=== PATIENT | male | born 1940 | race African-American/Black ===

== ENCOUNTER 2020-02-27 00:16 | Inpatient (IN) | payer OTHER, MEDICAID ==
[~2020-02-27] VITALS: Ht 182.9 cm; Wt 117.0 kg
[~2020-02-27 00:16] MED LIST: ALBU2.5V5 NEB; AMLO10TA4 PO; ASPI-482 PO; ATOR10TA60 PO; AZIT250T6 PO; CALC-31 PO; CEFP100T PO; CLON1PAT11 TD; FURO40TA4 PO; GLIM2TAB7 PO; GLIP-26 PO; GUAI5SYR PO; LACT1CAP19 PO; LISI-334 PO; LISI10TA2 PO; METF-658 PO; METF10007 PO; POTA20TA12 PO; SAXA5TAB PO; cyanocobalamin PO
[2020-02-27 00:31] LABS: BASE EXCESS ABG 1 mmol/L (-3-3); CORRECTED PCO2 ABG 48 mmHg; CORRECTED PH ABG 7.35; CORRECTED PO2 ABG 107 mmHg; HCO3 ABG 26 mmol/L (21-28); PCO2 ABG 43 mmHg (35-46); PO2 ABG 90 mmHg (65-108); SAT O2 ABG 96 % (92-99)
[2020-02-27] MEDS ORDERED: ACETAMINOPHEN 650 MG SUPP.RECT. PR ONE (01:00)
[2020-02-27 01:13] LABS: BASO # 0.1 x10^3/uL (0.0-0.2); BASO % 1 % (0-3); EOS % 0 % (0-3); HEMATOCRIT 40.3 % (39.0-53.0); HEMOGLOBIN 13.3 g/dL (13.0-17.5); LYMPH # 1.8 x10^3/uL (1.0-4.8); LYMPH % 19 % (24-48); MEAN CORPUSCULAR HEMOGLOBIN 29 pg (25-35); MEAN CORPUSCULAR HGB CONC 33 g/dL (31-37); MEAN CORPUSCULAR VOLUME 88 fL (79-100); MONO # 0.4 x10^3/uL (0.0-1.1); MONO % 5 % (0-9); NEUT # 7.1 x10^3/uL (1.8-7.7); NEUT % 76 % (31-73); PLATELET COUNT 212 x10^3/uL (140-400); RED BLOOD COUNT 4.56 x10^6/uL (4.30-5.70); RED CELL DISTRIBUTION WIDTH 15.1 % (11.5-14.5); WHITE BLOOD COUNT 9.3 x10^3/uL (4.0-11.0)
--- NOTE | 2020-02-27 01:20 | PHYS DOC ---
Past Medical History Past Medical History: Anemia, Dementia, Diabetes-Type II, Diverticulosis, GERD, High Cholesterol, Hypertension, Other Additional Past Medical Histor: MUSCLE WEAKNESS, POLYNEUROPATHY Past Surgical History: Other Additional Past Surgical Histo: PT POOR HISTORIAN Smoking Status: Unknown if ever smoked Alcohol Use: None Drug Use: None General Adult EDM: Chief Complaint: ALTERED MENTAL STATUS HPI: HPI: Patient is a 79-year-old male with known coronavirus who presents to the emergency room with respiratory distress. Patient is unable to provide any history. Is unclear at this time how long he has been ill. Is unclear whether or not he is on oxygen at baseline. Upon arrival to the emergency room he is on a nonrebreather. He reportedly had a pulse ox of 79 upon EMS arrival. Review of Systems: Review of Systems: Unable to obtain Heart Score: Risk Factors: Risk Factors: DM, Current or recent (<one month) smoker, HTN, HLP, family history of CAD, obesity. Risk Scores: Score 0 - 3: 2.5% MACE over next 6 weeks - Discharge Home Score 4 - 6: 20.3% MACE over next 6 weeks - Admit for Clinical Observation Score 7 - 10: 72.7% MACE over next 6 weeks - Early Invasive Strategies Current Medications: Current Medications Medications (Trade) Dose Ordered Sig/Nick Start Time Stop Time Status Last Admin Dose Admin Acetaminophen (Tylenol Supp) 650 mg 1X ONCE 02/27/20 01:00 02/27/20 01:01 DC 02/27/20 01:06 650 MG Allergies: Allergies: Allergies Coded Allergies Type Severity Reaction Last Updated Verified No Known Drug Allergies 07/08/13 No Physical Exam: PE: General: Awake, mild distress. Well Nourished, well hydrated. Cooperative HEENT: Atraumatic, EOMI, PERRL, airway patent, moist oral mucosa Neck: Supple, trachea midline Pulm: decreased breath sounds, diffuse crackles, tachypnea, increase work of breathing CV: tachycardia, no murmur, cap refill <2 GI: Soft, nondistended, nontender, no masses MSK: No obvious deformities Skin: Warm, dry, intact Neuro: nonverbal, sensory and motor grossly intact, no focal deficits Psych: not suicidal or homicidal Current Patient Data: Labs: Laboratory Tests Test 02/27/20 00:29 O2 Saturation 96 % (92-99) Arterial Blood pH 7.40 (7.35-7.45) Arterial Blood pH (Temp corrected) 7.35 Arterial Blood pCO2 at Patient Temp 43 mmHg (35-46) Arterial Blood pCO2 (Temp correct) 48 mmHg Arterial Blood pO2 at Patient Temp 90 mmHg (65-108) Arterial Blood pO2 (Temp corrected) 107 mmHg Arterial Blood HCO3 26 mmol/L (21-28) Arterial Blood Base Excess 1 mmol/L (-3-3) Vital Signs: Vital Signs Date Time Temp Pulse Resp B/P (MAP) Pulse Ox O2 Delivery O2 Flow Rate FiO2 02/27/20 00:18 103.6 78 51 146/81 (102) 98 15.0 103.6 EKG: EKG: [] Radiology/Procedures: Radiology/Procedures: [] Course & Med Decision Making: Course & Med Decision Making Pertinent Labs and Imaging studies reviewed. (See chart for details) Patient is a 79-year-old male who presents to the emergency room with shortness of breath with respiratory distress. At this time there is concern for the novel coronavirus 19. Patient's risk factors include age. Risk stratifying work-up was ordered including chest x-ray, d-dimer, CPK, CRP, LDH, troponin, ferritin, CBC, CMP. At this time, patients labs, vitals, and exam are significant for hypoxia. Patient was able to be weaned down from a nonrebreather to 6 L nasal cannula. ABG was done and patient is compensating well at this time. Due to patient's risk and clinical picture, they will need to be admitted at this time. IVFs will be limited due to concern for fluid overload in COVID-19 patients. Patient will be given empiric antibiotics due to infiltrates and risk of co-bacterial infection. Further treatment will be dictated by the inpatient team. Dragon Disclaimer: Dragon Disclaimer: This electronic medical record was generated, in whole or in part, using a voice recognition dictation system. Departure Departure Impression: Primary Impression: Respiratory failure with hypoxia Additional Impression: 2019 novel coronavirus disease (COVID-19) Disposition: ADMITTED INPATIENT Condition: STABLE Referrals: UNKNOWN PCP NAME (PCP) Justicifation of Admission Dx: Justifications for Admission: Justification of Admission Dx: Yes Respiratory Failure: Severe Resp Distress Critical Care Time Critical Care: Authorized and Performed by: Niecy Escobar MD Total critical care time: approximately 35 minutes Due to a high probability of clinically significant, life threatening deterioration, the patient required my highest level of preparedness to intervene emergently and I personally spent this critical care time directly and personally managing the patient. This critical care time included obtaining a history; examining the patient; pulse oximetry; ventilator management if necessary; ordering and review of studies; arranging urgent treatment with development of a management plan; evaluation of patient's response to treatment; frequent reassessment; discussion with patient/family; and, discussions with other providers. This critical care time was performed to assess and manage the high probability of imminent, life-threatening deterioration that could result in multi-organ failure. It was exclusive of separately billable procedures and treating other patients and teaching time. Please see MDM section and the rest of the note for further information on patient assessment and treatment. COVID-19 Assessment: COVID-19 Patient Risks: Age 65 or older: Yes Sign of co-morbidity: Yes Exp to person + for COVID: Yes Lower respiratory symptoms: Yes Fever: Yes NIECY ESCOBAR MD Feb 27, 2020 01:20
[2020-02-27 01:33] LABS: CALCIUM 8.3 mg/dL (8.5-10.1); CREATININE 1.4 mg/dL (0.7-1.3); GFR 59.5; POTASSIUM 4.3 mmol/L (3.5-5.1)
[2020-02-27 01:46] LABS: ALBUMIN 2.7 g/dL (3.4-5.0); ALBUMIN/GLOBULIN RATIO 0.5 (1.0-1.7); C-REACTIVE PROTEIN 163.7 mg/L (0-3.3); TOTAL BILIRUBIN 0.3 mg/dL (0.2-1.0); TOTAL PROTEIN 7.7 g/dL (6.4-8.2)
--- NOTE | 2020-02-27 01:53 | RAD ---
INDICATION: Reason: cough, infectious symptoms COMPARISON: May 2018 FINDINGS: Single view of chest obtained. Cardiac silhouette is again enlarged. Patchy interstitial and alveolar opacities throughout the right greater than left lung IMPRESSION: * Patchy opacities in bilateral lungs which could be seen with multifocal infiltrate or edema Electronically signed by: Heber Evans MD (02/27/2020 1:50 AM) [id number]
[2020-02-27 04:00] VITALS: BP 96/52
[2020-02-27] MEDS ORDERED: GLIP-26 PO (05:30)
[2020-02-27] MEDS ORDERED: ACET500T33 PO (05:30)
[2020-02-27] MEDS ORDERED: FURO20TA3 PO (05:30)
[2020-02-27] MEDS ORDERED: SENN8.8S5 PO (05:30)
[2020-02-27 07:00] VITALS: BP 126/54
[2020-02-27] MEDS ORDERED: DEXTROSE 50% 25 GM / 50ML DISP.SYRIN. IV PRN (07:15)
[2020-02-27] MEDS ORDERED: ACETAMINOPHEN 650 MG SUPP.RECT. PR PRN (07:15)
[2020-02-27] MEDS ORDERED: MAG HYDROX/ALUMINUM HYD/SIMETH 30 ML ORAL.SUSP PO PRN (07:15)
[2020-02-27] MEDS ORDERED: ONDANSETRON PF 4 MG/2 ML VIAL. IV PRN (07:15)
[2020-02-27] MEDS ORDERED: ACETAMINOPHEN 325 MG TABLET. PO PRN (07:15)
[2020-02-27] MEDS ORDERED: guaiFENesin DM 200MG/20MG 10 ML SYRUP PO PRN (07:15)
--- NOTE | 2020-02-27 07:17 | PDOC1 ---
History and Physical Date of Admission Date of Admission DATE: 02/27/20 TIME: 07:04 Identification/Chief Complaint Chief Complaint Shortness of breath Source Source: Patient History of Present Illness History of Present Illness Mr Rivera is a 79-year-old male with PMHx Anemia, Dementia, Diabetes-Type II, Diverticulosis, GERD, High Cholesterol, Hypertension, POLYNEUROPATHY resident of [facility] in [place] comes to ED with known SARS-CoV-2 (COVID 19) who presents to the emergency room with respiratory distress. Patient is unable to provide any history. Is unclear at this time how long he has been ill. Is unclear whether or not he is on oxygen at baseline. Upon arrival to the emergency room he is on a nonrebreather. He reportedly had a pulse ox of 72 upon EMS arrival. Patient was able to be weaned down from a nonrebreather to 6 L nasal cannula. ABG was done 7.35/48/107 on 6 L nasal cannula. WBC 9.3, Hb 13.3, platelets 212, d-dimer 3.92, troponin 0 0.22, AST 57, CRP 163.7, CK 1865, albumin 2.7 EKG sinus rhythm, leftward axis QRS transition zone, nonspecific T abnormalities high lateral leads, new prolonged QT. CXR with bilateral patchy infiltrate consistent with COVID-19 pneumonia. Admitted for further care. Past Medical History Cardiovascular: HTN, Hyperlipidemia Endocrine: Diabetes Past Surgical History Past Surgical History: No pertinent history Family History Family History: No Significant Social History Smoke: No ALCOHOL: none Drugs: None Current Problem List Problem List Problems Medical Problems: (1) 2019 novel coronavirus disease (COVID-19) Status: Acute (2) Respiratory failure with hypoxia Status: Acute Current Medications Current Medications Current Medications Acetaminophen (Tylenol Supp) 650 mg 1X ONCE TX Last administered on 02/27/20at 01:06; Start 02/27/20 at 01:00; Stop 02/27/20 at 01:01; Status DC Active Scripts Active Culturelle (Lactobacillus Rhamnosus Gg) 1 Each Cap.sprink 1 Cap PO BID 30 Days Guaifenesin Dm Syrup (Guaifenesin/Dextromethorphan) 5 Ml Syrup 10 Ml PO PRN Q6HRS PRN 30 Days Albuterol Sulfate Neb Soln (Albuterol Sulfate) 2.5 Mg/3 Ml Vial.neb 2.5 Mg NEB PRN Q4HRS PRN 30 Days Azithromycin Tablet (Azithromycin) 250 Mg Tablet 250 Mg PO DAILY 5 Days Cefpodoxime Proxetil 100 Mg Tablet 200 Mg PO BID 5 Days Reported Senna (Sennosides) 8.8 Mg/5 Ml Syrup 8.8 Mg PO DAILY Tylenol Extra Strength (Acetaminophen) 500 Mg Tablet 1,000 Mg PO PRN PRN Furosemide 20 Mg Tablet 1 Tab PO DAILY Glipizide Xl (Glipizide) 10 Mg Tab.er.24 1 Tab PO DAILY 30 Days Metformin Hcl Er (Metformin Hcl) 500 Mg Tab.er.24h 1,000 Mg PO DAILYWBKFT Glipizide Xl (Glipizide) 10 Mg Tab.er.24 10 Mg PO DAILY Calcium 500 + D Tablet (Calcium Carbonate/Vitamin D3) 1 Each Tablet 1 Each PO DAILY Catapres-Tts 3 (Clonidine) 1 Each Patch.tdwk 1 Each TD WEEKLY Lisinopril 20 Mg Tablet 1 Tab PO DAILY [cyanocobalamin] 100 Mcg PO DAILY Aspir 81 (Aspirin) 81 Mg Tablet.dr 81 Mg PO DAILY Norvasc (Amlodipine Besylate) 10 Mg Tablet 10 Mg PO DAILY Atorvastatin Calcium 10 Mg Tablet 10 Mg PO HS Allergies Allergies: Coded Allergies: No Known Drug Allergies (Unverified , 07/08/13) ROS Review of System Unable to obtain as patient is minimally verbally interactive Physical Exam General: Alert, Cooperative, mild distress HEENT: Atraumatic, PERRLA, EOMI, Mucous membr. moist/pink Lungs: Other (Rhonchi bilaterally) Heart: S1S2, RRR, no thrills, no rubs, no gallops, no murmurs Abdomen: Normal bowel sounds, Soft, No tenderness, No hepatosplenomegaly, No masses Extremities: No clubbing, No cyanosis, No edema, Normal pulses, No tenderness/swelling Skin: No rashes, No breakdown, No significant lesion Neuro: Normal tone, Sensation intact, Cranial nerves 3-12 NL, Reflexes 2+ Psych/Mental Status: Other (Paucity of speech, confused) Vitals Vitals Vital Signs Date Time Temp Pulse Resp B/P (MAP) Pulse Ox O2 Delivery O2 Flow Rate FiO2 02/27/20 04:00 Nasal Cannula 6.0 02/27/20 04:00 100.7 89 22 96/52 (67) 96 100.7 Labs Labs Laboratory Tests Test 02/27/20 00:29 02/27/20 00:40 O2 Saturation 96 % (92-99) Arterial Blood pH 7.40 (7.35-7.45) Arterial Blood pH (Temp corrected) 7.35 Arterial Blood pCO2 at Patient Temp 43 mmHg (35-46) Arterial Blood pCO2 (Temp correct) 48 mmHg Arterial Blood pO2 at Patient Temp 90 mmHg (65-108) Arterial Blood pO2 (Temp corrected) 107 mmHg Arterial Blood HCO3 26 mmol/L (21-28) Arterial Blood Base Excess 1 mmol/L (-3-3) White Blood Count 9.3 x10^3/uL (4.0-11.0) Red Blood Count 4.56 x10^6/uL (4.30-5.70) Hemoglobin 13.3 g/dL (13.0-17.5) Hematocrit 40.3 % (39.0-53.0) Mean Corpuscular Volume 88 fL (79-100) Mean Corpuscular Hemoglobin 29 pg (25-35) Mean Corpuscular Hemoglobin Concent 33 g/dL (31-37) Red Cell Distribution Width 15.1 % (11.5-14.5) Platelet Count 212 x10^3/uL (140-400) Neutrophils (%) (Auto) 76 % (31-73) Lymphocytes (%) (Auto) 19 % (24-48) Monocytes (%) (Auto) 5 % (0-9) Eosinophils (%) (Auto) 0 % (0-3) Basophils (%) (Auto) 1 % (0-3) Neutrophils # (Auto) 7.1 x10^3/uL (1.8-7.7) Lymphocytes # (Auto) 1.8 x10^3/uL (1.0-4.8) Monocytes # (Auto) 0.4 x10^3/uL (0.0-1.1) Eosinophils # (Auto) 0.0 x10^3/uL (0.0-0.7) Basophils # (Auto) 0.1 x10^3/uL (0.0-0.2) D-Dimer (Viv) 3.92 ug/mlFEU (0.00-0.50) Sodium Level 143 mmol/L (136-145) Potassium Level 4.3 mmol/L (3.5-5.1) Chloride Level 106 mmol/L (98-107) Carbon Dioxide Level 28 mmol/L (21-32) Anion Gap 9 (6-14) Blood Urea Nitrogen 21 mg/dL (8-26) Creatinine 1.4 mg/dL (0.7-1.3) Estimated GFR (Cockcroft-Gault) 59.5 BUN/Creatinine Ratio 15 (6-20) Glucose Level 180 mg/dL (70-99) Calcium Level 8.3 mg/dL (8.5-10.1) Total Bilirubin 0.3 mg/dL (0.2-1.0) Aspartate Amino Transf (AST/SGOT) 57 U/L (15-37) Alanine Aminotransferase (ALT/SGPT) 24 U/L (16-63) Alkaline Phosphatase 62 U/L (46-116) Lactate Dehydrogenase 464 U/L (85-227) Creatine Kinase 1865 U/L (39-308) Troponin I Quantitative 0.022 ng/mL (0.000-0.055) C-Reactive Protein, Quantitative 163.7 mg/L (0-3.3) QZ-Gun-X-Type Natriuretic Peptide 290 pg/mL (0-449) Total Protein 7.7 g/dL (6.4-8.2) Albumin 2.7 g/dL (3.4-5.0) Albumin/Globulin Ratio 0.5 (1.0-1.7) Laboratory Tests Test 02/27/20 00:29 02/27/20 00:40 O2 Saturation 96 % (92-99) Arterial Blood pH 7.40 (7.35-7.45) Arterial Blood pH (Temp corrected) 7.35 Arterial Blood pCO2 at Patient Temp 43 mmHg (35-46) Arterial Blood pCO2 (Temp correct) 48 mmHg Arterial Blood pO2 at Patient Temp 90 mmHg (65-108) Arterial Blood pO2 (Temp corrected) 107 mmHg Arterial Blood HCO3 26 mmol/L (21-28) Arterial Blood Base Excess 1 mmol/L (-3-3) White Blood Count 9.3 x10^3/uL (4.0-11.0) Red Blood Count 4.56 x10^6/uL (4.30-5.70) Hemoglobin 13.3 g/dL (13.0-17.5) Hematocrit 40.3 % (39.0-53.0) Mean Corpuscular Volume 88 fL (79-100) Mean Corpuscular Hemoglobin 29 pg (25-35) Mean Corpuscular Hemoglobin Concent 33 g/dL (31-37) Red Cell Distribution Width 15.1 % (11.5-14.5) Platelet Count 212 x10^3/uL (140-400) Neutrophils (%) (Auto) 76 % (31-73) Lymphocytes (%) (Auto) 19 % (24-48) Monocytes (%) (Auto) 5 % (0-9) Eosinophils (%) (Auto) 0 % (0-3) Basophils (%) (Auto) 1 % (0-3) Neutrophils # (Auto) 7.1 x10^3/uL (1.8-7.7) Lymphocytes # (Auto) 1.8 x10^3/uL (1.0-4.8) Monocytes # (Auto) 0.4 x10^3/uL (0.0-1.1) Eosinophils # (Auto) 0.0 x10^3/uL (0.0-0.7) Basophils # (Auto) 0.1 x10^3/uL (0.0-0.2) D-Dimer (Viv) 3.92 ug/mlFEU (0.00-0.50) Sodium Level 143 mmol/L (136-145) Potassium Level 4.3 mmol/L (3.5-5.1) Chloride Level 106 mmol/L (98-107) Carbon Dioxide Level 28 mmol/L (21-32) Anion Gap 9 (6-14) Blood Urea Nitrogen 21 mg/dL (8-26) Creatinine 1.4 mg/dL (0.7-1.3) Estimated GFR (Cockcroft-Gault) 59.5 BUN/Creatinine Ratio 15 (6-20) Glucose Level 180 mg/dL (70-99) Calcium Level 8.3 mg/dL (8.5-10.1) Total Bilirubin 0.3 mg/dL (0.2-1.0) Aspartate Amino Transf (AST/SGOT) 57 U/L (15-37) Alanine Aminotransferase (ALT/SGPT) 24 U/L (16-63) Alkaline Phosphatase 62 U/L (46-116) Lactate Dehydrogenase 464 U/L (85-227) Creatine Kinase 1865 U/L (39-308) Troponin I Quantitative 0.022 ng/mL (0.000-0.055) C-Reactive Protein, Quantitative 163.7 mg/L (0-3.3) IC-Fyb-L-Type Natriuretic Peptide 290 pg/mL (0-449) Total Protein 7.7 g/dL (6.4-8.2) Albumin 2.7 g/dL (3.4-5.0) Albumin/Globulin Ratio 0.5 (1.0-1.7) Images Images CXR: Single view of chest obtained. Cardiac silhouette is again enlarged. Patchy interstitial and alveolar opacities throughout the right greater than left lung IMPRESSION: * Patchy opacities in bilateral lungs which could be seen with multifocal infiltrate or edema VTE Prophylaxis Ordered VTE Prophylaxis Devices: No VTE Pharmacological Prophylaxi: Yes Assessment/Plan Assessment/Plan A/P Respiratory failure with hypoxia - likely 2/2 COVID 19. Steroids, Lovenox twice daily, consult pulmonology. Maintain O2 saturations 92% or greater. SARS-CoV-2 (COVID-19) - As above Anemia - likely of chronic disease Dementia - uncertain etiology, was in adult daycare until this past year, now in SNF [employer] Diabetes-Type II - sliding scale insulin, will hold oral hypoglycemics for now GERD - cont antacids High Cholesterol - cont statin Hypertension - cont meds, hold clonidine patch given his BP is on the low side POLYNEUROPATHY - CK elevated, will monitor FEN - Pureed nectar thick diet PPX - lovenox FULL CODE Dispo - inpatient, will need close O2 monitoring Justicifation of Admission Dx: Justifications for Admission: Justification of Admission Dx: Yes Respiratory Failure: Severe Resp Distress LATISHA ROTHMAN MD Feb 27, 2020 07:17
[2020-02-27] MEDS: INSULIN LISPRO 300 UNITS/3 ML VIAL. SQ SCH ×4 (07:30→21:00)
[2020-02-27] MEDS ORDERED: cloNIDine TTS-3 1 PATCH PATCH.TDWK TD SCH (09:00)
[2020-02-27] MEDS: LACTOBACILLUS RHAMNOSUS GG 1 CAPSULE. PO SCH ×2 (09:00→21:00)
[2020-02-27] MEDS ORDERED: ENOXAPARIN 30 MG/0.3 ML SYRINGE. SQ SCH (09:00)
[2020-02-27] MEDS: ASPIRIN ENTERIC COATED 81 MG TABLET.DR. PO SCH (09:00)
[2020-02-27] MEDS: amLODIPine BESYLATE 10 MG TABLET PO SCH (09:00)
--- NOTE | 2020-02-27 09:43 | EKG ---
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
[2020-02-27 11:00] VITALS: BP 109/54
[2020-02-27] MEDS: methylPREDNISolone SOD SUCC PF 40 MG/ML VIAL. IV SCH ×3 (11:35→21:50)
[2020-02-27 11:57] LABS: BASE EXCESS ABG -1 mmol/L (-3-3); CORRECTED PCO2 ABG 47 mmHg; CORRECTED PH ABG 7.35; CORRECTED PO2 ABG 68 mmHg; HCO3 ABG 25 mmol/L (21-28); PCO2 ABG 44 mmHg (35-46); PO2 ABG 60 mmHg (65-108); SAT O2 ABG 91 % (92-99)
[2020-02-27 12:00] LABS: FIO2 ABG 44/6L NC
[2020-02-27 14:33] VITALS: BP 103/51
[2020-02-27] MEDS: ZINC SULFATE 220 MG CAPSULE. PO SCH (16:00)
--- NOTE | 2020-02-27 17:30 | NUR ---
SW following. Reviewed chart and discussed with RN. Pt on . Pt COVID positive. Pulmonary consulted. SW following.
[2020-02-27 19:00] VITALS: BP 149/64
[2020-02-27] MEDS ORDERED: ENOXAPARIN 40 MG/0.4 ML SYRINGE. SQ SCH (21:00)
[2020-02-27] MEDS: ATORVASTATIN CALCIUM 10 MG TABLET. PO SCH (21:00)
[2020-02-27 23:00] VITALS: BP 133/60
[2020-02-28 03:00] VITALS: BP 117/56
[2020-02-28 03:55] LABS: BASO % 0 % (0-3); EOS % 0 % (0-3); HEMATOCRIT 37.6 % (39.0-53.0); HEMOGLOBIN 12.4 g/dL (13.0-17.5); LYMPH # 0.5 x10^3/uL (1.0-4.8); LYMPH % 7 % (24-48); MEAN CORPUSCULAR HEMOGLOBIN 29 pg (25-35); MEAN CORPUSCULAR HGB CONC 33 g/dL (31-37); MEAN CORPUSCULAR VOLUME 89 fL (79-100); MONO # 0.2 x10^3/uL (0.0-1.1); MONO % 3 % (0-9); NEUT # 6.7 x10^3/uL (1.8-7.7); NEUT % 90 % (31-73); PLATELET COUNT 175 x10^3/uL (140-400); RED BLOOD COUNT 4.22 x10^6/uL (4.30-5.70); RED CELL DISTRIBUTION WIDTH 15.1 % (11.5-14.5); WHITE BLOOD COUNT 7.5 x10^3/uL (4.0-11.0)
[2020-02-28 04:27] LABS: ALBUMIN 2.5 g/dL (3.4-5.0); ALBUMIN/GLOBULIN RATIO 0.5 (1.0-1.7); CALCIUM 7.6 mg/dL (8.5-10.1); CREATININE 2.4 mg/dL (0.7-1.3); GFR 31.9; POTASSIUM 4.5 mmol/L (3.5-5.1); TOTAL BILIRUBIN 0.4 mg/dL (0.2-1.0); TOTAL PROTEIN 7.3 g/dL (6.4-8.2)
[2020-02-28 05:29] LABS: % BANDS 5 % (0-9); % LYMPHS 13 % (24-48); % MONOS 2 % (0-10); % SEGS 80 % (35-66); PLT ESTIMATE ADEQUATE (ADEQUATE)
[2020-02-28] MEDS: methylPREDNISolone SOD SUCC PF 40 MG/ML VIAL. IV SCH ×3 (06:28→21:46)
[2020-02-28 07:29] VITALS: BP 113/53
[2020-02-28] MEDS: ZINC SULFATE 220 MG CAPSULE. PO SCH ×2 (08:29→09:00)
[2020-02-28] MEDS: ASPIRIN ENTERIC COATED 81 MG TABLET.DR. PO SCH ×2 (08:29→09:00)
[2020-02-28] MEDS: LACTOBACILLUS RHAMNOSUS GG 1 CAPSULE. PO SCH ×3 (08:29→20:04)
[2020-02-28] MEDS: amLODIPine BESYLATE 10 MG TABLET PO SCH ×2 (08:29→09:00)
[2020-02-28] MEDS: INSULIN LISPRO 300 UNITS/3 ML VIAL. SQ SCH ×4 (10:02→21:47)
--- NOTE | 2020-02-28 10:30 | PDOC ---
PULMONARY PROGRESS NOTES DATE: 02/28/20 TIME: 10:22 Subjective pt. remains lethargic, unknown alertness baseline with underlying dementia remains on N/C oxygen fever overnight Vitals Vital Signs Date Time Temp Pulse Resp B/P (MAP) Pulse Ox O2 Delivery O2 Flow Rate FiO2 02/28/20 09:00 68 113/53 02/28/20 07:29 99.4 18 93 Nasal Cannula 6.0 99.4 Comments PT. seen during ID- pandemic visual exam preformed RRR N/C no distress no rash No edeam Lungs: Wheezing, Crackles Cardiovascular: S1 Labs Laboratory Tests Test 02/27/20 00:29 02/27/20 00:40 02/27/20 08:04 02/27/20 11:07 O2 Saturation 96 % (92-99) Arterial Blood pH 7.40 (7.35-7.45) Arterial Blood pH (Temp corrected) 7.35 Arterial Blood pCO2 at Patient Temp 43 mmHg (35-46) Arterial Blood pCO2 (Temp correct) 48 mmHg Arterial Blood pO2 at Patient Temp 90 mmHg (65-108) Arterial Blood pO2 (Temp corrected) 107 mmHg Arterial Blood HCO3 26 mmol/L (21-28) Arterial Blood Base Excess 1 mmol/L (-3-3) White Blood Count 9.3 x10^3/uL (4.0-11.0) Red Blood Count 4.56 x10^6/uL (4.30-5.70) Hemoglobin 13.3 g/dL (13.0-17.5) Hematocrit 40.3 % (39.0-53.0) Mean Corpuscular Volume 88 fL (79-100) Mean Corpuscular Hemoglobin 29 pg (25-35) Mean Corpuscular Hemoglobin Concent 33 g/dL (31-37) Red Cell Distribution Width 15.1 % (11.5-14.5) Platelet Count 212 x10^3/uL (140-400) Neutrophils (%) (Auto) 76 % (31-73) Lymphocytes (%) (Auto) 19 % (24-48) Monocytes (%) (Auto) 5 % (0-9) Eosinophils (%) (Auto) 0 % (0-3) Basophils (%) (Auto) 1 % (0-3) Neutrophils # (Auto) 7.1 x10^3/uL (1.8-7.7) Lymphocytes # (Auto) 1.8 x10^3/uL (1.0-4.8) Monocytes # (Auto) 0.4 x10^3/uL (0.0-1.1) Eosinophils # (Auto) 0.0 x10^3/uL (0.0-0.7) Basophils # (Auto) 0.1 x10^3/uL (0.0-0.2) D-Dimer (Viv) 3.92 ug/mlFEU (0.00-0.50) Sodium Level 143 mmol/L (136-145) Potassium Level 4.3 mmol/L (3.5-5.1) Chloride Level 106 mmol/L (98-107) Carbon Dioxide Level 28 mmol/L (21-32) Anion Gap 9 (6-14) Blood Urea Nitrogen 21 mg/dL (8-26) Creatinine 1.4 mg/dL (0.7-1.3) Estimated GFR (Cockcroft-Gault) 59.5 BUN/Creatinine Ratio 15 (6-20) Glucose Level 180 mg/dL (70-99) Calcium Level 8.3 mg/dL (8.5-10.1) Total Bilirubin 0.3 mg/dL (0.2-1.0) Aspartate Amino Transf (AST/SGOT) 57 U/L (15-37) Alanine Aminotransferase (ALT/SGPT) 24 U/L (16-63) Alkaline Phosphatase 62 U/L (46-116) Lactate Dehydrogenase 464 U/L (85-227) Creatine Kinase 1865 U/L (39-308) Troponin I Quantitative 0.022 ng/mL (0.000-0.055) C-Reactive Protein, Quantitative 163.7 mg/L (0-3.3) HK-Alv-B-Type Natriuretic Peptide 290 pg/mL (0-449) Total Protein 7.7 g/dL (6.4-8.2) Albumin 2.7 g/dL (3.4-5.0) Albumin/Globulin Ratio 0.5 (1.0-1.7) Glucose (Fingerstick) 137 mg/dL (70-99) 151 mg/dL (70-99) Test 02/27/20 11:22 02/27/20 15:51 02/27/20 21:05 8/22/20 03:40 O2 Saturation 91 % (92-99) Arterial Blood pH 7.37 (7.35-7.45) Arterial Blood pH (Temp corrected) 7.35 Arterial Blood pCO2 at Patient Temp 44 mmHg (35-46) Arterial Blood pCO2 (Temp correct) 47 mmHg Arterial Blood pO2 at Patient Temp 60 mmHg (65-108) Arterial Blood pO2 (Temp corrected) 68 mmHg Arterial Blood HCO3 25 mmol/L (21-28) Arterial Blood Base Excess -1 mmol/L (-3-3) FiO2 44/6l nc Glucose (Fingerstick) 143 mg/dL (70-99) 221 mg/dL (70-99) White Blood Count 7.5 x10^3/uL (4.0-11.0) Red Blood Count 4.22 x10^6/uL (4.30-5.70) Hemoglobin 12.4 g/dL (13.0-17.5) Hematocrit 37.6 % (39.0-53.0) Mean Corpuscular Volume 89 fL (79-100) Mean Corpuscular Hemoglobin 29 pg (25-35) Mean Corpuscular Hemoglobin Concent 33 g/dL (31-37) Red Cell Distribution Width 15.1 % (11.5-14.5) Platelet Count 175 x10^3/uL (140-400) Neutrophils (%) (Auto) 90 % (31-73) Lymphocytes (%) (Auto) 7 % (24-48) Monocytes (%) (Auto) 3 % (0-9) Eosinophils (%) (Auto) 0 % (0-3) Basophils (%) (Auto) 0 % (0-3) Neutrophils # (Auto) 6.7 x10^3/uL (1.8-7.7) Lymphocytes # (Auto) 0.5 x10^3/uL (1.0-4.8) Monocytes # (Auto) 0.2 x10^3/uL (0.0-1.1) Eosinophils # (Auto) 0.0 x10^3/uL (0.0-0.7) Basophils # (Auto) 0.0 x10^3/uL (0.0-0.2) Segmented Neutrophils % 80 % (35-66) Band Neutrophils % 5 % (0-9) Lymphocytes % 13 % (24-48) Monocytes % 2 % (0-10) Platelet Estimate Adequate (ADEQUATE) Sodium Level 145 mmol/L (136-145) Potassium Level 4.5 mmol/L (3.5-5.1) Chloride Level 108 mmol/L (98-107) Carbon Dioxide Level 26 mmol/L (21-32) Anion Gap 11 (6-14) Blood Urea Nitrogen 43 mg/dL (8-26) Creatinine 2.4 mg/dL (0.7-1.3) Estimated GFR (Cockcroft-Gault) 31.9 BUN/Creatinine Ratio 18 (6-20) Glucose Level 252 mg/dL (70-99) Calcium Level 7.6 mg/dL (8.5-10.1) Total Bilirubin 0.4 mg/dL (0.2-1.0) Aspartate Amino Transf (AST/SGOT) 73 U/L (15-37) Alanine Aminotransferase (ALT/SGPT) 31 U/L (16-63) Alkaline Phosphatase 53 U/L (46-116) Total Protein 7.3 g/dL (6.4-8.2) Albumin 2.5 g/dL (3.4-5.0) Albumin/Globulin Ratio 0.5 (1.0-1.7) Test 02/28/20 07:10 02/28/20 10:12 Glucose (Fingerstick) 229 mg/dL (70-99) 263 mg/dL (70-99) Laboratory Tests Test 02/27/20 11:07 02/27/20 11:22 02/27/20 15:51 02/27/20 21:05 Glucose (Fingerstick) 151 mg/dL (70-99) 143 mg/dL (70-99) 221 mg/dL (70-99) O2 Saturation 91 % (92-99) Arterial Blood pH 7.37 (7.35-7.45) Arterial Blood pH (Temp corrected) 7.35 Arterial Blood pCO2 at Patient Temp 44 mmHg (35-46) Arterial Blood pCO2 (Temp correct) 47 mmHg Arterial Blood pO2 at Patient Temp 60 mmHg (65-108) Arterial Blood pO2 (Temp corrected) 68 mmHg Arterial Blood HCO3 25 mmol/L (21-28) Arterial Blood Base Excess -1 mmol/L (-3-3) FiO2 44/6l nc Test 02/28/20 03:40 02/28/20 07:10 02/28/20 10:12 White Blood Count 7.5 x10^3/uL (4.0-11.0) Red Blood Count 4.22 x10^6/uL (4.30-5.70) Hemoglobin 12.4 g/dL (13.0-17.5) Hematocrit 37.6 % (39.0-53.0) Mean Corpuscular Volume 89 fL (79-100) Mean Corpuscular Hemoglobin 29 pg (25-35) Mean Corpuscular Hemoglobin Concent 33 g/dL (31-37) Red Cell Distribution Width 15.1 % (11.5-14.5) Platelet Count 175 x10^3/uL (140-400) Neutrophils (%) (Auto) 90 % (31-73) Lymphocytes (%) (Auto) 7 % (24-48) Monocytes (%) (Auto) 3 % (0-9) Eosinophils (%) (Auto) 0 % (0-3) Basophils (%) (Auto) 0 % (0-3) Neutrophils # (Auto) 6.7 x10^3/uL (1.8-7.7) Lymphocytes # (Auto) 0.5 x10^3/uL (1.0-4.8) Monocytes # (Auto) 0.2 x10^3/uL (0.0-1.1) Eosinophils # (Auto) 0.0 x10^3/uL (0.0-0.7) Basophils # (Auto) 0.0 x10^3/uL (0.0-0.2) Segmented Neutrophils % 80 % (35-66) Band Neutrophils % 5 % (0-9) Lymphocytes % 13 % (24-48) Monocytes % 2 % (0-10) Platelet Estimate Adequate (ADEQUATE) Sodium Level 145 mmol/L (136-145) Potassium Level 4.5 mmol/L (3.5-5.1) Chloride Level 108 mmol/L (98-107) Carbon Dioxide Level 26 mmol/L (21-32) Anion Gap 11 (6-14) Blood Urea Nitrogen 43 mg/dL (8-26) Creatinine 2.4 mg/dL (0.7-1.3) Estimated GFR (Cockcroft-Gault) 31.9 BUN/Creatinine Ratio 18 (6-20) Glucose Level 252 mg/dL (70-99) Calcium Level 7.6 mg/dL (8.5-10.1) Total Bilirubin 0.4 mg/dL (0.2-1.0) Aspartate Amino Transf (AST/SGOT) 73 U/L (15-37) Alanine Aminotransferase (ALT/SGPT) 31 U/L (16-63) Alkaline Phosphatase 53 U/L (46-116) Total Protein 7.3 g/dL (6.4-8.2) Albumin 2.5 g/dL (3.4-5.0) Albumin/Globulin Ratio 0.5 (1.0-1.7) Glucose (Fingerstick) 229 mg/dL (70-99) 263 mg/dL (70-99) Medications Active Scripts Medications Dose Route/Sig Max Daily Dose Days Date Category Senna (Sennosides) 8.8 Mg/5 Ml Syrup 8.8 Mg PO DAILY 02/27/20 Reported Tylenol Extra Strength (Acetaminophen) 500 Mg Tablet 1,000 Mg PO PRN PRN 02/27/20 Reported Furosemide 20 Mg Tablet 1 Tab PO DAILY 02/27/20 Reported Glipizide Xl (Glipizide) 10 Mg Tab.er.24 1 Tab PO DAILY 30 02/27/20 Reported Culturelle (Lactobacillus Rhamnosus Gg) 1 Each Cap.sprink 1 Cap PO BID 30 05/23/18 Rx Guaifenesin Dm Syrup (Guaifenesin/Dextromethorphan) 5 Ml Syrup 10 Ml PO PRN Q6HRS PRN 30 05/23/18 Rx Albuterol Sulfate Neb Soln (Albuterol Sulfate) 2.5 Mg/3 Ml Vial.neb 2.5 Mg NEB PRN Q4HRS PRN 30 05/23/18 Rx Azithromycin Tablet (Azithromycin) 250 Mg Tablet 250 Mg PO DAILY 05/23/18 Rx Cefpodoxime Proxetil 100 Mg Tablet 200 Mg PO BID 05/23/18 Rx Metformin Hcl Er (Metformin Hcl) 500 Mg Tab.er.24h 1,000 Mg PO DAILYWBKFT 05/21/18 Reported Glipizide Xl (Glipizide) 10 Mg Tab.er.24 10 Mg PO DAILY 11/12/18 Reported Calcium 500 + D Tablet (Calcium Carbonate/Vitamin D3) 1 Each Tablet 1 Each PO DAILY 05/20/18 Reported Catapres-Tts 3 (Clonidine) 1 Each Patch.tdwk 1 Each TD WEEKLY 05/20/18 Reported Lisinopril 20 Mg Tablet 1 Tab PO DAILY 05/20/18 Reported [cyanocobalamin] 100 Mcg PO DAILY 05/20/18 Reported Aspir 81 (Aspirin) 81 Mg Tablet.dr 81 Mg PO DAILY 07/08/13 Reported Norvasc (Amlodipine Besylate) 10 Mg Tablet 10 Mg PO DAILY 07/08/13 Reported Atorvastatin Calcium 10 Mg Tablet 10 Mg PO HS 07/08/13 Reported Comments CXR- 02/27/2020 IMPRESSION: * Patchy opacities in bilateral lungs which could be seen with multifocal infiltrate or edema Impression . Acute hypoxic respiratory Failure COVID-19 known positive COVID -19 pneumonia, cannot exclude bacterial pneumonia elevated ddimer 2/2 inflamatory stage of covid19 Fevers Anemia of chronic disease Dementia Plan . supplemental oxygen to keep oxygen sats above 92% ABG and CXR reviewed Tylenol for fevers start iv zosyn for ABX coverage Cont. steroids ST eval before po intake will follow inflammatory markers DVT/GI PPX -- high dose lovenox D/W JOSY GARCIA MD Feb 28, 2020 10:30
--- NOTE | 2020-02-28 11:00 | CONS ---
DATE OF CONSULTATION: PULMONARY CONSULTATION ATTENDING PHYSICIAN: Bhavesh Patiño MD REASON FOR CONSULTATION: Encephalopathy, COVID pneumonia. HISTORY OF PRESENT ILLNESS: The patient is a 79-year-old male who was seen by me yesterday, I cannot find my initial consult, I am re-dictating this one. He lives at [facility] and was diagnosed with COVID-19. He was brought into the hospital with increasing dyspnea and hypoxia and also altered mental status, although it is not clear what his baseline mental status is. He has been having fever of 101. He is on 6 liters nasal cannula and saturation of 93%. I am unable to obtain much history from the patient due to his encephalopathy. I have reviewed labs and chest x-rays. His chest x-ray done on 02/27/2020 showed no definite consolidation. PAST MEDICAL HISTORY: Significant for history of hypertension, hyperlipidemia, diabetes, history of polyneuropathy, dementia. PAST SURGICAL HISTORY: None recently. ALLERGIES: None. MEDICATIONS: Reviewed as listed in the MRAD including IV steroids and Lovenox for DVT prophylaxis. REVIEW OF SYSTEMS: Unable to obtain from the patient. SOCIAL HISTORY: Lives at [facility]. PHYSICAL EXAMINATION: VITAL SIGNS: T-max of 101. Pulse ox 93% on 6 liters. GENERAL: Visual exam done. He does not respond to much stimuli. LUNGS: He does not have any paradoxical breathing. EXTREMITIES: With no pitting edema. LABORATORY DATA: Reviewed. White cell count 7.5, hemoglobin 12.4, platelets are 175. ABGs with a pH of 7.37, pCO2 of 44 and a pO2 of 60 on 44% FiO2. IMPRESSION: 1. Acute hypoxic respiratory failure secondary to COVID-19 infection. 2. No definite consolidation seen on the chest x-ray, although he may have faint ground glass infiltrates, which could be well visualized if a CT chest is done. He has faint interstitial infiltrates on chest x-ray. 3. Encephalopathy could be baseline dementia. We will call the [facility] care facility in [place] to know what his baseline level is. 4. Acute kidney injury. Could be acute on chronic. RECOMMENDATIONS: 1. Continue present oxygen via nasal cannula, keep sats 92 and above. 2. Continue IV steroids. 3. Add empiric antibiotics. 4. Consult ID. 5. We may consider plasma, if does not clinically get better. 6. Discussed with RN and we will follow along with you. 7. Continue with DVT prophylaxis. JOSY CASTILLO MD DR: TAYO/deysi JOB#: [id number] / [id number] JACKY
[2020-02-28 11:35] VITALS: BP 116/56
[2020-02-28] MEDS: IV NORMAL SALINE 1000ML BAG 1,000 ML IV SCH ×2 (12:13→20:14)
[2020-02-28] MEDS: ENOXAPARIN 40 MG/0.4 ML SYRINGE. SQ SCH ×2 (12:15→20:14)
[2020-02-28] MEDS: PIPERACILLIN/TAZOBACTAM 3.375 GM in IV NORMAL SALINE 50ML 50 ML IV SCH ×3 (12:15→23:45)
--- NOTE | 2020-02-28 12:54 | PDOC ---
[employer] PROGRESS NOTE Date of Service DOS: DATE: 02/28/20 TIME: 12:51 Chief Complaint Chief Complaint A/P Respiratory failure with hypoxia - likely 2/2 COVID 19. Steroids, Lovenox twice daily, consult pulmonology. Maintain O2 saturations 92% or greater. SARS-CoV-2 (COVID-19) - As above KENNY - likely vasomotor nephropathy from COVID 19 infection, will monitor renal fx and hydrate Anemia - likely of chronic disease Dementia - uncertain etiology, was in adult daycare until this past year, now in SNF longterm Diabetes-Type II - sliding scale insulin, will hold oral hypoglycemics for now GERD - cont antacids High Cholesterol - cont statin Hypertension - cont meds, hold clonidine patch given his BP is on the low side POLYNEUROPATHY - CK elevated, will monitor FEN - Pureed nectar thick diet PPX - lovenox FULL CODE Dispo - inpatient, will need close O2 monitoring History of Present Illness History of Present Illness Mr Rivera is a 79-year-old male with PMHx Anemia, Dementia, Diabetes-Type II, Diverticulosis, GERD, High Cholesterol, Hypertension, POLYNEUROPATHY resident of [facility] in [place] comes to ED with known SARS-CoV-2 (COVID 19) who presents to the emergency room with respiratory distress. Patient is unable to provide any history. Is unclear at this time how long he has been ill. Is unclear whether or not he is on oxygen at baseline. Upon arrival to the emergency room he is on a nonrebreather. He reportedly had a pulse ox of 72 upon EMS arrival. Patient was able to be weaned down from a nonrebreather to 6 L nasal cannula. ABG was done 7.35/48/107 on 6 L nasal cannula. WBC 9.3, Hb 13.3, platelets 212, d-dimer 3.92, troponin 0 0.22, AST 57, CRP 163.7, CK 1865, albumin 2.7 EKG sinus rhythm, leftward axis QRS transition zone, nonspecific T abnormalities high lateral leads, new prolonged QT. CXR with bilateral patchy infiltrate consistent with COVID-19 pneumonia. Admitted for further care. Cr up to 2.4 today. Febrile to 100.7 F overnight. Slight cough. On 6 L nasal cannula oxygen. Vitals/I&O Vitals/I&O: Vital Signs Date Time Temp Pulse Resp B/P (MAP) Pulse Ox O2 Delivery O2 Flow Rate FiO2 02/28/20 11:35 99.1 90 20 116/56 (76) 92 Nasal Cannula 6.0 99.1 I & O 02/27/20 02/27/20 02/28/20 15:00 23:00 07:00 Intake Total 0 ml 0 ml Output Total 0 ml Balance 0 ml 0 ml Physical Exam General: Alert, Cooperative, mild distress Lungs: Wheezing, Crackles Abdomen: Normal bowel sounds, Soft, No tenderness, No hepatosplenomegaly, No masses Extremities: No clubbing, No cyanosis, No edema, Normal pulses, No tenderness/swelling Skin: No rashes, No breakdown, No significant lesion Labs Labs: Laboratory Tests Test 02/27/20 15:51 02/27/20 21:05 02/28/20 03:40 02/28/20 07:10 Glucose (Fingerstick) 143 mg/dL (70-99) 221 mg/dL (70-99) 229 mg/dL (70-99) White Blood Count 7.5 x10^3/uL (4.0-11.0) Red Blood Count 4.22 x10^6/uL (4.30-5.70) Hemoglobin 12.4 g/dL (13.0-17.5) Hematocrit 37.6 % (39.0-53.0) Mean Corpuscular Volume 89 fL (79-100) Mean Corpuscular Hemoglobin 29 pg (25-35) Mean Corpuscular Hemoglobin Concent 33 g/dL (31-37) Red Cell Distribution Width 15.1 % (11.5-14.5) Platelet Count 175 x10^3/uL (140-400) Neutrophils (%) (Auto) 90 % (31-73) Lymphocytes (%) (Auto) 7 % (24-48) Monocytes (%) (Auto) 3 % (0-9) Eosinophils (%) (Auto) 0 % (0-3) Basophils (%) (Auto) 0 % (0-3) Neutrophils # (Auto) 6.7 x10^3/uL (1.8-7.7) Lymphocytes # (Auto) 0.5 x10^3/uL (1.0-4.8) Monocytes # (Auto) 0.2 x10^3/uL (0.0-1.1) Eosinophils # (Auto) 0.0 x10^3/uL (0.0-0.7) Basophils # (Auto) 0.0 x10^3/uL (0.0-0.2) Segmented Neutrophils % 80 % (35-66) Band Neutrophils % 5 % (0-9) Lymphocytes % 13 % (24-48) Monocytes % 2 % (0-10) Platelet Estimate Adequate (ADEQUATE) Sodium Level 145 mmol/L (136-145) Potassium Level 4.5 mmol/L (3.5-5.1) Chloride Level 108 mmol/L (98-107) Carbon Dioxide Level 26 mmol/L (21-32) Anion Gap 11 (6-14) Blood Urea Nitrogen 43 mg/dL (8-26) Creatinine 2.4 mg/dL (0.7-1.3) Estimated GFR (Cockcroft-Gault) 31.9 BUN/Creatinine Ratio 18 (6-20) Glucose Level 252 mg/dL (70-99) Calcium Level 7.6 mg/dL (8.5-10.1) Total Bilirubin 0.4 mg/dL (0.2-1.0) Aspartate Amino Transf (AST/SGOT) 73 U/L (15-37) Alanine Aminotransferase (ALT/SGPT) 31 U/L (16-63) Alkaline Phosphatase 53 U/L (46-116) Total Protein 7.3 g/dL (6.4-8.2) Albumin 2.5 g/dL (3.4-5.0) Albumin/Globulin Ratio 0.5 (1.0-1.7) Test 02/28/20 10:12 Glucose (Fingerstick) 263 mg/dL (70-99) Assessment and Plan Assessmemt and Plan Problems Medical Problems: (1) 2019 novel coronavirus disease (COVID-19) Status: Acute (2) Respiratory failure with hypoxia Status: Acute Comment Review of Relevant I have reviewed the following items latonia (where applicable) has been applied. Medications: Current Medications Medications (Trade) Dose Ordered Sig/Nick Route PRN Reason Start Time Stop Time Status Last Admin Dose Admin Enoxaparin Sodium (Lovenox 40mg Syringe) 40 mg Q24H SQ 02/27/20 21:00 02/28/20 10:36 DC 02/27/20 21:50 Piperacillin Sod/ Tazobactam Sod 3.375 gm/Sodium Chloride 50 ml @ 100 mls/hr Q6HRS IV 02/28/20 11:00 02/28/20 12:15 Enoxaparin Sodium (Lovenox 40mg Syringe) 40 mg Q12HR SQ 02/28/20 11:00 02/28/20 12:15 Sodium Chloride 1,000 ml @ 100 mls/hr Q10H IV 02/28/20 11:00 02/28/20 12:13 Justicifation of Admission Dx: Justifications for Admission: Justification of Admission Dx: Yes Respiratory Failure: Severe Resp Distress LATISHA ROTHMAN MD Feb 28, 2020 12:54
--- NOTE | 2020-02-28 13:18 | NUR ---
This RN spoke with SLAVA Murcia at [facility] and was told the patient was tested for Covid-19 on 02/23/2020 and positive results came back on 02/25/2020.
[2020-02-28 15:29] VITALS: BP 118/54
[2020-02-28 19:55] VITALS: BP 136/61
[2020-02-28] MEDS: ATORVASTATIN CALCIUM 10 MG TABLET. PO SCH (20:05)
[2020-02-28 23:50] VITALS: BP 107/43
[2020-02-29 03:57] LABS: BASO % 0 % (0-3); EOS % 0 % (0-3); HEMOGLOBIN 12.8 g/dL (13.0-17.5); LYMPH # 0.4 x10^3/uL (1.0-4.8); LYMPH % 4 % (24-48); MEAN CORPUSCULAR HEMOGLOBIN 29 pg (25-35); MEAN CORPUSCULAR HGB CONC 33 g/dL (31-37); MEAN CORPUSCULAR VOLUME 89 fL (79-100); MONO # 0.4 x10^3/uL (0.0-1.1); MONO % 3 % (0-9); NEUT # 10.6 x10^3/uL (1.8-7.7); NEUT % 93 % (31-73); PLATELET COUNT 193 x10^3/uL (140-400); RED BLOOD COUNT 4.39 x10^6/uL (4.30-5.70); RED CELL DISTRIBUTION WIDTH 15.2 % (11.5-14.5); WHITE BLOOD COUNT 11.4 x10^3/uL (4.0-11.0)
[2020-02-29 04:19] LABS: ALBUMIN 2.5 g/dL (3.4-5.0); ALBUMIN/GLOBULIN RATIO 0.5 (1.0-1.7); CALCIUM 8.1 mg/dL (8.5-10.1); CREATININE 2.4 mg/dL (0.7-1.3); GFR 31.9; POTASSIUM 4.6 mmol/L (3.5-5.1); TOTAL BILIRUBIN 0.3 mg/dL (0.2-1.0); TOTAL PROTEIN 7.4 g/dL (6.4-8.2)
[2020-02-29 04:30] VITALS: BP 136/67
[2020-02-29] MEDS: PIPERACILLIN/TAZOBACTAM 3.375 GM in IV NORMAL SALINE 50ML 50 ML IV SCH ×3 (04:58→17:55)
[2020-02-29] MEDS: methylPREDNISolone SOD SUCC PF 40 MG/ML VIAL. IV SCH ×3 (04:58→20:42)
--- NOTE | 2020-02-29 07:38 | PDOC ---
Infectious Disease Note Vital Sign Vital Signs Vital Signs Date Time Temp Pulse Resp B/P (MAP) Pulse Ox O2 Delivery O2 Flow Rate FiO2 02/29/20 04:30 98.2 59 21 136/67 (90) 94 Venturi Mask 98.2 02/28/20 23:50 6.0 Labs Lab Laboratory Tests Test 02/28/20 10:12 02/28/20 16:15 02/28/20 20:48 02/29/20 03:50 Glucose (Fingerstick) 263 mg/dL (70-99) 274 mg/dL (70-99) 293 mg/dL (70-99) White Blood Count 11.4 x10^3/uL (4.0-11.0) Red Blood Count 4.39 x10^6/uL (4.30-5.70) Hemoglobin 12.8 g/dL (13.0-17.5) Hematocrit 39.0 % (39.0-53.0) Mean Corpuscular Volume 89 fL (79-100) Mean Corpuscular Hemoglobin 29 pg (25-35) Mean Corpuscular Hemoglobin Concent 33 g/dL (31-37) Red Cell Distribution Width 15.2 % (11.5-14.5) Platelet Count 193 x10^3/uL (140-400) Neutrophils (%) (Auto) 93 % (31-73) Lymphocytes (%) (Auto) 4 % (24-48) Monocytes (%) (Auto) 3 % (0-9) Eosinophils (%) (Auto) 0 % (0-3) Basophils (%) (Auto) 0 % (0-3) Neutrophils # (Auto) 10.6 x10^3/uL (1.8-7.7) Lymphocytes # (Auto) 0.4 x10^3/uL (1.0-4.8) Monocytes # (Auto) 0.4 x10^3/uL (0.0-1.1) Eosinophils # (Auto) 0.0 x10^3/uL (0.0-0.7) Basophils # (Auto) 0.0 x10^3/uL (0.0-0.2) Sodium Level 149 mmol/L (136-145) Potassium Level 4.6 mmol/L (3.5-5.1) Chloride Level 111 mmol/L (98-107) Carbon Dioxide Level 27 mmol/L (21-32) Anion Gap 11 (6-14) Blood Urea Nitrogen 49 mg/dL (8-26) Creatinine 2.4 mg/dL (0.7-1.3) Estimated GFR (Cockcroft-Gault) 31.9 BUN/Creatinine Ratio 20 (6-20) Glucose Level 302 mg/dL (70-99) Calcium Level 8.1 mg/dL (8.5-10.1) Total Bilirubin 0.3 mg/dL (0.2-1.0) Aspartate Amino Transf (AST/SGOT) 66 U/L (15-37) Alanine Aminotransferase (ALT/SGPT) 35 U/L (16-63) Alkaline Phosphatase 53 U/L (46-116) Creatine Kinase 2061 U/L (39-308) Total Protein 7.4 g/dL (6.4-8.2) Albumin 2.5 g/dL (3.4-5.0) Albumin/Globulin Ratio 0.5 (1.0-1.7) Test 02/29/20 07:15 Glucose (Fingerstick) 261 mg/dL (70-99) Objective Assessment Fever Acute Hypoxic resp failure COVID + KENNY Leukocytosis Rhabdo - h/o as well Plan Plan of Care Type and screen Would dose Plasma Cont Steroids Cont abx but add Zyvox given NH resident/lung coverage/avoid Vanc with KENNY F/u labs and cults nursing # [id number] HARPAL POE MD Feb 29, 2020 07:38
[2020-02-29 07:45] VITALS: BP 95/74
--- NOTE | 2020-02-29 07:46 | PDOC ---
[employer] PROGRESS NOTE Date of Service DOS: DATE: 02/29/20 TIME: 07:46 Chief Complaint Chief Complaint A/P: Respiratory failure with hypoxia - likely 2/2 COVID 19. Steroids, Lovenox twice daily, consult pulmonology. Maintain O2 saturations 92% or greater. SARS-CoV-2 (COVID-19) - As above. ID consulted, agree to consent for convalescent [facility] if this is line with family goals of care. KENNY - likely vasomotor nephropathy from COVID 19 infection, will monitor renal fx and hydrate. 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 Diabetes-Type II - sliding scale insulin, will hold oral hypoglycemics for now GERD - cont antacids High Cholesterol - cont statin Hypertension - cont meds, hold clonidine patch given his BP is on the low side POLYNEUROPATHY - CK elevated, will monitor FEN - Pureed nectar thick diet PPX - lovenox FULL CODE Dispo - inpatient, will need close O2 monitoring History of Present Illness History of Present Illness Mr Rivera is a 79-year-old male with PMHx Anemia, Dementia, Diabetes-Type II, Diverticulosis, GERD, High Cholesterol, Hypertension, POLYNEUROPATHY resident of [facility] in [place] comes to ED with known SARS-CoV-2 (COVID 19) who presents to the emergency room with respiratory distress. Patient is unable to provide any history. Is unclear at this time how long he has been ill. Is unclear whether or not he is on oxygen at baseline. Upon arrival to the emergency room he is on a nonrebreather. He reportedly had a pulse ox of 72 upon EMS arrival. Patient was able to be weaned down from a nonrebreather to 6 L nasal cannula. ABG was done 7.35/48/107 on 6 L nasal cannula. WBC 9.3, Hb 13.3, platelets 212, d-dimer 3.92, troponin 0 0.22, AST 57, CRP 163.7, CK 1865, albumin 2.7 EKG sinus rhythm, leftward axis QRS transition zone, nonspecific T abnormalities high lateral leads, new prolonged QT. CXR with bilateral patchy infiltrate consistent with COVID-19 pneumonia. Admitted for further care. 02/27: Cr up to 2.4 today. Febrile to 100.7 F overnight. Slight cough. On 6 L nasal cannula oxygen. Afebrile past 24 hours, now on 10 L facemask O2, WBC 11.4, hemoglobin 12.8, CR stable at 2.4 albumin 2.5 CK 2060, glucose 302. He has been incontinent of urine over the past 24 hours and has some redness on the scrotum and buttocks, I advised him Smith catheter may be indicated he does not seem to be understanding much of what is going on. I have discussed with ID that type and screen and co nvalescent plasma may be indicated, will try to get a hold of family to discuss goals of care. Nephrology consulted, will check UA and renal US. Vitals/I&O Vitals/I&O: Vital Signs Date Time Temp Pulse Resp B/P (MAP) Pulse Ox O2 Delivery O2 Flow Rate FiO2 02/29/20 04:30 98.2 59 21 136/67 (90) 94 Venturi Mask 98.2 02/28/20 23:50 6.0 I & O 02/28/20 02/28/20 02/29/20 15:00 23:00 07:00 Intake Total 0 ml 50 ml Balance 0 ml 50 ml Physical Exam General: Alert, Cooperative, mild distress Lungs: Wheezing, Crackles Abdomen: Normal bowel sounds, Soft, No tenderness, No hepatosplenomegaly, No masses Extremities: No clubbing, No cyanosis, No edema, Normal pulses, No tenderness/swelling Skin: No rashes, No breakdown, No significant lesion Labs Labs: Laboratory Tests Test 02/28/20 10:12 02/28/20 16:15 02/28/20 20:48 02/29/20 03:50 Glucose (Fingerstick) 263 mg/dL (70-99) 274 mg/dL (70-99) 293 mg/dL (70-99) White Blood Count 11.4 x10^3/uL (4.0-11.0) Red Blood Count 4.39 x10^6/uL (4.30-5.70) Hemoglobin 12.8 g/dL (13.0-17.5) Hematocrit 39.0 % (39.0-53.0) Mean Corpuscular Volume 89 fL (79-100) Mean Corpuscular Hemoglobin 29 pg (25-35) Mean Corpuscular Hemoglobin Concent 33 g/dL (31-37) Red Cell Distribution Width 15.2 % (11.5-14.5) Platelet Count 193 x10^3/uL (140-400) Neutrophils (%) (Auto) 93 % (31-73) Lymphocytes (%) (Auto) 4 % (24-48) Monocytes (%) (Auto) 3 % (0-9) Eosinophils (%) (Auto) 0 % (0-3) Basophils (%) (Auto) 0 % (0-3) Neutrophils # (Auto) 10.6 x10^3/uL (1.8-7.7) Lymphocytes # (Auto) 0.4 x10^3/uL (1.0-4.8) Monocytes # (Auto) 0.4 x10^3/uL (0.0-1.1) Eosinophils # (Auto) 0.0 x10^3/uL (0.0-0.7) Basophils # (Auto) 0.0 x10^3/uL (0.0-0.2) Sodium Level 149 mmol/L (136-145) Potassium Level 4.6 mmol/L (3.5-5.1) Chloride Level 111 mmol/L (98-107) Carbon Dioxide Level 27 mmol/L (21-32) Anion Gap 11 (6-14) Blood Urea Nitrogen 49 mg/dL (8-26) Creatinine 2.4 mg/dL (0.7-1.3) Estimated GFR (Cockcroft-Gault) 31.9 BUN/Creatinine Ratio 20 (6-20) Glucose Level 302 mg/dL (70-99) Calcium Level 8.1 mg/dL (8.5-10.1) Total Bilirubin 0.3 mg/dL (0.2-1.0) Aspartate Amino Transf (AST/SGOT) 66 U/L (15-37) Alanine Aminotransferase (ALT/SGPT) 35 U/L (16-63) Alkaline Phosphatase 53 U/L (46-116) Creatine Kinase 2061 U/L (39-308) Total Protein 7.4 g/dL (6.4-8.2) Albumin 2.5 g/dL (3.4-5.0) Albumin/Globulin Ratio 0.5 (1.0-1.7) Test 02/29/20 07:15 Glucose (Fingerstick) 261 mg/dL (70-99) Assessment and Plan Assessmemt and Plan Problems Medical Problems: (1) 2019 novel coronavirus disease (COVID-19) Status: Acute (2) Respiratory failure with hypoxia Status: Acute Comment Review of Relevant I have reviewed the following items latonia (where applicable) has been applied. Medications: Current Medications Medications (Trade) Dose Ordered Sig/Nick Route PRN Reason Start Time Stop Time Status Last Admin Dose Admin Piperacillin Sod/ Tazobactam Sod 3.375 gm/Sodium Chloride 50 ml @ 100 mls/hr Q6HRS IV 02/28/20 11:00 02/29/20 04:58 Enoxaparin Sodium (Lovenox 40mg Syringe) 40 mg Q12HR SQ 02/28/20 11:00 02/28/20 20:14 Sodium Chloride 1,000 ml @ 100 mls/hr Q10H IV 02/28/20 11:00 02/28/20 20:14 Justicifation of Admission Dx: Justifications for Admission: Justification of Admission Dx: Yes Respiratory Failure: Severe Resp Distress LATISHA ROTHMAN MD Feb 29, 2020 07:46
[2020-02-29] MEDS: INSULIN LISPRO 300 UNITS/3 ML VIAL. SQ SCH ×4 (08:27→21:28)
[2020-02-29] MEDS: IV NORMAL SALINE 1000ML BAG 1,000 ML IV SCH ×2 (08:30→17:00)
[2020-02-29] MEDS: amLODIPine BESYLATE 10 MG TABLET PO SCH (08:37)
[2020-02-29] MEDS: ASPIRIN ENTERIC COATED 81 MG TABLET.DR. PO SCH (08:37)
[2020-02-29] MEDS: ZINC SULFATE 220 MG CAPSULE. PO SCH (08:37)
[2020-02-29] MEDS: LACTOBACILLUS RHAMNOSUS GG 1 CAPSULE. PO SCH ×2 (08:37→20:40)
--- NOTE | 2020-02-29 08:52 | PDOC ---
PULMONARY PROGRESS NOTES DATE: 02/29/20 TIME: 08:47 Subjective pt. remains lethargic, unknown alertness baseline with underlying dementia appears in distress today, labored breathing, now on venti-mask Vitals Vital Signs Date Time Temp Pulse Resp B/P (MAP) Pulse Ox O2 Delivery O2 Flow Rate FiO2 02/29/20 04:30 98.2 59 21 136/67 (90) 94 Venturi Mask 98.2 02/28/20 23:50 6.0 Comments PT. seen during COVID-19 pandemic visual exam preformed RRR N/C no distress no rash No edeam Labs Laboratory Tests Test 02/27/20 11:07 02/27/20 11:22 02/27/20 15:51 02/27/20 21:05 Glucose (Fingerstick) 151 mg/dL (70-99) 143 mg/dL (70-99) 221 mg/dL (70-99) O2 Saturation 91 % (92-99) Arterial Blood pH 7.37 (7.35-7.45) Arterial Blood pH (Temp corrected) 7.35 Arterial Blood pCO2 at Patient Temp 44 mmHg (35-46) Arterial Blood pCO2 (Temp correct) 47 mmHg Arterial Blood pO2 at Patient Temp 60 mmHg (65-108) Arterial Blood pO2 (Temp corrected) 68 mmHg Arterial Blood HCO3 25 mmol/L (21-28) Arterial Blood Base Excess -1 mmol/L (-3-3) FiO2 44/6l nc Test 02/28/20 03:40 02/28/20 07:10 02/28/20 10:12 02/28/20 16:15 White Blood Count 7.5 x10^3/uL (4.0-11.0) Red Blood Count 4.22 x10^6/uL (4.30-5.70) Hemoglobin 12.4 g/dL (13.0-17.5) Hematocrit 37.6 % (39.0-53.0) Mean Corpuscular Volume 89 fL (79-100) Mean Corpuscular Hemoglobin 29 pg (25-35) Mean Corpuscular Hemoglobin Concent 33 g/dL (31-37) Red Cell Distribution Width 15.1 % (11.5-14.5) Platelet Count 175 x10^3/uL (140-400) Neutrophils (%) (Auto) 90 % (31-73) Lymphocytes (%) (Auto) 7 % (24-48) Monocytes (%) (Auto) 3 % (0-9) Eosinophils (%) (Auto) 0 % (0-3) Basophils (%) (Auto) 0 % (0-3) Neutrophils # (Auto) 6.7 x10^3/uL (1.8-7.7) Lymphocytes # (Auto) 0.5 x10^3/uL (1.0-4.8) Monocytes # (Auto) 0.2 x10^3/uL (0.0-1.1) Eosinophils # (Auto) 0.0 x10^3/uL (0.0-0.7) Basophils # (Auto) 0.0 x10^3/uL (0.0-0.2) Segmented Neutrophils % 80 % (35-66) Band Neutrophils % 5 % (0-9) Lymphocytes % 13 % (24-48) Monocytes % 2 % (0-10) Platelet Estimate Adequate (ADEQUATE) Sodium Level 145 mmol/L (136-145) Potassium Level 4.5 mmol/L (3.5-5.1) Chloride Level 108 mmol/L (98-107) Carbon Dioxide Level 26 mmol/L (21-32) Anion Gap 11 (6-14) Blood Urea Nitrogen 43 mg/dL (8-26) Creatinine 2.4 mg/dL (0.7-1.3) Estimated GFR (Cockcroft-Gault) 31.9 BUN/Creatinine Ratio 18 (6-20) Glucose Level 252 mg/dL (70-99) Calcium Level 7.6 mg/dL (8.5-10.1) Total Bilirubin 0.4 mg/dL (0.2-1.0) Aspartate Amino Transf (AST/SGOT) 73 U/L (15-37) Alanine Aminotransferase (ALT/SGPT) 31 U/L (16-63) Alkaline Phosphatase 53 U/L (46-116) Total Protein 7.3 g/dL (6.4-8.2) Albumin 2.5 g/dL (3.4-5.0) Albumin/Globulin Ratio 0.5 (1.0-1.7) Glucose (Fingerstick) 229 mg/dL (70-99) 263 mg/dL (70-99) 274 mg/dL (70-99) Test 8/22/20 20:48 02/29/20 03:50 02/29/20 07:15 Glucose (Fingerstick) 293 mg/dL (70-99) 261 mg/dL (70-99) White Blood Count 11.4 x10^3/uL (4.0-11.0) Red Blood Count 4.39 x10^6/uL (4.30-5.70) Hemoglobin 12.8 g/dL (13.0-17.5) Hematocrit 39.0 % (39.0-53.0) Mean Corpuscular Volume 89 fL (79-100) Mean Corpuscular Hemoglobin 29 pg (25-35) Mean Corpuscular Hemoglobin Concent 33 g/dL (31-37) Red Cell Distribution Width 15.2 % (11.5-14.5) Platelet Count 193 x10^3/uL (140-400) Neutrophils (%) (Auto) 93 % (31-73) Lymphocytes (%) (Auto) 4 % (24-48) Monocytes (%) (Auto) 3 % (0-9) Eosinophils (%) (Auto) 0 % (0-3) Basophils (%) (Auto) 0 % (0-3) Neutrophils # (Auto) 10.6 x10^3/uL (1.8-7.7) Lymphocytes # (Auto) 0.4 x10^3/uL (1.0-4.8) Monocytes # (Auto) 0.4 x10^3/uL (0.0-1.1) Eosinophils # (Auto) 0.0 x10^3/uL (0.0-0.7) Basophils # (Auto) 0.0 x10^3/uL (0.0-0.2) Sodium Level 149 mmol/L (136-145) Potassium Level 4.6 mmol/L (3.5-5.1) Chloride Level 111 mmol/L (98-107) Carbon Dioxide Level 27 mmol/L (21-32) Anion Gap 11 (6-14) Blood Urea Nitrogen 49 mg/dL (8-26) Creatinine 2.4 mg/dL (0.7-1.3) Estimated GFR (Cockcroft-Gault) 31.9 BUN/Creatinine Ratio 20 (6-20) Glucose Level 302 mg/dL (70-99) Calcium Level 8.1 mg/dL (8.5-10.1) Total Bilirubin 0.3 mg/dL (0.2-1.0) Aspartate Amino Transf (AST/SGOT) 66 U/L (15-37) Alanine Aminotransferase (ALT/SGPT) 35 U/L (16-63) Alkaline Phosphatase 53 U/L (46-116) Creatine Kinase 2061 U/L (39-308) Total Protein 7.4 g/dL (6.4-8.2) Albumin 2.5 g/dL (3.4-5.0) Albumin/Globulin Ratio 0.5 (1.0-1.7) Laboratory Tests Test 02/28/20 10:12 02/28/20 16:15 02/28/20 20:48 02/29/20 03:50 Glucose (Fingerstick) 263 mg/dL (70-99) 274 mg/dL (70-99) 293 mg/dL (70-99) White Blood Count 11.4 x10^3/uL (4.0-11.0) Red Blood Count 4.39 x10^6/uL (4.30-5.70) Hemoglobin 12.8 g/dL (13.0-17.5) Hematocrit 39.0 % (39.0-53.0) Mean Corpuscular Volume 89 fL (79-100) Mean Corpuscular Hemoglobin 29 pg (25-35) Mean Corpuscular Hemoglobin Concent 33 g/dL (31-37) Red Cell Distribution Width 15.2 % (11.5-14.5) Platelet Count 193 x10^3/uL (140-400) Neutrophils (%) (Auto) 93 % (31-73) Lymphocytes (%) (Auto) 4 % (24-48) Monocytes (%) (Auto) 3 % (0-9) Eosinophils (%) (Auto) 0 % (0-3) Basophils (%) (Auto) 0 % (0-3) Neutrophils # (Auto) 10.6 x10^3/uL (1.8-7.7) Lymphocytes # (Auto) 0.4 x10^3/uL (1.0-4.8) Monocytes # (Auto) 0.4 x10^3/uL (0.0-1.1) Eosinophils # (Auto) 0.0 x10^3/uL (0.0-0.7) Basophils # (Auto) 0.0 x10^3/uL (0.0-0.2) Sodium Level 149 mmol/L (136-145) Potassium Level 4.6 mmol/L (3.5-5.1) Chloride Level 111 mmol/L (98-107) Carbon Dioxide Level 27 mmol/L (21-32) Anion Gap 11 (6-14) Blood Urea Nitrogen 49 mg/dL (8-26) Creatinine 2.4 mg/dL (0.7-1.3) Estimated GFR (Cockcroft-Gault) 31.9 BUN/Creatinine Ratio 20 (6-20) Glucose Level 302 mg/dL (70-99) Calcium Level 8.1 mg/dL (8.5-10.1) Total Bilirubin 0.3 mg/dL (0.2-1.0) Aspartate Amino Transf (AST/SGOT) 66 U/L (15-37) Alanine Aminotransferase (ALT/SGPT) 35 U/L (16-63) Alkaline Phosphatase 53 U/L (46-116) Creatine Kinase 2061 U/L (39-308) Total Protein 7.4 g/dL (6.4-8.2) Albumin 2.5 g/dL (3.4-5.0) Albumin/Globulin Ratio 0.5 (1.0-1.7) Test 02/29/20 07:15 Glucose (Fingerstick) 261 mg/dL (70-99) Medications Active Scripts Medications Dose Route/Sig Max Daily Dose Days Date Category Senna (Sennosides) 8.8 Mg/5 Ml Syrup 8.8 Mg PO DAILY 02/27/20 Reported Tylenol Extra Strength (Acetaminophen) 500 Mg Tablet 1,000 Mg PO PRN PRN 02/27/20 Reported Furosemide 20 Mg Tablet 1 Tab PO DAILY 02/27/20 Reported Glipizide Xl (Glipizide) 10 Mg Tab.er.24 1 Tab PO DAILY 30 02/27/20 Reported Culturelle (Lactobacillus Rhamnosus Gg) 1 Each Cap.sprink 1 Cap PO BID 30 05/23/18 Rx Guaifenesin Dm Syrup (Guaifenesin/Dextromethorphan) 5 Ml Syrup 10 Ml PO PRN Q6HRS PRN 30 05/23/18 Rx Albuterol Sulfate Neb Soln (Albuterol Sulfate) 2.5 Mg/3 Ml Vial.neb 2.5 Mg NEB PRN Q4HRS PRN 30 05/23/18 Rx Azithromycin Tablet (Azithromycin) 250 Mg Tablet 250 Mg PO DAILY 5 05/23/18 Rx Cefpodoxime Proxetil 100 Mg Tablet 200 Mg PO BID 5 05/23/18 Rx Metformin Hcl Er (Metformin Hcl) 500 Mg Tab.er.24h 1,000 Mg PO DAILYWBKFT 05/21/18 Reported Glipizide Xl (Glipizide) 10 Mg Tab.er.24 10 Mg PO DAILY 05/20/18 Reported Calcium 500 + D Tablet (Calcium Carbonate/Vitamin D3) 1 Each Tablet 1 Each PO DAILY 05/20/18 Reported Catapres-Tts 3 (Clonidine) 1 Each Patch.tdwk 1 Each TD WEEKLY 05/20/18 Reported Lisinopril 20 Mg Tablet 1 Tab PO DAILY 05/20/18 Reported [cyanocobalamin] 100 Mcg PO DAILY 05/20/18 Reported Aspir 81 (Aspirin) 81 Mg Tablet.dr 81 Mg PO DAILY 07/08/13 Reported Norvasc (Amlodipine Besylate) 10 Mg Tablet 10 Mg PO DAILY 07/08/13 Reported Atorvastatin Calcium 10 Mg Tablet 10 Mg PO HS 07/08/13 Reported Comments CXR- 02/27/2020 IMPRESSION: * Patchy opacities in bilateral lungs which could be seen with multifocal infiltrate or edema Impression . Acute hypoxic respiratory Failure-- worsening now on venti-mask COVID-19 known positive COVID -19 pneumonia, cannot exclude bacterial pneumonia elevated ddimer 2/2 inflamatory stage of covid19 Fevers Anemia of chronic disease Dementia KENNY vs. CKD Plan . supplemental oxygen to keep oxygen sats above 92%, now on venti-mask Tylenol for fevers Cont. zosyn for ABX coverage Cont. steroids Follow nephrology recs ST eval before po intake will follow inflammatory markers DVT/GI PPX -- high dose lovenox D/W RN, also D/W Dr. Patterson who will address goal of care with Family today JOSY CASTILLO MD Feb 29, 2020 08:52
[2020-02-29] MEDS: ENOXAPARIN 40 MG/0.4 ML SYRINGE. SQ SCH ×2 (10:48→20:41)
[2020-02-29 11:32] VITALS: BP 132/62
--- NOTE | 2020-02-29 12:13 | PDOC2 ---
CONSULT Date of Consult Date of Consult DATE: 02/29/20 TIME: 12:13 History of Present Illness Reason for Visit: Mr Rivera is a 79-year-old male with PMHx Anemia, Dementia, Diabetes-Type II, Diverticulosis, GERD, High Cholesterol, Hypertension, POLYNEUROPATHY resident of [facility] in [place] comes to ED with known SARS-CoV-2 (COVID 19) who presents to the emergency room with respiratory distress. Patient is unable to provide any history. Is unclear at this time how long he has been ill. Is unclear whether or not he is on oxygen at baseline. Upon arrival to the emergency room he is on a nonrebreather. He reportedly had a pulse ox of 72 upon EMS arrival. Patient was able to be weaned down from a nonrebreather to 6 L nasal cannula. ABG was done 7.35/48/107 on 6 L nasal cannula. WBC 9.3, Hb 13.3, platelets 212, d-dimer 3.92, troponin 0 0.22, AST 57, CRP 163.7, CK 1865, albumin 2.7 EKG sinus rhythm, leftward axis QRS transition zone, nonspecific T abnormalities high lateral leads, new prolonged QT. CXR with bilateral patchy infiltrate consistent with COVID-19 pneumonia. Admitted for further care. Past Medical History Cardiovascular: HTN, Hyperlipidemia Endocrine: Diabetes Past Surgical History Past Surgical History: No pertinent history Family History Family History: No Significant Social History No ALCOHOL: none Drugs: None Current Problem List Problem List Problems Medical Problems: (1) 2019 novel coronavirus disease (COVID-19) Status: Acute (2) Respiratory failure with hypoxia Status: Acute Current Medications Current Medications Current Medications Acetaminophen (Tylenol Supp) 650 mg 1X ONCE HI Last administered on 02/27/20at 01:06; Start 02/27/20 at 01:00; Stop 02/27/20 at 01:01; Status DC Ondansetron HCl (Zofran) 4 mg PRN Q4HRS PRN IV NAUSEA/VOMITING; Start 02/27/20 at 07:15 Acetaminophen (Tylenol) 650 mg PRN Q4HRS PRN PO TEMP OVER 100.4F OR MILD PAIN; Start 02/27/20 at 07:15 Acetaminophen (Tylenol Supp) 650 mg PRN Q4HRS PRN HI TEMP OVER 100.4F OR MILD PAIN Last administered on 02/27/20at 21:50; Start 02/27/20 at 07:15 Al Hydroxide/Mg Hydroxide (Mylanta Plus Xs) 30 ml PRN DAILY PRN PO HEARTBURN / GAS; Start 02/27/20 at 07:15 Docusate Sodium (Colace) 100 mg PRN BID PRN PO HARD STOOLS; Start 02/27/20 at 07:15 Enoxaparin Sodium (Lovenox 30mg Syringe) 30 mg Q12H SQ Last administered on 02/27/20at 11:45; Start 02/27/20 at 09:00; Stop 02/27/20 at 14:35; Status DC Methylprednisolone Sodium Succinate (SOLU-Medrol 40MG VIAL) 40 mg Q8HRS IV Last administered on 02/29/20at 04:58; Start 02/27/20 at 08:00 Insulin Human Lispro (HumaLOG) 0-7 UNITS TIDACHC SQ Last administered on 02/29/20at 08:27; Start 02/27/20 at 07:30 Dextrose (Dextrose 50%-Water Syringe) 12.5 gm PRN Q15MIN PRN IV SEE COMMENTS; Start 02/27/20 at 07:15 Amlodipine Besylate (Norvasc) 10 mg DAILY PO ; Start 02/27/20 at 09:00 Aspirin (Ecotrin) 81 mg DAILY PO ; Start 02/27/20 at 09:00 Atorvastatin Calcium (Lipitor) 10 mg HS PO ; Start 02/27/20 at 21:00 Clonidine HCl (Catapres Tts-3) 1 patch WEEKLY TD ; Start 02/27/20 at 09:00; Stop 02/27/20 at 16:00; Status DC Guaifenesin (Robitussin Dm) 10 ml PRN Q6HRS PRN PO COUGH; Start 02/27/20 at 07:15 Lactobacillus Rhamnosus (Culturelle) 1 cap BID PO ; Start 02/27/20 at 09:00 Enoxaparin Sodium (Lovenox 40mg Syringe) 40 mg Q24H SQ Last administered on 02/27/20at 21:50; Start 02/27/20 at 21:00; Stop 02/28/20 at 10:36; Status DC Zinc Sulfate (Orazinc) 220 mg DAILY PO ; Start 02/27/20 at 16:00 Piperacillin Sod/ Tazobactam Sod 3.375 gm/Sodium Chloride 50 ml @ 100 mls/hr Q6HRS IV Last administered on 02/29/20at 04:58; Start 02/28/20 at 11:00 Enoxaparin Sodium (Lovenox 40mg Syringe) 40 mg Q12HR SQ Last administered on 02/29/20at 10:48; Start 02/28/20 at 11:00 Sodium Chloride 1,000 ml @ 100 mls/hr Q10H IV Last administered on 02/29/20at 08:30; Start 02/28/20 at 11:00 Linezolid/Dextrose 300 ml @ 300 mls/hr Q12HR IV Last administered on 02/29/20at 10:48; Start 02/29/20 at 09:00 Active Scripts Active Culturelle (Lactobacillus Rhamnosus Gg) 1 Each Cap.sprink 1 Cap PO BID 30 Days Guaifenesin Dm Syrup (Guaifenesin/Dextromethorphan) 5 Ml Syrup 10 Ml PO PRN Q6HRS PRN 30 Days Albuterol Sulfate Neb Soln (Albuterol Sulfate) 2.5 Mg/3 Ml Vial.neb 2.5 Mg NEB PRN Q4HRS PRN 30 Days Azithromycin Tablet (Azithromycin) 250 Mg Tablet 250 Mg PO DAILY 5 Days Cefpodoxime Proxetil 100 Mg Tablet 200 Mg PO BID 5 Days Reported Senna (Sennosides) 8.8 Mg/5 Ml Syrup 8.8 Mg PO DAILY Tylenol Extra Strength (Acetaminophen) 500 Mg Tablet 1,000 Mg PO PRN PRN Furosemide 20 Mg Tablet 1 Tab PO DAILY Glipizide Xl (Glipizide) 10 Mg Tab.er.24 1 Tab PO DAILY 30 Days Metformin Hcl Er (Metformin Hcl) 500 Mg Tab.er.24h 1,000 Mg PO DAILYWBKFT Glipizide Xl (Glipizide) 10 Mg Tab.er.24 10 Mg PO DAILY Calcium 500 + D Tablet (Calcium Carbonate/Vitamin D3) 1 Each Tablet 1 Each PO DAILY Catapres-Tts 3 (Clonidine) 1 Each Patch.tdwk 1 Each TD WEEKLY Lisinopril 20 Mg Tablet 1 Tab PO DAILY [cyanocobalamin] 100 Mcg PO DAILY Aspir 81 (Aspirin) 81 Mg Tablet.dr 81 Mg PO DAILY Norvasc (Amlodipine Besylate) 10 Mg Tablet 10 Mg PO DAILY Atorvastatin Calcium 10 Mg Tablet 10 Mg PO HS Allergies Allergies: Coded Allergies: No Known Drug Allergies (Unverified , 07/08/13) ROS Review of System GEN: [ ] Fevers [ ] Chills EYES: [ ] Visual Complaints ENT: [ ] EN Drainage [ ] Hearing deficiets CVS: [ ] Orthopnea [ ] CP RESP: [ ] SOB [ ] GOETZ GI: [ ] Nausea [ ] Vomiting : [ ] Dysuria [ ] Urgency HEME: [ ] easy bruising [ ] Palp Ly Nodes NEURO [ ] Focal Weakness [ ] Sz PSYCH: [ ] Suicidal Ideation [ ] Depression SKIN: [ ] Rashes ENDO: [ ] Polyuria or Polydipsia [ ] Hot/Cold Intolerance MU SK: [ ] Arthraigia [ ] Myalgia Physical Exam Physical Exam GEN: Awake, Oriented x [], In [] distress EYES: Vision Unchanged, Conjunctiva Normal EN: No EN Drainage, Mucous Membranes [] NECK: [] JVD, [] JVP, Supple, [] Thyromegaly CVS: S1S2, [] Murmur, No Gallop, No Rub,[] Edema RESP: [] Rales, [] Rhonchi,[] Acc. Muscle Use GI: BS + ve, NO Bruit, Non Tender, Non Distended : [] CVA tenderness, [] Suprapubic Tenderness Vital Signs Vital Signs Date Time Temp Pulse Resp B/P (MAP) Pulse Ox O2 Delivery O2 Flow Rate FiO2 02/29/20 11:32 98.4 80 20 132/62 (85) 93 Venturi Mask 98.4 02/29/20 08:00 15.0 Assessment & Plan ESRD.ARF: Current FLuid and E-lyte status does not necessitate emergent need for Dialysis. Will re-evaluate for Dialysis in am and continue on [ ] schedule. Anemia: [ ] Epogen [ ] Transfuse [ ] with next HD as needed. HTN: Current BP meds reviewed. See orders for changes. Bone & Mineral: [ ] Discussed Plan of Care and prognosis etc. at length with family. Labs Labs Laboratory Tests Test 02/27/20 15:51 02/27/20 21:05 02/28/20 03:40 02/28/20 07:10 Glucose (Fingerstick) 143 mg/dL (70-99) 221 mg/dL (70-99) 229 mg/dL (70-99) White Blood Count 7.5 x10^3/uL (4.0-11.0) Red Blood Count 4.22 x10^6/uL (4.30-5.70) Hemoglobin 12.4 g/dL (13.0-17.5) Hematocrit 37.6 % (39.0-53.0) Mean Corpuscular Volume 89 fL (79-100) Mean Corpuscular Hemoglobin 29 pg (25-35) Mean Corpuscular Hemoglobin Concent 33 g/dL (31-37) Red Cell Distribution Width 15.1 % (11.5-14.5) Platelet Count 175 x10^3/uL (140-400) Neutrophils (%) (Auto) 90 % (31-73) Lymphocytes (%) (Auto) 7 % (24-48) Monocytes (%) (Auto) 3 % (0-9) Eosinophils (%) (Auto) 0 % (0-3) Basophils (%) (Auto) 0 % (0-3) Neutrophils # (Auto) 6.7 x10^3/uL (1.8-7.7) Lymphocytes # (Auto) 0.5 x10^3/uL (1.0-4.8) Monocytes # (Auto) 0.2 x10^3/uL (0.0-1.1) Eosinophils # (Auto) 0.0 x10^3/uL (0.0-0.7) Basophils # (Auto) 0.0 x10^3/uL (0.0-0.2) Segmented Neutrophils % 80 % (35-66) Band Neutrophils % 5 % (0-9) Lymphocytes % 13 % (24-48) Monocytes % 2 % (0-10) Platelet Estimate Adequate (ADEQUATE) Sodium Level 145 mmol/L (136-145) Potassium Level 4.5 mmol/L (3.5-5.1) Chloride Level 108 mmol/L (98-107) Carbon Dioxide Level 26 mmol/L (21-32) Anion Gap 11 (6-14) Blood Urea Nitrogen 43 mg/dL (8-26) Creatinine 2.4 mg/dL (0.7-1.3) Estimated GFR (Cockcroft-Gault) 31.9 BUN/Creatinine Ratio 18 (6-20) Glucose Level 252 mg/dL (70-99) Calcium Level 7.6 mg/dL (8.5-10.1) Total Bilirubin 0.4 mg/dL (0.2-1.0) Aspartate Amino Transf (AST/SGOT) 73 U/L (15-37) Alanine Aminotransferase (ALT/SGPT) 31 U/L (16-63) Alkaline Phosphatase 53 U/L (46-116) Total Protein 7.3 g/dL (6.4-8.2) Albumin 2.5 g/dL (3.4-5.0) Albumin/Globulin Ratio 0.5 (1.0-1.7) Test 02/28/20 10:12 02/28/20 16:15 02/28/20 20:48 02/29/20 03:50 Glucose (Fingerstick) 263 mg/dL (70-99) 274 mg/dL (70-99) 293 mg/dL (70-99) White Blood Count 11.4 x10^3/uL (4.0-11.0) Red Blood Count 4.39 x10^6/uL (4.30-5.70) Hemoglobin 12.8 g/dL (13.0-17.5) Hematocrit 39.0 % (39.0-53.0) Mean Corpuscular Volume 89 fL (79-100) Mean Corpuscular Hemoglobin 29 pg (25-35) Mean Corpuscular Hemoglobin Concent 33 g/dL (31-37) Red Cell Distribution Width 15.2 % (11.5-14.5) Platelet Count 193 x10^3/uL (140-400) Neutrophils (%) (Auto) 93 % (31-73) Lymphocytes (%) (Auto) 4 % (24-48) Monocytes (%) (Auto) 3 % (0-9) Eosinophils (%) (Auto) 0 % (0-3) Basophils (%) (Auto) 0 % (0-3) Neutrophils # (Auto) 10.6 x10^3/uL (1.8-7.7) Lymphocytes # (Auto) 0.4 x10^3/uL (1.0-4.8) Monocytes # (Auto) 0.4 x10^3/uL (0.0-1.1) Eosinophils # (Auto) 0.0 x10^3/uL (0.0-0.7) Basophils # (Auto) 0.0 x10^3/uL (0.0-0.2) Sodium Level 149 mmol/L (136-145) Potassium Level 4.6 mmol/L (3.5-5.1) Chloride Level 111 mmol/L (98-107) Carbon Dioxide Level 27 mmol/L (21-32) Anion Gap 11 (6-14) Blood Urea Nitrogen 49 mg/dL (8-26) Creatinine 2.4 mg/dL (0.7-1.3) Estimated GFR (Cockcroft-Gault) 31.9 BUN/Creatinine Ratio 20 (6-20) Glucose Level 302 mg/dL (70-99) Calcium Level 8.1 mg/dL (8.5-10.1) Total Bilirubin 0.3 mg/dL (0.2-1.0) Aspartate Amino Transf (AST/SGOT) 66 U/L (15-37) Alanine Aminotransferase (ALT/SGPT) 35 U/L (16-63) Alkaline Phosphatase 53 U/L (46-116) Creatine Kinase 2061 U/L (39-308) Total Protein 7.4 g/dL (6.4-8.2) Albumin 2.5 g/dL (3.4-5.0) Albumin/Globulin Ratio 0.5 (1.0-1.7) Test 02/29/20 07:15 02/29/20 11:03 Glucose (Fingerstick) 261 mg/dL (70-99) 251 mg/dL (70-99) Laboratory Tests Test 02/28/20 16:15 02/28/20 20:48 02/29/20 03:50 02/29/20 07:15 Glucose (Fingerstick) 274 mg/dL (70-99) 293 mg/dL (70-99) 261 mg/dL (70-99) White Blood Count 11.4 x10^3/uL (4.0-11.0) Red Blood Count 4.39 x10^6/uL (4.30-5.70) Hemoglobin 12.8 g/dL (13.0-17.5) Hematocrit 39.0 % (39.0-53.0) Mean Corpuscular Volume 89 fL (79-100) Mean Corpuscular Hemoglobin 29 pg (25-35) Mean Corpuscular Hemoglobin Concent 33 g/dL (31-37) Red Cell Distribution Width 15.2 % (11.5-14.5) Platelet Count 193 x10^3/uL (140-400) Neutrophils (%) (Auto) 93 % (31-73) Lymphocytes (%) (Auto) 4 % (24-48) Monocytes (%) (Auto) 3 % (0-9) Eosinophils (%) (Auto) 0 % (0-3) Basophils (%) (Auto) 0 % (0-3) Neutrophils # (Auto) 10.6 x10^3/uL (1.8-7.7) Lymphocytes # (Auto) 0.4 x10^3/uL (1.0-4.8) Monocytes # (Auto) 0.4 x10^3/uL (0.0-1.1) Eosinophils # (Auto) 0.0 x10^3/uL (0.0-0.7) Basophils # (Auto) 0.0 x10^3/uL (0.0-0.2) Sodium Level 149 mmol/L (136-145) Potassium Level 4.6 mmol/L (3.5-5.1) Chloride Level 111 mmol/L (98-107) Carbon Dioxide Level 27 mmol/L (21-32) Anion Gap 11 (6-14) Blood Urea Nitrogen 49 mg/dL (8-26) Creatinine 2.4 mg/dL (0.7-1.3) Estimated GFR (Cockcroft-Gault) 31.9 BUN/Creatinine Ratio 20 (6-20) Glucose Level 302 mg/dL (70-99) Calcium Level 8.1 mg/dL (8.5-10.1) Total Bilirubin 0.3 mg/dL (0.2-1.0) Aspartate Amino Transf (AST/SGOT) 66 U/L (15-37) Alanine Aminotransferase (ALT/SGPT) 35 U/L (16-63) Alkaline Phosphatase 53 U/L (46-116) Creatine Kinase 2061 U/L (39-308) Total Protein 7.4 g/dL (6.4-8.2) Albumin 2.5 g/dL (3.4-5.0) Albumin/Globulin Ratio 0.5 (1.0-1.7) Test 8/23/20 11:03 Glucose (Fingerstick) 251 mg/dL (70-99) Review All relevant outside records, renal labs, imaging studies, telemetry/EKG's were reviewed. MISAEL MOLINA MD Feb 29, 2020 12:13
--- NOTE | 2020-02-29 12:15 | PDOC2 ---
CONSULT Date of Consult Date of Consult DATE: 02/29/20 TIME: 12:15 Reason for Consult Reason for Consult: KENNY Source Source: Chart review History of Present Illness Reason for Visit: Pt is a 79-year-old male with PMHx Anemia, Dementia, Diabetes-Type II, Diverticulosis, GERD, Hypertension, resident of [facility] in [place] comes to ED with known SARS-CoV-2 (COVID 19) who presents to the emergency room with respiratory distress. Had fevers up to 101. Patient is unable to provide any history. Is unclear at this time how long he has been ill. Is unclear whether or not he is on oxygen at baseline. Upon arrival to the emergency room he is on a nonrebreather. He reportedly had a pulse ox of 72 upon EMS arrival. Patient was able to be weaned down from a nonrebreather to 6 L nasal cannula, currently On Venti mask hx per nursing - No report of N/V/D . No Abdominal pain. Incontinent Currently, he is lying in bed. He is responsive, but gives minimal answers. CXR with bilateral patchy infiltrate consistent with COVID-19 pneumonia. Admitted for further care. Past Medical History Past Medical History Positive for hypertension, hyperlipidemia, diabetes,polyneuropathy, dementia, history of rhabdomyolysis in the past. Cardiovascular: HTN, Hyperlipidemia Endocrine: Diabetes Past Surgical History Past Surgical History: No pertinent history Family History Family History Unknown Family History: No Significant Social History Social History He is a detention resident. No alcohol, uncertain of smoking history. No ALCOHOL: none Drugs: None Current Problem List Problem List Problems Medical Problems: (1) 2019 novel coronavirus disease (COVID-19) Status: Acute (2) Respiratory failure with hypoxia Status: Acute Current Medications Current Medications Current Medications Acetaminophen (Tylenol Supp) 650 mg 1X ONCE NC Last administered on 02/27/20at 01:06; Start 02/27/20 at 01:00; Stop 02/27/20 at 01:01; Status DC Ondansetron HCl (Zofran) 4 mg PRN Q4HRS PRN IV NAUSEA/VOMITING; Start 02/27/20 at 07:15 Acetaminophen (Tylenol) 650 mg PRN Q4HRS PRN PO TEMP OVER 100.4F OR MILD PAIN; Start 02/27/20 at 07:15 Acetaminophen (Tylenol Supp) 650 mg PRN Q4HRS PRN NC TEMP OVER 100.4F OR MILD PAIN Last administered on 02/27/20at 21:50; Start 02/27/20 at 07:15 Al Hydroxide/Mg Hydroxide (Mylanta Plus Xs) 30 ml PRN DAILY PRN PO HEARTBURN / GAS; Start 02/27/20 at 07:15 Docusate Sodium (Colace) 100 mg PRN BID PRN PO HARD STOOLS; Start 02/27/20 at 07:15 Enoxaparin Sodium (Lovenox 30mg Syringe) 30 mg Q12H SQ Last administered on 02/27/20at 11:45; Start 02/27/20 at 09:00; Stop 02/27/20 at 14:35; Status DC Methylprednisolone Sodium Succinate (SOLU-Medrol 40MG VIAL) 40 mg Q8HRS IV Last administered on 02/29/20at 04:58; Start 02/27/20 at 08:00 Insulin Human Lispro (HumaLOG) 0-7 UNITS TIDACHC SQ Last administered on 02/29/20at 08:27; Start 02/27/20 at 07:30 Dextrose (Dextrose 50%-Water Syringe) 12.5 gm PRN Q15MIN PRN IV SEE COMMENTS; Start 02/27/20 at 07:15 Amlodipine Besylate (Norvasc) 10 mg DAILY PO ; Start 02/27/20 at 09:00 Aspirin (Ecotrin) 81 mg DAILY PO ; Start 02/27/20 at 09:00 Atorvastatin Calcium (Lipitor) 10 mg HS PO ; Start 02/27/20 at 21:00 Clonidine HCl (Catapres Tts-3) 1 patch WEEKLY TD ; Start 02/27/20 at 09:00; Stop 02/27/20 at 16:00; Status DC Guaifenesin (Robitussin Dm) 10 ml PRN Q6HRS PRN PO COUGH; Start 02/27/20 at 07:15 Lactobacillus Rhamnosus (Culturelle) 1 cap BID PO ; Start 02/27/20 at 09:00 Enoxaparin Sodium (Lovenox 40mg Syringe) 40 mg Q24H SQ Last administered on 02/27/20at 21:50; Start 02/27/20 at 21:00; Stop 02/28/20 at 10:36; Status DC Zinc Sulfate (Orazinc) 220 mg DAILY PO ; Start 02/27/20 at 16:00 Piperacillin Sod/ Tazobactam Sod 3.375 gm/Sodium Chloride 50 ml @ 100 mls/hr Q6HRS IV Last administered on 02/29/20at 04:58; Start 02/28/20 at 11:00 Enoxaparin Sodium (Lovenox 40mg Syringe) 40 mg Q12HR SQ Last administered on 02/29/20at 10:48; Start 02/28/20 at 11:00 Sodium Chloride 1,000 ml @ 100 mls/hr Q10H IV Last administered on 02/29/20at 08:30; Start 02/28/20 at 11:00 Linezolid/Dextrose 300 ml @ 300 mls/hr Q12HR IV Last administered on 02/29/20at 10:48; Start 02/29/20 at 09:00 Active Scripts Active Culturelle (Lactobacillus Rhamnosus Gg) 1 Each Cap.sprink 1 Cap PO BID 30 Days Guaifenesin Dm Syrup (Guaifenesin/Dextromethorphan) 5 Ml Syrup 10 Ml PO PRN Q6HRS PRN 30 Days Albuterol Sulfate Neb Soln (Albuterol Sulfate) 2.5 Mg/3 Ml Vial.neb 2.5 Mg NEB PRN Q4HRS PRN 30 Days Azithromycin Tablet (Azithromycin) 250 Mg Tablet 250 Mg PO DAILY 5 Days Cefpodoxime Proxetil 100 Mg Tablet 200 Mg PO BID 5 Days Reported Senna (Sennosides) 8.8 Mg/5 Ml Syrup 8.8 Mg PO DAILY Tylenol Extra Strength (Acetaminophen) 500 Mg Tablet 1,000 Mg PO PRN PRN Furosemide 20 Mg Tablet 1 Tab PO DAILY Glipizide Xl (Glipizide) 10 Mg Tab.er.24 1 Tab PO DAILY 30 Days Metformin Hcl Er (Metformin Hcl) 500 Mg Tab.er.24h 1,000 Mg PO DAILYWBKFT Glipizide Xl (Glipizide) 10 Mg Tab.er.24 10 Mg PO DAILY Calcium 500 + D Tablet (Calcium Carbonate/Vitamin D3) 1 Each Tablet 1 Each PO DAILY Catapres-Tts 3 (Clonidine) 1 Each Patch.tdwk 1 Each TD WEEKLY Lisinopril 20 Mg Tablet 1 Tab PO DAILY [cyanocobalamin] 100 Mcg PO DAILY Aspir 81 (Aspirin) 81 Mg Tablet.dr 81 Mg PO DAILY Norvasc (Amlodipine Besylate) 10 Mg Tablet 10 Mg PO DAILY Atorvastatin Calcium 10 Mg Tablet 10 Mg PO HS Allergies Allergies: Coded Allergies: No Known Drug Allergies (Unverified , 07/08/13) ROS Review of System Unable to Obtain, Non verbal Physical Exam Physical Exam GEN On Venti mask HEENT: Oral cavity very dry. NECK: Supple, LUNGS: Had some mild crackles. HEART: S1, S2. ABDOMEN: Soft, nontender, no guarding, no rebound. EXTREMITIES: Without clubbing, cyanosis. No gross edema. SKIN: Warm to touch without signs of rash. NEUROLOGIC: follow simple commands, Non verbal PSYCHIATRIC: Affect is flat No thomas Vital Signs Vital Signs Date Time Temp Pulse Resp B/P (MAP) Pulse Ox O2 Delivery O2 Flow Rate FiO2 02/29/20 11:32 98.4 80 20 132/62 (85) 93 Venturi Mask 98.4 02/29/20 08:00 15.0 Assessment & Plan KENNY - ATN 2/2 CoVid/Hypotensive / ?Poor PO intake / Mild Rhabdo Baseline Cr Normal in 2018 , no interval labs available Stable renal function this am , E-Lytes stable , Check UA, Renal US (elective) Supportive care, Strict I/O, bladder scan prn , r/o retention , avoid nephrotoxins Hypernatremia - Monitor, Encourage PO fluid intake if able to Rhabdomyolysis- CK elevated , Past hx of rhabdomyolysis as well Trend CK , IVF , Strict I/O Acute hypoxic respiratory Failure-- worsening now on venti-mask -COVID -19 pneumonia, cannot exclude bacterial pneumonia COVID-19 known positive , elevated D Dimer Fever/ Leukocytosis. Anemia of chronic disease Dementia D/W RN and Dr. Patterson Labs Labs Laboratory Tests Test 02/27/20 15:51 02/27/20 21:05 02/28/20 03:40 02/28/20 07:10 Glucose (Fingerstick) 143 mg/dL (70-99) 221 mg/dL (70-99) 229 mg/dL (70-99) White Blood Count 7.5 x10^3/uL (4.0-11.0) Red Blood Count 4.22 x10^6/uL (4.30-5.70) Hemoglobin 12.4 g/dL (13.0-17.5) Hematocrit 37.6 % (39.0-53.0) Mean Corpuscular Volume 89 fL (79-100) Mean Corpuscular Hemoglobin 29 pg (25-35) Mean Corpuscular Hemoglobin Concent 33 g/dL (31-37) Red Cell Distribution Width 15.1 % (11.5-14.5) Platelet Count 175 x10^3/uL (140-400) Neutrophils (%) (Auto) 90 % (31-73) Lymphocytes (%) (Auto) 7 % (24-48) Monocytes (%) (Auto) 3 % (0-9) Eosinophils (%) (Auto) 0 % (0-3) Basophils (%) (Auto) 0 % (0-3) Neutrophils # (Auto) 6.7 x10^3/uL (1.8-7.7) Lymphocytes # (Auto) 0.5 x10^3/uL (1.0-4.8) Monocytes # (Auto) 0.2 x10^3/uL (0.0-1.1) Eosinophils # (Auto) 0.0 x10^3/uL (0.0-0.7) Basophils # (Auto) 0.0 x10^3/uL (0.0-0.2) Segmented Neutrophils % 80 % (35-66) Band Neutrophils % 5 % (0-9) Lymphocytes % 13 % (24-48) Monocytes % 2 % (0-10) Platelet Estimate Adequate (ADEQUATE) Sodium Level 145 mmol/L (136-145) Potassium Level 4.5 mmol/L (3.5-5.1) Chloride Level 108 mmol/L (98-107) Carbon Dioxide Level 26 mmol/L (21-32) Anion Gap 11 (6-14) Blood Urea Nitrogen 43 mg/dL (8-26) Creatinine 2.4 mg/dL (0.7-1.3) Estimated GFR (Cockcroft-Gault) 31.9 BUN/Creatinine Ratio 18 (6-20) Glucose Level 252 mg/dL (70-99) Calcium Level 7.6 mg/dL (8.5-10.1) Total Bilirubin 0.4 mg/dL (0.2-1.0) Aspartate Amino Transf (AST/SGOT) 73 U/L (15-37) Alanine Aminotransferase (ALT/SGPT) 31 U/L (16-63) Alkaline Phosphatase 53 U/L (46-116) Total Protein 7.3 g/dL (6.4-8.2) Albumin 2.5 g/dL (3.4-5.0) Albumin/Globulin Ratio 0.5 (1.0-1.7) Test 02/28/20 10:12 02/28/20 16:15 02/28/20 20:48 02/29/20 03:50 Glucose (Fingerstick) 263 mg/dL (70-99) 274 mg/dL (70-99) 293 mg/dL (70-99) White Blood Count 11.4 x10^3/uL (4.0-11.0) Red Blood Count 4.39 x10^6/uL (4.30-5.70) Hemoglobin 12.8 g/dL (13.0-17.5) Hematocrit 39.0 % (39.0-53.0) Mean Corpuscular Volume 89 fL (79-100) Mean Corpuscular Hemoglobin 29 pg (25-35) Mean Corpuscular Hemoglobin Concent 33 g/dL (31-37) Red Cell Distribution Width 15.2 % (11.5-14.5) Platelet Count 193 x10^3/uL (140-400) Neutrophils (%) (Auto) 93 % (31-73) Lymphocytes (%) (Auto) 4 % (24-48) Monocytes (%) (Auto) 3 % (0-9) Eosinophils (%) (Auto) 0 % (0-3) Basophils (%) (Auto) 0 % (0-3) Neutrophils # (Auto) 10.6 x10^3/uL (1.8-7.7) Lymphocytes # (Auto) 0.4 x10^3/uL (1.0-4.8) Monocytes # (Auto) 0.4 x10^3/uL (0.0-1.1) Eosinophils # (Auto) 0.0 x10^3/uL (0.0-0.7) Basophils # (Auto) 0.0 x10^3/uL (0.0-0.2) Sodium Level 149 mmol/L (136-145) Potassium Level 4.6 mmol/L (3.5-5.1) Chloride Level 111 mmol/L (98-107) Carbon Dioxide Level 27 mmol/L (21-32) Anion Gap 11 (6-14) Blood Urea Nitrogen 49 mg/dL (8-26) Creatinine 2.4 mg/dL (0.7-1.3) Estimated GFR (Cockcroft-Gault) 31.9 BUN/Creatinine Ratio 20 (6-20) Glucose Level 302 mg/dL (70-99) Calcium Level 8.1 mg/dL (8.5-10.1) Total Bilirubin 0.3 mg/dL (0.2-1.0) Aspartate Amino Transf (AST/SGOT) 66 U/L (15-37) Alanine Aminotransferase (ALT/SGPT) 35 U/L (16-63) Alkaline Phosphatase 53 U/L (46-116) Creatine Kinase 2061 U/L (39-308) Total Protein 7.4 g/dL (6.4-8.2) Albumin 2.5 g/dL (3.4-5.0) Albumin/Globulin Ratio 0.5 (1.0-1.7) Test 02/29/20 07:15 02/29/20 11:03 Glucose (Fingerstick) 261 mg/dL (70-99) 251 mg/dL (70-99) Laboratory Tests Test 02/28/20 16:15 02/28/20 20:48 02/29/20 03:50 02/29/20 07:15 Glucose (Fingerstick) 274 mg/dL (70-99) 293 mg/dL (70-99) 261 mg/dL (70-99) White Blood Count 11.4 x10^3/uL (4.0-11.0) Red Blood Count 4.39 x10^6/uL (4.30-5.70) Hemoglobin 12.8 g/dL (13.0-17.5) Hematocrit 39.0 % (39.0-53.0) Mean Corpuscular Volume 89 fL (79-100) Mean Corpuscular Hemoglobin 29 pg (25-35) Mean Corpuscular Hemoglobin Concent 33 g/dL (31-37) Red Cell Distribution Width 15.2 % (11.5-14.5) Platelet Count 193 x10^3/uL (140-400) Neutrophils (%) (Auto) 93 % (31-73) Lymphocytes (%) (Auto) 4 % (24-48) Monocytes (%) (Auto) 3 % (0-9) Eosinophils (%) (Auto) 0 % (0-3) Basophils (%) (Auto) 0 % (0-3) Neutrophils # (Auto) 10.6 x10^3/uL (1.8-7.7) Lymphocytes # (Auto) 0.4 x10^3/uL (1.0-4.8) Monocytes # (Auto) 0.4 x10^3/uL (0.0-1.1) Eosinophils # (Auto) 0.0 x10^3/uL (0.0-0.7) Basophils # (Auto) 0.0 x10^3/uL (0.0-0.2) Sodium Level 149 mmol/L (136-145) Potassium Level 4.6 mmol/L (3.5-5.1) Chloride Level 111 mmol/L (98-107) Carbon Dioxide Level 27 mmol/L (21-32) Anion Gap 11 (6-14) Blood Urea Nitrogen 49 mg/dL (8-26) Creatinine 2.4 mg/dL (0.7-1.3) Estimated GFR (Cockcroft-Gault) 31.9 BUN/Creatinine Ratio 20 (6-20) Glucose Level 302 mg/dL (70-99) Calcium Level 8.1 mg/dL (8.5-10.1) Total Bilirubin 0.3 mg/dL (0.2-1.0) Aspartate Amino Transf (AST/SGOT) 66 U/L (15-37) Alanine Aminotransferase (ALT/SGPT) 35 U/L (16-63) Alkaline Phosphatase 53 U/L (46-116) Creatine Kinase 2061 U/L (39-308) Total Protein 7.4 g/dL (6.4-8.2) Albumin 2.5 g/dL (3.4-5.0) Albumin/Globulin Ratio 0.5 (1.0-1.7) Test 02/29/20 11:03 Glucose (Fingerstick) 251 mg/dL (70-99) Review All relevant outside records, renal labs, imaging studies, telemetry/EKG's were reviewed. Images Images * Patchy opacities in bilateral lungs which could be seen with multifocal infiltrate or edema MISAEL MOLINA MD Feb 29, 2020 12:15
--- NOTE | 2020-02-29 13:24 | CONS ---
DATE OF CONSULTATION: 02/29/2020 INFECTIOUS DISEASE CONSULTATION LOCATION: The patient's room is 673. REQUESTING PHYSICIAN: Bhavesh Patiño MD REASON FOR CONSULTATION: COVID. HISTORY OF PRESENT ILLNESS: The patient is a 79-year-old gentleman with history of dementia, fpc resident, who lives at [facility], was diagnosed with COVID-19, brought to the hospital with increased dyspnea and hypoxia and altered mental status, had fevers up to 101. He is on 6 liters of oxygen. A chest x-ray showed some bilateral infiltrates. His white count was 7.5, but he had 5% bands. Additionally, he was in renal failure with a creatinine of 1.4, but worsened to 2.4. His creatinine kinase was 1865. Admitted to the hospital, placed on steroids as well as Zosyn. Currently, he is lying in bed. He is responsive, but gives minimal answers. PAST MEDICAL HISTORY: Positive for hypertension, hyperlipidemia, diabetes, polyneuropathy, dementia, history of rhabdomyolysis in the past. REVIEW OF SYSTEMS: Unreliable. ALLERGIES: None. SOCIAL HISTORY: He is a fpc resident. No alcohol, uncertain of smoking history. FAMILY HISTORY: Unknown. CURRENT MEDICATIONS: Include Zosyn, Tylenol, Norvasc, Ecotrin, Lipitor, Colace, Lovenox, guaifenesin, insulin, lactobacillus, Solu-Medrol, and Zofran. PHYSICAL EXAMINATION: VITAL SIGNS: T-max has been 101, currently ____, pulse 59, respirations 21, blood pressure 136/67, satting 94% on Ventimask. CONSTITUTIONAL: He is alert. He looks weak and tired. He is in no acute distress. HEENT: Pupils have some cataracts in place. Oral cavity, pharynx is very dry. NECK: Supple, no JVD. LUNGS: Had some mild crackles. HEART: S1, S2. ABDOMEN: Soft, nontender, no guarding, no rebound. EXTREMITIES: Without clubbing, cyanosis. No gross edema. SKIN: Warm to touch without signs of rash. NEUROLOGIC: He did follow simple commands. PSYCHIATRIC: Affect is flat. LABORATORY DATA: White count 11.4, hemoglobin 12.8, platelets of 193, neutrophils of 93. Creatinine of 2.4, glucose of 302. AST 66, ALT 35, creatinine kinase 2061. Troponin I was 0.022. Chest x-ray on again patchy opacities. IMPRESSION: 1. Fever. 2. Acute hypoxic respiratory failure. 3. COVID positive. 4. Acute kidney injury. 5. Leukocytosis. 6. Rhabdomyolysis with history as well, previous rhabdomyolysis. RECOMMENDATIONS: Type and screen, will dose plasma. Continue steroids, continue antibiotics and Zyvox. Given his fpc status resident, he does have a good lung coverage and avoid vancomycin with acute kidney injury. Follow up labs and cultures. Thank you for allowing me to participate in the patient's care. If you have any questions, please do not hesitate to contact me. HARPAL POE MD DR: ТАТЬЯНА/deysi JOB#: [id number] / [id number] JACKY
[2020-02-29 15:58] VITALS: BP 133/61
[2020-02-29 17:20] LABS: BILIRUBIN,URINE NEGATIVE (NEG); CLARITY,URINE CLEAR; COLOR,URINE YELLOW; NITRITE,URINE NEGATIVE (NEG); PH,URINE 5.5 (<5.0-8.0); PROTEIN,URINE 30 mg/dL (NEG-TRACE)
[2020-02-29 17:25] LABS: BACTERIA,URINE FEW /HPF (0-FEW); RBC,URINE TNTC /HPF (0-2); SQUAMOUS EPITHELIAL CELL,UR OCC /LPF
[2020-02-29 19:40] VITALS: BP 172/83
[2020-02-29] MEDS: ATORVASTATIN CALCIUM 10 MG TABLET. PO SCH (20:41)
[2020-02-29 23:42] VITALS: BP 132/62
[2020-03-01] VITALS (19 sets, daily range): BP systolic 141–170; BP diastolic 70–93
[2020-03-01] MEDS: PIPERACILLIN/TAZOBACTAM 3.375 GM in IV NORMAL SALINE 50ML 50 ML IV SCH ×4 (00:38→17:23)
[2020-03-01] MEDS: IV NORMAL SALINE 1000ML BAG 1,000 ML IV SCH ×2 (03:00→12:21)
[2020-03-01] MEDS: methylPREDNISolone SOD SUCC PF 40 MG/ML VIAL. IV SCH ×3 (05:12→22:18)
[2020-03-01 08:45] LABS: BASO % 0 % (0-3); EOS % 0 % (0-3); HEMATOCRIT 36.5 % (39.0-53.0); LYMPH # 0.3 x10^3/uL (1.0-4.8); LYMPH % 3 % (24-48); MEAN CORPUSCULAR HEMOGLOBIN 29 pg (25-35); MEAN CORPUSCULAR HGB CONC 33 g/dL (31-37); MEAN CORPUSCULAR VOLUME 88 fL (79-100); MONO # 0.3 x10^3/uL (0.0-1.1); MONO % 3 % (0-9); NEUT # 10.6 x10^3/uL (1.8-7.7); NEUT % 94 % (31-73); PLATELET COUNT 208 x10^3/uL (140-400); RED BLOOD COUNT 4.14 x10^6/uL (4.30-5.70); RED CELL DISTRIBUTION WIDTH 15.6 % (11.5-14.5); WHITE BLOOD COUNT 11.3 x10^3/uL (4.0-11.0)
[2020-03-01] MEDS: ASPIRIN ENTERIC COATED 81 MG TABLET.DR. PO SCH (08:52)
[2020-03-01] MEDS: LACTOBACILLUS RHAMNOSUS GG 1 CAPSULE. PO SCH ×2 (08:52→21:11)
[2020-03-01] MEDS: ZINC SULFATE 220 MG CAPSULE. PO SCH (08:53)
[2020-03-01] MEDS: amLODIPine BESYLATE 10 MG TABLET PO SCH (08:53)
[2020-03-01] MEDS: ENOXAPARIN 40 MG/0.4 ML SYRINGE. SQ SCH ×2 (08:54→21:11)
[2020-03-01] MEDS: INSULIN LISPRO 300 UNITS/3 ML VIAL. SQ SCH ×4 (08:55→21:24)
[2020-03-01 09:10] LABS: ALBUMIN 2.1 g/dL (3.4-5.0); ALBUMIN/GLOBULIN RATIO 0.4 (1.0-1.7); CALCIUM 7.8 mg/dL (8.5-10.1); GFR 39.4; POTASSIUM 4.2 mmol/L (3.5-5.1); TOTAL BILIRUBIN 0.4 mg/dL (0.2-1.0); TOTAL PROTEIN 6.8 g/dL (6.4-8.2)
--- NOTE | 2020-03-01 10:45 | NUR ---
Patient alert, awake, oriented x1, on 15 liters oxygen nonrebreather mask. Tolerated crushed pills in puree. Patient follows commands and responsive to this nurse. We'll continue to monitor.
--- NOTE | 2020-03-01 10:53 | PDOC ---
Infectious Disease Note Subjective Subjective pt lethargic, nodes ROS ROS no n/v/d/ Vital Sign Vital Signs Vital Signs Date Time Temp Pulse Resp B/P (MAP) Pulse Ox O2 Delivery O2 Flow Rate FiO2 03/01/20 08:53 57 166/70 03/01/20 08:00 Non-Rebreather 15.0 03/01/20 07:00 98.6 18 97 98.6 Physical Exam PHYSICAL EXAM CONSTITUTIONAL: He is alert. He looks weak and tired. on VM HEENT: Pupils have some cataracts in place. Oral cavity, pharynx is very dry. NECK: Supple, no JVD. LUNGS: Had some mild crackles. HEART: S1, S2. ABDOMEN: Soft, nontender, no guarding, no rebound. EXTREMITIES: Without clubbing, cyanosis. No gross edema. SKIN: Warm to touch without signs of rash. NEUROLOGIC: He did follow simple commands. PSYCHIATRIC: Affect is flat. Labs Lab Laboratory Tests Test 02/29/20 11:03 02/29/20 16:05 02/29/20 16:17 02/29/20 20:53 Glucose (Fingerstick) 251 mg/dL (70-99) 288 mg/dL (70-99) 297 mg/dL (70-99) Urine Collection Type Unknown Urine Color Yellow Urine Clarity Clear Urine pH 5.5 (<5.0-8.0) Urine Specific [place] 1.025 (1.000-1.030) Urine Protein 30 mg/dL (NEG-TRACE) Urine Glucose (UA) 500 mg/dL (NEG) Urine Ketones (Stick) Negative mg/dL (NEG) Urine Blood Large (NEG) Urine Nitrite Negative (NEG) Urine Bilirubin Negative (NEG) Urine Urobilinogen Dipstick 1.0 mg/dL (0.2 mg/dL) Urine Leukocyte Esterase Moderate (NEG) Urine RBC Tntc /HPF (0-2) Urine WBC 11-20 /HPF (0-4) Urine Squamous Epithelial Cells Occ /LPF Urine Bacteria Few /HPF (0-FEW) Test 03/01/20 08:00 03/01/20 08:10 Glucose (Fingerstick) 306 mg/dL (70-99) White Blood Count 11.3 x10^3/uL (4.0-11.0) Red Blood Count 4.14 x10^6/uL (4.30-5.70) Hemoglobin 12.0 g/dL (13.0-17.5) Hematocrit 36.5 % (39.0-53.0) Mean Corpuscular Volume 88 fL (79-100) Mean Corpuscular Hemoglobin 29 pg (25-35) Mean Corpuscular Hemoglobin Concent 33 g/dL (31-37) Red Cell Distribution Width 15.6 % (11.5-14.5) Platelet Count 208 x10^3/uL (140-400) Neutrophils (%) (Auto) 94 % (31-73) Lymphocytes (%) (Auto) 3 % (24-48) Monocytes (%) (Auto) 3 % (0-9) Eosinophils (%) (Auto) 0 % (0-3) Basophils (%) (Auto) 0 % (0-3) Neutrophils # (Auto) 10.6 x10^3/uL (1.8-7.7) Lymphocytes # (Auto) 0.3 x10^3/uL (1.0-4.8) Monocytes # (Auto) 0.3 x10^3/uL (0.0-1.1) Eosinophils # (Auto) 0.0 x10^3/uL (0.0-0.7) Basophils # (Auto) 0.0 x10^3/uL (0.0-0.2) Sodium Level 151 mmol/L (136-145) Potassium Level 4.2 mmol/L (3.5-5.1) Chloride Level 115 mmol/L (98-107) Carbon Dioxide Level 27 mmol/L (21-32) Anion Gap 9 (6-14) Blood Urea Nitrogen 38 mg/dL (8-26) Creatinine 2.0 mg/dL (0.7-1.3) Estimated GFR (Cockcroft-Gault) 39.4 BUN/Creatinine Ratio 19 (6-20) Glucose Level 323 mg/dL (70-99) Calcium Level 7.8 mg/dL (8.5-10.1) Total Bilirubin 0.4 mg/dL (0.2-1.0) Aspartate Amino Transf (AST/SGOT) 41 U/L (15-37) Alanine Aminotransferase (ALT/SGPT) 25 U/L (16-63) Alkaline Phosphatase 50 U/L (46-116) Creatine Kinase 829 U/L (39-308) Total Protein 6.8 g/dL (6.4-8.2) Albumin 2.1 g/dL (3.4-5.0) Albumin/Globulin Ratio 0.4 (1.0-1.7) Objective Assessment 1. Fever. 2. Acute hypoxic respiratory failure. 3. COVID positive. 4. Acute kidney injury. 5. Leukocytosis. 6. Rhabdomyolysis with history as well, previous rhabdomyolysis. Plan Plan of Care Type and screen Would dose Plasma Cont Steroids Cont abx but add Zyvox given NH resident/lung coverage/avoid Vanc with KENNY F/u labs and cults Dw nursing start also Remdesivir CONCEPCION SMITH MD Mar 01, 2020 10:53
[2020-03-01] MEDS ORDERED: STERILE WATER for RESP 1,000 ML BAG. INH PRN (11:00)
--- NOTE | 2020-03-01 11:14 | PDOC ---
PULMONARY PROGRESS NOTES DATE: 03/01/20 TIME: 11:11 Subjective pt. remains lethargic, OXYGEN REQUIREMENT HAS INCREASED, ON NRB MASK Vitals Vital Signs Date Time Temp Pulse Resp B/P (MAP) Pulse Ox O2 Delivery O2 Flow Rate FiO2 03/01/20 08:53 57 166/70 03/01/20 08:00 Non-Rebreather 15.0 03/01/20 07:00 98.6 18 97 98.6 Comments PT. seen during COVID-19 pandemic visual exam preformed RRR N/C no distress no rash No edeam Labs Laboratory Tests Test 02/28/20 16:15 02/28/20 20:48 02/29/20 03:50 02/29/20 07:15 Glucose (Fingerstick) 274 mg/dL (70-99) 293 mg/dL (70-99) 261 mg/dL (70-99) White Blood Count 11.4 x10^3/uL (4.0-11.0) Red Blood Count 4.39 x10^6/uL (4.30-5.70) Hemoglobin 12.8 g/dL (13.0-17.5) Hematocrit 39.0 % (39.0-53.0) Mean Corpuscular Volume 89 fL (79-100) Mean Corpuscular Hemoglobin 29 pg (25-35) Mean Corpuscular Hemoglobin Concent 33 g/dL (31-37) Red Cell Distribution Width 15.2 % (11.5-14.5) Platelet Count 193 x10^3/uL (140-400) Neutrophils (%) (Auto) 93 % (31-73) Lymphocytes (%) (Auto) 4 % (24-48) Monocytes (%) (Auto) 3 % (0-9) Eosinophils (%) (Auto) 0 % (0-3) Basophils (%) (Auto) 0 % (0-3) Neutrophils # (Auto) 10.6 x10^3/uL (1.8-7.7) Lymphocytes # (Auto) 0.4 x10^3/uL (1.0-4.8) Monocytes # (Auto) 0.4 x10^3/uL (0.0-1.1) Eosinophils # (Auto) 0.0 x10^3/uL (0.0-0.7) Basophils # (Auto) 0.0 x10^3/uL (0.0-0.2) Sodium Level 149 mmol/L (136-145) Potassium Level 4.6 mmol/L (3.5-5.1) Chloride Level 111 mmol/L (98-107) Carbon Dioxide Level 27 mmol/L (21-32) Anion Gap 11 (6-14) Blood Urea Nitrogen 49 mg/dL (8-26) Creatinine 2.4 mg/dL (0.7-1.3) Estimated GFR (Cockcroft-Gault) 31.9 BUN/Creatinine Ratio 20 (6-20) Glucose Level 302 mg/dL (70-99) Calcium Level 8.1 mg/dL (8.5-10.1) Total Bilirubin 0.3 mg/dL (0.2-1.0) Aspartate Amino Transf (AST/SGOT) 66 U/L (15-37) Alanine Aminotransferase (ALT/SGPT) 35 U/L (16-63) Alkaline Phosphatase 53 U/L (46-116) Creatine Kinase 2061 U/L (39-308) Total Protein 7.4 g/dL (6.4-8.2) Albumin 2.5 g/dL (3.4-5.0) Albumin/Globulin Ratio 0.5 (1.0-1.7) Test 02/29/20 11:03 02/29/20 16:05 02/29/20 16:17 02/29/20 20:53 Glucose (Fingerstick) 251 mg/dL (70-99) 288 mg/dL (70-99) 297 mg/dL (70-99) Urine Collection Type Unknown Urine Color Yellow Urine Clarity Clear Urine pH 5.5 (<5.0-8.0) Urine Specific [place] 1.025 (1.000-1.030) Urine Protein 30 mg/dL (NEG-TRACE) Urine Glucose (UA) 500 mg/dL (NEG) Urine Ketones (Stick) Negative mg/dL (NEG) Urine Blood Large (NEG) Urine Nitrite Negative (NEG) Urine Bilirubin Negative (NEG) Urine Urobilinogen Dipstick 1.0 mg/dL (0.2 mg/dL) Urine Leukocyte Esterase Moderate (NEG) Urine RBC Tntc /HPF (0-2) Urine WBC 11-20 /HPF (0-4) Urine Squamous Epithelial Cells Occ /LPF Urine Bacteria Few /HPF (0-FEW) Test 03/01/20 08:00 03/01/20 08:10 Glucose (Fingerstick) 306 mg/dL (70-99) White Blood Count 11.3 x10^3/uL (4.0-11.0) Red Blood Count 4.14 x10^6/uL (4.30-5.70) Hemoglobin 12.0 g/dL (13.0-17.5) Hematocrit 36.5 % (39.0-53.0) Mean Corpuscular Volume 88 fL (79-100) Mean Corpuscular Hemoglobin 29 pg (25-35) Mean Corpuscular Hemoglobin Concent 33 g/dL (31-37) Red Cell Distribution Width 15.6 % (11.5-14.5) Platelet Count 208 x10^3/uL (140-400) Neutrophils (%) (Auto) 94 % (31-73) Lymphocytes (%) (Auto) 3 % (24-48) Monocytes (%) (Auto) 3 % (0-9) Eosinophils (%) (Auto) 0 % (0-3) Basophils (%) (Auto) 0 % (0-3) Neutrophils # (Auto) 10.6 x10^3/uL (1.8-7.7) Lymphocytes # (Auto) 0.3 x10^3/uL (1.0-4.8) Monocytes # (Auto) 0.3 x10^3/uL (0.0-1.1) Eosinophils # (Auto) 0.0 x10^3/uL (0.0-0.7) Basophils # (Auto) 0.0 x10^3/uL (0.0-0.2) Sodium Level 151 mmol/L (136-145) Potassium Level 4.2 mmol/L (3.5-5.1) Chloride Level 115 mmol/L (98-107) Carbon Dioxide Level 27 mmol/L (21-32) Anion Gap 9 (6-14) Blood Urea Nitrogen 38 mg/dL (8-26) Creatinine 2.0 mg/dL (0.7-1.3) Estimated GFR (Cockcroft-Gault) 39.4 BUN/Creatinine Ratio 19 (6-20) Glucose Level 323 mg/dL (70-99) Calcium Level 7.8 mg/dL (8.5-10.1) Total Bilirubin 0.4 mg/dL (0.2-1.0) Aspartate Amino Transf (AST/SGOT) 41 U/L (15-37) Alanine Aminotransferase (ALT/SGPT) 25 U/L (16-63) Alkaline Phosphatase 50 U/L (46-116) Creatine Kinase 829 U/L (39-308) Total Protein 6.8 g/dL (6.4-8.2) Albumin 2.1 g/dL (3.4-5.0) Albumin/Globulin Ratio 0.4 (1.0-1.7) Laboratory Tests Test 02/29/20 16:05 02/29/20 16:17 02/29/20 20:53 03/01/20 08:00 Urine Collection Type Unknown Urine Color Yellow Urine Clarity Clear Urine pH 5.5 (<5.0-8.0) Urine Specific [place] 1.025 (1.000-1.030) Urine Protein 30 mg/dL (NEG-TRACE) Urine Glucose (UA) 500 mg/dL (NEG) Urine Ketones (Stick) Negative mg/dL (NEG) Urine Blood Large (NEG) Urine Nitrite Negative (NEG) Urine Bilirubin Negative (NEG) Urine Urobilinogen Dipstick 1.0 mg/dL (0.2 mg/dL) Urine Leukocyte Esterase Moderate (NEG) Urine RBC Tntc /HPF (0-2) Urine WBC 11-20 /HPF (0-4) Urine Squamous Epithelial Cells Occ /LPF Urine Bacteria Few /HPF (0-FEW) Glucose (Fingerstick) 288 mg/dL (70-99) 297 mg/dL (70-99) 306 mg/dL (70-99) Test 03/01/20 08:10 White Blood Count 11.3 x10^3/uL (4.0-11.0) Red Blood Count 4.14 x10^6/uL (4.30-5.70) Hemoglobin 12.0 g/dL (13.0-17.5) Hematocrit 36.5 % (39.0-53.0) Mean Corpuscular Volume 88 fL (79-100) Mean Corpuscular Hemoglobin 29 pg (25-35) Mean Corpuscular Hemoglobin Concent 33 g/dL (31-37) Red Cell Distribution Width 15.6 % (11.5-14.5) Platelet Count 208 x10^3/uL (140-400) Neutrophils (%) (Auto) 94 % (31-73) Lymphocytes (%) (Auto) 3 % (24-48) Monocytes (%) (Auto) 3 % (0-9) Eosinophils (%) (Auto) 0 % (0-3) Basophils (%) (Auto) 0 % (0-3) Neutrophils # (Auto) 10.6 x10^3/uL (1.8-7.7) Lymphocytes # (Auto) 0.3 x10^3/uL (1.0-4.8) Monocytes # (Auto) 0.3 x10^3/uL (0.0-1.1) Eosinophils # (Auto) 0.0 x10^3/uL (0.0-0.7) Basophils # (Auto) 0.0 x10^3/uL (0.0-0.2) Sodium Level 151 mmol/L (136-145) Potassium Level 4.2 mmol/L (3.5-5.1) Chloride Level 115 mmol/L (98-107) Carbon Dioxide Level 27 mmol/L (21-32) Anion Gap 9 (6-14) Blood Urea Nitrogen 38 mg/dL (8-26) Creatinine 2.0 mg/dL (0.7-1.3) Estimated GFR (Cockcroft-Gault) 39.4 BUN/Creatinine Ratio 19 (6-20) Glucose Level 323 mg/dL (70-99) Calcium Level 7.8 mg/dL (8.5-10.1) Total Bilirubin 0.4 mg/dL (0.2-1.0) Aspartate Amino Transf (AST/SGOT) 41 U/L (15-37) Alanine Aminotransferase (ALT/SGPT) 25 U/L (16-63) Alkaline Phosphatase 50 U/L (46-116) Creatine Kinase 829 U/L (39-308) Total Protein 6.8 g/dL (6.4-8.2) Albumin 2.1 g/dL (3.4-5.0) Albumin/Globulin Ratio 0.4 (1.0-1.7) Medications Active Scripts Medications Dose Route/Sig Max Daily Dose Days Date Category Senna (Sennosides) 8.8 Mg/5 Ml Syrup 8.8 Mg PO DAILY 02/27/20 Reported Tylenol Extra Strength (Acetaminophen) 500 Mg Tablet 1,000 Mg PO PRN PRN 02/27/20 Reported Furosemide 20 Mg Tablet 1 Tab PO DAILY 02/27/20 Reported Glipizide Xl (Glipizide) 10 Mg Tab.er.24 1 Tab PO DAILY 30 02/27/20 Reported Culturelle (Lactobacillus Rhamnosus Gg) 1 Each Cap.sprink 1 Cap PO BID 30 05/23/18 Rx Guaifenesin Dm Syrup (Guaifenesin/Dextromethorphan) 5 Ml Syrup 10 Ml PO PRN Q6HRS PRN 30 05/23/18 Rx Albuterol Sulfate Neb Soln (Albuterol Sulfate) 2.5 Mg/3 Ml Vial.neb 2.5 Mg NEB PRN Q4HRS PRN 30 05/23/18 Rx Azithromycin Tablet (Azithromycin) 250 Mg Tablet 250 Mg PO DAILY 5 05/23/18 Rx Cefpodoxime Proxetil 100 Mg Tablet 200 Mg PO BID 05/23/18 Rx Metformin Hcl Er (Metformin Hcl) 500 Mg Tab.er.24h 1,000 Mg PO DAILYWBKFT 05/21/18 Reported Glipizide Xl (Glipizide) 10 Mg Tab.er.24 10 Mg PO DAILY 05/20/18 Reported Calcium 500 + D Tablet (Calcium Carbonate/Vitamin D3) 1 Each Tablet 1 Each PO DAILY 05/20/18 Reported Catapres-Tts 3 (Clonidine) 1 Each Patch.tdwk 1 Each TD WEEKLY 05/20/18 Reported Lisinopril 20 Mg Tablet 1 Tab PO DAILY 05/20/18 Reported [cyanocobalamin] 100 Mcg PO DAILY 05/20/18 Reported Aspir 81 (Aspirin) 81 Mg Tablet.dr 81 Mg PO DAILY 07/08/13 Reported Norvasc (Amlodipine Besylate) 10 Mg Tablet 10 Mg PO DAILY 07/08/13 Reported Atorvastatin Calcium 10 Mg Tablet 10 Mg PO HS 07/08/13 Reported Comments CXR- 02/27/2020 IMPRESSION: * Patchy opacities in bilateral lungs which could be seen with multifocal infiltrate or edema Impression . Acute hypoxic respiratory Failure-- worsening now on 100%fio2 COVID-19 known positive COVID -19 pneumonia, cannot exclude bacterial pneumonia elevated ddimer 2/2 inflamatory stage of covid19 Fevers Anemia of chronic disease Dementia KENNY vs. CKD Plan . Patient has increasing FIO2 requirement d/w sister. She wants short term intubation if needed. full code for now will transfer to ICU. Start Vapotherm will give Plasma Tylenol for fevers Cont. zosyn for ABX coverage Cont. steroids Follow nephrology recs will follow inflammatory markers DVT/GI PPX -- high dose lovenox D/W RN, d/w sister cct 30 min JOSY CASTILLO MD Mar 01, 2020 11:14
--- NOTE | 2020-03-01 13:57 | NUR ---
Prelunch blood glucose is 388mg/dl, notified Dr. Gupta, 7 units given per order.
--- NOTE | 2020-03-01 13:59 | PDOC ---
Renal-Progress Notes Subjective Notes Notes SOB WORSE History of Present Illness Hx of present illness WORSENING SOB Vitals Vitals Vital Signs Date Time Temp Pulse Resp B/P (MAP) Pulse Ox O2 Delivery O2 Flow Rate FiO2 03/01/20 12:09 94 NonRebreather Mask 03/01/20 11:00 97.6 66 20 154/72 (99) 97.6 03/01/20 08:00 15.0 Weight Weight [ ] I.O. Intake and Output Intake and Output 03/01/20 07:00 Intake Total 1340 ml Output Total 500 ml Balance 840 ml Intake Oral 140 ml Other 1200 ml Output Urine Total 500 ml # Voids 3 Labs Labs Laboratory Tests Test 02/29/20 16:05 02/29/20 16:17 02/29/20 20:53 03/01/20 08:00 Urine Collection Type Unknown Urine Color Yellow Urine Clarity Clear Urine pH 5.5 (<5.0-8.0) Urine Specific [place] 1.025 (1.000-1.030) Urine Protein 30 mg/dL (NEG-TRACE) Urine Glucose (UA) 500 mg/dL (NEG) Urine Ketones (Stick) Negative mg/dL (NEG) Urine Blood Large (NEG) Urine Nitrite Negative (NEG) Urine Bilirubin Negative (NEG) Urine Urobilinogen Dipstick 1.0 mg/dL (0.2 mg/dL) Urine Leukocyte Esterase Moderate (NEG) Urine RBC Tntc /HPF (0-2) Urine WBC 11-20 /HPF (0-4) Urine Squamous Epithelial Cells Occ /LPF Urine Bacteria Few /HPF (0-FEW) Glucose (Fingerstick) 288 mg/dL (70-99) 297 mg/dL (70-99) 306 mg/dL (70-99) Test 03/01/20 08:10 03/01/20 11:21 White Blood Count 11.3 x10^3/uL (4.0-11.0) Red Blood Count 4.14 x10^6/uL (4.30-5.70) Hemoglobin 12.0 g/dL (13.0-17.5) Hematocrit 36.5 % (39.0-53.0) Mean Corpuscular Volume 88 fL (79-100) Mean Corpuscular Hemoglobin 29 pg (25-35) Mean Corpuscular Hemoglobin Concent 33 g/dL (31-37) Red Cell Distribution Width 15.6 % (11.5-14.5) Platelet Count 208 x10^3/uL (140-400) Neutrophils (%) (Auto) 94 % (31-73) Lymphocytes (%) (Auto) 3 % (24-48) Monocytes (%) (Auto) 3 % (0-9) Eosinophils (%) (Auto) 0 % (0-3) Basophils (%) (Auto) 0 % (0-3) Neutrophils # (Auto) 10.6 x10^3/uL (1.8-7.7) Lymphocytes # (Auto) 0.3 x10^3/uL (1.0-4.8) Monocytes # (Auto) 0.3 x10^3/uL (0.0-1.1) Eosinophils # (Auto) 0.0 x10^3/uL (0.0-0.7) Basophils # (Auto) 0.0 x10^3/uL (0.0-0.2) Sodium Level 151 mmol/L (136-145) Potassium Level 4.2 mmol/L (3.5-5.1) Chloride Level 115 mmol/L (98-107) Carbon Dioxide Level 27 mmol/L (21-32) Anion Gap 9 (6-14) Blood Urea Nitrogen 38 mg/dL (8-26) Creatinine 2.0 mg/dL (0.7-1.3) Estimated GFR (Cockcroft-Gault) 39.4 BUN/Creatinine Ratio 19 (6-20) Glucose Level 323 mg/dL (70-99) Calcium Level 7.8 mg/dL (8.5-10.1) Total Bilirubin 0.4 mg/dL (0.2-1.0) Aspartate Amino Transf (AST/SGOT) 41 U/L (15-37) Alanine Aminotransferase (ALT/SGPT) 25 U/L (16-63) Alkaline Phosphatase 50 U/L (46-116) Creatine Kinase 829 U/L (39-308) Total Protein 6.8 g/dL (6.4-8.2) Albumin 2.1 g/dL (3.4-5.0) Albumin/Globulin Ratio 0.4 (1.0-1.7) Glucose (Fingerstick) 388 mg/dL (70-99) Review of Systems Constitutional: yes: other (SOB, UNABLE TO OBTAIN) Physical Exam General Appearance: moderate distress Skin: warm Respiratory: decreased breath sounds Heart: S1S2 Abdomen: soft, bowel sounds present Extremities: pulses present Neurology: confused Assessment Assessment IMP COVID 19 PNEUMONIA ACUTE RESP FAILURE-WORSE ANEMIA KENNY WITH CR OF 2.4 HEMATURIA-LIKELY COVID RELATED ? CKD - UNKNOWN HYPERNATREMIA PLAN PT TRANSFERRED TO ICU SUPPORTIVE CARE CONVALESCENT PLASMA EMPIRIC ANTIBIOTICS ON SALINE WILL FOLLOW MIRI CADENA MD Mar 01, 2020 13:59
--- NOTE | 2020-03-01 15:21 | NUR ---
1330 patient transfer from [address] [place] [address]. Arrived on 15L NRB mask, O2 sats were 85%. Patient placed on Vapotherm 30L/100% O2. Sats increased to 94% Patient RR in the 30's. Will monitor.
--- NOTE | 2020-03-01 15:55 | PDOC ---
[employer] PROGRESS NOTE Date of Service DOS: DATE: 03/01/20 TIME: 15:53 Chief Complaint Chief Complaint A/P: Respiratory failure with hypoxia - likely 2/2 COVID 19. WORSENING. Steroids, Lovenox twice daily, consult pulmonology. Maintain O2 saturations 92% or greater. SARS-CoV-2 (COVID-19) - As above. ID consulted, agree to consent for convalescent FFP if this is line with family goals of care. KENNY - likely vasomotor nephropathy from COVID 19 infection, will monitor renal fx and hydrate. 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 year, now in SNF ferry [place] agent Diabetes-Type II - sliding scale insulin, will hold oral hypoglycemics for now GERD - cont antacids High Cholesterol - cont statin Hypertension - cont meds, hold clonidine patch given his BP is on the low side POLYNEUROPATHY - CK elevated, will monitor FEN - Pureed nectar thick diet PPX - lovenox FULL CODE Dispo - inpatient, transferred to ICU for increase O2 requirements History of Present Illness History of Present Illness Mr Rivera is a 79-year-old male with PMHx Anemia, Dementia, Diabetes-Type II, Diverticulosis, GERD, High Cholesterol, Hypertension, POLYNEUROPATHY resident of [facility] in [place] comes to ED with known SARS-CoV-2 (COVID 19) who presents to the emergency room with respiratory distress. Patient is unable to provide any history. Is unclear at this time how long he has been ill. Is unclear whether or not he is on oxygen at baseline. Upon arrival to the emerg ency room he is on a nonrebreather. He reportedly had a pulse ox of 72 upon EMS arrival. Patient was able to be weaned down from a nonrebreather to 6 L nasal cannula. ABG was done 7.35/48/107 on 6 L nasal cannula. WBC 9.3, Hb 13.3, platelets 212, d-dimer 3.92, troponin 0 0.22, AST 57, CRP 163.7, CK 1865, albumin 2.7 EKG sinus rhythm, leftward axis QRS transition zone, nonspecific T abnormalities high lateral leads, new prolonged QT. CXR with bilateral patchy infiltrate consistent with COVID-19 pneumonia. Admitted for further care. 02/27: Cr up to 2.4 today. Febrile to 100.7 F overnight. Slight cough. On 6 L nasal cannula oxygen. Afebrile past 24 hours, now on 10 L facemask O2, WBC 11.4, hemoglobin 12.8, CR stable at 2.4 albumin 2.5 CK 2060, glucose 302. He has been incontinent of urine over the past 24 hours and has some redness on the scrotum and buttocks, I advised him Smith catheter may be indicated he does not seem to be understanding much of what is going on. I have discussed with ID that type and screen and convalescent plasma may be indicated, will try to get a hold of family to discuss goals of care. Nephrology consulted, will check UA and renal US. 03/01/2020 No acute events overnight. Patient this morning required increased oxygen requirements needing an nonrebreather mask. Patient was obtunded at this time and not following commands. Patient's chart, labs, images were reviewed and discussed with RN Vitals/I&O Vitals/I&O: Vital Signs Date Time Temp Pulse Resp B/P (MAP) Pulse Ox O2 Delivery O2 Flow Rate FiO2 03/01/20 15:00 70 32 147/78 (101) 87 vapotherm 30.0 03/01/20 13:30 98.0 98.0 I & O 02/29/20 02/29/20 03/01/20 15:00 23:00 07:00 Intake Total 50 ml 60 ml 1230 ml Output Total 500 ml Balance 50 ml 60 ml 730 ml Physical Exam Physical Exam: CONSTITUTIONAL: He is alert. He looks weak and tired. on VM HEENT: Pupils have some cataracts in place. Oral cavity, pharynx is very dry. NECK: Supple, no JVD. LUNGS: Had some mild crackles. HEART: S1, S2. ABDOMEN: Soft, nontender, no guarding, no rebound. EXTREMITIES: Without clubbing, cyanosis. No gross edema. SKIN: Warm to touch without signs of rash. NEUROLOGIC: He did follow simple commands. PSYCHIATRIC: Affect is flat. General: Alert, Cooperative, mild distress Abdomen: Normal bowel sounds, Soft, No tenderness, No hepatosplenomegaly, No masses Extremities: No clubbing, No cyanosis, No edema, Normal pulses, No tenderness/swelling Skin: No rashes, No breakdown, No significant lesion Labs Labs: Laboratory Tests Test 02/29/20 16:05 02/29/20 16:17 02/29/20 20:53 03/01/20 08:00 Urine Collection Type Unknown Urine Color Yellow Urine Clarity Clear Urine pH 5.5 (<5.0-8.0) Urine Specific Eldred 1.025 (1.000-1.030) Urine Protein 30 mg/dL (NEG-TRACE) Urine Glucose (UA) 500 mg/dL (NEG) Urine Ketones (Stick) Negative mg/dL (NEG) Urine Blood Large (NEG) Urine Nitrite Negative (NEG) Urine Bilirubin Negative (NEG) Urine Urobilinogen Dipstick 1.0 mg/dL (0.2 mg/dL) Urine Leukocyte Esterase Moderate (NEG) Urine RBC Tntc /HPF (0-2) Urine WBC 11-20 /HPF (0-4) Urine Squamous Epithelial Cells Occ /LPF Urine Bacteria Few /HPF (0-FEW) Glucose (Fingerstick) 288 mg/dL (70-99) 297 mg/dL (70-99) 306 mg/dL (70-99) Test 03/01/20 08:10 03/01/20 11:21 White Blood Count 11.3 x10^3/uL (4.0-11.0) Red Blood Count 4.14 x10^6/uL (4.30-5.70) Hemoglobin 12.0 g/dL (13.0-17.5) Hematocrit 36.5 % (39.0-53.0) Mean Corpuscular Volume 88 fL (79-100) Mean Corpuscular Hemoglobin 29 pg (25-35) Mean Corpuscular Hemoglobin Concent 33 g/dL (31-37) Red Cell Distribution Width 15.6 % (11.5-14.5) Platelet Count 208 x10^3/uL (140-400) Neutrophils (%) (Auto) 94 % (31-73) Lymphocytes (%) (Auto) 3 % (24-48) Monocytes (%) (Auto) 3 % (0-9) Eosinophils (%) (Auto) 0 % (0-3) Basophils (%) (Auto) 0 % (0-3) Neutrophils # (Auto) 10.6 x10^3/uL (1.8-7.7) Lymphocytes # (Auto) 0.3 x10^3/uL (1.0-4.8) Monocytes # (Auto) 0.3 x10^3/uL (0.0-1.1) Eosinophils # (Auto) 0.0 x10^3/uL (0.0-0.7) Basophils # (Auto) 0.0 x10^3/uL (0.0-0.2) Sodium Level 151 mmol/L (136-145) Potassium Level 4.2 mmol/L (3.5-5.1) Chloride Level 115 mmol/L (98-107) Carbon Dioxide Level 27 mmol/L (21-32) Anion Gap 9 (6-14) Blood Urea Nitrogen 38 mg/dL (8-26) Creatinine 2.0 mg/dL (0.7-1.3) Estimated GFR (Cockcroft-Gault) 39.4 BUN/Creatinine Ratio 19 (6-20) Glucose Level 323 mg/dL (70-99) Calcium Level 7.8 mg/dL (8.5-10.1) Total Bilirubin 0.4 mg/dL (0.2-1.0) Aspartate Amino Transf (AST/SGOT) 41 U/L (15-37) Alanine Aminotransferase (ALT/SGPT) 25 U/L (16-63) Alkaline Phosphatase 50 U/L (46-116) Creatine Kinase 829 U/L (39-308) Total Protein 6.8 g/dL (6.4-8.2) Albumin 2.1 g/dL (3.4-5.0) Albumin/Globulin Ratio 0.4 (1.0-1.7) Glucose (Fingerstick) 388 mg/dL (70-99) Assessment and Plan Assessmemt and Plan Problems Medical Problems: (1) 2019 novel coronavirus disease (COVID-19) Status: Acute (2) Respiratory failure with hypoxia Status: Acute Comment Review of Relevant I have reviewed the following items latonia (where applicable) has been applied. REGAN WOOD MD Mar 01, 2020 15:55
--- NOTE | 2020-03-01 18:10 | NUR ---
SW following. Spoke with RN and reviewed ji. Pt on 15 liters oxygen nonrebreather mask. Pt to transfer to ICU. Pt consulted by ID, pulmonary, and nephrology.
[2020-03-01] MEDS: ATORVASTATIN CALCIUM 10 MG TABLET. PO SCH (21:11)
[2020-03-01] MEDS: hydrALAZINE 20 MG/ML VIAL. IVP PRN (22:15)
--- NOTE | 2020-03-01 23:45 | NUR ---
Worsening respiratory status, RR >/+40 and O2 saturation 70-83%. ABGs drawn stat and resulted pH 7.44, pCO2 32, pO2 29, HCO3 21, BE -2, saturation 60%--Dr Frannie guthrie. Dr Kathleen returned paged, notified of above--orders received for D[employer] AND GRINDER TENDER to intubate patient, Vent Protocol with Versed and Fentanyl gtts for sedation, OG to LIS, ABG in am. See orders.
[2020-03-02] VITALS (22 sets, daily range): BP systolic 90–165; BP diastolic 53–96
[2020-03-02] MEDS ORDERED: ETOMIDATE 20 MG/10 ML VIAL. IV ONE
[2020-03-02] MEDS ORDERED: VECURONIUM BOLUS 10 MG VIAL. IV PRN
[2020-03-02] MEDS ORDERED: SUCCINYLCHOLINE 200 MG/10 ML VIAL. IV ONE
[2020-03-02 00:38] LABS: BASE EXCESS ABG -2 mmol/L (-3-3); HCO3 ABG 21 mmol/L (21-28); PCO2 ABG 32 mmHg (35-46); PO2 ABG 29 mmHg (65-108)
--- NOTE | 2020-03-02 00:38 | PDOC ---
Date and Time Called to intubate pt secondary to resp distress. Initial sats 85%. Etomidate 12mg and succinylcholine 120mg given. 7.5 Ettube placed using size 4 glidescope. Grade 1 view. Placement confirmed by + color change on ETC02 and bilat breath sounds. Lungs with I:E wheezes after intubation. Sao2 89%. VS remain stable after intubation. Current Medications Current Medications Acetaminophen (Tylenol Supp) 650 mg 1X ONCE WI Last administered on 02/27/20at 01:06; Start 02/27/20 at 01:00; Stop 02/27/20 at 01:01; Status DC Ondansetron HCl (Zofran) 4 mg PRN Q4HRS PRN IV NAUSEA/VOMITING; Start 02/27/20 at 07:15 Acetaminophen (Tylenol) 650 mg PRN Q4HRS PRN PO TEMP OVER 100.4F OR MILD PAIN; Start 02/27/20 at 07:15 Acetaminophen (Tylenol Supp) 650 mg PRN Q4HRS PRN WI TEMP OVER 100.4F OR MILD PAIN Last administered on 02/27/20at 21:50; Start 02/27/20 at 07:15 Al Hydroxide/Mg Hydroxide (Mylanta Plus Xs) 30 ml PRN DAILY PRN PO HEARTBURN / GAS; Start 02/27/20 at 07:15 Docusate Sodium (Colace) 100 mg PRN BID PRN PO HARD STOOLS; Start 02/27/20 at 07:15 Enoxaparin Sodium (Lovenox 30mg Syringe) 30 mg Q12H SQ Last administered on 02/27/20at 11:45; Start 02/27/20 at 09:00; Stop 02/27/20 at 14:35; Status DC Methylprednisolone Sodium Succinate (SOLU-Medrol 40MG VIAL) 40 mg Q8HRS IV Last administered on 03/01/20at 22:18; Start 02/27/20 at 08:00 Insulin Human Lispro (HumaLOG) 0-7 UNITS TIDACHC SQ Last administered on 03/01/20at 21:24; Start 02/27/20 at 07:30 Dextrose (Dextrose 50%-Water Syringe) 12.5 gm PRN Q15MIN PRN IV SEE COMMENTS; Start 02/27/20 at 07:15 Amlodipine Besylate (Norvasc) 10 mg DAILY PO Last administered on 03/01/20 08:53; Start 02/27/20 at 09:00 Aspirin (Ecotrin) 81 mg DAILY PO Last administered on 03/01/20 08:52; Start 02/27/20 at 09:00 Atorvastatin Calcium (Lipitor) 10 mg HS PO Last administered on 03/01/20 21:11; Start 02/27/20 at 21:00 Clonidine HCl (Catapres Tts-3) 1 patch WEEKLY TD ; Start 02/27/20 at 09:00; Stop 02/27/20 at 16:00; Status DC Guaifenesin (Robitussin Dm) 10 ml PRN Q6HRS PRN PO COUGH; Start 02/27/20 at 07:15 Lactobacillus Rhamnosus (Culturelle) 1 cap BID PO Last administered on 03/01/20 21:11; Start 02/27/20 at 09:00 Enoxaparin Sodium (Lovenox 40mg Syringe) 40 mg Q24H SQ Last administered on 02/27/20at 21:50; Start 02/27/20 at 21:00; Stop 02/28/20 at 10:36; Status DC Zinc Sulfate (Orazinc) 220 mg DAILY PO Last administered on 03/01/20 08:53; Start 02/27/20 at 16:00 Piperacillin Sod/ Tazobactam Sod 3.375 gm/Sodium Chloride 50 ml @ 100 mls/hr Q6HRS IV Last administered on 03/01/20 17:23; Start 02/28/20 at 11:00 Enoxaparin Sodium (Lovenox 40mg Syringe) 40 mg Q12HR SQ Last administered on 03/01/20 21:11; Start 02/28/20 at 11:00 Sodium Chloride 1,000 ml @ 100 mls/hr Q10H IV Last administered on 03/01/20 12:21; Start 02/28/20 at 11:00 Linezolid/Dextrose 300 ml @ 300 mls/hr Q12HR IV Last administered on 03/01/20 21:11; Start 02/29/20 at 09:00 Sterile Water (WATER for RESP) 1,000 ml CONT PRN INH VIA VAPOTHERM DEVICE Last administered on 03/01/20 19:29; Start 03/01/20 at 11:00 Hydralazine HCl (Apresoline Inj) 10 mg PRN Q4HRS PRN IVP ELEVATED BP, SEE COMMENTS Last administered on 03/01/20at 22:15; Start 03/01/20 at 18:15 Fentanyl Citrate 30 ml @ 0 mls/hr CONT PRN IV SEE PROTOCOL; Start 03/02/20 at 00:00 Midazolam HCl 100 ml @ 0 mls/hr CONT PRN IV SEE PROTOCOL; Start 03/02/20 at 00:00 Vecuronium [place] (Norcuron Bolus) 6 mg PRN Q4HRS PRN IV Sedation; Start 03/02/20 at 00:00 Etomidate (Amidate) 20 mg 1X ONCE IV ; Start 03/02/20 at 00:00; Stop 03/02/20 at 00:08; Status DC Succinylcholine Chloride (Anectine) 200 mg 1X ONCE IV ; Start 03/02/20 at 00:00; Stop 03/02/20 at 00:08; Status DC Active Scripts Active Culturelle (Lactobacillus Rhamnosus Gg) 1 Each Cap.sprink 1 Cap PO BID 30 Days Guaifenesin Dm Syrup (Guaifenesin/Dextromethorphan) 5 Ml Syrup 10 Ml PO PRN Q6HRS PRN 30 Days Albuterol Sulfate Neb Soln (Albuterol Sulfate) 2.5 Mg/3 Ml Vial.neb 2.5 Mg NEB PRN Q4HRS PRN 30 Days Azithromycin Tablet (Azithromycin) 250 Mg Tablet 250 Mg PO DAILY 5 Days Cefpodoxime Proxetil 100 Mg Tablet 200 Mg PO BID 5 Days Reported Senna (Sennosides) 8.8 Mg/5 Ml Syrup 8.8 Mg PO DAILY Tylenol Extra Strength (Acetaminophen) 500 Mg Tablet 1,000 Mg PO PRN PRN Furosemide 20 Mg Tablet 1 Tab PO DAILY Glipizide Xl (Glipizide) 10 Mg Tab.er.24 1 Tab PO DAILY 30 Days Metformin Hcl Er (Metformin Hcl) 500 Mg Tab.er.24h 1,000 Mg PO DAILYWBKFT Glipizide Xl (Glipizide) 10 Mg Tab.er.24 10 Mg PO DAILY Calcium 500 + D Tablet (Calcium Carbonate/Vitamin D3) 1 Each Tablet 1 Each PO DAILY Catapres-Tts 3 (Clonidine) 1 Each Patch.tdwk 1 Each TD WEEKLY Lisinopril 20 Mg Tablet 1 Tab PO DAILY [cyanocobalamin] 100 Mcg PO DAILY Aspir 81 (Aspirin) 81 Mg Tablet.dr 81 Mg PO DAILY Norvasc (Amlodipine Besylate) 10 Mg Tablet 10 Mg PO DAILY Atorvastatin Calcium 10 Mg Tablet 10 Mg PO HS Pertinent Labs/Test Laboratory Tests Test 02/29/20 03:50 02/29/20 07:15 02/29/20 11:03 02/29/20 16:05 White Blood Count 11.4 x10^3/uL (4.0-11.0) Red Blood Count 4.39 x10^6/uL (4.30-5.70) Hemoglobin 12.8 g/dL (13.0-17.5) Hematocrit 39.0 % (39.0-53.0) Mean Corpuscular Volume 89 fL (79-100) Mean Corpuscular Hemoglobin 29 pg (25-35) Mean Corpuscular Hemoglobin Concent 33 g/dL (31-37) Red Cell Distribution Width 15.2 % (11.5-14.5) Platelet Count 193 x10^3/uL (140-400) Neutrophils (%) (Auto) 93 % (31-73) Lymphocytes (%) (Auto) 4 % (24-48) Monocytes (%) (Auto) 3 % (0-9) Eosinophils (%) (Auto) 0 % (0-3) Basophils (%) (Auto) 0 % (0-3) Neutrophils # (Auto) 10.6 x10^3/uL (1.8-7.7) Lymphocytes # (Auto) 0.4 x10^3/uL (1.0-4.8) Monocytes # (Auto) 0.4 x10^3/uL (0.0-1.1) Eosinophils # (Auto) 0.0 x10^3/uL (0.0-0.7) Basophils # (Auto) 0.0 x10^3/uL (0.0-0.2) Sodium Level 149 mmol/L (136-145) Potassium Level 4.6 mmol/L (3.5-5.1) Chloride Level 111 mmol/L (98-107) Carbon Dioxide Level 27 mmol/L (21-32) Anion Gap 11 (6-14) Blood Urea Nitrogen 49 mg/dL (8-26) Creatinine 2.4 mg/dL (0.7-1.3) Estimated GFR (Cockcroft-Gault) 31.9 BUN/Creatinine Ratio 20 (6-20) Glucose Level 302 mg/dL (70-99) Calcium Level 8.1 mg/dL (8.5-10.1) Total Bilirubin 0.3 mg/dL (0.2-1.0) Aspartate Amino Transf (AST/SGOT) 66 U/L (15-37) Alanine Aminotransferase (ALT/SGPT) 35 U/L (16-63) Alkaline Phosphatase 53 U/L (46-116) Creatine Kinase 2061 U/L (39-308) Total Protein 7.4 g/dL (6.4-8.2) Albumin 2.5 g/dL (3.4-5.0) Albumin/Globulin Ratio 0.5 (1.0-1.7) Glucose (Fingerstick) 261 mg/dL (70-99) 251 mg/dL (70-99) Urine Collection Type Unknown Urine Color Yellow Urine Clarity Clear Urine pH 5.5 (<5.0-8.0) Urine Specific Mcneil 1.025 (1.000-1.030) Urine Protein 30 mg/dL (NEG-TRACE) Urine Glucose (UA) 500 mg/dL (NEG) Urine Ketones (Stick) Negative mg/dL (NEG) Urine Blood Large (NEG) Urine Nitrite Negative (NEG) Urine Bilirubin Negative (NEG) Urine Urobilinogen Dipstick 1.0 mg/dL (0.2 mg/dL) Urine Leukocyte Esterase Moderate (NEG) Urine RBC Tntc /HPF (0-2) Urine WBC 11-20 /HPF (0-4) Urine Squamous Epithelial Cells Occ /LPF Urine Bacteria Few /HPF (0-FEW) Test 02/29/20 16:17 02/29/20 20:53 03/01/20 08:00 03/01/20 08:10 Glucose (Fingerstick) 288 mg/dL (70-99) 297 mg/dL (70-99) 306 mg/dL (70-99) White Blood Count 11.3 x10^3/uL (4.0-11.0) Red Blood Count 4.14 x10^6/uL (4.30-5.70) Hemoglobin 12.0 g/dL (13.0-17.5) Hematocrit 36.5 % (39.0-53.0) Mean Corpuscular Volume 88 fL (79-100) Mean Corpuscular Hemoglobin 29 pg (25-35) Mean Corpuscular Hemoglobin Concent 33 g/dL (31-37) Red Cell Distribution Width 15.6 % (11.5-14.5) Platelet Count 208 x10^3/uL (140-400) Neutrophils (%) (Auto) 94 % (31-73) Lymphocytes (%) (Auto) 3 % (24-48) Monocytes (%) (Auto) 3 % (0-9) Eosinophils (%) (Auto) 0 % (0-3) Basophils (%) (Auto) 0 % (0-3) Neutrophils # (Auto) 10.6 x10^3/uL (1.8-7.7) Lymphocytes # (Auto) 0.3 x10^3/uL (1.0-4.8) Monocytes # (Auto) 0.3 x10^3/uL (0.0-1.1) Eosinophils # (Auto) 0.0 x10^3/uL (0.0-0.7) Basophils # (Auto) 0.0 x10^3/uL (0.0-0.2) Sodium Level 151 mmol/L (136-145) Potassium Level 4.2 mmol/L (3.5-5.1) Chloride Level 115 mmol/L (98-107) Carbon Dioxide Level 27 mmol/L (21-32) Anion Gap 9 (6-14) Blood Urea Nitrogen 38 mg/dL (8-26) Creatinine 2.0 mg/dL (0.7-1.3) Estimated GFR (Cockcroft-Gault) 39.4 BUN/Creatinine Ratio 19 (6-20) Glucose Level 323 mg/dL (70-99) Calcium Level 7.8 mg/dL (8.5-10.1) Total Bilirubin 0.4 mg/dL (0.2-1.0) Aspartate Amino Transf (AST/SGOT) 41 U/L (15-37) Alanine Aminotransferase (ALT/SGPT) 25 U/L (16-63) Alkaline Phosphatase 50 U/L (46-116) Creatine Kinase 829 U/L (39-308) Total Protein 6.8 g/dL (6.4-8.2) Albumin 2.1 g/dL (3.4-5.0) Albumin/Globulin Ratio 0.4 (1.0-1.7) Test 03/01/20 11:21 03/01/20 16:35 03/01/20 21:23 Glucose (Fingerstick) 388 mg/dL (70-99) 329 mg/dL (70-99) 331 mg/dL (70-99) Laboratory Tests Test 03/01/20 08:00 03/01/20 08:10 03/01/20 11:21 03/01/20 16:35 Glucose (Fingerstick) 306 mg/dL (70-99) 388 mg/dL (70-99) 329 mg/dL (70-99) White Blood Count 11.3 x10^3/uL (4.0-11.0) Red Blood Count 4.14 x10^6/uL (4.30-5.70) Hemoglobin 12.0 g/dL (13.0-17.5) Hematocrit 36.5 % (39.0-53.0) Mean Corpuscular Volume 88 fL (79-100) Mean Corpuscular Hemoglobin 29 pg (25-35) Mean Corpuscular Hemoglobin Concent 33 g/dL (31-37) Red Cell Distribution Width 15.6 % (11.5-14.5) Platelet Count 208 x10^3/uL (140-400) Neutrophils (%) (Auto) 94 % (31-73) Lymphocytes (%) (Auto) 3 % (24-48) Monocytes (%) (Auto) 3 % (0-9) Eosinophils (%) (Auto) 0 % (0-3) Basophils (%) (Auto) 0 % (0-3) Neutrophils # (Auto) 10.6 x10^3/uL (1.8-7.7) Lymphocytes # (Auto) 0.3 x10^3/uL (1.0-4.8) Monocytes # (Auto) 0.3 x10^3/uL (0.0-1.1) Eosinophils # (Auto) 0.0 x10^3/uL (0.0-0.7) Basophils # (Auto) 0.0 x10^3/uL (0.0-0.2) Sodium Level 151 mmol/L (136-145) Potassium Level 4.2 mmol/L (3.5-5.1) Chloride Level 115 mmol/L (98-107) Carbon Dioxide Level 27 mmol/L (21-32) Anion Gap 9 (6-14) Blood Urea Nitrogen 38 mg/dL (8-26) Creatinine 2.0 mg/dL (0.7-1.3) Estimated GFR (Cockcroft-Gault) 39.4 BUN/Creatinine Ratio 19 (6-20) Glucose Level 323 mg/dL (70-99) Calcium Level 7.8 mg/dL (8.5-10.1) Total Bilirubin 0.4 mg/dL (0.2-1.0) Aspartate Amino Transf (AST/SGOT) 41 U/L (15-37) Alanine Aminotransferase (ALT/SGPT) 25 U/L (16-63) Alkaline Phosphatase 50 U/L (46-116) Creatine Kinase 829 U/L (39-308) Total Protein 6.8 g/dL (6.4-8.2) Albumin 2.1 g/dL (3.4-5.0) Albumin/Globulin Ratio 0.4 (1.0-1.7) Test 03/01/20 21:23 Glucose (Fingerstick) 331 mg/dL (70-99) LAST VITALS Vital Signs Date Time Temp Pulse Resp B/P (MAP) Pulse Ox O2 Delivery O2 Flow Rate FiO2 03/01/20 23:00 79 40 145/77 (99) 90 Vapotherm 40.0 03/01/20 20:00 99.4 99.4 FAM AHMADI CRNA Mar 02, 2020 00:38
[2020-03-02 00:39] LABS: FIO2 ABG 100; SAT O2 ABG 60 % (92-99)
[2020-03-02] MEDS: MIDAZOLAM 100mg/100ml NS BAG 100 ML IV PRN ×2 (00:40→19:50)
[2020-03-02] MEDS: PIPERACILLIN/TAZOBACTAM 3.375 GM in IV NORMAL SALINE 50ML 50 ML IV SCH ×4 (00:49→18:41)
--- NOTE | 2020-03-02 01:00 | NUR ---
Patient educated on need for intubation to improve oxygenation and allow him to rest--patient unable to verbalize understanding. After administration of Anectine 120MG IVP and Etomidate 10MG IVP at 0005 for sedation, patient intubated by [employer] CONSULTANT with 7.5 ETT, taped 22 center gums at 0010; immediate color change with ETCO2 detector and equal bilat breath sounds heard. While patient still sedated, #[id number] OG inserted without difficulty, placement verified with air instillation over gastric area. Portable chest xray ordered/completed which resulted adequate placement of both ETT and OG tube; OG hooked up to LIS.
--- NOTE | 2020-03-02 01:01 | RAD ---
Study: CR PORTABLE CHEST 1V Indication: Intubation. Orogastric tube placement. Comparison: 02/27/2020 Findings: Endotracheal tube tip terminating approximately 2.6 cm from the jaida. Enteric tube tip and sidehole are within the stomach. Worsened consolidative opacities since the most recent comparison and involving the right lung more so than the left. No pneumothorax or appreciable effusion. Unchanged configuration of the cardia mediastinal silhouette which is enlarged. Impression: 1. Endotracheal and orogastric tube positioning as above. 2. Worsened appearance of the chest from 02/27/2020 with progressive airspace opacities involving the right lung more so than left. Given provided history, worsening pneumonia or development of ARDS are considerations. Electronically signed by: TANNER PARIKH MD (03/02/2020 12:58 AM) [id number]
[2020-03-02] MEDS: IV NORMAL SALINE 1000ML BAG 1,000 ML IV SCH (02:53)
[2020-03-02 05:46] LABS: HEMATOCRIT 36.2 % (39.0-53.0); HEMOGLOBIN 11.7 g/dL (13.0-17.5); RED BLOOD COUNT 4.05 x10^6/uL (4.30-5.70); RED CELL DISTRIBUTION WIDTH 15.7 % (11.5-14.5)
[2020-03-02 05:51] LABS: CREATININE 1.9 mg/dL (0.7-1.3); GFR 41.8; MAGNESIUM 2.5 mg/dL (1.8-2.4); POTASSIUM 4.2 mmol/L (3.5-5.1)
[2020-03-02] MEDS: methylPREDNISolone SOD SUCC PF 40 MG/ML VIAL. IV SCH ×3 (05:56→21:29)
--- NOTE | 2020-03-02 07:53 | PDOC ---
Infectious Disease Note Subjective Subjective pt is intubated, on vent ROS ROS no n/v/d/fever Vital Sign Vital Signs Vital Signs Date Time Temp Pulse Resp B/P (MAP) Pulse Ox O2 Delivery O2 Flow Rate FiO2 03/02/20 07:00 52 18 93/56 (68) 100 Ventilator 03/02/20 04:00 98.8 98.8 03/01/20 23:59 40.0 Physical Exam PHYSICAL EXAM CONSTITUTIONAL: sedated on vent HEENT: Pupils have some cataracts in place. Oral cavity, pharynx is very dry. NECK: Supple, no JVD. LUNGS: Had some mild crackles. HEART: S1, S2. ABDOMEN: Soft, nontender, no guarding, no rebound. EXTREMITIES: Without clubbing, cyanosis. No gross edema. SKIN: Warm to touch without signs of rash. NEUROLOGIC: sedated on vent Labs Lab Laboratory Tests Test 03/01/20 08:00 03/01/20 08:10 03/01/20 11:21 03/01/20 16:35 Glucose (Fingerstick) 306 mg/dL (70-99) 388 mg/dL (70-99) 329 mg/dL (70-99) White Blood Count 11.3 x10^3/uL (4.0-11.0) Red Blood Count 4.14 x10^6/uL (4.30-5.70) Hemoglobin 12.0 g/dL (13.0-17.5) Hematocrit 36.5 % (39.0-53.0) Mean Corpuscular Volume 88 fL (79-100) Mean Corpuscular Hemoglobin 29 pg (25-35) Mean Corpuscular Hemoglobin Concent 33 g/dL (31-37) Red Cell Distribution Width 15.6 % (11.5-14.5) Platelet Count 208 x10^3/uL (140-400) Neutrophils (%) (Auto) 94 % (31-73) Lymphocytes (%) (Auto) 3 % (24-48) Monocytes (%) (Auto) 3 % (0-9) Eosinophils (%) (Auto) 0 % (0-3) Basophils (%) (Auto) 0 % (0-3) Neutrophils # (Auto) 10.6 x10^3/uL (1.8-7.7) Lymphocytes # (Auto) 0.3 x10^3/uL (1.0-4.8) Monocytes # (Auto) 0.3 x10^3/uL (0.0-1.1) Eosinophils # (Auto) 0.0 x10^3/uL (0.0-0.7) Basophils # (Auto) 0.0 x10^3/uL (0.0-0.2) Sodium Level 151 mmol/L (136-145) Potassium Level 4.2 mmol/L (3.5-5.1) Chloride Level 115 mmol/L (98-107) Carbon Dioxide Level 27 mmol/L (21-32) Anion Gap 9 (6-14) Blood Urea Nitrogen 38 mg/dL (8-26) Creatinine 2.0 mg/dL (0.7-1.3) Estimated GFR (Cockcroft-Gault) 39.4 BUN/Creatinine Ratio 19 (6-20) Glucose Level 323 mg/dL (70-99) Calcium Level 7.8 mg/dL (8.5-10.1) Total Bilirubin 0.4 mg/dL (0.2-1.0) Aspartate Amino Transf (AST/SGOT) 41 U/L (15-37) Alanine Aminotransferase (ALT/SGPT) 25 U/L (16-63) Alkaline Phosphatase 50 U/L (46-116) Creatine Kinase 829 U/L (39-308) Total Protein 6.8 g/dL (6.4-8.2) Albumin 2.1 g/dL (3.4-5.0) Albumin/Globulin Ratio 0.4 (1.0-1.7) Test 03/01/20 21:23 03/01/20 23:34 03/02/20 05:20 Glucose (Fingerstick) 331 mg/dL (70-99) O2 Saturation 60 % (92-99) Arterial Blood pH 7.44 (7.35-7.45) Arterial Blood pCO2 at Patient Temp 32 mmHg (35-46) Arterial Blood pO2 at Patient Temp 29 mmHg (65-108) Arterial Blood HCO3 21 mmol/L (21-28) Arterial Blood Base Excess -2 mmol/L (-3-3) FiO2 100 White Blood Count 10.0 x10^3/uL (4.0-11.0) Red Blood Count 4.05 x10^6/uL (4.30-5.70) Hemoglobin 11.7 g/dL (13.0-17.5) Hematocrit 36.2 % (39.0-53.0) Mean Corpuscular Volume 90 fL (79-100) Mean Corpuscular Hemoglobin 29 pg (25-35) Mean Corpuscular Hemoglobin Concent 32 g/dL (31-37) Red Cell Distribution Width 15.7 % (11.5-14.5) Platelet Count 214 x10^3/uL (140-400) Sodium Level 153 mmol/L (136-145) Potassium Level 4.2 mmol/L (3.5-5.1) Chloride Level 117 mmol/L (98-107) Carbon Dioxide Level 27 mmol/L (21-32) Anion Gap 9 (6-14) Blood Urea Nitrogen 36 mg/dL (8-26) Creatinine 1.9 mg/dL (0.7-1.3) Estimated GFR (Cockcroft-Gault) 41.8 Glucose Level 371 mg/dL (70-99) Calcium Level 8.0 mg/dL (8.5-10.1) Magnesium Level 2.5 mg/dL (1.8-2.4) Objective Assessment 1. Fever. 2. Acute hypoxic respiratory failure. 3. COVID positive. 4. Acute kidney injury. 5. Leukocytosis. 6. Rhabdomyolysis with history as well, previous rhabdomyolysis. Plan Plan of Care Plasma given Cont Steroids Cont abx but add Zyvox given [facility] resident/ F/u labs and cults Dw nursing CONCEPCION SMITH MD Mar 02, 2020 07:53
[2020-03-02] MEDS: DOCUSATE SODIUM 100 MG CAPSULE. PO PRN (08:11)
[2020-03-02] MEDS: ASPIRIN ENTERIC COATED 81 MG TABLET.DR. PO SCH (08:11)
[2020-03-02] MEDS: amLODIPine BESYLATE 10 MG TABLET PO SCH (08:11)
[2020-03-02] MEDS: ZINC SULFATE 220 MG CAPSULE. PO SCH (08:11)
[2020-03-02 08:19] LABS: BASE EXCESS ABG -4 mmol/L (-3-3); HCO3 ABG 23 mmol/L (21-28); PCO2 ABG 45 mmHg (35-46); PO2 ABG 80 mmHg (65-108); SAT O2 ABG 95 % (92-99)
[2020-03-02] MEDS: INSULIN LISPRO 300 UNITS/3 ML VIAL. SQ SCH ×3 (08:39→18:33)
[2020-03-02 08:59] LABS: FIO2 ABG 80% VENT
[2020-03-02] MEDS: ENOXAPARIN 40 MG/0.4 ML SYRINGE. SQ SCH ×2 (09:00→21:29)
[2020-03-02] MEDS ORDERED: SODIUM BICARB ADULT 8.4% 50 MEQ/50 ML DISP.SYRIN. ONE (09:43)
[2020-03-02] MEDS: LACTOBACILLUS RHAMNOSUS GG 1 CAPSULE. PO SCH ×2 (09:50→21:29)
--- NOTE | 2020-03-02 10:11 | PDOC ---
PULMONARY PROGRESS NOTES DATE: 03/02/20 TIME: 10:08 Subjective intubated night of 03/01 due to worsening hypoxia AC mode 70%FIO2, 8 PEEP Vitals Vital Signs Date Time Temp Pulse Resp B/P (MAP) Pulse Ox O2 Delivery O2 Flow Rate FiO2 03/02/20 09:50 96 40.0 03/02/20 08:11 49 103/57 03/02/20 08:00 Mechanical Ventilator 03/02/20 07:00 18 03/02/20 04:00 98.8 98.8 Comments PT. seen during COVID-19 pandemic visual exam preformed RRR N/C no distress no rash No edeam Labs Laboratory Tests Test 02/29/20 11:03 02/29/20 16:05 02/29/20 16:17 02/29/20 20:53 Glucose (Fingerstick) 251 mg/dL (70-99) 288 mg/dL (70-99) 297 mg/dL (70-99) Urine Collection Type Unknown Urine Color Yellow Urine Clarity Clear Urine pH 5.5 (<5.0-8.0) Urine Specific [place] 1.025 (1.000-1.030) Urine Protein 30 mg/dL (NEG-TRACE) Urine Glucose (UA) 500 mg/dL (NEG) Urine Ketones (Stick) Negative mg/dL (NEG) Urine Blood Large (NEG) Urine Nitrite Negative (NEG) Urine Bilirubin Negative (NEG) Urine Urobilinogen Dipstick 1.0 mg/dL (0.2 mg/dL) Urine Leukocyte Esterase Moderate (NEG) Urine RBC Tntc /HPF (0-2) Urine WBC 11-20 /HPF (0-4) Urine Squamous Epithelial Cells Occ /LPF Urine Bacteria Few /HPF (0-FEW) Test 03/01/20 08:00 03/01/20 08:10 03/01/20 11:21 03/01/20 16:35 Glucose (Fingerstick) 306 mg/dL (70-99) 388 mg/dL (70-99) 329 mg/dL (70-99) White Blood Count 11.3 x10^3/uL (4.0-11.0) Red Blood Count 4.14 x10^6/uL (4.30-5.70) Hemoglobin 12.0 g/dL (13.0-17.5) Hematocrit 36.5 % (39.0-53.0) Mean Corpuscular Volume 88 fL (79-100) Mean Corpuscular Hemoglobin 29 pg (25-35) Mean Corpuscular Hemoglobin Concent 33 g/dL (31-37) Red Cell Distribution Width 15.6 % (11.5-14.5) Platelet Count 208 x10^3/uL (140-400) Neutrophils (%) (Auto) 94 % (31-73) Lymphocytes (%) (Auto) 3 % (24-48) Monocytes (%) (Auto) 3 % (0-9) Eosinophils (%) (Auto) 0 % (0-3) Basophils (%) (Auto) 0 % (0-3) Neutrophils # (Auto) 10.6 x10^3/uL (1.8-7.7) Lymphocytes # (Auto) 0.3 x10^3/uL (1.0-4.8) Monocytes # (Auto) 0.3 x10^3/uL (0.0-1.1) Eosinophils # (Auto) 0.0 x10^3/uL (0.0-0.7) Basophils # (Auto) 0.0 x10^3/uL (0.0-0.2) Sodium Level 151 mmol/L (136-145) Potassium Level 4.2 mmol/L (3.5-5.1) Chloride Level 115 mmol/L (98-107) Carbon Dioxide Level 27 mmol/L (21-32) Anion Gap 9 (6-14) Blood Urea Nitrogen 38 mg/dL (8-26) Creatinine 2.0 mg/dL (0.7-1.3) Estimated GFR (Cockcroft-Gault) 39.4 BUN/Creatinine Ratio 19 (6-20) Glucose Level 323 mg/dL (70-99) Calcium Level 7.8 mg/dL (8.5-10.1) Total Bilirubin 0.4 mg/dL (0.2-1.0) Aspartate Amino Transf (AST/SGOT) 41 U/L (15-37) Alanine Aminotransferase (ALT/SGPT) 25 U/L (16-63) Alkaline Phosphatase 50 U/L (46-116) Creatine Kinase 829 U/L (39-308) Total Protein 6.8 g/dL (6.4-8.2) Albumin 2.1 g/dL (3.4-5.0) Albumin/Globulin Ratio 0.4 (1.0-1.7) Test 03/01/20 21:23 03/01/20 23:34 03/02/20 05:20 03/02/20 08:00 Glucose (Fingerstick) 331 mg/dL (70-99) O2 Saturation 60 % (92-99) 95 % (92-99) Arterial Blood pH 7.44 (7.35-7.45) 7.32 (7.35-7.45) Arterial Blood pCO2 at Patient Temp 32 mmHg (35-46) 45 mmHg (35-46) Arterial Blood pO2 at Patient Temp 29 mmHg (65-108) 80 mmHg (65-108) Arterial Blood HCO3 21 mmol/L (21-28) 23 mmol/L (21-28) Arterial Blood Base Excess -2 mmol/L (-3-3) -4 mmol/L (-3-3) FiO2 100 80% vent White Blood Count 10.0 x10^3/uL (4.0-11.0) Red Blood Count 4.05 x10^6/uL (4.30-5.70) Hemoglobin 11.7 g/dL (13.0-17.5) Hematocrit 36.2 % (39.0-53.0) Mean Corpuscular Volume 90 fL (79-100) Mean Corpuscular Hemoglobin 29 pg (25-35) Mean Corpuscular Hemoglobin Concent 32 g/dL (31-37) Red Cell Distribution Width 15.7 % (11.5-14.5) Platelet Count 214 x10^3/uL (140-400) Sodium Level 153 mmol/L (136-145) Potassium Level 4.2 mmol/L (3.5-5.1) Chloride Level 117 mmol/L (98-107) Carbon Dioxide Level 27 mmol/L (21-32) Anion Gap 9 (6-14) Blood Urea Nitrogen 36 mg/dL (8-26) Creatinine 1.9 mg/dL (0.7-1.3) Estimated GFR (Cockcroft-Gault) 41.8 Glucose Level 371 mg/dL (70-99) Calcium Level 8.0 mg/dL (8.5-10.1) Magnesium Level 2.5 mg/dL (1.8-2.4) Test 03/02/20 08:29 Glucose (Fingerstick) 386 mg/dL (70-99) Laboratory Tests Test 03/01/20 11:21 03/01/20 16:35 03/01/20 21:23 03/01/20 23:34 Glucose (Fingerstick) 388 mg/dL (70-99) 329 mg/dL (70-99) 331 mg/dL (70-99) O2 Saturation 60 % (92-99) Arterial Blood pH 7.44 (7.35-7.45) Arterial Blood pCO2 at Patient Temp 32 mmHg (35-46) Arterial Blood pO2 at Patient Temp 29 mmHg (65-108) Arterial Blood HCO3 21 mmol/L (21-28) Arterial Blood Base Excess -2 mmol/L (-3-3) FiO2 100 Test 03/02/20 05:20 03/02/20 08:00 03/02/20 08:29 White Blood Count 10.0 x10^3/uL (4.0-11.0) Red Blood Count 4.05 x10^6/uL (4.30-5.70) Hemoglobin 11.7 g/dL (13.0-17.5) Hematocrit 36.2 % (39.0-53.0) Mean Corpuscular Volume 90 fL (79-100) Mean Corpuscular Hemoglobin 29 pg (25-35) Mean Corpuscular Hemoglobin Concent 32 g/dL (31-37) Red Cell Distribution Width 15.7 % (11.5-14.5) Platelet Count 214 x10^3/uL (140-400) Sodium Level 153 mmol/L (136-145) Potassium Level 4.2 mmol/L (3.5-5.1) Chloride Level 117 mmol/L (98-107) Carbon Dioxide Level 27 mmol/L (21-32) Anion Gap 9 (6-14) Blood Urea Nitrogen 36 mg/dL (8-26) Creatinine 1.9 mg/dL (0.7-1.3) Estimated GFR (Cockcroft-Gault) 41.8 Glucose Level 371 mg/dL (70-99) Calcium Level 8.0 mg/dL (8.5-10.1) Magnesium Level 2.5 mg/dL (1.8-2.4) O2 Saturation 95 % (92-99) Arterial Blood pH 7.32 (7.35-7.45) Arterial Blood pCO2 at Patient Temp 45 mmHg (35-46) Arterial Blood pO2 at Patient Temp 80 mmHg (65-108) Arterial Blood HCO3 23 mmol/L (21-28) Arterial Blood Base Excess -4 mmol/L (-3-3) FiO2 80% vent Glucose (Fingerstick) 386 mg/dL (70-99) Medications Active Scripts Medications Dose Route/Sig Max Daily Dose Days Date Category Senna (Sennosides) 8.8 Mg/5 Ml Syrup 8.8 Mg PO DAILY 02/27/20 Reported Tylenol Extra Strength (Acetaminophen) 500 Mg Tablet 1,000 Mg PO PRN PRN 02/27/20 Reported Furosemide 20 Mg Tablet 1 Tab PO DAILY 02/27/20 Reported Glipizide Xl (Glipizide) 10 Mg Tab.er.24 1 Tab PO DAILY 30 02/27/20 Reported Culturelle (Lactobacillus Rhamnosus Gg) 1 Each Cap.sprink 1 Cap PO BID 30 05/23/18 Rx Guaifenesin Dm Syrup (Guaifenesin/Dextromethorphan) 5 Ml Syrup 10 Ml PO PRN Q6HRS PRN 30 05/23/18 Rx Albuterol Sulfate Neb Soln (Albuterol Sulfate) 2.5 Mg/3 Ml Vial.neb 2.5 Mg NEB PRN Q4HRS PRN 30 05/23/18 Rx Azithromycin Tablet (Azithromycin) 250 Mg Tablet 250 Mg PO DAILY 5 05/23/18 Rx Cefpodoxime Proxetil 100 Mg Tablet 200 Mg PO BID 05/23/18 Rx Metformin Hcl Er (Metformin Hcl) 500 Mg Tab.er.24h 1,000 Mg PO DAILYWBKFT 05/21/18 Reported Glipizide Xl (Glipizide) 10 Mg Tab.er.24 10 Mg PO DAILY 05/20/18 Reported Calcium 500 + D Tablet (Calcium Carbonate/Vitamin D3) 1 Each Tablet 1 Each PO DAILY 05/20/18 Reported Catapres-Tts 3 (Clonidine) 1 Each Patch.tdwk 1 Each TD WEEKLY 05/20/18 Reported Lisinopril 20 Mg Tablet 1 Tab PO DAILY 05/20/18 Reported [cyanocobalamin] 100 Mcg PO DAILY 05/20/18 Reported Aspir 81 (Aspirin) 81 Mg Tablet. 81 Mg PO DAILY 07/08/13 Reported Norvasc (Amlodipine Besylate) 10 Mg Tablet 10 Mg PO DAILY 07/08/13 Reported Atorvastatin Calcium 10 Mg Tablet 10 Mg PO HS 07/08/13 Reported Comments CXR- 02/27/2020 IMPRESSION: * Patchy opacities in bilateral lungs which could be seen with multifocal infiltrate or edema 03/01 WORSENING INFILTRATES Impression . Acute hypoxic respiratory Failure--intubated night of 03/01 due to worsening h ypoxia AC mode 70%FIO2, 8 PEEP COVID-19 known positive COVID -19 pneumonia, cannot exclude bacterial pneumonia elevated ddimer 2/2 inflamatory stage of covid19 Fevers Anemia of chronic disease Dementia KENNY vs. CKD Plan . AC mode. Wean FIO2/PEEP based on ABG d/w sister.03/01 full code for now Failed Vapotherm s/p Plasma Tylenol for fevers Cont. zosyn for ABX coverage / ID rec Cont. steroids Follow nephrology recs will follow inflammatory markers high dose lovenox f/u d-dimer DVT/GI PPX -- high dose lovenox D/W RN, d/w sister cct 30 min JOSY ACSTILLO MD Mar 02, 2020 10:11
[2020-03-02] MEDS ORDERED: SODIUM BICARB ADULT 8.4% 50 MEQ/50 ML DISP.SYRIN. IV ONE (10:15)
--- NOTE | 2020-03-02 13:10 | PDOC ---
Renal-Progress Notes Subjective Notes Notes INTUBATED History of Present Illness Hx of present illness PROGRESSIVE RESP FAILURE Vitals Vitals Vital Signs Date Time Temp Pulse Resp B/P (MAP) Pulse Ox O2 Delivery O2 Flow Rate FiO2 03/02/20 13:03 47 18 101/62 (75) 100 Ventilator 03/02/20 12:00 97.7 97.7 03/02/20 12:00 40.0 Weight Weight [ ] I.O. Intake and Output Intake and Output 03/02/20 07:00 Intake Total 2553 ml Output Total 1200 ml Balance 1353 ml Intake Oral 200 ml IV Total 2153 ml Blood Product IV Normal Saline Flush 200 ml Output Urine Total 1200 ml # Bowel Movements 2 Labs Labs Laboratory Tests Test 03/01/20 16:35 03/01/20 21:23 03/01/20 23:34 03/02/20 05:20 Glucose (Fingerstick) 329 mg/dL (70-99) 331 mg/dL (70-99) O2 Saturation 60 % (92-99) Arterial Blood pH 7.44 (7.35-7.45) Arterial Blood pCO2 at Patient Temp 32 mmHg (35-46) Arterial Blood pO2 at Patient Temp 29 mmHg (65-108) Arterial Blood HCO3 21 mmol/L (21-28) Arterial Blood Base Excess -2 mmol/L (-3-3) FiO2 100 White Blood Count 10.0 x10^3/uL (4.0-11.0) Red Blood Count 4.05 x10^6/uL (4.30-5.70) Hemoglobin 11.7 g/dL (13.0-17.5) Hematocrit 36.2 % (39.0-53.0) Mean Corpuscular Volume 90 fL (79-100) Mean Corpuscular Hemoglobin 29 pg (25-35) Mean Corpuscular Hemoglobin Concent 32 g/dL (31-37) Red Cell Distribution Width 15.7 % (11.5-14.5) Platelet Count 214 x10^3/uL (140-400) Sodium Level 153 mmol/L (136-145) Potassium Level 4.2 mmol/L (3.5-5.1) Chloride Level 117 mmol/L (98-107) Carbon Dioxide Level 27 mmol/L (21-32) Anion Gap 9 (6-14) Blood Urea Nitrogen 36 mg/dL (8-26) Creatinine 1.9 mg/dL (0.7-1.3) Estimated GFR (Cockcroft-Gault) 41.8 Glucose Level 371 mg/dL (70-99) Calcium Level 8.0 mg/dL (8.5-10.1) Magnesium Level 2.5 mg/dL (1.8-2.4) Test 03/02/20 08:00 03/02/20 08:29 03/02/20 11:59 O2 Saturation 95 % (92-99) Arterial Blood pH 7.32 (7.35-7.45) Arterial Blood pCO2 at Patient Temp 45 mmHg (35-46) Arterial Blood pO2 at Patient Temp 80 mmHg (65-108) Arterial Blood HCO3 23 mmol/L (21-28) Arterial Blood Base Excess -4 mmol/L (-3-3) FiO2 80% vent Glucose (Fingerstick) 386 mg/dL (70-99) 343 mg/dL (70-99) Review of Systems Constitutional: yes: other (SOB, UNABLE TO OBTAIN) Physical Exam General Appearance: no apparent distress Skin: warm Respiratory: decreased breath sounds Heart: S1S2 Abdomen: soft, bowel sounds present Extremities: pulses present Neurology: other (SEDATED) Assessment Assessment IMP COVID 19 PNEUMONIA ACUTE RESP [id number] INTUBATION UNCOMPENSATED ACUTE RESP ACIDOSIS ANEMIA KENNY WITH CR IMPROVED TO 1.9 HYPERNATREMIA HEMATURIA-LIKELY COVID RELATED ? CKD - UNKNOWN PLAN PT TRANSFERRED TO ICU AND INTUBATED SUPPORTIVE CARE S/PCONVALESCENT PLASMA EMPIRIC ANTIBIOTICS CHANGE SALINE TO HYPOTONIC SALINE CONT SUPPORTIVE CARE WILL FOLLOW MIRI CADENA MD Mar 02, 2020 13:10
[2020-03-02] MEDS: IV 1/2 NORMAL SALINE 1,000 ML IV SCH (14:14)
--- NOTE | 2020-03-02 14:44 | NUR ---
Asymptomatic bradycardia. VSS/map > 66, isolated vent escape beat,+ palpable pulses,no overt resp distress observed. Dr Trimble in ,no new orders.
--- NOTE | 2020-03-02 16:02 | NUR ---
SS following for discharge planning. SS reviewed pt chart and discussed with pt RN. Pt is LTC resident from [facility], ; fax [phone]. Pt currently on the vent. COVID19 positive. Pt on IV Zosyn and IV Zyvox. SS will continue to follow for discharge planning.
[2020-03-02] MEDS: ATORVASTATIN CALCIUM 10 MG TABLET. PO SCH (21:28)
[2020-03-03] VITALS (23 sets, daily range): BP systolic 104–176; BP diastolic 64–85
[2020-03-03] MEDS: IV 1/2 NORMAL SALINE 1,000 ML IV SCH ×3 (01:22→18:17)
[2020-03-03] MEDS: PIPERACILLIN/TAZOBACTAM 3.375 GM in IV NORMAL SALINE 50ML 50 ML IV SCH ×4 (01:23→18:09)
[2020-03-03 06:21] LABS: CALCIUM 8.9 mg/dL (8.5-10.1); CREATININE 1.7 mg/dL (0.7-1.3); GFR 47.5
[2020-03-03] MEDS: methylPREDNISolone SOD SUCC PF 40 MG/ML VIAL. IV SCH ×3 (06:36→21:57)
--- NOTE | 2020-03-03 07:53 | PDOC ---
Infectious Disease Note Subjective Subjective pt is intubated, on vent ROS ROS no n/v/d/ Vital Sign Vital Signs Vital Signs Date Time Temp Pulse Resp B/P (MAP) Pulse Ox O2 Delivery O2 Flow Rate FiO2 03/03/20 06:00 52 18 145/81 (102) 100 Ventilator 03/03/20 04:00 96.4 96.4 03/02/20 16:00 40.0 Physical Exam PHYSICAL EXAM CONSTITUTIONAL: sedated on vent HEENT: Pupils have some cataracts in place. Oral cavity, pharynx is very dry. NECK: Supple, no JVD. LUNGS: Had some mild crackles. HEART: S1, S2. ABDOMEN: Soft, nontender, no guarding, no rebound. EXTREMITIES: Without clubbing, cyanosis. No gross edema. SKIN: Warm to touch without signs of rash. NEUROLOGIC: sedated on vent Labs Lab Laboratory Tests Test 03/02/20 08:00 03/02/20 08:29 03/02/20 11:59 03/02/20 18:25 O2 Saturation 95 % (92-99) Arterial Blood pH 7.32 (7.35-7.45) Arterial Blood pCO2 at Patient Temp 45 mmHg (35-46) Arterial Blood pO2 at Patient Temp 80 mmHg (65-108) Arterial Blood HCO3 23 mmol/L (21-28) Arterial Blood Base Excess -4 mmol/L (-3-3) FiO2 80% vent Glucose (Fingerstick) 386 mg/dL (70-99) 343 mg/dL (70-99) 190 mg/dL (70-99) Test 03/03/20 05:30 Sodium Level 154 mmol/L (136-145) Potassium Level 4.0 mmol/L (3.5-5.1) Chloride Level 115 mmol/L (98-107) Carbon Dioxide Level 29 mmol/L (21-32) Anion Gap 10 (6-14) Blood Urea Nitrogen 32 mg/dL (8-26) Creatinine 1.7 mg/dL (0.7-1.3) Estimated GFR (Cockcroft-Gault) 47.5 Glucose Level 351 mg/dL (70-99) Calcium Level 8.9 mg/dL (8.5-10.1) Objective Assessment 1. Fever. 2. Acute hypoxic respiratory failure. 3. COVID positive. 4. Acute kidney injury. 5. Leukocytosis. 6. Rhabdomyolysis with history as well, previous rhabdomyolysis. Plan Plan of Care Plasma given Cont Steroids Cont abx Zyvox given NH resident/ F/u labs and cults Dw nursing CONCEPCION SMITH MD Mar 03, 2020 07:53
[2020-03-03 08:19] LABS: BASE EXCESS ABG 0 mmol/L (-3-3); HCO3 ABG 25 mmol/L (21-28); PCO2 ABG 42 mmHg (35-46); PO2 ABG 74 mmHg (65-108); SAT O2 ABG 94 % (92-99)
[2020-03-03 08:20] LABS: FIO2 ABG 60
[2020-03-03] MEDS: ENOXAPARIN 40 MG/0.4 ML SYRINGE. SQ SCH ×2 (08:41→20:39)
[2020-03-03] MEDS: amLODIPine BESYLATE 10 MG TABLET PO SCH (08:42)
[2020-03-03] MEDS: ASPIRIN ENTERIC COATED 81 MG TABLET.DR. PO SCH (08:43)
[2020-03-03] MEDS: DOCUSATE SODIUM 100 MG CAPSULE. PO PRN (08:43)
[2020-03-03] MEDS: ZINC SULFATE 220 MG CAPSULE. PO SCH (08:44)
[2020-03-03] MEDS: LACTOBACILLUS RHAMNOSUS GG 1 CAPSULE. PO SCH ×2 (09:00→20:38)
--- NOTE | 2020-03-03 09:00 | RAD ---
INDICATION: Reason: Covid +, increasing SOA / Spl. Instructions: / History: COMPARISON: March 02, 2020 FINDINGS: Frontal views of chest obtained Endotracheal tube midthoracic trachea. Enteric tube is seen coursing below the diaphragm. Cardiac silhouette is again enlarged. Repeat demonstration of multifocal interstitial and alveolar opacities throughout the bilateral lungs. Slightly decreased from prior at the right upper lung. IMPRESSION: * Repeat demonstration of multifocal opacities throughout the bilateral lungs with slight decrease in the right upper lung compared to prior and similar to prior within other portions of the bilateral lungs. * Lines and tubes as above. * Enlarged cardiomediastinal silhouette. Electronically signed by: Heber Evans MD (03/03/2020 8:57 AM) [id number]
[2020-03-03] MEDS: INSULIN LISPRO 300 UNITS/3 ML VIAL. SQ SCH ×3 (09:36→18:16)
--- NOTE | 2020-03-03 10:22 | PDOC ---
PROGRESS NOTES Date of Service: DATE: 03/03/20 TIME: 10:18 Chief Complaint Chief Complaint A/P: Respiratory failure with hypoxia - likely 2/2 COVID 19. WORSENING. Steroids, Lovenox twice daily, consult pulmonology. Maintain O2 saturations 92% or greater. SARS-CoV-2 (COVID-19) - As above. ID consulted, agree to consent for convalescent FFP if this is line with family goals of care. KENNY - likely vasomotor nephropathy from COVID 19 infection, will monitor renal fx and hydrate. 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 year, now in SNF [facility] [facility] Diabetes-Type II - sliding scale insulin, will hold oral hypoglycemics for now GERD - cont antacids High Cholesterol - cont statin Hypertension - cont meds, hold clonidine patch given his BP is on the low side POLYNEUROPATHY - CK elevated, will monitor FEN - Pureed nectar thick diet PPX - lovenox FULL CODE Dispo - inpatient, transferred to ICU for increase O2 requirements History of Present Illness History of Present Illness Mr Rivera is a 79-year-old male with PMHx Anemia, Dementia, Diabetes-Type II, Diverticulosis, GERD, High Cholesterol, Hypertension, POLYNEUROPATHY resident of [facility] in [place] comes to ED with known SARS-CoV-2 (COVID 19) who presents to the emergency room with respiratory distress. Patient is unable to provide any history. Is unclear at this time how long he has been ill. Is unclear whether or not he is on oxygen at baseline. Upon arrival to the emergency room he is on a nonrebreather. He reportedly had a pulse ox of 72 upon EMS arrival. Patient was able to be weaned down from a nonrebreather to 6 L nasal cannula. ABG was done 7.35/48/107 on 6 L nasal cannula. WBC 9.3, Hb 13.3, platelets 212, d-dimer 3.92, troponin 0 0.22, AST 57, CRP 163.7, CK 1865, albumin 2.7 EKG sinus rhythm, leftward axis QRS transition zone, nonspecific T abnormalities high lateral leads, new prolonged QT. CXR with bilateral patchy infiltrate consistent with COVID-19 pneumonia. Admitted for further care. 02/27: Cr up to 2.4 today. Febrile to 100.7 F overnight. Slight cough. On 6 L nasal cannula oxygen. Afebrile past 24 hours, now on 10 L facemask O2, WBC 11.4, hemoglobin 12.8, CR stable at 2.4 albumin 2.5 CK 2060, glucose 302. He has been incontinent of urine over the past 24 hours and has some redness on the scrotum and buttocks, I advised him Smith catheter may be indicated he does not seem to be understanding much of what is going on. I have discussed with ID that type and screen and convalescent plasma may be indicated, will try to get a hold of family to discuss goals of care. Nephrology consulted, will check UA and renal US. 03/01/2020 No acute events overnight. Patient this morning required increased oxygen requirements needing an nonrebreather mask. Patient was obtunded at this time and not following commands. Patient's chart, labs, images were reviewed and discussed with RN. 03/03/20 No acute events overnight. O2 requirement decreasing. Patient's chart and labs reviewed. Discussed with RN. Vitals Vitals Vital Signs Date Time Temp Pulse Resp B/P (MAP) Pulse Ox O2 Delivery O2 Flow Rate FiO2 03/03/20 09:32 99 40.0 03/03/20 08:42 50 155/88 03/03/20 08:08 Ventilator 03/03/20 06:00 18 03/03/20 04:00 96.4 96.4 Physical Exam Physical Exam CONSTITUTIONAL: sedated on vent HEENT: Pupils have some cataracts in place. Oral cavity, pharynx is very dry. NECK: Supple, no JVD. LUNGS: Had some mild crackles. HEART: S1, S2. ABDOMEN: Soft, nontender, no guarding, no rebound. EXTREMITIES: Without clubbing, cyanosis. No gross edema. SKIN: Warm to touch without signs of rash. NEUROLOGIC: sedated on vent General: Alert, Cooperative, mild distress Heart: Regular rate Lungs: Other (Intubated) Abdomen: No masses, Other (Nondistended) Extremities: No clubbing, No cyanosis, No edema Skin: No rashes, No breakdown, No significant lesion Labs LABS Laboratory Tests Test 03/02/20 11:59 03/02/20 18:25 03/03/20 05:30 03/03/20 08:10 Glucose (Fingerstick) 343 mg/dL (70-99) 190 mg/dL (70-99) Sodium Level 154 mmol/L (136-145) Potassium Level 4.0 mmol/L (3.5-5.1) Chloride Level 115 mmol/L (98-107) Carbon Dioxide Level 29 mmol/L (21-32) Anion Gap 10 (6-14) Blood Urea Nitrogen 32 mg/dL (8-26) Creatinine 1.7 mg/dL (0.7-1.3) Estimated GFR (Cockcroft-Gault) 47.5 Glucose Level 351 mg/dL (70-99) Calcium Level 8.9 mg/dL (8.5-10.1) O2 Saturation 94 % (92-99) Arterial Blood pH 7.39 (7.35-7.45) Arterial Blood pCO2 at Patient Temp 42 mmHg (35-46) Arterial Blood pO2 at Patient Temp 74 mmHg (65-108) Arterial Blood HCO3 25 mmol/L (21-28) Arterial Blood Base Excess 0 mmol/L (-3-3) FiO2 60 Test 03/03/20 09:13 Glucose (Fingerstick) 306 mg/dL (70-99) Review of Systems Review of Systems Unable to obtain due to clinical condition Assessment and Plan Assessmemt and Plan Problems Medical Problems: (1) 2019 novel coronavirus disease (COVID-19) Status: Acute (2) Respiratory failure with hypoxia Status: Acute Comment Review of Relevant I have reviewed the following items latonia (where applicable) has been applied. Labs Laboratory Tests Test 03/01/20 11:21 03/01/20 16:35 03/01/20 21:23 03/01/20 23:34 Glucose (Fingerstick) 388 mg/dL (70-99) 329 mg/dL (70-99) 331 mg/dL (70-99) O2 Saturation 60 % (92-99) Arterial Blood pH 7.44 (7.35-7.45) Arterial Blood pCO2 at Patient Temp 32 mmHg (35-46) Arterial Blood pO2 at Patient Temp 29 mmHg (65-108) Arterial Blood HCO3 21 mmol/L (21-28) Arterial Blood Base Excess -2 mmol/L (-3-3) FiO2 100 Test 03/02/20 05:20 03/02/20 08:00 03/02/20 08:29 03/02/20 11:59 White Blood Count 10.0 x10^3/uL (4.0-11.0) Red Blood Count 4.05 x10^6/uL (4.30-5.70) Hemoglobin 11.7 g/dL (13.0-17.5) Hematocrit 36.2 % (39.0-53.0) Mean Corpuscular Volume 90 fL (79-100) Mean Corpuscular Hemoglobin 29 pg (25-35) Mean Corpuscular Hemoglobin Concent 32 g/dL (31-37) Red Cell Distribution Width 15.7 % (11.5-14.5) Platelet Count 214 x10^3/uL (140-400) Sodium Level 153 mmol/L (136-145) Potassium Level 4.2 mmol/L (3.5-5.1) Chloride Level 117 mmol/L (98-107) Carbon Dioxide Level 27 mmol/L (21-32) Anion Gap 9 (6-14) Blood Urea Nitrogen 36 mg/dL (8-26) Creatinine 1.9 mg/dL (0.7-1.3) Estimated GFR (Cockcroft-Gault) 41.8 Glucose Level 371 mg/dL (70-99) Calcium Level 8.0 mg/dL (8.5-10.1) Magnesium Level 2.5 mg/dL (1.8-2.4) O2 Saturation 95 % (92-99) Arterial Blood pH 7.32 (7.35-7.45) Arterial Blood pCO2 at Patient Temp 45 mmHg (35-46) Arterial Blood pO2 at Patient Temp 80 mmHg (65-108) Arterial Blood HCO3 23 mmol/L (21-28) Arterial Blood Base Excess -4 mmol/L (-3-3) FiO2 80% vent Glucose (Fingerstick) 386 mg/dL (70-99) 343 mg/dL (70-99) Test 03/02/20 18:25 03/03/20 05:30 03/03/20 08:10 03/03/20 09:13 Glucose (Fingerstick) 190 mg/dL (70-99) 306 mg/dL (70-99) Sodium Level 154 mmol/L (136-145) Potassium Level 4.0 mmol/L (3.5-5.1) Chloride Level 115 mmol/L (98-107) Carbon Dioxide Level 29 mmol/L (21-32) Anion Gap 10 (6-14) Blood Urea Nitrogen 32 mg/dL (8-26) Creatinine 1.7 mg/dL (0.7-1.3) Estimated GFR (Cockcroft-Gault) 47.5 Glucose Level 351 mg/dL (70-99) Calcium Level 8.9 mg/dL (8.5-10.1) O2 Saturation 94 % (92-99) Arterial Blood pH 7.39 (7.35-7.45) Arterial Blood pCO2 at Patient Temp 42 mmHg (35-46) Arterial Blood pO2 at Patient Temp 74 mmHg (65-108) Arterial Blood HCO3 25 mmol/L (21-28) Arterial Blood Base Excess 0 mmol/L (-3-3) FiO2 60 Laboratory Tests Test 03/02/20 11:59 03/02/20 18:25 03/03/20 05:30 03/03/20 08:10 Glucose (Fingerstick) 343 mg/dL (70-99) 190 mg/dL (70-99) Sodium Level 154 mmol/L (136-145) Potassium Level 4.0 mmol/L (3.5-5.1) Chloride Level 115 mmol/L (98-107) Carbon Dioxide Level 29 mmol/L (21-32) Anion Gap 10 (6-14) Blood Urea Nitrogen 32 mg/dL (8-26) Creatinine 1.7 mg/dL (0.7-1.3) Estimated GFR (Cockcroft-Gault) 47.5 Glucose Level 351 mg/dL (70-99) Calcium Level 8.9 mg/dL (8.5-10.1) O2 Saturation 94 % (92-99) Arterial Blood pH 7.39 (7.35-7.45) Arterial Blood pCO2 at Patient Temp 42 mmHg (35-46) Arterial Blood pO2 at Patient Temp 74 mmHg (65-108) Arterial Blood HCO3 25 mmol/L (21-28) Arterial Blood Base Excess 0 mmol/L (-3-3) FiO2 60 Test 03/03/20 09:13 Glucose (Fingerstick) 306 mg/dL (70-99) Medications Current Medications Acetaminophen (Tylenol Supp) 650 mg 1X ONCE KS Last administered on 02/27/20at 01:06; Start 02/27/20 at 01:00; Stop 02/27/20 at 01:01; Status DC Ondansetron HCl (Zofran) 4 mg PRN Q4HRS PRN IV NAUSEA/VOMITING; Start 02/27/20 at 07:15 Acetaminophen (Tylenol) 650 mg PRN Q4HRS PRN PO TEMP OVER 100.4F OR MILD PAIN; Start 02/27/20 at 07:15 Acetaminophen (Tylenol Supp) 650 mg PRN Q4HRS PRN KS TEMP OVER 100.4F OR MILD PAIN Last administered on 02/27/20at 21:50; Start 02/27/20 at 07:15 Al Hydroxide/Mg Hydroxide (Mylanta Plus Xs) 30 ml PRN DAILY PRN PO HEARTBURN / GAS; Start 02/27/20 at 07:15 Docusate Sodium (Colace) 100 mg PRN BID PRN PO HARD STOOLS Last administered on 03/03/20at 08:43; Start 02/27/20 at 07:15 Enoxaparin Sodium (Lovenox 30mg Syringe) 30 mg Q12H SQ Last administered on 02/27/20at 11:45; Start 02/27/20 at 09:00; Stop 02/27/20 at 14:35; Status DC Methylprednisolone Sodium Succinate (SOLU-Medrol 40MG VIAL) 40 mg Q8HRS IV Last administered on 03/03/20at 06:36; Start 02/27/20 at 08:00 Insulin Human Lispro (HumaLOG) 0-7 UNITS TIDACHC SQ Last administered on 03/02/20at 12:03; Start 02/27/20 at 07:30; Stop 03/02/20 at 15:08; Status DC Dextrose (Dextrose 50%-Water Syringe) 12.5 gm PRN Q15MIN PRN IV SEE COMMENTS; Start 02/27/20 at 07:15 Amlodipine Besylate (Norvasc) 10 mg DAILY PO Last administered on 03/03/20at 08:42; Start 02/27/20 at 09:00 Aspirin (Ecotrin) 81 mg DAILY PO Last administered on 03/03/20at 08:43; Start 02/27/20 at 09:00 Atorvastatin Calcium (Lipitor) 10 mg HS PO Last administered on 03/02/20at 21:28; Start 02/27/20 at 21:00 Clonidine HCl (Catapres Tts-3) 1 patch WEEKLY TD ; Start 02/27/20 at 09:00; Stop 02/27/20 at 16:00; Status DC Guaifenesin (Robitussin Dm) 10 ml PRN Q6HRS PRN PO COUGH; Start 02/27/20 at 07:15 Lactobacillus Rhamnosus (Culturelle) 1 cap BID PO Last administered on 03/02at 21:29; Start 02/27/20 at 09:00 Enoxaparin Sodium (Lovenox 40mg Syringe) 40 mg Q24H SQ Last administered on 02/27/20at 21:50; Start 02/27/20 at 21:00; Stop 02/28/20 at 10:36; Status DC Zinc Sulfate (Orazinc) 220 mg DAILY PO Last administered on 03/03/20at 08:44; Start 02/27/20 at 16:00 Piperacillin Sod/ Tazobactam Sod 3.375 gm/Sodium Chloride 50 ml @ 100 mls/hr Q6HRS IV Last administered on 03/03/20at 06:36; Start 02/28/20 at 11:00 Enoxaparin Sodium (Lovenox 40mg Syringe) 40 mg Q12HR SQ Last administered on 03/03/20at 08:41; Start 02/28/20 at 11:00 Sodium Chloride 1,000 ml @ 100 mls/hr Q10H IV Last administered on 03/02/20at 02:53; Start 02/28/20 at 11:00; Stop 03/02/20 at 12:34; Status DC Linezolid/Dextrose 300 ml @ 300 mls/hr Q12HR IV Last administered on 03/03/20at 08:39; Start 02/29/20 at 09:00 Sterile Water (WATER for RESP) 1,000 ml CONT PRN INH VIA VAPOTHERM DEVICE Last administered on 03/01/20at 19:29; Start 03/01/20 at 11:00 Hydralazine HCl (Apresoline Inj) 10 mg PRN Q4HRS PRN IVP ELEVATED BP, SEE COMMENTS Last administered on 03/01/20at 22:15; Start 03/01/20 at 18:15 Fentanyl Citrate 30 ml @ 0 mls/hr CONT PRN IV SEE PROTOCOL Last administered on 03/03/20at 09:32; Start 03/02/20 at 00:00 Midazolam HCl 100 ml @ 0 mls/hr CONT PRN IV SEE PROTOCOL Last administered on 03/02/20at 19:50; Start 03/02/20 at 00:00 Vecuronium [place] (Norcuron Bolus) 6 mg PRN Q4HRS PRN IV Sedation; Start 03/02/20 at 00:00 Etomidate (Amidate) 20 mg 1X ONCE IV Last administered on 03/02/20at 00:05; Start 03/02/20 at 00:00; Stop 03/02/20 at 00:08; Status DC Succinylcholine Chloride (Anectine) 200 mg 1X ONCE IV Last administered on 03/02/20at 00:05; Start 03/02/20 at 00:00; Stop 03/02/20 at 00:08; Status DC Sodium Bicarbonate (Sodium Bicarb Adult 8.4% Syr) 50 meq STK-MED ONCE .ROUTE ; Start 03/02/20 at 09:43; Stop 03/02/20 at 09:44; Status DC Sodium Bicarbonate (Sodium Bicarb Adult 8.4% Syr) 50 meq 1X ONCE IV Last administered on 03/02/20at 10:15; Start 03/02/20 at 10:15; Stop 03/02/20 at 10:16; Status DC Sodium Chloride 1,000 ml @ 100 mls/hr Q10H IV Last administered on 03/03/20at 01:22; Start 03/02/20 at 12:30 Insulin Human Lispro (HumaLOG) 0-9 UNITS TIDWMEALS SQ Last administered on 03/03/20at 09:36; Start 03/02/20 at 17:00 Active Scripts Active Culturelle (Lactobacillus Rhamnosus Gg) 1 Each Cap.sprink 1 Cap PO BID 30 Days Guaifenesin Dm Syrup (Guaifenesin/Dextromethorphan) 5 Ml Syrup 10 Ml PO PRN Q6HRS PRN 30 Days Albuterol Sulfate Neb Soln (Albuterol Sulfate) 2.5 Mg/3 Ml Vial.neb 2.5 Mg NEB PRN Q4HRS PRN 30 Days Azithromycin Tablet (Azithromycin) 250 Mg Tablet 250 Mg PO DAILY 5 Days Cefpodoxime Proxetil 100 Mg Tablet 200 Mg PO BID 5 Days Reported Senna (Sennosides) 8.8 Mg/5 Ml Syrup 8.8 Mg PO DAILY Tylenol Extra Strength (Acetaminophen) 500 Mg Tablet 1,000 Mg PO PRN PRN Furosemide 20 Mg Tablet 1 Tab PO DAILY Glipizide Xl (Glipizide) 10 Mg Tab.er.24 1 Tab PO DAILY 30 Days Metformin Hcl Er (Metformin Hcl) 500 Mg Tab.er.24h 1,000 Mg PO DAILYWBKFT Glipizide Xl (Glipizide) 10 Mg Tab.er.24 10 Mg PO DAILY Calcium 500 + D Tablet (Calcium Carbonate/Vitamin D3) 1 Each Tablet 1 Each PO DAILY Catapres-Tts 3 (Clonidine) 1 Each Patch.tdwk 1 Each TD WEEKLY Lisinopril 20 Mg Tablet 1 Tab PO DAILY [cyanocobalamin] 100 Mcg PO DAILY Aspir 81 (Aspirin) 81 Mg Tablet.dr 81 Mg PO DAILY Norvasc (Amlodipine Besylate) 10 Mg Tablet 10 Mg PO DAILY Atorvastatin Calcium 10 Mg Tablet 10 Mg PO HS Vitals/I & O Vital Sign - Last 24 Hours 03/02/20 03/02/20 03/02/20 03/02/20 10:20 11:00 11:49 12:00 Pulse 46 B/P (MAP) 107/64 (78) Pulse Ox 100 100 100 O2 Delivery Ventilator Ventilator O2 Flow Rate 40.0 40.0 03/02/20 03/02/20 03/02/20 03/02/20 12:00 13:03 14:00 15:00 Temp 97.7 97.7 Pulse 46 47 47 48 Resp 18 18 B/P (MAP) 109/62 (78) 101/62 (75) 113/96 (102) 120/69 (86) Pulse Ox 100 100 100 100 O2 Delivery Ventilator Ventilator Ventilator Ventilator 03/02/20 03/02/20 03/02/20 03/02/20 15:30 16:00 16:00 17:00 Temp 97.0 97.0 Pulse 48 48 Resp 18 18 B/P (MAP) 132/71 (91) 142/74 (96) Pulse Ox 100 100 100 O2 Delivery Ventilator Ventilator Ventilator O2 Flow Rate 40.0 03/02/20 03/02/20 03/02/20 03/02/20 18:00 19:50 20:00 20:00 Temp 96.7 96.7 Pulse 46 48 Resp 18 18 B/P (MAP) 154/78 (103) 153/75 (101) Pulse Ox 100 99 100 O2 Delivery Ventilator Ventilator Mechanical Ventilator Ventilator 03/02/20 03/02/20 03/02/20 03/02/20 21:00 22:00 23:00 23:25 Pulse 48 46 48 Resp 18 18 18 B/P (MAP) 152/77 (102) 164/77 (106) 165/77 (106) Pulse Ox 100 100 99 98 O2 Delivery Ventilator Ventilator Ventilator Ventilator 03/02/20 03/03/20 03/03/20 03/03/20 23:38 00:00 00:00 00:14 Temp 96.9 96.9 Pulse 46 Resp 22 18 22 B/P (MAP) 171/78 (109) Pulse Ox 95 99 100 O2 Delivery Ventilator Ventilator Mechanical Ventilator 03/03/20 03/03/20 03/03/20 03/03/20 01:00 02:00 03:00 03:25 Pulse 46 46 48 Resp 18 18 18 B/P (MAP) 176/82 (113) 149/76 (100) 172/74 (106) Pulse Ox 99 99 99 99 O2 Delivery Ventilator Ventilator Ventilator Ventilator 03/03/20 03/03/20 03/03/20 03/03/20 04:00 04:00 05:00 06:00 Temp 96.4 96.4 Pulse 50 48 52 Resp 18 18 18 B/P (MAP) 155/84 (107) 166/85 (112) 145/81 (102) Pulse Ox 100 98 100 O2 Delivery Ventilator Mechanical Ventilator Ventilator Ventilator 03/03/20 03/03/20 03/03/20 08:08 08:42 09:32 Pulse 50 B/P (MAP) 155/88 Pulse Ox 99 99 O2 Delivery Ventilator O2 Flow Rate 40.0 Intake and Output 03/02/20 03/02/20 03/03/20 15:00 23:00 07:00 Intake Total 460 ml 783 ml 1906 ml Output Total 195 ml 215 ml 220 ml Balance 265 ml 568 ml 1686 ml Justicifation of Admission Dx: Justifications for Admission: Justification of Admission Dx: Yes Respiratory Failure: Severe Resp Distress ARLETTE ESCALONA MD Mar 03, 2020 10:22
--- NOTE | 2020-03-03 11:09 | PDOC ---
PULMONARY PROGRESS NOTES DATE: 03/03/20 TIME: 11:04 Subjective intubated night of 03/01 due to worsening hypoxia AC mode 60%FIO2, 8 PEEP No overnight concerns from nursing Vitals Vital Signs Date Time Temp Pulse Resp B/P (MAP) Pulse Ox O2 Delivery O2 Flow Rate FiO2 03/03/20 09:32 99 40.0 03/03/20 08:42 50 155/88 03/03/20 08:08 Ventilator 03/03/20 06:00 18 03/03/20 04:00 96.4 96.4 Comments PT. seen during COVID- pandemic visual exam preformed RRR VENT 60% no distress no rash No edema Lungs: Other (Intubated) Labs Laboratory Tests Test 03/01/20 11:21 03/01/20 16:35 03/01/20 21:23 03/01/20 23:34 Glucose (Fingerstick) 388 mg/dL (70-99) 329 mg/dL (70-99) 331 mg/dL (70-99) O2 Saturation 60 % (92-99) Arterial Blood pH 7.44 (7.35-7.45) Arterial Blood pCO2 at Patient Temp 32 mmHg (35-46) Arterial Blood pO2 at Patient Temp 29 mmHg (65-108) Arterial Blood HCO3 21 mmol/L (21-28) Arterial Blood Base Excess -2 mmol/L (-3-3) FiO2 100 Test 03/02/20 05:20 03/02/20 08:00 03/02/20 08:29 03/02/20 11:59 White Blood Count 10.0 x10^3/uL (4.0-11.0) Red Blood Count 4.05 x10^6/uL (4.30-5.70) Hemoglobin 11.7 g/dL (13.0-17.5) Hematocrit 36.2 % (39.0-53.0) Mean Corpuscular Volume 90 fL (79-100) Mean Corpuscular Hemoglobin 29 pg (25-35) Mean Corpuscular Hemoglobin Concent 32 g/dL (31-37) Red Cell Distribution Width 15.7 % (11.5-14.5) Platelet Count 214 x10^3/uL (140-400) Sodium Level 153 mmol/L (136-145) Potassium Level 4.2 mmol/L (3.5-5.1) Chloride Level 117 mmol/L (98-107) Carbon Dioxide Level 27 mmol/L (21-32) Anion Gap 9 (6-14) Blood Urea Nitrogen 36 mg/dL (8-26) Creatinine 1.9 mg/dL (0.7-1.3) Estimated GFR (Cockcroft-Gault) 41.8 Glucose Level 371 mg/dL (70-99) Calcium Level 8.0 mg/dL (8.5-10.1) Magnesium Level 2.5 mg/dL (1.8-2.4) O2 Saturation 95 % (92-99) Arterial Blood pH 7.32 (7.35-7.45) Arterial Blood pCO2 at Patient Temp 45 mmHg (35-46) Arterial Blood pO2 at Patient Temp 80 mmHg (65-108) Arterial Blood HCO3 23 mmol/L (21-28) Arterial Blood Base Excess -4 mmol/L (-3-3) FiO2 80% vent Glucose (Fingerstick) 386 mg/dL (70-99) 343 mg/dL (70-99) Test 03/02/20 18:25 03/03/20 05:30 03/03/20 08:10 03/03/20 09:13 Glucose (Fingerstick) 190 mg/dL (70-99) 306 mg/dL (70-99) Sodium Level 154 mmol/L (136-145) Potassium Level 4.0 mmol/L (3.5-5.1) Chloride Level 115 mmol/L (98-107) Carbon Dioxide Level 29 mmol/L (21-32) Anion Gap 10 (6-14) Blood Urea Nitrogen 32 mg/dL (8-26) Creatinine 1.7 mg/dL (0.7-1.3) Estimated GFR (Cockcroft-Gault) 47.5 Glucose Level 351 mg/dL (70-99) Calcium Level 8.9 mg/dL (8.5-10.1) O2 Saturation 94 % (92-99) Arterial Blood pH 7.39 (7.35-7.45) Arterial Blood pCO2 at Patient Temp 42 mmHg (35-46) Arterial Blood pO2 at Patient Temp 74 mmHg (65-108) Arterial Blood HCO3 25 mmol/L (21-28) Arterial Blood Base Excess 0 mmol/L (-3-3) FiO2 60 Laboratory Tests Test 03/02/20 11:59 03/02/20 18:25 03/03/20 05:30 03/03/20 08:10 Glucose (Fingerstick) 343 mg/dL (70-99) 190 mg/dL (70-99) Sodium Level 154 mmol/L (136-145) Potassium Level 4.0 mmol/L (3.5-5.1) Chloride Level 115 mmol/L (98-107) Carbon Dioxide Level 29 mmol/L (21-32) Anion Gap 10 (6-14) Blood Urea Nitrogen 32 mg/dL (8-26) Creatinine 1.7 mg/dL (0.7-1.3) Estimated GFR (Cockcroft-Gault) 47.5 Glucose Level 351 mg/dL (70-99) Calcium Level 8.9 mg/dL (8.5-10.1) O2 Saturation 94 % (92-99) Arterial Blood pH 7.39 (7.35-7.45) Arterial Blood pCO2 at Patient Temp 42 mmHg (35-46) Arterial Blood pO2 at Patient Temp 74 mmHg (65-108) Arterial Blood HCO3 25 mmol/L (21-28) Arterial Blood Base Excess 0 mmol/L (-3-3) FiO2 60 Test 03/03/20 09:13 Glucose (Fingerstick) 306 mg/dL (70-99) Medications Active Scripts Medications Dose Route/Sig Max Daily Dose Days Date Category Senna (Sennosides) 8.8 Mg/5 Ml Syrup 8.8 Mg PO DAILY 02/27/20 Reported Tylenol Extra Strength (Acetaminophen) 500 Mg Tablet 1,000 Mg PO PRN PRN 02/27/20 Reported Furosemide 20 Mg Tablet 1 Tab PO DAILY 02/27/20 Reported Glipizide Xl (Glipizide) 10 Mg Tab.er.24 1 Tab PO DAILY 30 02/27/20 Reported Culturelle (Lactobacillus Rhamnosus Gg) 1 Each Cap.sprink 1 Cap PO BID 30 05/23/18 Rx Guaifenesin Dm Syrup (Guaifenesin/Dextromethorphan) 5 Ml Syrup 10 Ml PO PRN Q6HRS PRN 30 05/23/18 Rx Albuterol Sulfate Neb Soln (Albuterol Sulfate) 2.5 Mg/3 Ml Vial.neb 2.5 Mg NEB PRN Q4HRS PRN 30 05/23/18 Rx Azithromycin Tablet (Azithromycin) 250 Mg Tablet 250 Mg PO DAILY 5 05/23/18 Rx Cefpodoxime Proxetil 100 Mg Tablet 200 Mg PO BID 5 05/23/18 Rx Metformin Hcl Er (Metformin Hcl) 500 Mg Tab.er.24h 1,000 Mg PO DAILYWBKFT 05/21/18 Reported Glipizide Xl (Glipizide) 10 Mg Tab.er.24 10 Mg PO DAILY 05/20/18 Reported Calcium 500 + D Tablet (Calcium Carbonate/Vitamin D3) 1 Each Tablet 1 Each PO DAILY 05/20/18 Reported Catapres-Tts 3 (Clonidine) 1 Each Patch.tdwk 1 Each TD WEEKLY 05/20/18 Reported Lisinopril 20 Mg Tablet 1 Tab PO DAILY 05/20/18 Reported [cyanocobalamin] 100 Mcg PO DAILY 05/20/18 Reported Aspir 81 (Aspirin) 81 Mg Tablet.dr 81 Mg PO DAILY 07/08/13 Reported Norvasc (Amlodipine Besylate) 10 Mg Tablet 10 Mg PO DAILY 07/08/13 Reported Atorvastatin Calcium 10 Mg Tablet 10 Mg PO HS 07/08/13 Reported Comments CXR- 02/27/2020 IMPRESSION: * Patchy opacities in bilateral lungs which could be seen with multifocal infiltrate or edema 03/01 WORSENING INFILTRATES 03/03- IMPRESSION: * Repeat demonstration of multifocal opacities throughout the bilateral lungs with slight decrease in the right upper lung compared to prior and similar to prior within other portions of the bilateral lungs. * Lines and tubes as above. * Enlarged cardiomediastinal silhouette. Impression . Acute hypoxic respiratory Failure--intubated night of 03/01 due to worsening hypoxia, AC mode 60%FIO2, 8 PEEP COVID-19 known positive COVID -19 pneumonia, cannot exclude bacterial pneumonia elevated ddimer 2/2 inflammatory stage of covid19 Fevers--resolved Anemia of chronic disease Dementia KENNY vs. CKD -- improving Plan . AC mode. FI02 60% and PEEP 8, ABG reviewed rate increased to 24 and Fi02 to 5% and PEEP of 7 s/p Plasma ABX per ID Cont. steroids Follow nephrology recs will follow inflammatory markers including ddimer Continue TF for nutritional support DVT/GI PPX -- high dose lovenox D/W RN, and RT cct 30 min JOSY CASTILLO MD Mar 03, 2020 11:09
--- NOTE | 2020-03-03 14:18 | PDOC ---
Renal-Progress Notes Subjective Notes Notes NONE History of Present Illness Hx of present illness INTUBATED Vitals Vitals Vital Signs Date Time Temp Pulse Resp B/P (MAP) Pulse Ox O2 Delivery O2 Flow Rate FiO2 03/03/20 12:00 Mechanical Ventilator 03/03/20 11:19 99 03/03/20 11:00 18 03/03/20 10:02 40.0 03/03/20 08:42 50 03/03/20 04:00 96.4 96.4 Weight Weight [ ] I.O. Intake and Output Intake and Output 03/03/20 07:00 Intake Total 3149 ml Output Total 630 ml Balance 2519 ml IV Total 2789 ml Tube Feeding 300 ml Other 60 ml Output Urine Total 630 ml Labs Labs Laboratory Tests Test 03/02/20 18:25 03/03/20 05:30 03/03/20 08:10 03/03/20 09:13 Glucose (Fingerstick) 190 mg/dL (70-99) 306 mg/dL (70-99) Sodium Level 154 mmol/L (136-145) Potassium Level 4.0 mmol/L (3.5-5.1) Chloride Level 115 mmol/L (98-107) Carbon Dioxide Level 29 mmol/L (21-32) Anion Gap 10 (6-14) Blood Urea Nitrogen 32 mg/dL (8-26) Creatinine 1.7 mg/dL (0.7-1.3) Estimated GFR (Cockcroft-Gault) 47.5 Glucose Level 351 mg/dL (70-99) Calcium Level 8.9 mg/dL (8.5-10.1) O2 Saturation 94 % (92-99) Arterial Blood pH 7.39 (7.35-7.45) Arterial Blood pCO2 at Patient Temp 42 mmHg (35-46) Arterial Blood pO2 at Patient Temp 74 mmHg (65-108) Arterial Blood HCO3 25 mmol/L (21-28) Arterial Blood Base Excess 0 mmol/L (-3-3) FiO2 60 Review of Systems Constitutional: yes: other (SOB, UNABLE TO OBTAIN) Physical Exam General Appearance: no apparent distress Skin: warm Respiratory: decreased breath sounds Heart: S1S2 Abdomen: soft, bowel sounds present Extremities: pulses present Neurology: other (SEDATED) Assessment Assessment IMP COVID 19 PNEUMONIA ACUTE RESP [id number] INTUBATION UNCOMPENSATED ACUTE RESP ACIDOSIS ANEMIA KENNY WITH CR IMPROVED TO 1.7 HYPERNATREMIA HEMATURIA-LIKELY COVID RELATED ? CKD - UNKNOWN PLAN VENT SUPPORT SUPPORTIVE CARE S/PCONVALESCENT PLASMA EMPIRIC ANTIBIOTICS CHANGED SALINE TO HYPOTONIC SALINE CONT SUPPORTIVE CARE WILL FOLLOW MIRI CADENA MD Mar 03, 2020 14:18
--- NOTE | 2020-03-03 15:06 | NUR ---
SS following up with discharge planning. SS reviewed pt chart and discussed with pt RN. Pt is LTC resident from [facility]. COVID19 positive. Pt remains on the vent at this time. Pt on IV Zyvox and IV Zosyn. SS will continue to follow for discharge planning.
[2020-03-03] MEDS: PANTOPRAZOLE IV PUSH 40 MG VIAL. IVP SCH (15:25)
--- NOTE | 2020-03-03 16:42 | RAD ---
PORTABLE CHEST 1V History: Reason: central line placement / Spl. Instructions: / History: Comparison: March 03, 2020 Findings: Interval placement right IJ central line with tip projecting over the lower SVC. Diffuse initial and alveolar opacities, unchanged. Unchanged heart size. Stable endotracheal tube and enteric tube. Small bilateral pleural effusions, unchanged. Impression: 1. Interval placement right IJ central line. No pneumothorax. Electronically signed by: Delon Luther DO (03/03/2020 4:39 PM) [facility]
--- NOTE | 2020-03-03 17:18 | PDOC ---
Provider Note Provider Note Called to place CVL. Patient is COVID + and on ventilator. Receiving IV sedation. Permit signed. Patient positioned and prepped in standard fashion. US guidance for right sided IJ cannulation first try with #18 gauge Cook needle with dark red non pulsitile RBCs returned. Standard Seldinger technique used for placement of 3 lumen CVL. Lines aspirated and flushed. Sewn in place at 18 cm at skin. Sterile dressing applied. CXR pending. No complications. MD NAOMI Davis,MCKAYLA Moe MD Mar 03, 2020 17:18
[2020-03-03] MEDS: ATORVASTATIN CALCIUM 10 MG TABLET. PO SCH (20:38)
[2020-03-03] MEDS ORDERED: INSULIN GLARGINE SYRINGE. SQ SCH (21:00)
[2020-03-04] VITALS (25 sets, daily range): BP systolic 95–179; BP diastolic 58–99
[2020-03-04] MEDS: MIDAZOLAM 100mg/100ml NS BAG 100 ML IV PRN ×2 (00:37→21:43)
[2020-03-04] MEDS: PIPERACILLIN/TAZOBACTAM 3.375 GM in IV NORMAL SALINE 50ML 50 ML IV SCH ×5 (00:41→23:54)
[2020-03-04] MEDS: IV 1/2 NORMAL SALINE 1,000 ML IV SCH ×3 (03:12→23:52)
[2020-03-04] MEDS: hydrALAZINE 20 MG/ML VIAL. IVP PRN ×2 (03:20→14:08)
[2020-03-04 05:18] LABS: BASO % 0 % (0-3); EOS % 0 % (0-3); HEMOGLOBIN 11.6 g/dL (13.0-17.5); LYMPH # 0.3 x10^3/uL (1.0-4.8); LYMPH % 5 % (24-48); MEAN CORPUSCULAR HEMOGLOBIN 29 pg (25-35); MEAN CORPUSCULAR HGB CONC 33 g/dL (31-37); MEAN CORPUSCULAR VOLUME 88 fL (79-100); MONO # 0.4 x10^3/uL (0.0-1.1); MONO % 6 % (0-9); NEUT # 6.5 x10^3/uL (1.8-7.7); NEUT % 89 % (31-73); PLATELET COUNT 216 x10^3/uL (140-400); RED BLOOD COUNT 3.99 x10^6/uL (4.30-5.70); RED CELL DISTRIBUTION WIDTH 15.5 % (11.5-14.5); WHITE BLOOD COUNT 7.2 x10^3/uL (4.0-11.0)
[2020-03-04] MEDS: methylPREDNISolone SOD SUCC PF 40 MG/ML VIAL. IV SCH ×3 (05:51→21:42)
[2020-03-04 06:22] LABS: CALCIUM 7.8 mg/dL (8.5-10.1); CREATININE 1.5 mg/dL (0.7-1.3); GFR 54.9
[2020-03-04] MEDS ORDERED: INSULIN LISPRO 300 UNITS/3 ML VIAL. SQ ONE (07:15)
[2020-03-04] MEDS: amLODIPine BESYLATE 10 MG TABLET PO SCH (07:16)
[2020-03-04] MEDS: ZINC SULFATE 220 MG CAPSULE. PO SCH (07:16)
[2020-03-04] MEDS: LACTOBACILLUS RHAMNOSUS GG 1 CAPSULE. PO SCH ×2 (07:16→21:00)
[2020-03-04] MEDS: PANTOPRAZOLE IV PUSH 40 MG VIAL. IVP SCH (07:16)
[2020-03-04] MEDS: ENOXAPARIN 40 MG/0.4 ML SYRINGE. SQ SCH ×2 (07:17→21:42)
[2020-03-04] MEDS: ASPIRIN CHEWABLE 81 MG TABLET. PO SCH (07:23)
--- NOTE | 2020-03-04 07:44 | PDOC ---
Infectious Disease Note Subjective Subjective pt is intubated, on vent ROS ROS no n/v/d/ Vital Sign Vital Signs Vital Signs Date Time Temp Pulse Resp B/P (MAP) Pulse Ox O2 Delivery O2 Flow Rate FiO2 03/04/20 07:16 61 161/93 03/04/20 07:00 24 100 Ventilator 03/04/20 04:00 96.4 96.4 03/03/20 10:02 40.0 Physical Exam PHYSICAL EXAM CONSTITUTIONAL: sedated on vent HEENT: Pupils have some cataracts in place. Oral cavity, pharynx is very dry. NECK: Supple, no JVD. LUNGS: Had some mild crackles. HEART: S1, S2. ABDOMEN: Soft, nontender, no guarding, no rebound. EXTREMITIES: Without clubbing, cyanosis. No gross edema. SKIN: Warm to touch without signs of rash. NEUROLOGIC: sedated on vent Labs Lab Laboratory Tests Test 03/03/20 08:10 03/03/20 09:13 03/03/20 18:13 03/04/20 04:50 O2 Saturation 94 % (92-99) Arterial Blood pH 7.39 (7.35-7.45) Arterial Blood pCO2 at Patient Temp 42 mmHg (35-46) Arterial Blood pO2 at Patient Temp 74 mmHg (65-108) Arterial Blood HCO3 25 mmol/L (21-28) Arterial Blood Base Excess 0 mmol/L (-3-3) FiO2 60 Glucose (Fingerstick) 306 mg/dL (70-99) 374 mg/dL (70-99) White Blood Count 7.2 x10^3/uL (4.0-11.0) Red Blood Count 3.99 x10^6/uL (4.30-5.70) Hemoglobin 11.6 g/dL (13.0-17.5) Hematocrit 35.0 % (39.0-53.0) Mean Corpuscular Volume 88 fL (79-100) Mean Corpuscular Hemoglobin 29 pg (25-35) Mean Corpuscular Hemoglobin Concent 33 g/dL (31-37) Red Cell Distribution Width 15.5 % (11.5-14.5) Platelet Count 216 x10^3/uL (140-400) Neutrophils (%) (Auto) 89 % (31-73) Lymphocytes (%) (Auto) 5 % (24-48) Monocytes (%) (Auto) 6 % (0-9) Eosinophils (%) (Auto) 0 % (0-3) Basophils (%) (Auto) 0 % (0-3) Neutrophils # (Auto) 6.5 x10^3/uL (1.8-7.7) Lymphocytes # (Auto) 0.3 x10^3/uL (1.0-4.8) Monocytes # (Auto) 0.4 x10^3/uL (0.0-1.1) Eosinophils # (Auto) 0.0 x10^3/uL (0.0-0.7) Basophils # (Auto) 0.0 x10^3/uL (0.0-0.2) D-Dimer (Viv) 1.55 ug/mlFEU (0.00-0.50) Sodium Level 150 mmol/L (136-145) Potassium Level 4.0 mmol/L (3.5-5.1) Chloride Level 113 mmol/L (98-107) Carbon Dioxide Level 28 mmol/L (21-32) Anion Gap 9 (6-14) Blood Urea Nitrogen 35 mg/dL (8-26) Creatinine 1.5 mg/dL (0.7-1.3) Estimated GFR (Cockcroft-Gault) 54.9 Glucose Level 402 mg/dL (70-99) Calcium Level 7.8 mg/dL (8.5-10.1) Ferritin 1540 ng/mL (26-388) C-Reactive Protein, Quantitative 44.0 mg/L (0-3.3) Procalcitonin < 0.10 ng/mL (0.00-0.10) Objective Assessment 1. Fever. 2. Acute hypoxic respiratory failure. 3. COVID positive. 4. Acute kidney injury. 5. Leukocytosis. 6. Rhabdomyolysis with history as well, previous rhabdomyolysis. Plan Plan of Care Plasma given Cont Steroids cont zosyn, d/c zyvox F/u labs and cults Dw nursing CONCEPCION SMITH MD Mar 04, 2020 07:44
[2020-03-04 08:21] LABS: BASE EXCESS ABG -1 mmol/L (-3-3); HCO3 ABG 24 mmol/L (21-28); PCO2 ABG 41 mmHg (35-46); PO2 ABG 67 mmHg (65-108); SAT O2 ABG 92 % (92-99)
--- NOTE | 2020-03-04 10:28 | PDOC ---
PROGRESS NOTES Date of Service: DATE: 03/04/20 TIME: 10:26 Chief Complaint Chief Complaint A/P: Respiratory failure with hypoxia - likely 2/2 COVID 19. WORSENING. Steroids, Lovenox twice daily, consult pulmonology. Maintain O2 saturations 92% or greater. SARS-CoV-2 (COVID-19) - As above. ID consulted, agree to consent for convalescent FFP if this is line with family goals of care. KENNY - likely vasomotor nephropathy from COVID 19 infection, will monitor renal fx and hydrate. 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 Diabetes-Type II - sliding scale insulin, will hold oral hypoglycemics for now GERD - cont antacids High Cholesterol - cont statin Hypertension - cont meds, hold clonidine patch given his BP is on the low side POLYNEUROPATHY - CK elevated, will monitor FEN - Pureed nectar thick diet PPX - lovenox FULL CODE Dispo - inpatient, transferred to ICU for increase O2 requirements History of Present Illness History of Present Illness Mr Rivera is a 79-year-old male with PMHx Anemia, Dementia, Diabetes-Type II, Diverticulosis, GERD, High Cholesterol, Hypertension, POLYNEUROPATHY resident of [facility] in [place] comes to ED with known SARS-CoV-2 (COVID 19) who presents to the emergency room with respiratory distress. Patient is unable to provide any history. Is unclear at this time how long he has been ill. Is unclear whether or not he is on oxygen at baseline. Upon arrival to the emergency room he is on a nonrebreather. He reportedly had a pulse ox of 72 upon EMS arrival. Patient was able to be weaned down from a nonrebreather to 6 L nasal cannula. ABG was done 7.35/48/107 on 6 L nasal cannula. WBC 9.3, Hb 13.3, platelets 212, d-dimer 3.92, troponin 0 0.22, AST 57, CRP 163.7, CK 1865, albumin 2.7 EKG sinus rhythm, leftward axis QRS transition zone, nonspecific T abnormalities high lateral leads, new prolonged QT. CXR with bilateral patchy infiltrate consistent with COVID-19 pneumonia. Admitted for further care. 02/27: Cr up to 2.4 today. Febrile to 100.7 F overnight. Slight cough. On 6 L nasal cannula oxygen. Afebrile past 24 hours, now on 10 L facemask O2, WBC 11.4, hemoglobin 12.8, CR stable at 2.4 albumin 2.5 CK 2060, glucose 302. He has been incontinent of urine over the past 24 hours and has some redness on the scrotum and buttocks, I advised him Smiht catheter may be indicated he does not seem to be understanding much of what is going on. I have discussed with ID that type and screen and convalescent plasma may be indicated, will try to get a hold of family to discuss goals of care. Nephrology consulted, will check UA and renal US. 03/01/2020 No acute events overnight. Patient this morning required increased oxygen requirements needing an nonrebreather mask. Patient was obtunded at this time and not following commands. Patient's chart, labs, images were reviewed and discussed with RN. 03/03/20 No acute events overnight. O2 requirement decreasing. Patient's chart and labs reviewed. Discussed with RN. 03/04/20 Patient remains intubated and sedated. Hyperglycemia still an issue. Discussed increasing insulin with RN. Vitals Vitals Vital Signs Date Time Temp Pulse Resp B/P (MAP) Pulse Ox O2 Delivery O2 Flow Rate FiO2 03/04/20 10:00 58 24 95/60 (72) 100 Ventilator 03/04/20 08:00 97.5 97.5 03/03/20 10:02 40.0 Physical Exam Physical Exam CONSTITUTIONAL: sedated on vent HEENT: Pupils have some cataracts in place. Oral cavity, pharynx is very dry. NECK: Supple, no JVD. LUNGS: Had some mild crackles. HEART: S1, S2. ABDOMEN: Soft, nontender, no guarding, no rebound. EXTREMITIES: Without clubbing, cyanosis. No gross edema. SKIN: Warm to touch without signs of rash. NEUROLOGIC: sedated on vent General: Alert, Cooperative, mild distress Heart: Regular rate Lungs: Other (Intubated) Abdomen: No masses, Other (Nondistended) Extremities: No clubbing, No cyanosis, No edema Skin: No rashes, No breakdown, No significant lesion Labs LABS Laboratory Tests Test 03/03/20 18:13 03/04/20 04:50 03/04/20 08:10 Glucose (Fingerstick) 374 mg/dL (70-99) White Blood Count 7.2 x10^3/uL (4.0-11.0) Red Blood Count 3.99 x10^6/uL (4.30-5.70) Hemoglobin 11.6 g/dL (13.0-17.5) Hematocrit 35.0 % (39.0-53.0) Mean Corpuscular Volume 88 fL (79-100) Mean Corpuscular Hemoglobin 29 pg (25-35) Mean Corpuscular Hemoglobin Concent 33 g/dL (31-37) Red Cell Distribution Width 15.5 % (11.5-14.5) Platelet Count 216 x10^3/uL (140-400) Neutrophils (%) (Auto) 89 % (31-73) Lymphocytes (%) (Auto) 5 % (24-48) Monocytes (%) (Auto) 6 % (0-9) Eosinophils (%) (Auto) 0 % (0-3) Basophils (%) (Auto) 0 % (0-3) Neutrophils # (Auto) 6.5 x10^3/uL (1.8-7.7) Lymphocytes # (Auto) 0.3 x10^3/uL (1.0-4.8) Monocytes # (Auto) 0.4 x10^3/uL (0.0-1.1) Eosinophils # (Auto) 0.0 x10^3/uL (0.0-0.7) Basophils # (Auto) 0.0 x10^3/uL (0.0-0.2) D-Dimer (Viv) 1.55 ug/mlFEU (0.00-0.50) Sodium Level 150 mmol/L (136-145) Potassium Level 4.0 mmol/L (3.5-5.1) Chloride Level 113 mmol/L (98-107) Carbon Dioxide Level 28 mmol/L (21-32) Anion Gap 9 (6-14) Blood Urea Nitrogen 35 mg/dL (8-26) Creatinine 1.5 mg/dL (0.7-1.3) Estimated GFR (Cockcroft-Gault) 54.9 Glucose Level 402 mg/dL (70-99) Calcium Level 7.8 mg/dL (8.5-10.1) Magnesium Level 2.3 mg/dL (1.8-2.4) Ferritin 1540 ng/mL (26-388) C-Reactive Protein, Quantitative 44.0 mg/L (0-3.3) Procalcitonin < 0.10 ng/mL (0.00-0.10) O2 Saturation 92 % (92-99) Arterial Blood pH 7.39 (7.35-7.45) Arterial Blood pCO2 at Patient Temp 41 mmHg (35-46) Arterial Blood pO2 at Patient Temp 67 mmHg (65-108) Arterial Blood HCO3 24 mmol/L (21-28) Arterial Blood Base Excess -1 mmol/L (-3-3) FiO2 55% Review of Systems Review of Systems Unable to obtain due to clinical condition Assessment and Plan Assessmemt and Plan Problems Medical Problems: (1) 2019 novel coronavirus disease (COVID-19) Status: Acute (2) Respiratory failure with hypoxia Status: Acute Comment Review of Relevant I have reviewed the following items latonia (where applicable) has been applied. Labs Laboratory Tests Test 03/02/20 11:59 03/02/20 18:25 03/03/20 05:30 03/03/20 08:10 Glucose (Fingerstick) 343 mg/dL (70-99) 190 mg/dL (70-99) Sodium Level 154 mmol/L (136-145) Potassium Level 4.0 mmol/L (3.5-5.1) Chloride Level 115 mmol/L (98-107) Carbon Dioxide Level 29 mmol/L (21-32) Anion Gap 10 (6-14) Blood Urea Nitrogen 32 mg/dL (8-26) Creatinine 1.7 mg/dL (0.7-1.3) Estimated GFR (Cockcroft-Gault) 47.5 Glucose Level 351 mg/dL (70-99) Calcium Level 8.9 mg/dL (8.5-10.1) O2 Saturation 94 % (92-99) Arterial Blood pH 7.39 (7.35-7.45) Arterial Blood pCO2 at Patient Temp 42 mmHg (35-46) Arterial Blood pO2 at Patient Temp 74 mmHg (65-108) Arterial Blood HCO3 25 mmol/L (21-28) Arterial Blood Base Excess 0 mmol/L (-3-3) FiO2 60 Test 03/03/20 09:13 03/03/20 18:13 03/04/20 04:50 03/04/20 08:10 Glucose (Fingerstick) 306 mg/dL (70-99) 374 mg/dL (70-99) White Blood Count 7.2 x10^3/uL (4.0-11.0) Red Blood Count 3.99 x10^6/uL (4.30-5.70) Hemoglobin 11.6 g/dL (13.0-17.5) Hematocrit 35.0 % (39.0-53.0) Mean Corpuscular Volume 88 fL (79-100) Mean Corpuscular Hemoglobin 29 pg (25-35) Mean Corpuscular Hemoglobin Concent 33 g/dL (31-37) Red Cell Distribution Width 15.5 % (11.5-14.5) Platelet Count 216 x10^3/uL (140-400) Neutrophils (%) (Auto) 89 % (31-73) Lymphocytes (%) (Auto) 5 % (24-48) Monocytes (%) (Auto) 6 % (0-9) Eosinophils (%) (Auto) 0 % (0-3) Basophils (%) (Auto) 0 % (0-3) Neutrophils # (Auto) 6.5 x10^3/uL (1.8-7.7) Lymphocytes # (Auto) 0.3 x10^3/uL (1.0-4.8) Monocytes # (Auto) 0.4 x10^3/uL (0.0-1.1) Eosinophils # (Auto) 0.0 x10^3/uL (0.0-0.7) Basophils # (Auto) 0.0 x10^3/uL (0.0-0.2) D-Dimer (Viv) 1.55 ug/mlFEU (0.00-0.50) Sodium Level 150 mmol/L (136-145) Potassium Level 4.0 mmol/L (3.5-5.1) Chloride Level 113 mmol/L (98-107) Carbon Dioxide Level 28 mmol/L (21-32) Anion Gap 9 (6-14) Blood Urea Nitrogen 35 mg/dL (8-26) Creatinine 1.5 mg/dL (0.7-1.3) Estimated GFR (Cockcroft-Gault) 54.9 Glucose Level 402 mg/dL (70-99) Calcium Level 7.8 mg/dL (8.5-10.1) Magnesium Level 2.3 mg/dL (1.8-2.4) Ferritin 1540 ng/mL (26-388) C-Reactive Protein, Quantitative 44.0 mg/L (0-3.3) Procalcitonin < 0.10 ng/mL (0.00-0.10) O2 Saturation 92 % (92-99) Arterial Blood pH 7.39 (7.35-7.45) Arterial Blood pCO2 at Patient Temp 41 mmHg (35-46) Arterial Blood pO2 at Patient Temp 67 mmHg (65-108) Arterial Blood HCO3 24 mmol/L (21-28) Arterial Blood Base Excess -1 mmol/L (-3-3) FiO2 55% Laboratory Tests Test 03/03/20 18:13 03/04/20 04:50 03/04/20 08:10 Glucose (Fingerstick) 374 mg/dL (70-99) White Blood Count 7.2 x10^3/uL (4.0-11.0) Red Blood Count 3.99 x10^6/uL (4.30-5.70) Hemoglobin 11.6 g/dL (13.0-17.5) Hematocrit 35.0 % (39.0-53.0) Mean Corpuscular Volume 88 fL (79-100) Mean Corpuscular Hemoglobin 29 pg (25-35) Mean Corpuscular Hemoglobin Concent 33 g/dL (31-37) Red Cell Distribution Width 15.5 % (11.5-14.5) Platelet Count 216 x10^3/uL (140-400) Neutrophils (%) (Auto) 89 % (31-73) Lymphocytes (%) (Auto) 5 % (24-48) Monocytes (%) (Auto) 6 % (0-9) Eosinophils (%) (Auto) 0 % (0-3) Basophils (%) (Auto) 0 % (0-3) Neutrophils # (Auto) 6.5 x10^3/uL (1.8-7.7) Lymphocytes # (Auto) 0.3 x10^3/uL (1.0-4.8) Monocytes # (Auto) 0.4 x10^3/uL (0.0-1.1) Eosinophils # (Auto) 0.0 x10^3/uL (0.0-0.7) Basophils # (Auto) 0.0 x10^3/uL (0.0-0.2) D-Dimer (Viv) 1.55 ug/mlFEU (0.00-0.50) Sodium Level 150 mmol/L (136-145) Potassium Level 4.0 mmol/L (3.5-5.1) Chloride Level 113 mmol/L (98-107) Carbon Dioxide Level 28 mmol/L (21-32) Anion Gap 9 (6-14) Blood Urea Nitrogen 35 mg/dL (8-26) Creatinine 1.5 mg/dL (0.7-1.3) Estimated GFR (Cockcroft-Gault) 54.9 Glucose Level 402 mg/dL (70-99) Calcium Level 7.8 mg/dL (8.5-10.1) Magnesium Level 2.3 mg/dL (1.8-2.4) Ferritin 1540 ng/mL (26-388) C-Reactive Protein, Quantitative 44.0 mg/L (0-3.3) Procalcitonin < 0.10 ng/mL (0.00-0.10) O2 Saturation 92 % (92-99) Arterial Blood pH 7.39 (7.35-7.45) Arterial Blood pCO2 at Patient Temp 41 mmHg (35-46) Arterial Blood pO2 at Patient Temp 67 mmHg (65-108) Arterial Blood HCO3 24 mmol/L (21-28) Arterial Blood Base Excess -1 mmol/L (-3-3) FiO2 55% Medications Current Medications Acetaminophen (Tylenol Supp) 650 mg 1X ONCE TN Last administered on 02/27/20at 01:06; Start 02/27/20 at 01:00; Stop 02/27/20 at 01:01; Status DC Ondansetron HCl (Zofran) 4 mg PRN Q4HRS PRN IV NAUSEA/VOMITING; Start 02/27/20 at 07:15 Acetaminophen (Tylenol) 650 mg PRN Q4HRS PRN PO TEMP OVER 100.4F OR MILD PAIN; Start 02/27/20 at 07:15 Acetaminophen (Tylenol Supp) 650 mg PRN Q4HRS PRN TN TEMP OVER 100.4F OR MILD PAIN Last administered on 02/27/20at 21:50; Start 02/27/20 at 07:15 Al Hydroxide/Mg Hydroxide (Mylanta Plus Xs) 30 ml PRN DAILY PRN PO HEARTBURN / GAS; Start 02/27/20 at 07:15 Docusate Sodium (Colace) 100 mg PRN BID PRN PO HARD STOOLS Last administered on 03/03/20at 08:43; Start 02/27/20 at 07:15 Enoxaparin Sodium (Lovenox 30mg Syringe) 30 mg Q12H SQ Last administered on 02/27/20at 11:45; Start 02/27/20 at 09:00; Stop 02/27/20 at 14:35; Status DC Methylprednisolone Sodium Succinate (SOLU-Medrol 40MG VIAL) 40 mg Q8HRS IV Last administered on 03/04/20at 05:51; Start 02/27/20 at 08:00 Insulin Human Lispro (HumaLOG) 0-7 UNITS TIDACHC SQ Last administered on 03/02/20at 12:03; Start 02/27/20 at 07:30; Stop 03/02/20 at 15:08; Status DC Dextrose (Dextrose 50%-Water Syringe) 12.5 gm PRN Q15MIN PRN IV SEE COMMENTS; Start 02/27/20 at 07:15 Amlodipine Besylate (Norvasc) 10 mg DAILY PO Last administered on 03/04/20at 07:16; Start 02/27/20 at 09:00 Aspirin (Ecotrin) 81 mg DAILY PO Last administered on 03/03/20at 08:43; Start 02/27/20 at 09:00; Stop 03/04/20 at 07:05; Status DC Atorvastatin Calcium (Lipitor) 10 mg HS PO Last administered on 03/03/20at 20:38; Start 02/27/20 at 21:00 Clonidine HCl (Catapres Tts-3) 1 patch WEEKLY TD ; Start 02/27/20 at 09:00; Stop 02/27/20 at 16:00; Status DC Guaifenesin (Robitussin Dm) 10 ml PRN Q6HRS PRN PO COUGH; Start 02/27/20 at 07:15 Lactobacillus Rhamnosus (Culturelle) 1 cap BID PO Last administered on 03/04/20at 07:16; Start 02/27/20 at 09:00 Enoxaparin Sodium (Lovenox 40mg Syringe) 40 mg Q24H SQ Last administered on 02/27/20at 21:50; Start 02/27/20 at 21:00; Stop 02/28/20 at 10:36; Status DC Zinc Sulfate (Orazinc) 220 mg DAILY PO Last administered on 03/04/20at 07:16; Start 02/27/20 at 16:00 Piperacillin Sod/ Tazobactam Sod 3.375 gm/Sodium Chloride 50 ml @ 100 mls/hr Q6HRS IV Last administered on 03/04/20at 05:52; Start 02/28/20 at 11:00 Enoxaparin Sodium (Lovenox 40mg Syringe) 40 mg Q12HR SQ Last administered on 03/04/20at 07:17; Start 02/28/20 at 11:00 Sodium Chloride 1,000 ml @ 100 mls/hr Q10H IV Last administered on 03/02/20at 02:53; Start 02/28/20 at 11:00; Stop 03/02/20 at 12:34; Status DC Linezolid/Dextrose 300 ml @ 300 mls/hr Q12HR IV Last administered on 03/03/20at 20:39; Start 02/29/20 at 09:00; Stop 03/04/20 at 07:45; Status DC Sterile Water (WATER for RESP) 1,000 ml CONT PRN INH VIA VAPOTHERM DEVICE Last administered on 03/01/20at 19:29; Start 03/01/20 at 11:00 Hydralazine HCl (Apresoline Inj) 10 mg PRN Q4HRS PRN IVP ELEVATED BP, SEE COMMENTS Last administered on 03/04/20at 03:20; Start 03/01/20 at 18:15 Fentanyl Citrate 30 ml @ 0 mls/hr CONT PRN IV SEE PROTOCOL Last administered on 03/04/20at 07:18; Start 03/02/20 at 00:00 Midazolam HCl 100 ml @ 0 mls/hr CONT PRN IV SEE PROTOCOL Last administered on 03/04/20at 00:37; Start 03/02/20 at 00:00 Vecuronium [place] (Norcuron Bolus) 6 mg PRN Q4HRS PRN IV Sedation; Start 03/02/20 at 00:00 Etomidate (Amidate) 20 mg 1X ONCE IV Last administered on 03/02/20at 00:05; Start 03/02/20 at 00:00; Stop 03/02/20 at 00:08; Status DC Succinylcholine Chloride (Anectine) 200 mg 1X ONCE IV Last administered on 03/02/20at 00:05; Start 03/02/20 at 00:00; Stop 03/02/20 at 00:08; Status DC Sodium Bicarbonate (Sodium Bicarb Adult 8.4% Syr) 50 meq STK-MED ONCE .ROUTE ; Start 03/02/20 at 09:43; Stop 03/02/20 at 09:44; Status DC Sodium Bicarbonate (Sodium Bicarb Adult 8.4% Syr) 50 meq 1X ONCE IV Last administered on 03/02/20at 10:15; Start 03/02/20 at 10:15; Stop 03/02/20 at 10:16; Status DC Sodium Chloride 1,000 ml @ 100 mls/hr Q10H IV Last administered on 03/04/20at 03:12; Start 03/02/20 at 12:30 Insulin Human Lispro (HumaLOG) 0-9 UNITS TIDWMEALS SQ Last administered on 03/03/20at 18:16; Start 03/02/20 at 17:00; Stop 03/04/20 at 07:08; Status DC Pantoprazole Sodium (PROTONIX VIAL for IV PUSH) 40 mg DAILYAC IVP Last administered on 03/04/20at 07:16; Start 03/03/20 at 16:00 Insulin Glargine (Lantus Syringe) 8 unit QHS SQ Last administered on 03/03/20at 20:38; Start 03/03/20 at 21:00 Aspirin (Aspirin Chewable) 81 mg DAILYWBKFT PO Last administered on 03/04/20at 07:23; Start 03/04/20 at 08:00 Insulin Human Lispro (HumaLOG) 0-9 UNITS Q6HRS SQ ; Start 03/04/20 at 12:00 Insulin Human Lispro (HumaLOG) 9 units 1X ONCE SQ Last administered on 03/04/20at 07:20; Start 03/04/20 at 07:15; Stop 03/04/20 at 07:16; Status DC Active Scripts Active Culturelle (Lactobacillus Rhamnosus Gg) 1 Each Cap.sprink 1 Cap PO BID 30 Days Guaifenesin Dm Syrup (Guaifenesin/Dextromethorphan) 5 Ml Syrup 10 Ml PO PRN Q6HRS PRN 30 Days Albuterol Sulfate Neb Soln (Albuterol Sulfate) 2.5 Mg/3 Ml Vial.neb 2.5 Mg NEB PRN Q4HRS PRN 30 Days Azithromycin Tablet (Azithromycin) 250 Mg Tablet 250 Mg PO DAILY 5 Days Cefpodoxime Proxetil 100 Mg Tablet 200 Mg PO BID 5 Days Reported Senna (Sennosides) 8.8 Mg/5 Ml Syrup 8.8 Mg PO DAILY Tylenol Extra Strength (Acetaminophen) 500 Mg Tablet 1,000 Mg PO PRN PRN Furosemide 20 Mg Tablet 1 Tab PO DAILY Glipizide Xl (Glipizide) 10 Mg Tab.er.24 1 Tab PO DAILY 30 Days Metformin Hcl Er (Metformin Hcl) 500 Mg Tab.er.24h 1,000 Mg PO DAILYWBKFT Glipizide Xl (Glipizide) 10 Mg Tab.er.24 10 Mg PO DAILY Calcium 500 + D Tablet (Calcium Carbonate/Vitamin D3) 1 Each Tablet 1 Each PO DAILY Catapres-Tts 3 (Clonidine) 1 Each Patch.tdwk 1 Each TD WEEKLY Lisinopril 20 Mg Tablet 1 Tab PO DAILY [cyanocobalamin] 100 Mcg PO DAILY Aspir 81 (Aspirin) 81 Mg Tablet.dr 81 Mg PO DAILY Norvasc (Amlodipine Besylate) 10 Mg Tablet 10 Mg PO DAILY Atorvastatin Calcium 10 Mg Tablet 10 Mg PO HS Vitals/I & O Vital Sign - Last 24 Hours 03/03/20 03/03/20 03/03/20 03/03/20 11:00 11:19 12:00 12:00 Temp 97.0 97.0 Pulse 48 Resp 18 24 B/P (MAP) 143/81 (101) Pulse Ox 99 99 O2 Delivery Ventilator Ventilator Ventilator Mechanical Ventilator 03/03/20 03/03/20 03/03/20 03/03/20 13:00 14:00 15:00 16:00 Pulse 46 48 46 Resp 24 24 24 B/P (MAP) 137/75 (95) 136/75 (95) 137/71 (93) Pulse Ox 100 100 100 O2 Delivery Ventilator Ventilator Ventilator Mechanical Ventilator 03/03/20 03/03/20 03/03/20 03/03/20 16:00 16:05 17:00 18:00 Temp 97.7 97.7 Pulse 50 52 52 Resp 24 24 24 B/P (MAP) 114/64 (81) 135/64 (87) 143/75 (97) Pulse Ox 91 90 95 95 O2 Delivery Ventilator Ventilator Ventilator Ventilator 03/03/20 03/03/20 03/03/20 03/03/20 19:00 20:00 20:00 20:05 Temp 98.1 98.1 Pulse 54 49 Resp 24 24 B/P (MAP) 154/70 (98) 155/80 (105) Pulse Ox 97 99 100 O2 Delivery Ventilator Mechanical Ventilator Ventilator Ventilator 03/03/20 03/03/20 03/03/20 03/03/20 21:00 22:00 23:00 23:36 Pulse 56 52 50 Resp 24 24 24 B/P (MAP) 159/83 (108) 150/68 (95) 160/79 (106) Pulse Ox 97 96 96 94 O2 Delivery Ventilator Ventilator Ventilator Ventilator 03/04/20 03/04/20 03/04/20 03/04/20 00:00 00:00 01:00 02:00 Temp 97.4 97.4 Pulse 50 52 53 Resp 24 24 24 B/P (MAP) 170/82 (111) 155/76 (102) 160/82 (108) Pulse Ox 93 95 97 O2 Delivery Mechanical Ventilator Ventilator Ventilator Ventilator 03/04/20 03/04/20 03/04/20 03/04/20 03:00 03:15 03:20 04:00 Pulse 50 50 Resp 24 B/P (MAP) 179/86 (117) 179/86 Pulse Ox 100 95 O2 Delivery Ventilator Ventilator Mechanical Ventilator 03/04/20 03/04/20 03/04/20 03/04/20 04:00 05:00 06:00 07:00 Temp 96.4 96.4 Pulse 58 56 55 64 Resp 24 24 24 24 B/P (MAP) 140/70 (93) 149/77 (101) 154/66 (95) 161/93 (115) Pulse Ox 100 100 100 100 O2 Delivery Ventilator Ventilator Ventilator Ventilator 03/04/20 03/04/20 03/04/20 03/04/20 07:16 08:00 08:00 08:00 Temp 97.5 97.5 Pulse 61 60 Resp 24 B/P (MAP) 161/93 142/88 (106) Pulse Ox 100 100 O2 Delivery Ventilator Mechanical Ventilator Ventilator 03/04/20 03/04/20 09:00 10:00 Pulse 61 58 Resp 24 24 B/P (MAP) 151/99 (116) 95/60 (72) Pulse Ox 100 100 O2 Delivery Ventilator Ventilator Intake and Output 03/03/20 03/03/20 03/04/20 15:00 23:00 07:00 Intake Total 300 ml 650 ml 2131.7 ml Output Total 450 ml 825 ml 550 ml Balance -150 ml -175 ml 1581.7 ml Justicifation of Admission Dx: Justifications for Admission: Justification of Admission Dx: Yes Respiratory Failure: Severe Resp Distress ARLETTE ESCALONA MD Mar 04, 2020 10:28
--- NOTE | 2020-03-04 10:45 | NUR ---
SS following up with discharge planning. SS reviewed pt chart and discussed with pt RN. COVID19 positive. Pt remains on the vent at this time. Pt on IV Zosyn. SS will continue to follow for discharge planning.
--- NOTE | 2020-03-04 11:29 | PDOC ---
Renal-Progress Notes Subjective Notes Notes NOTHING NEW History of Present Illness Hx of present illness STABLE Vitals Vitals Vital Signs Date Time Temp Pulse Resp B/P (MAP) Pulse Ox O2 Delivery O2 Flow Rate FiO2 03/04/20 11:16 96 Ventilator 03/04/20 11:00 60 24 119/66 (83) 03/04/20 08:00 97.5 97.5 03/03/20 10:02 40.0 Weight Weight [ ] I.O. Intake and Output Intake and Output 03/04/20 07:00 Intake Total 3081.7 ml Output Total 1825 ml Balance 1256.7 ml Intake Oral 0 ml IV Total 1423.7 ml Tube Feeding 1333 ml Other 325 ml Output Urine Total 1825 ml Labs Labs Laboratory Tests Test 03/03/20 18:13 03/04/20 04:50 03/04/20 08:10 Glucose (Fingerstick) 374 mg/dL (70-99) White Blood Count 7.2 x10^3/uL (4.0-11.0) Red Blood Count 3.99 x10^6/uL (4.30-5.70) Hemoglobin 11.6 g/dL (13.0-17.5) Hematocrit 35.0 % (39.0-53.0) Mean Corpuscular Volume 88 fL (79-100) Mean Corpuscular Hemoglobin 29 pg (25-35) Mean Corpuscular Hemoglobin Concent 33 g/dL (31-37) Red Cell Distribution Width 15.5 % (11.5-14.5) Platelet Count 216 x10^3/uL (140-400) Neutrophils (%) (Auto) 89 % (31-73) Lymphocytes (%) (Auto) 5 % (24-48) Monocytes (%) (Auto) 6 % (0-9) Eosinophils (%) (Auto) 0 % (0-3) Basophils (%) (Auto) 0 % (0-3) Neutrophils # (Auto) 6.5 x10^3/uL (1.8-7.7) Lymphocytes # (Auto) 0.3 x10^3/uL (1.0-4.8) Monocytes # (Auto) 0.4 x10^3/uL (0.0-1.1) Eosinophils # (Auto) 0.0 x10^3/uL (0.0-0.7) Basophils # (Auto) 0.0 x10^3/uL (0.0-0.2) D-Dimer (Viv) 1.55 ug/mlFEU (0.00-0.50) Sodium Level 150 mmol/L (136-145) Potassium Level 4.0 mmol/L (3.5-5.1) Chloride Level 113 mmol/L (98-107) Carbon Dioxide Level 28 mmol/L (21-32) Anion Gap 9 (6-14) Blood Urea Nitrogen 35 mg/dL (8-26) Creatinine 1.5 mg/dL (0.7-1.3) Estimated GFR (Cockcroft-Gault) 54.9 Glucose Level 402 mg/dL (70-99) Calcium Level 7.8 mg/dL (8.5-10.1) Magnesium Level 2.3 mg/dL (1.8-2.4) Ferritin 1540 ng/mL (26-388) C-Reactive Protein, Quantitative 44.0 mg/L (0-3.3) Procalcitonin < 0.10 ng/mL (0.00-0.10) O2 Saturation 92 % (92-99) Arterial Blood pH 7.39 (7.35-7.45) Arterial Blood pCO2 at Patient Temp 41 mmHg (35-46) Arterial Blood pO2 at Patient Temp 67 mmHg (65-108) Arterial Blood HCO3 24 mmol/L (21-28) Arterial Blood Base Excess -1 mmol/L (-3-3) FiO2 55% Review of Systems Constitutional: yes: other (SOB, UNABLE TO OBTAIN) Physical Exam General Appearance: no apparent distress Skin: warm Respiratory: decreased breath sounds Heart: S1S2 Abdomen: soft, bowel sounds present Extremities: pulses present Neurology: other (SEDATED) Assessment Assessment IMP COVID 19 PNEUMONIA ACUTE RESP [id number]/P INTUBATION UNCOMPENSATED ACUTE RESP ACIDOSIS ANEMIA KENNY WITH CR IMPROVED TO 1.5 HYPERNATREMIA HEMATURIA-LIKELY COVID RELATED ? CKD - UNKNOWN PLAN VENT SUPPORT SUPPORTIVE CARE S/PCONVALESCENT PLASMA EMPIRIC ANTIBIOTICS CHANGED SALINE TO HYPOTONIC SALINE CONT SUPPORTIVE CARE WILL FOLLOW MIRI CADENA MD Mar 04, 2020 11:29
[2020-03-04] MEDS: INSULIN LISPRO 300 UNITS/3 ML VIAL. SQ SCH ×4 (11:35→21:41)
[2020-03-04] MEDS ORDERED: INSULIN GLARGINE SYRINGE. SQ ONE (11:45)
--- NOTE | 2020-03-04 12:12 | PDOC ---
PULMONARY PROGRESS NOTES DATE: 03/04/20 TIME: 12:08 Subjective intubated night of 03/01 due to worsening hypoxia a-febrile AC mode 55%FIO2, 7 PEEP No overnight concerns from nursing Vitals Vital Signs Date Time Temp Pulse Resp B/P (MAP) Pulse Ox O2 Delivery O2 Flow Rate FiO2 03/04/20 12:00 97.8 65 24 116/74 (88) 100 Ventilator 97.8 03/03/20 10:02 40.0 Comments PT. seen during COVID- pandemic visual exam preformed RRR VENT 60% no distress no rash No edema Lungs: Other (Intubated) Labs Laboratory Tests Test 03/02/20 18:25 03/03/20 05:30 03/03/20 08:10 03/03/20 09:13 Glucose (Fingerstick) 190 mg/dL (70-99) 306 mg/dL (70-99) Sodium Level 154 mmol/L (136-145) Potassium Level 4.0 mmol/L (3.5-5.1) Chloride Level 115 mmol/L (98-107) Carbon Dioxide Level 29 mmol/L (21-32) Anion Gap 10 (6-14) Blood Urea Nitrogen 32 mg/dL (8-26) Creatinine 1.7 mg/dL (0.7-1.3) Estimated GFR (Cockcroft-Gault) 47.5 Glucose Level 351 mg/dL (70-99) Calcium Level 8.9 mg/dL (8.5-10.1) O2 Saturation 94 % (92-99) Arterial Blood pH 7.39 (7.35-7.45) Arterial Blood pCO2 at Patient Temp 42 mmHg (35-46) Arterial Blood pO2 at Patient Temp 74 mmHg (65-108) Arterial Blood HCO3 25 mmol/L (21-28) Arterial Blood Base Excess 0 mmol/L (-3-3) FiO2 60 Test 03/03/20 18:13 03/04/20 04:50 03/04/20 08:10 03/04/20 11:32 Glucose (Fingerstick) 374 mg/dL (70-99) 355 mg/dL (70-99) White Blood Count 7.2 x10^3/uL (4.0-11.0) Red Blood Count 3.99 x10^6/uL (4.30-5.70) Hemoglobin 11.6 g/dL (13.0-17.5) Hematocrit 35.0 % (39.0-53.0) Mean Corpuscular Volume 88 fL (79-100) Mean Corpuscular Hemoglobin 29 pg (25-35) Mean Corpuscular Hemoglobin Concent 33 g/dL (31-37) Red Cell Distribution Width 15.5 % (11.5-14.5) Platelet Count 216 x10^3/uL (140-400) Neutrophils (%) (Auto) 89 % (31-73) Lymphocytes (%) (Auto) 5 % (24-48) Monocytes (%) (Auto) 6 % (0-9) Eosinophils (%) (Auto) 0 % (0-3) Basophils (%) (Auto) 0 % (0-3) Neutrophils # (Auto) 6.5 x10^3/uL (1.8-7.7) Lymphocytes # (Auto) 0.3 x10^3/uL (1.0-4.8) Monocytes # (Auto) 0.4 x10^3/uL (0.0-1.1) Eosinophils # (Auto) 0.0 x10^3/uL (0.0-0.7) Basophils # (Auto) 0.0 x10^3/uL (0.0-0.2) D-Dimer (Viv) 1.55 ug/mlFEU (0.00-0.50) Sodium Level 150 mmol/L (136-145) Potassium Level 4.0 mmol/L (3.5-5.1) Chloride Level 113 mmol/L (98-107) Carbon Dioxide Level 28 mmol/L (21-32) Anion Gap 9 (6-14) Blood Urea Nitrogen 35 mg/dL (8-26) Creatinine 1.5 mg/dL (0.7-1.3) Estimated GFR (Cockcroft-Gault) 54.9 Glucose Level 402 mg/dL (70-99) Calcium Level 7.8 mg/dL (8.5-10.1) Magnesium Level 2.3 mg/dL (1.8-2.4) Ferritin 1540 ng/mL (26-388) C-Reactive Protein, Quantitative 44.0 mg/L (0-3.3) Procalcitonin < 0.10 ng/mL (0.00-0.10) O2 Saturation 92 % (92-99) Arterial Blood pH 7.39 (7.35-7.45) Arterial Blood pCO2 at Patient Temp 41 mmHg (35-46) Arterial Blood pO2 at Patient Temp 67 mmHg (65-108) Arterial Blood HCO3 24 mmol/L (21-28) Arterial Blood Base Excess -1 mmol/L (-3-3) FiO2 55% Laboratory Tests Test 03/03/20 18:13 03/04/20 04:50 03/04/20 08:10 03/04/20 11:32 Glucose (Fingerstick) 374 mg/dL (70-99) 355 mg/dL (70-99) White Blood Count 7.2 x10^3/uL (4.0-11.0) Red Blood Count 3.99 x10^6/uL (4.30-5.70) Hemoglobin 11.6 g/dL (13.0-17.5) Hematocrit 35.0 % (39.0-53.0) Mean Corpuscular Volume 88 fL (79-100) Mean Corpuscular Hemoglobin 29 pg (25-35) Mean Corpuscular Hemoglobin Concent 33 g/dL (31-37) Red Cell Distribution Width 15.5 % (11.5-14.5) Platelet Count 216 x10^3/uL (140-400) Neutrophils (%) (Auto) 89 % (31-73) Lymphocytes (%) (Auto) 5 % (24-48) Monocytes (%) (Auto) 6 % (0-9) Eosinophils (%) (Auto) 0 % (0-3) Basophils (%) (Auto) 0 % (0-3) Neutrophils # (Auto) 6.5 x10^3/uL (1.8-7.7) Lymphocytes # (Auto) 0.3 x10^3/uL (1.0-4.8) Monocytes # (Auto) 0.4 x10^3/uL (0.0-1.1) Eosinophils # (Auto) 0.0 x10^3/uL (0.0-0.7) Basophils # (Auto) 0.0 x10^3/uL (0.0-0.2) D-Dimer (Viv) 1.55 ug/mlFEU (0.00-0.50) Sodium Level 150 mmol/L (136-145) Potassium Level 4.0 mmol/L (3.5-5.1) Chloride Level 113 mmol/L (98-107) Carbon Dioxide Level 28 mmol/L (21-32) Anion Gap 9 (6-14) Blood Urea Nitrogen 35 mg/dL (8-26) Creatinine 1.5 mg/dL (0.7-1.3) Estimated GFR (Cockcroft-Gault) 54.9 Glucose Level 402 mg/dL (70-99) Calcium Level 7.8 mg/dL (8.5-10.1) Magnesium Level 2.3 mg/dL (1.8-2.4) Ferritin 1540 ng/mL (26-388) C-Reactive Protein, Quantitative 44.0 mg/L (0-3.3) Procalcitonin < 0.10 ng/mL (0.00-0.10) O2 Saturation 92 % (92-99) Arterial Blood pH 7.39 (7.35-7.45) Arterial Blood pCO2 at Patient Temp 41 mmHg (35-46) Arterial Blood pO2 at Patient Temp 67 mmHg (65-108) Arterial Blood HCO3 24 mmol/L (21-28) Arterial Blood Base Excess -1 mmol/L (-3-3) FiO2 55% Medications Active Scripts Medications Dose Route/Sig Max Daily Dose Days Date Category Senna (Sennosides) 8.8 Mg/5 Ml Syrup 8.8 Mg PO DAILY 02/27/20 Reported Tylenol Extra Strength (Acetaminophen) 500 Mg Tablet 1,000 Mg PO PRN PRN 02/27/20 Reported Furosemide 20 Mg Tablet 1 Tab PO DAILY 02/27/20 Reported Glipizide Xl (Glipizide) 10 Mg Tab.er.24 1 Tab PO DAILY 30 02/27/20 Reported Culturelle (Lactobacillus Rhamnosus Gg) 1 Each Cap.sprink 1 Cap PO BID 30 05/23/18 Rx Guaifenesin Dm Syrup (Guaifenesin/Dextromethorphan) 5 Ml Syrup 10 Ml PO PRN Q6HRS PRN 30 05/23/18 Rx Albuterol Sulfate Neb Soln (Albuterol Sulfate) 2.5 Mg/3 Ml Vial.neb 2.5 Mg NEB PRN Q4HRS PRN 30 05/23/18 Rx Azithromycin Tablet (Azithromycin) 250 Mg Tablet 250 Mg PO DAILY 5 05/23/18 Rx Cefpodoxime Proxetil 100 Mg Tablet 200 Mg PO BID 5 05/23/18 Rx Metformin Hcl Er (Metformin Hcl) 500 Mg Tab.er.24h 1,000 Mg PO DAILYWBKFT 05/21/18 Reported Glipizide Xl (Glipizide) 10 Mg Tab.er.24 10 Mg PO DAILY 05/20/18 Reported Calcium 500 + D Tablet (Calcium Carbonate/Vitamin D3) 1 Each Tablet 1 Each PO DAILY 05/20/18 Reported Catapres-Tts 3 (Clonidine) 1 Each Patch.tdwk 1 Each TD WEEKLY 05/20/18 Reported Lisinopril 20 Mg Tablet 1 Tab PO DAILY 05/20/18 Reported [cyanocobalamin] 100 Mcg PO DAILY 05/20/18 Reported Aspir 81 (Aspirin) 81 Mg Tablet.dr 81 Mg PO DAILY 07/08/13 Reported Norvasc (Amlodipine Besylate) 10 Mg Tablet 10 Mg PO DAILY 07/08/13 Reported Atorvastatin Calcium 10 Mg Tablet 10 Mg PO HS 07/08/13 Reported Comments CXR- 02/27/2020 IMPRESSION: * Patchy opacities in bilateral lungs which could be seen with multifocal infiltrate or edema 03/01 WORSENING INFILTRATES 03/03- IMPRESSION: * Repeat demonstration of multifocal opacities throughout the bilateral lungs with slight decrease in the right upper lung compared to prior and similar to prior within other portions of the bilateral lungs. * Lines and tubes as above. * Enlarged cardiomediastinal silhouette. Impression . Acute hypoxic respiratory Failure--intubated night of 03/01 due to worsening hypoxia, AC mode 60%FIO2, 8 PEEP COVID-19 known positive COVID -19 pneumonia, cannot exclude bacterial pneumonia elevated ddimer 2/2 inflammatory stage of covid19 -- improving Fevers--resolved Anemia of chronic disease Dementia KENNY vs. CKD -- improving Plan . AC mode. FI02 55% and PEEP 7, ABG reviewed s/p Plasma ABX per ID Cont. steroids, will begin taper soon, will need 10 day course Follow nephrology recs will follow inflammatory markers including d-dimer, ddminer down to 1.55 today Continue TF for nutritional support DVT/GI PPX -- high dose lovenox D/W RN, and RT cct 30 min JOSY CASTILLO MD Mar 04, 2020:12
--- NOTE | 2020-03-04 15:19 | NUR ---
Wound Care Wound care consult for coccyx wound, pt is in COVID 19 precautions so photo assessment done of coccyx wound. Wound appears to be a stage II PU to coccyx. Recommend to apply calazime BID, TQ2H, and transfer to P500 bed if transferred out fo ICU. Discussed POC with SLAVA Farrell and orange instruction sheet left.
[2020-03-04] MEDS: INSULIN GLARGINE SYRINGE. SQ SCH (21:39)
[2020-03-04] MEDS: ATORVASTATIN CALCIUM 10 MG TABLET. PO SCH (21:42)
[2020-03-05] VITALS (22 sets, daily range): BP systolic 101–161; BP diastolic 55–83
--- NOTE | 2020-03-05 03:21 | NUR ---
Noted several runs of idioventricular rhythm. Per day shift nurse this occurs offend and MD's are aware.
[2020-03-05 05:22] LABS: BASO % 0 % (0-3); EOS % 0 % (0-3); HEMATOCRIT 32.7 % (39.0-53.0); HEMOGLOBIN 10.9 g/dL (13.0-17.5); LYMPH # 0.6 x10^3/uL (1.0-4.8); LYMPH % 7 % (24-48); MEAN CORPUSCULAR HEMOGLOBIN 29 pg (25-35); MEAN CORPUSCULAR HGB CONC 33 g/dL (31-37); MEAN CORPUSCULAR VOLUME 88 fL (79-100); MONO # 0.4 x10^3/uL (0.0-1.1); MONO % 6 % (0-9); NEUT # 6.5 x10^3/uL (1.8-7.7); NEUT % 87 % (31-73); PLATELET COUNT 212 x10^3/uL (140-400); RED BLOOD COUNT 3.72 x10^6/uL (4.30-5.70); RED CELL DISTRIBUTION WIDTH 15.6 % (11.5-14.5); WHITE BLOOD COUNT 7.5 x10^3/uL (4.0-11.0)
[2020-03-05] MEDS: INSULIN LISPRO 300 UNITS/3 ML VIAL. SQ SCH ×7 (05:44→21:18)
[2020-03-05] MEDS: PIPERACILLIN/TAZOBACTAM 3.375 GM in IV NORMAL SALINE 50ML 50 ML IV SCH ×4 (05:45→23:38)
[2020-03-05] MEDS: methylPREDNISolone SOD SUCC PF 40 MG/ML VIAL. IV SCH ×3 (05:45→21:42)
[2020-03-05 06:02] LABS: C-REACTIVE PROTEIN 22.1 mg/L (0-3.3); CALCIUM 7.5 mg/dL (8.5-10.1); CREATININE 1.5 mg/dL (0.7-1.3); GFR 54.9; POTASSIUM 3.9 mmol/L (3.5-5.1)
[2020-03-05] MEDS: PANTOPRAZOLE IV PUSH 40 MG VIAL. IVP SCH (08:09)
[2020-03-05] MEDS: LACTOBACILLUS RHAMNOSUS GG 1 CAPSULE. PO SCH ×2 (08:09→20:31)
[2020-03-05] MEDS: ASPIRIN CHEWABLE 81 MG TABLET. PO SCH (08:09)
[2020-03-05] MEDS: ENOXAPARIN 40 MG/0.4 ML SYRINGE. SQ SCH ×2 (08:09→20:33)
[2020-03-05] MEDS: amLODIPine BESYLATE 10 MG TABLET PO SCH (08:10)
[2020-03-05] MEDS: ZINC SULFATE 220 MG CAPSULE. PO SCH (08:11)
[2020-03-05 08:15] LABS: BASE EXCESS ABG -1 mmol/L (-3-3); HCO3 ABG 24 mmol/L (21-28); PCO2 ABG 41 mmHg (35-46); PO2 ABG 61 mmHg (65-108); SAT O2 ABG 91 % (92-99)
--- NOTE | 2020-03-05 08:16 | PDOC ---
Infectious Disease Note Subjective Subjective pt is intubated, on vent ROS ROS no n/v/d/fever Vital Sign Vital Signs Vital Signs Date Time Temp Pulse Resp B/P (MAP) Pulse Ox O2 Delivery O2 Flow Rate FiO2 03/05/20 08:10 62 116/66 03/05/20 06:45 18 100 40.0 03/05/20 06:00 Ventilator 03/05/20 04:00 98.4 98.4 Physical Exam PHYSICAL EXAM CONSTITUTIONAL: sedated on vent HEENT: Pupils have some cataracts in place. Oral cavity, pharynx is very dry. NECK: Supple, no JVD. LUNGS: Had some mild crackles. HEART: S1, S2. ABDOMEN: Soft, nontender, no guarding, no rebound. EXTREMITIES: Without clubbing, cyanosis. No gross edema. SKIN: Warm to touch without signs of rash. NEUROLOGIC: sedated on vent Labs Lab Laboratory Tests Test 03/04/20 11:32 03/04/20 17:28 03/04/20 21:50 03/04/20 23:58 Glucose (Fingerstick) 355 mg/dL (70-99) 324 mg/dL (70-99) 295 mg/dL (70-99) 322 mg/dL (70-99) Test 03/05/20 05:00 03/05/20 05:11 White Blood Count 7.5 x10^3/uL (4.0-11.0) Red Blood Count 3.72 x10^6/uL (4.30-5.70) Hemoglobin 10.9 g/dL (13.0-17.5) Hematocrit 32.7 % (39.0-53.0) Mean Corpuscular Volume 88 fL (79-100) Mean Corpuscular Hemoglobin 29 pg (25-35) Mean Corpuscular Hemoglobin Concent 33 g/dL (31-37) Red Cell Distribution Width 15.6 % (11.5-14.5) Platelet Count 212 x10^3/uL (140-400) Neutrophils (%) (Auto) 87 % (31-73) Lymphocytes (%) (Auto) 7 % (24-48) Monocytes (%) (Auto) 6 % (0-9) Eosinophils (%) (Auto) 0 % (0-3) Basophils (%) (Auto) 0 % (0-3) Neutrophils # (Auto) 6.5 x10^3/uL (1.8-7.7) Lymphocytes # (Auto) 0.6 x10^3/uL (1.0-4.8) Monocytes # (Auto) 0.4 x10^3/uL (0.0-1.1) Eosinophils # (Auto) 0.0 x10^3/uL (0.0-0.7) Basophils # (Auto) 0.0 x10^3/uL (0.0-0.2) Sodium Level 148 mmol/L (136-145) Potassium Level 3.9 mmol/L (3.5-5.1) Chloride Level 113 mmol/L (98-107) Carbon Dioxide Level 28 mmol/L (21-32) Anion Gap 7 (6-14) Blood Urea Nitrogen 40 mg/dL (8-26) Creatinine 1.5 mg/dL (0.7-1.3) Estimated GFR (Cockcroft-Gault) 54.9 Glucose Level 348 mg/dL (70-99) Calcium Level 7.5 mg/dL (8.5-10.1) Ferritin 739 ng/mL (26-388) C-Reactive Protein, Quantitative 22.1 mg/L (0-3.3) Glucose (Fingerstick) 319 mg/dL (70-99) Objective Assessment 1. Fever. 2. Acute hypoxic respiratory failure. 3. COVID positive. 4. Acute kidney injury. 5. Leukocytosis. 6. Rhabdomyolysis with history as well, previous rhabdomyolysis. Plan Plan of Care Plasma given Cont Steroids cont zosyn, F/u labs and cults Dw nursing CONCEPCION SMITH MD Mar 05, 2020 08:16
[2020-03-05 08:35] LABS: FIO2 ABG 55
[2020-03-05] MEDS: INSULIN GLARGINE SYRINGE. SQ SCH ×2 (08:47→21:18)
--- NOTE | 2020-03-05 08:47 | PDOC ---
PULMONARY PROGRESS NOTES DATE: 03/05/20 TIME: 08:47 Subjective intubated night of 03/01 due to worsening hypoxia a-febrile AC mode 55%FIO2, 8 PEEP No overnight concerns from nursing Vitals Vital Signs Date Time Temp Pulse Resp B/P (MAP) Pulse Ox O2 Delivery O2 Flow Rate FiO2 03/05/20 08:10 62 116/66 03/05/20 08:04 100 Ventilator 03/05/20 06:45 18 40.0 03/05/20 04:00 98.4 98.4 Comments PT. seen during COVID-19 pandemic visual exam preformed RRR VENT 60% no distress no rash No edema Lungs: Other (Intubated) Labs Laboratory Tests Test 03/03/20 09:13 03/03/20 18:13 03/04/20 04:50 03/04/20 08:10 Glucose (Fingerstick) 306 mg/dL (70-99) 374 mg/dL (70-99) White Blood Count 7.2 x10^3/uL (4.0-11.0) Red Blood Count 3.99 x10^6/uL (4.30-5.70) Hemoglobin 11.6 g/dL (13.0-17.5) Hematocrit 35.0 % (39.0-53.0) Mean Corpuscular Volume 88 fL (79-100) Mean Corpuscular Hemoglobin 29 pg (25-35) Mean Corpuscular Hemoglobin Concent 33 g/dL (31-37) Red Cell Distribution Width 15.5 % (11.5-14.5) Platelet Count 216 x10^3/uL (140-400) Neutrophils (%) (Auto) 89 % (31-73) Lymphocytes (%) (Auto) 5 % (24-48) Monocytes (%) (Auto) 6 % (0-9) Eosinophils (%) (Auto) 0 % (0-3) Basophils (%) (Auto) 0 % (0-3) Neutrophils # (Auto) 6.5 x10^3/uL (1.8-7.7) Lymphocytes # (Auto) 0.3 x10^3/uL (1.0-4.8) Monocytes # (Auto) 0.4 x10^3/uL (0.0-1.1) Eosinophils # (Auto) 0.0 x10^3/uL (0.0-0.7) Basophils # (Auto) 0.0 x10^3/uL (0.0-0.2) D-Dimer (Viv) 1.55 ug/mlFEU (0.00-0.50) Sodium Level 150 mmol/L (136-145) Potassium Level 4.0 mmol/L (3.5-5.1) Chloride Level 113 mmol/L (98-107) Carbon Dioxide Level 28 mmol/L (21-32) Anion Gap 9 (6-14) Blood Urea Nitrogen 35 mg/dL (8-26) Creatinine 1.5 mg/dL (0.7-1.3) Estimated GFR (Cockcroft-Gault) 54.9 Glucose Level 402 mg/dL (70-99) Calcium Level 7.8 mg/dL (8.5-10.1) Magnesium Level 2.3 mg/dL (1.8-2.4) Ferritin 1540 ng/mL (26-388) C-Reactive Protein, Quantitative 44.0 mg/L (0-3.3) Procalcitonin < 0.10 ng/mL (0.00-0.10) O2 Saturation 92 % (92-99) Arterial Blood pH 7.39 (7.35-7.45) Arterial Blood pCO2 at Patient Temp 41 mmHg (35-46) Arterial Blood pO2 at Patient Temp 67 mmHg (65-108) Arterial Blood HCO3 24 mmol/L (21-28) Arterial Blood Base Excess -1 mmol/L (-3-3) FiO2 55% Test 03/04/20 11:32 03/04/20 17:28 03/04/20 21:50 03/04/20 23:58 Glucose (Fingerstick) 355 mg/dL (70-99) 324 mg/dL (70-99) 295 mg/dL (70-99) 322 mg/dL (70-99) Test 03/05/20 05:00 03/05/20 05:11 03/05/20 08:15 White Blood Count 7.5 x10^3/uL (4.0-11.0) Red Blood Count 3.72 x10^6/uL (4.30-5.70) Hemoglobin 10.9 g/dL (13.0-17.5) Hematocrit 32.7 % (39.0-53.0) Mean Corpuscular Volume 88 fL (79-100) Mean Corpuscular Hemoglobin 29 pg (25-35) Mean Corpuscular Hemoglobin Concent 33 g/dL (31-37) Red Cell Distribution Width 15.6 % (11.5-14.5) Platelet Count 212 x10^3/uL (140-400) Neutrophils (%) (Auto) 87 % (31-73) Lymphocytes (%) (Auto) 7 % (24-48) Monocytes (%) (Auto) 6 % (0-9) Eosinophils (%) (Auto) 0 % (0-3) Basophils (%) (Auto) 0 % (0-3) Neutrophils # (Auto) 6.5 x10^3/uL (1.8-7.7) Lymphocytes # (Auto) 0.6 x10^3/uL (1.0-4.8) Monocytes # (Auto) 0.4 x10^3/uL (0.0-1.1) Eosinophils # (Auto) 0.0 x10^3/uL (0.0-0.7) Basophils # (Auto) 0.0 x10^3/uL (0.0-0.2) Sodium Level 148 mmol/L (136-145) Potassium Level 3.9 mmol/L (3.5-5.1) Chloride Level 113 mmol/L (98-107) Carbon Dioxide Level 28 mmol/L (21-32) Anion Gap 7 (6-14) Blood Urea Nitrogen 40 mg/dL (8-26) Creatinine 1.5 mg/dL (0.7-1.3) Estimated GFR (Cockcroft-Gault) 54.9 Glucose Level 348 mg/dL (70-99) Calcium Level 7.5 mg/dL (8.5-10.1) Ferritin 739 ng/mL (26-388) C-Reactive Protein, Quantitative 22.1 mg/L (0-3.3) Glucose (Fingerstick) 319 mg/dL (70-99) O2 Saturation 91 % (92-99) Arterial Blood pH 7.39 (7.35-7.45) Arterial Blood pCO2 at Patient Temp 41 mmHg (35-46) Arterial Blood pO2 at Patient Temp 61 mmHg (65-108) Arterial Blood HCO3 24 mmol/L (21-28) Arterial Blood Base Excess -1 mmol/L (-3-3) FiO2 55 Laboratory Tests Test 03/04/20 11:32 03/04/20 17:28 03/04/20 21:50 03/04/20 23:58 Glucose (Fingerstick) 355 mg/dL (70-99) 324 mg/dL (70-99) 295 mg/dL (70-99) 322 mg/dL (70-99) Test 03/05/20 05:00 03/05/20 05:11 03/05/20 08:15 White Blood Count 7.5 x10^3/uL (4.0-11.0) Red Blood Count 3.72 x10^6/uL (4.30-5.70) Hemoglobin 10.9 g/dL (13.0-17.5) Hematocrit 32.7 % (39.0-53.0) Mean Corpuscular Volume 88 fL (79-100) Mean Corpuscular Hemoglobin 29 pg (25-35) Mean Corpuscular Hemoglobin Concent 33 g/dL (31-37) Red Cell Distribution Width 15.6 % (11.5-14.5) Platelet Count 212 x10^3/uL (140-400) Neutrophils (%) (Auto) 87 % (31-73) Lymphocytes (%) (Auto) 7 % (24-48) Monocytes (%) (Auto) 6 % (0-9) Eosinophils (%) (Auto) 0 % (0-3) Basophils (%) (Auto) 0 % (0-3) Neutrophils # (Auto) 6.5 x10^3/uL (1.8-7.7) Lymphocytes # (Auto) 0.6 x10^3/uL (1.0-4.8) Monocytes # (Auto) 0.4 x10^3/uL (0.0-1.1) Eosinophils # (Auto) 0.0 x10^3/uL (0.0-0.7) Basophils # (Auto) 0.0 x10^3/uL (0.0-0.2) Sodium Level 148 mmol/L (136-145) Potassium Level 3.9 mmol/L (3.5-5.1) Chloride Level 113 mmol/L (98-107) Carbon Dioxide Level 28 mmol/L (21-32) Anion Gap 7 (6-14) Blood Urea Nitrogen 40 mg/dL (8-26) Creatinine 1.5 mg/dL (0.7-1.3) Estimated GFR (Cockcroft-Gault) 54.9 Glucose Level 348 mg/dL (70-99) Calcium Level 7.5 mg/dL (8.5-10.1) Ferritin 739 ng/mL (26-388) C-Reactive Protein, Quantitative 22.1 mg/L (0-3.3) Glucose (Fingerstick) 319 mg/dL (70-99) O2 Saturation 91 % (92-99) Arterial Blood pH 7.39 (7.35-7.45) Arterial Blood pCO2 at Patient Temp 41 mmHg (35-46) Arterial Blood pO2 at Patient Temp 61 mmHg (65-108) Arterial Blood HCO3 24 mmol/L (21-28) Arterial Blood Base Excess -1 mmol/L (-3-3) FiO2 55 Medications Active Scripts Medications Dose Route/Sig Max Daily Dose Days Date Category Senna (Sennosides) 8.8 Mg/5 Ml Syrup 8.8 Mg PO DAILY 02/27/20 Reported Tylenol Extra Strength (Acetaminophen) 500 Mg Tablet 1,000 Mg PO PRN PRN 02/27/20 Reported Furosemide 20 Mg Tablet 1 Tab PO DAILY 02/27/20 Reported Glipizide Xl (Glipizide) 10 Mg Tab.er.24 1 Tab PO DAILY 30 02/27/20 Reported Culturelle (Lactobacillus Rhamnosus Gg) 1 Each Cap.sprink 1 Cap PO BID 30 05/23/18 Rx Guaifenesin Dm Syrup (Guaifenesin/Dextromethorphan) 5 Ml Syrup 10 Ml PO PRN Q6HRS PRN 30 05/23/18 Rx Albuterol Sulfate Neb Soln (Albuterol Sulfate) 2.5 Mg/3 Ml Vial.neb 2.5 Mg NEB PRN Q4HRS PRN 30 05/23/18 Rx Azithromycin Tablet (Azithromycin) 250 Mg Tablet 250 Mg PO DAILY 05/23/18 Rx Cefpodoxime Proxetil 100 Mg Tablet 200 Mg PO BID 5 05/23/18 Rx Metformin Hcl Er (Metformin Hcl) 500 Mg Tab.er.24h 1,000 Mg PO DAILYWBKFT 05/21/18 Reported Glipizide Xl (Glipizide) 10 Mg Tab.er.24 10 Mg PO DAILY 05/20/18 Reported Calcium 500 + D Tablet (Calcium Carbonate/Vitamin D3) 1 Each Tablet 1 Each PO DAILY 05/20/18 Reported Catapres-Tts 3 (Clonidine) 1 Each Patch.tdwk 1 Each TD WEEKLY 05/20/18 Reported Lisinopril 20 Mg Tablet 1 Tab PO DAILY 05/20/18 Reported [cyanocobalamin] 100 Mcg PO DAILY 05/20/18 Reported Aspir 81 (Aspirin) 81 Mg Tablet.dr 81 Mg PO DAILY 07/08/13 Reported Norvasc (Amlodipine Besylate) 10 Mg Tablet 10 Mg PO DAILY 07/08/13 Reported Atorvastatin Calcium 10 Mg Tablet 10 Mg PO HS 07/08/13 Reported Comments CXR- 02/27/2020 IMPRESSION: * Patchy opacities in bilateral lungs which could be seen with multifocal infiltrate or edema 03/01 WORSENING INFILTRATES 03/03- IMPRESSION: * Repeat demonstration of multifocal opacities throughout the bilateral lungs with slight decrease in the right upper lung compared to prior and similar to prior within other portions of the bilateral lungs. * Lines and tubes as above. * Enlarged cardiomediastinal silhouette. CXR 03/05 Impression: Slight interval improvement in the bilateral perihilar infiltrates. Impression . Acute hypoxic respiratory Failure--intubated night of 03/01 due to worsening hypoxia, AC mode 55%FIO2, 8 PEEP COVID-19 known positive COVID -19 pneumonia, cannot exclude bacterial pneumonia elevated ddimer 2/2 inflammatory stage of covid19 -- improving Fevers--resolved Anemia of chronic disease Dementia KENNY vs. CKD --stable Plan . AC mode. FI02 55% and PEEP 8 ABG reviewed and CXR reviewed slight improvement s/p Plasma ABX per ID Cont. steroids, will begin taper soon, will need 10 day course Follow nephrology recs will follow inflammatory markers including d-dimer, ddminer down to 1.55 today Continue TF for nutritional support DVT/GI PPX -- high dose lovenox D/W RN, and RT cct 30 min ANDRY TREJO MD Mar 05, 2020 08:47
--- NOTE | 2020-03-05 09:12 | RAD ---
AP portable chest radiograph 03/05/2020 Clinical History: Respiratory failure. An AP erect portable digital radiograph of the chest was obtained. Comparison study is dated 03/03/2020. The ET tube, NG tube and right internal jugular central venous catheter unchanged position. The cardiac silhouette is mildly enlarged. The thoracic aorta is tortuous. Atherosclerotic calcification thoracic aorta is seen. There is a small left pleural effusion appears decreased slightly. Bilateral perihilar infiltrates are seen which appear improved slightly particularly in the lung bases. No pneumothorax is noted. The osseous structures are unchanged. Impression: Slight interval improvement in the bilateral perihilar infiltrates. Electronically signed by: Collin Kirkpatrick MD (03/05/2020 9:09 AM) [id number]
--- NOTE | 2020-03-05 10:30 | PDOC ---
PROGRESS NOTES Date of Service: DATE: 03/05/20 TIME: 10:24 Chief Complaint Chief Complaint A/P: Respiratory failure with hypoxia - likely 2/2 COVID 19. WORSENING. Steroids, Lovenox twice daily, consult pulmonology. Maintain O2 saturations 92% or greater. SARS-CoV-2 (COVID-19) - As above. ID consulted, agree to consent for convalescent [facility]FP if this is line with family goals of care. KENNY - likely vasomotor nephropathy from COVID 19 infection, will monitor renal fx and hydrate. 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 Diabetes-Type II - sliding scale insulin, will hold oral hypoglycemics for now GERD - cont antacids High Cholesterol - cont statin Hypertension - cont meds, hold clonidine patch given his BP is on the low side POLYNEUROPATHY - CK elevated, will monitor FEN - Pureed nectar thick diet PPX - lovenox FULL CODE Dispo - inpatient, transferred to ICU for increase O2 requirements History of Present Illness History of Present Illness Mr Rivera is a 79-year-old male with PMHx Anemia, Dementia, Diabetes-Type II, Diverticulosis, GERD, High Cholesterol, Hypertension, POLYNEUROPATHY resident of [facility] in [place] comes to ED with known SARS-CoV-2 (COVID 19) who presents to the emergency room with respiratory distress. Patient is unable to provide any history. Is unclear at this time how long he has been ill. Is unclear whether or not he is on oxygen at baseline. Upon arrival to the emergency room he is on a nonrebreather. He reportedly had a pulse ox of 72 upon EMS arrival. Patient was able to be weaned down from a nonrebreather to 6 L nasal cannula. ABG was done 7.35/48/107 on 6 L nasal cannula. WBC 9.3, Hb 13.3, platelets 212, d-dimer 3.92, troponin 0 0.22, AST 57, CRP 163.7, CK 1865, albumin 2.7 EKG sinus rhythm, leftward axis QRS transition zone, nonspecific T abnormalities high lateral leads, new prolonged QT. CXR with bilateral patchy infiltrate consistent with COVID-19 pneumonia. Admitted for further care. 02/27: Cr up to 2.4 today. Febrile to 100.7 F overnight. Slight cough. On 6 L nasal cannula oxygen. Afebrile past 24 hours, now on 10 L facemask O2, WBC 11.4, hemoglobin 12.8, CR stable at 2.4 albumin 2.5 CK 2060, glucose 302. He has been incontinent of urine over the past 24 hours and has some redness on the scrotum and buttocks, I advised him Smith catheter may be indicated he does not seem to be understanding much of what is going on. I have discussed with ID that type and screen and convalescent plasma may be indicated, will try to get a hold of family to discuss goals of care. Nephrology consulted, will check UA and renal US. 03/01/2020 No acute events overnight. Patient this morning required increased oxygen requirements needing an nonrebreather mask. Patient was obtunded at this time and not following commands. Patient's chart, labs, images were reviewed and discussed with RN. 03/03/20 No acute events overnight. O2 requirement decreasing. Patient's chart and labs reviewed. Discussed with RN. 03/04/20 Patient remains intubated and sedated. Hyperglycemia still an issue. Discussed increasing insulin with RN. 03/05/20 Patient remains intubated. Continue broad-spectrum antibiotics and steroids. Blood sugar is elevated secondary to steroids, will adjust insulin appropriately. No acute events overnight. Vitals Vitals Vital Signs Date Time Temp Pulse Resp B/P (MAP) Pulse Ox O2 Delivery O2 Flow Rate FiO2 03/05/20 10:00 64 24 107/63 (78) 100 Ventilator 03/05/20 08:00 97.6 97.6 03/05/20 06:45 40.0 Physical Exam Physical Exam CONSTITUTIONAL: sedated on vent HEENT: Pupils have some cataracts in place. Oral cavity, pharynx is very dry. NECK: Supple, no JVD. LUNGS: Had some mild crackles. HEART: S1, S2. ABDOMEN: Soft, nontender, no guarding, no rebound. EXTREMITIES: Without clubbing, cyanosis. No gross edema. SKIN: Warm to touch without signs of rash. NEUROLOGIC: sedated on vent General: mild distress Heart: Regular rate Lungs: Other (Intubated) Abdomen: No masses, Other (Nondistended) Extremities: No clubbing, No cyanosis, No edema Skin: No rashes, No breakdown, No significant lesion Labs LABS Laboratory Tests Test 03/04/20 11:32 03/04/20 17:28 03/04/20 21:50 03/04/20 23:58 Glucose (Fingerstick) 355 mg/dL (70-99) 324 mg/dL (70-99) 295 mg/dL (70-99) 322 mg/dL (70-99) Test 03/05/20 05:00 03/05/20 05:11 03/05/20 08:15 White Blood Count 7.5 x10^3/uL (4.0-11.0) Red Blood Count 3.72 x10^6/uL (4.30-5.70) Hemoglobin 10.9 g/dL (13.0-17.5) Hematocrit 32.7 % (39.0-53.0) Mean Corpuscular Volume 88 fL (79-100) Mean Corpuscular Hemoglobin 29 pg (25-35) Mean Corpuscular Hemoglobin Concent 33 g/dL (31-37) Red Cell Distribution Width 15.6 % (11.5-14.5) Platelet Count 212 x10^3/uL (140-400) Neutrophils (%) (Auto) 87 % (31-73) Lymphocytes (%) (Auto) 7 % (24-48) Monocytes (%) (Auto) 6 % (0-9) Eosinophils (%) (Auto) 0 % (0-3) Basophils (%) (Auto) 0 % (0-3) Neutrophils # (Auto) 6.5 x10^3/uL (1.8-7.7) Lymphocytes # (Auto) 0.6 x10^3/uL (1.0-4.8) Monocytes # (Auto) 0.4 x10^3/uL (0.0-1.1) Eosinophils # (Auto) 0.0 x10^3/uL (0.0-0.7) Basophils # (Auto) 0.0 x10^3/uL (0.0-0.2) Sodium Level 148 mmol/L (136-145) Potassium Level 3.9 mmol/L (3.5-5.1) Chloride Level 113 mmol/L (98-107) Carbon Dioxide Level 28 mmol/L (21-32) Anion Gap 7 (6-14) Blood Urea Nitrogen 40 mg/dL (8-26) Creatinine 1.5 mg/dL (0.7-1.3) Estimated GFR (Cockcroft-Gault) 54.9 Glucose Level 348 mg/dL (70-99) Calcium Level 7.5 mg/dL (8.5-10.1) Ferritin 739 ng/mL (26-388) C-Reactive Protein, Quantitative 22.1 mg/L (0-3.3) Glucose (Fingerstick) 319 mg/dL (70-99) O2 Saturation 91 % (92-99) Arterial Blood pH 7.39 (7.35-7.45) Arterial Blood pCO2 at Patient Temp 41 mmHg (35-46) Arterial Blood pO2 at Patient Temp 61 mmHg (65-108) Arterial Blood HCO3 24 mmol/L (21-28) Arterial Blood Base Excess -1 mmol/L (-3-3) FiO2 55 Review of Systems Review of Systems Unable to obtain due to clinical condition Assessment and Plan Assessmemt and Plan Problems Medical Problems: (1) 2019 novel coronavirus disease (COVID-19) Status: Acute (2) Respiratory failure with hypoxia Status: Acute Comment Review of Relevant I have reviewed the following items latonia (where applicable) has been applied. Labs Laboratory Tests Test 03/03/20 18:13 03/04/20 04:50 03/04/20 08:10 03/04/20 11:32 Glucose (Fingerstick) 374 mg/dL (70-99) 355 mg/dL (70-99) White Blood Count 7.2 x10^3/uL (4.0-11.0) Red Blood Count 3.99 x10^6/uL (4.30-5.70) Hemoglobin 11.6 g/dL (13.0-17.5) Hematocrit 35.0 % (39.0-53.0) Mean Corpuscular Volume 88 fL (79-100) Mean Corpuscular Hemoglobin 29 pg (25-35) Mean Corpuscular Hemoglobin Concent 33 g/dL (31-37) Red Cell Distribution Width 15.5 % (11.5-14.5) Platelet Count 216 x10^3/uL (140-400) Neutrophils (%) (Auto) 89 % (31-73) Lymphocytes (%) (Auto) 5 % (24-48) Monocytes (%) (Auto) 6 % (0-9) Eosinophils (%) (Auto) 0 % (0-3) Basophils (%) (Auto) 0 % (0-3) Neutrophils # (Auto) 6.5 x10^3/uL (1.8-7.7) Lymphocytes # (Auto) 0.3 x10^3/uL (1.0-4.8) Monocytes # (Auto) 0.4 x10^3/uL (0.0-1.1) Eosinophils # (Auto) 0.0 x10^3/uL (0.0-0.7) Basophils # (Auto) 0.0 x10^3/uL (0.0-0.2) D-Dimer (Viv) 1.55 ug/mlFEU (0.00-0.50) Sodium Level 150 mmol/L (136-145) Potassium Level 4.0 mmol/L (3.5-5.1) Chloride Level 113 mmol/L (98-107) Carbon Dioxide Level 28 mmol/L (21-32) Anion Gap 9 (6-14) Blood Urea Nitrogen 35 mg/dL (8-26) Creatinine 1.5 mg/dL (0.7-1.3) Estimated GFR (Cockcroft-Gault) 54.9 Glucose Level 402 mg/dL (70-99) Calcium Level 7.8 mg/dL (8.5-10.1) Magnesium Level 2.3 mg/dL (1.8-2.4) Ferritin 1540 ng/mL (26-388) C-Reactive Protein, Quantitative 44.0 mg/L (0-3.3) Procalcitonin < 0.10 ng/mL (0.00-0.10) O2 Saturation 92 % (92-99) Arterial Blood pH 7.39 (7.35-7.45) Arterial Blood pCO2 at Patient Temp 41 mmHg (35-46) Arterial Blood pO2 at Patient Temp 67 mmHg (65-108) Arterial Blood HCO3 24 mmol/L (21-28) Arterial Blood Base Excess -1 mmol/L (-3-3) FiO2 55% Test 03/04/20 17:28 03/04/20 21:50 03/04/20 23:58 03/05/20 05:00 Glucose (Fingerstick) 324 mg/dL (70-99) 295 mg/dL (70-99) 322 mg/dL (70-99) White Blood Count 7.5 x10^3/uL (4.0-11.0) Red Blood Count 3.72 x10^6/uL (4.30-5.70) Hemoglobin 10.9 g/dL (13.0-17.5) Hematocrit 32.7 % (39.0-53.0) Mean Corpuscular Volume 88 fL (79-100) Mean Corpuscular Hemoglobin 29 pg (25-35) Mean Corpuscular Hemoglobin Concent 33 g/dL (31-37) Red Cell Distribution Width 15.6 % (11.5-14.5) Platelet Count 212 x10^3/uL (140-400) Neutrophils (%) (Auto) 87 % (31-73) Lymphocytes (%) (Auto) 7 % (24-48) Monocytes (%) (Auto) 6 % (0-9) Eosinophils (%) (Auto) 0 % (0-3) Basophils (%) (Auto) 0 % (0-3) Neutrophils # (Auto) 6.5 x10^3/uL (1.8-7.7) Lymphocytes # (Auto) 0.6 x10^3/uL (1.0-4.8) Monocytes # (Auto) 0.4 x10^3/uL (0.0-1.1) Eosinophils # (Auto) 0.0 x10^3/uL (0.0-0.7) Basophils # (Auto) 0.0 x10^3/uL (0.0-0.2) Sodium Level 148 mmol/L (136-145) Potassium Level 3.9 mmol/L (3.5-5.1) Chloride Level 113 mmol/L (98-107) Carbon Dioxide Level 28 mmol/L (21-32) Anion Gap 7 (6-14) Blood Urea Nitrogen 40 mg/dL (8-26) Creatinine 1.5 mg/dL (0.7-1.3) Estimated GFR (Cockcroft-Gault) 54.9 Glucose Level 348 mg/dL (70-99) Calcium Level 7.5 mg/dL (8.5-10.1) Ferritin 739 ng/mL (26-388) C-Reactive Protein, Quantitative 22.1 mg/L (0-3.3) Test 03/05/20 05:11 03/05/20 08:15 Glucose (Fingerstick) 319 mg/dL (70-99) O2 Saturation 91 % (92-99) Arterial Blood pH 7.39 (7.35-7.45) Arterial Blood pCO2 at Patient Temp 41 mmHg (35-46) Arterial Blood pO2 at Patient Temp 61 mmHg (65-108) Arterial Blood HCO3 24 mmol/L (21-28) Arterial Blood Base Excess -1 mmol/L (-3-3) FiO2 55 Laboratory Tests Test 03/04/20 11:32 03/04/20 17:28 03/04/20 21:50 03/04/20 23:58 Glucose (Fingerstick) 355 mg/dL (70-99) 324 mg/dL (70-99) 295 mg/dL (70-99) 322 mg/dL (70-99) Test 03/05/20 05:00 03/05/20 05:11 03/05/20 08:15 White Blood Count 7.5 x10^3/uL (4.0-11.0) Red Blood Count 3.72 x10^6/uL (4.30-5.70) Hemoglobin 10.9 g/dL (13.0-17.5) Hematocrit 32.7 % (39.0-53.0) Mean Corpuscular Volume 88 fL (79-100) Mean Corpuscular Hemoglobin 29 pg (25-35) Mean Corpuscular Hemoglobin Concent 33 g/dL (31-37) Red Cell Distribution Width 15.6 % (11.5-14.5) Platelet Count 212 x10^3/uL (140-400) Neutrophils (%) (Auto) 87 % (31-73) Lymphocytes (%) (Auto) 7 % (24-48) Monocytes (%) (Auto) 6 % (0-9) Eosinophils (%) (Auto) 0 % (0-3) Basophils (%) (Auto) 0 % (0-3) Neutrophils # (Auto) 6.5 x10^3/uL (1.8-7.7) Lymphocytes # (Auto) 0.6 x10^3/uL (1.0-4.8) Monocytes # (Auto) 0.4 x10^3/uL (0.0-1.1) Eosinophils # (Auto) 0.0 x10^3/uL (0.0-0.7) Basophils # (Auto) 0.0 x10^3/uL (0.0-0.2) Sodium Level 148 mmol/L (136-145) Potassium Level 3.9 mmol/L (3.5-5.1) Chloride Level 113 mmol/L (98-107) Carbon Dioxide Level 28 mmol/L (21-32) Anion Gap 7 (6-14) Blood Urea Nitrogen 40 mg/dL (8-26) Creatinine 1.5 mg/dL (0.7-1.3) Estimated GFR (Cockcroft-Gault) 54.9 Glucose Level 348 mg/dL (70-99) Calcium Level 7.5 mg/dL (8.5-10.1) Ferritin 739 ng/mL (26-388) C-Reactive Protein, Quantitative 22.1 mg/L (0-3.3) Glucose (Fingerstick) 319 mg/dL (70-99) O2 Saturation 91 % (92-99) Arterial Blood pH 7.39 (7.35-7.45) Arterial Blood pCO2 at Patient Temp 41 mmHg (35-46) Arterial Blood pO2 at Patient Temp 61 mmHg (65-108) Arterial Blood HCO3 24 mmol/L (21-28) Arterial Blood Base Excess -1 mmol/L (-3-3) FiO2 55 Medications Current Medications Acetaminophen (Tylenol Supp) 650 mg 1X ONCE NH Last administered on 02/27/20at 01:06; Start 02/27/20 at 01:00; Stop 02/27/20 at 01:01; Status DC Ondansetron HCl (Zofran) 4 mg PRN Q4HRS PRN IV NAUSEA/VOMITING; Start 02/27/20 at 07:15 Acetaminophen (Tylenol) 650 mg PRN Q4HRS PRN PO TEMP OVER 100.4F OR MILD PAIN; Start 02/27/20 at 07:15 Acetaminophen (Tylenol Supp) 650 mg PRN Q4HRS PRN NH TEMP OVER 100.4F OR MILD PAIN Last administered on 02/27/20at 21:50; Start 02/27/20 at 07:15 Al Hydroxide/Mg Hydroxide (Mylanta Plus Xs) 30 ml PRN DAILY PRN PO HEARTBURN / GAS; Start 02/27/20 at 07:15 Docusate Sodium (Colace) 100 mg PRN BID PRN PO HARD STOOLS Last administered on 03/03/20at 08:43; Start 02/27/20 at 07:15 Enoxaparin Sodium (Lovenox 30mg Syringe) 30 mg Q12H SQ Last administered on 02/27/20at 11:45; Start 02/27/20 at 09:00; Stop 02/27/20 at 14:35; Status DC Methylprednisolone Sodium Succinate (SOLU-Medrol 40MG VIAL) 40 mg Q8HRS IV Last administered on 03/05/20at 05:45; Start 02/27/20 at 08:00 Insulin Human Lispro (HumaLOG) 0-7 UNITS TIDACHC SQ Last administered on 03/02/20at 12:03; Start 02/27/20 at 07:30; Stop 03/02/20 at 15:08; Status DC Dextrose (Dextrose 50%-Water Syringe) 12.5 gm PRN Q15MIN PRN IV SEE COMMENTS; Start 02/27/20 at 07:15 Amlodipine Besylate (Norvasc) 10 mg DAILY PO Last administered on 03/05/20at 08:10; Start 02/27/20 at 09:00 Aspirin (Ecotrin) 81 mg DAILY PO Last administered on 03/03/20at 08:43; Start 02/27/20 at 09:00; Stop 03/04/20 at 07:05; Status DC Atorvastatin Calcium (Lipitor) 10 mg HS PO Last administered on 03/04/20at 21:42; Start 02/27/20 at 21:00 Clonidine HCl (Catapres Tts-3) 1 patch WEEKLY TD ; Start 02/27/20 at 09:00; Stop 02/27/20 at 16:00; Status DC Guaifenesin (Robitussin Dm) 10 ml PRN Q6HRS PRN PO COUGH; Start 02/27/20 at 07:15 Lactobacillus Rhamnosus (Culturelle) 1 cap BID PO Last administered on 03/05/20at 08:09; Start 02/27/20 at 09:00 Enoxaparin Sodium (Lovenox 40mg Syringe) 40 mg Q24H SQ Last administered on 02/27/20at 21:50; Start 02/27/20 at 21:00; Stop 02/28/20 at 10:36; Status DC Zinc Sulfate (Orazinc) 220 mg DAILY PO Last administered on 03/05/20at 08:11; Start 02/27/20 at 16:00 Piperacillin Sod/ Tazobactam Sod 3.375 gm/Sodium Chloride 50 ml @ 100 mls/hr Q6HRS IV Last administered on 03/05/20at 05:45; Start 02/28/20 at 11:00 Enoxaparin Sodium (Lovenox 40mg Syringe) 40 mg Q12HR SQ Last administered on 03/05/20 08:09; Start 02/28/20 at 11:00 Sodium Chloride 1,000 ml @ 100 mls/hr Q10H IV Last administered on 03/02/20at 02:53; Start 02/28/20 at 11:00; Stop 03/02/20 at 12:34; Status DC Linezolid/Dextrose 300 ml @ 300 mls/hr Q12HR IV Last administered on 03/03/20at 20:39; Start 02/29/20 at 09:00; Stop 03/04/20 at 07:45; Status DC Sterile Water (WATER for RESP) 1,000 ml CONT PRN INH VIA VAPOTHERM DEVICE Last administered on 03/01/20at 19:29; Start 03/01/20 at 11:00 Hydralazine HCl (Apresoline Inj) 10 mg PRN Q4HRS PRN IVP ELEVATED BP, SEE COMMENTS Last administered on 03/04/20at 14:08; Start 03/01/20 at 18:15 Fentanyl Citrate 30 ml @ 0 mls/hr CONT PRN IV SEE PROTOCOL Last administered on 03/05/20at 06:45; Start 03/02/20 at 00:00 Midazolam HCl 100 ml @ 0 mls/hr CONT PRN IV SEE PROTOCOL Last administered on 03/04/20at 21:43; Start 03/02/20 at 00:00 Vecuronium [place] (Norcuron Bolus) 6 mg PRN Q4HRS PRN IV Sedation; Start 03/02/20 at 00:00 Etomidate (Amidate) 20 mg 1X ONCE IV Last administered on 03/02/20at 00:05; Start 8/25/20 at 00:00; Stop 03/02/20 at 00:08; Status DC Succinylcholine Chloride (Anectine) 200 mg 1X ONCE IV Last administered on 03/02/20at 00:05; Start 03/02/20 at 00:00; Stop 03/02/20 at 00:08; Status DC Sodium Bicarbonate (Sodium Bicarb Adult 8.4% Syr) 50 meq STK-MED ONCE .ROUTE ; Start 03/02/20 at 09:43; Stop 03/02/20 at 09:44; Status DC Sodium Bicarbonate (Sodium Bicarb Adult 8.4% Syr) 50 meq 1X ONCE IV Last administered on 03/02/20at 10:15; Start 03/02/20 at 10:15; Stop 03/02/20 at 10:16; Status DC Sodium Chloride 1,000 ml @ 100 mls/hr Q10H IV Last administered on 03/04/20at 23:52; Start 03/02/20 at 12:30 Insulin Human Lispro (HumaLOG) 0-9 UNITS TIDWMEALS SQ Last administered on 03/03/20at 18:16; Start 03/02/20 at 17:00; Stop 03/04/20 at 07:08; Status DC Pantoprazole Sodium (PROTONIX VIAL for IV PUSH) 40 mg DAILYAC IVP Last administered on 03/05/20at 08:09; Start 03/03/20 at 16:00 Insulin Glargine (Lantus Syringe) 8 unit QHS SQ Last administered on 03/03/20at 20:38; Start 03/03/20 at 21:00; Stop 03/04/20 at 11:45; Status DC Aspirin (Aspirin Chewable) 81 mg DAILYWBKFT PO Last administered on 03/05/20at 08:09; Start 03/04/20 at 08:00 Insulin Human Lispro (HumaLOG) 0-9 UNITS Q6HRS SQ Last administered on 03/05/20at 05:44; Start 03/04/20 at 12:00 Insulin Human Lispro (HumaLOG) 9 units 1X ONCE SQ Last administered on 03/04/20at 07:20; Start 03/04/20 at 07:15; Stop 03/04/20 at 07:16; Status DC Insulin Glargine (Lantus Syringe) 20 unit BID SQ Last administered on 03/05/20at 08:47; Start 03/04/20 at 21:00 Insulin Glargine (Lantus Syringe) 20 unit 1X ONCE SQ Last administered on 03/04/20at 11:45; Start 03/04/20 at 11:45; Stop 03/04/20 at 11:47; Status DC Insulin Human Lispro (HumaLOG) 14 units TID SQ Last administered on 03/05/20at 08:13; Start 03/04/20 at 14:00 Active Scripts Active Culturelle (Lactobacillus Rhamnosus Gg) 1 Each Cap.sprink 1 Cap PO BID 30 Days Guaifenesin Dm Syrup (Guaifenesin/Dextromethorphan) 5 Ml Syrup 10 Ml PO PRN Q6HRS PRN 30 Days Albuterol Sulfate Neb Soln (Albuterol Sulfate) 2.5 Mg/3 Ml Vial.neb 2.5 Mg NEB PRN Q4HRS PRN 30 Days Azithromycin Tablet (Azithromycin) 250 Mg Tablet 250 Mg PO DAILY 5 Days Cefpodoxime Proxetil 100 Mg Tablet 200 Mg PO BID 5 Days Reported Senna (Sennosides) 8.8 Mg/5 Ml Syrup 8.8 Mg PO DAILY Tylenol Extra Strength (Acetaminophen) 500 Mg Tablet 1,000 Mg PO PRN PRN Furosemide 20 Mg Tablet 1 Tab PO DAILY Glipizide Xl (Glipizide) 10 Mg Tab.er.24 1 Tab PO DAILY 30 Days Metformin Hcl Er (Metformin Hcl) 500 Mg Tab.er.24h 1,000 Mg PO DAILYWBKFT Glipizide Xl (Glipizide) 10 Mg Tab.er.24 10 Mg PO DAILY Calcium 500 + D Tablet (Calcium Carbonate/Vitamin D3) 1 Each Tablet 1 Each PO DAILY Catapres-Tts 3 (Clonidine) 1 Each Patch.tdwk 1 Each TD WEEKLY Lisinopril 20 Mg Tablet 1 Tab PO DAILY [cyanocobalamin] 100 Mcg PO DAILY Aspir 81 (Aspirin) 81 Mg Tablet.dr 81 Mg PO DAILY Norvasc (Amlodipine Besylate) 10 Mg Tablet 10 Mg PO DAILY Atorvastatin Calcium 10 Mg Tablet 10 Mg PO HS Vitals/I & O Vital Sign - Last 24 Hours 03/04/20 03/04/20 03/04/20 03/04/20 11:00 11:16 11:46 12:00 Temp 97.8 97.8 Pulse 60 65 Resp 24 24 B/P (MAP) 119/66 (83) 116/74 (88) Pulse Ox 100 96 100 O2 Delivery Ventilator Ventilator Mechanical Ventilator Ventilator 03/04/20 03/04/20 03/04/20 03/04/20 13:00 14:00 14:08 15:00 Pulse 58 59 56 66 Resp 24 27 B/P (MAP) 157/75 (102) 168/77 (107) 168/77 174/80 (111) Pulse Ox 100 100 100 O2 Delivery Ventilator Ventilator Ventilator 03/04/20 03/04/20 03/04/20 03/04/20 15:32 15:55 16:00 17:00 Temp 97.7 97.7 Pulse 62 61 Resp 30 24 B/P (MAP) 169/86 (113) 160/66 (97) Pulse Ox 100 100 100 O2 Delivery Ventilator Mechanical Ventilator Ventilator Ventilator 03/04/20 03/04/20 03/04/20 03/04/20 18:00 19:00 19:47 20:00 Temp 98.9 98.9 Pulse 61 58 Resp 24 B/P (MAP) 146/71 (96) 144/61 (88) Pulse Ox 100 100 100 O2 Delivery Ventilator Ventilator Mechanical Ventilator O2 Flow Rate 40.0 03/04/20 03/04/20 03/04/20 03/04/20 20:00 20:42 21:00 22:00 Pulse 59 57 56 Resp 23 23 23 B/P (MAP) 155/64 (94) 138/58 (84) 149/60 (89) Pulse Ox 100 97 98 96 O2 Delivery Ventilator Ventilator Ventilator Ventilator 03/04/20 03/04/20 03/04/20 03/05/20 23:00 23:59 23:59 00:23 Temp 98.1 98.1 Pulse 88 67 Resp 29 24 B/P (MAP) 174/64 (100) 137/66 (89) Pulse Ox 95 92 97 O2 Delivery Ventilator Ventilator Mechanical Ventilator Ventilator 03/05/20 03/05/20 03/05/20 03/05/20 01:00 02:00 04:00 04:00 Temp 98.4 98.4 Pulse 54 51 55 Resp 24 24 24 B/P (MAP) 151/74 (99) 144/74 (97) 121/67 (85) Pulse Ox 100 100 99 O2 Delivery Ventilator Ventilator Mechanical Ventilator Ventilator 03/05/20 03/05/20 03/05/20 03/05/20 04:39 05:00 06:00 06:45 Pulse 56 54 Resp 24 24 18 B/P (MAP) 101/55 (70) 121/55 (77) Pulse Ox 97 100 100 100 O2 Delivery Ventilator Ventilator Ventilator O2 Flow Rate 40.0 03/05/20 03/05/20 03/05/20 03/05/20 07:00 07:15 08:00 08:00 Temp 97.6 97.6 Pulse 58 60 Resp 24 24 B/P (MAP) 118/66 (83) 116/66 (83) Pulse Ox 100 100 99 O2 Delivery Ventilator Ventilator Ventilator Mechanical Ventilator 03/05/20 03/05/20 03/05/20 03/05/20 08:04 08:10 09:00 10:00 Pulse 62 60 64 Resp 24 24 B/P (MAP) 116/66 113/66 (82) 107/63 (78) Pulse Ox 100 100 100 O2 Delivery Ventilator Ventilator Ventilator Intake and Output 03/04/20 03/04/20 03/05/20 15:00 23:00 07:00 Intake Total 400 ml 1349 ml 2020 ml Output Total 725 ml 445 ml 400 ml Balance -325 ml 904 ml 1620 ml Justicifation of Admission Dx: Justifications for Admission: Justification of Admission Dx: Yes Respiratory Failure: Severe Resp Distress ARLETTE ESCALONA MD Mar 05, 2020 10:30
--- NOTE | 2020-03-05 11:27 | PDOC ---
Renal-Progress Notes Subjective Notes Notes NO CHANGES History of Present Illness Hx of present illness STABLE Vitals Vitals Vital Signs Date Time Temp Pulse Resp B/P (MAP) Pulse Ox O2 Delivery O2 Flow Rate FiO2 03/05/20 10:00 64 24 107/63 (78) 100 Ventilator 03/05/20 08:00 97.6 97.6 03/05/20 06:45 40.0 Weight Weight [ ] I.O. Intake and Output Intake and Output 03/05/20 07:00 Intake Total 3769 ml Output Total 1570 ml Balance 2199 ml IV Total 1709 ml Tube Feeding 1460 ml Other 600 ml Output Urine Total 1570 ml # Bowel Movements 3 Labs Labs Laboratory Tests Test 03/04/20 11:32 03/04/20 17:28 03/04/20 21:50 03/04/20 23:58 Glucose (Fingerstick) 355 mg/dL (70-99) 324 mg/dL (70-99) 295 mg/dL (70-99) 322 mg/dL (70-99) Test 03/05/20 05:00 03/05/20 05:11 03/05/20 08:15 White Blood Count 7.5 x10^3/uL (4.0-11.0) Red Blood Count 3.72 x10^6/uL (4.30-5.70) Hemoglobin 10.9 g/dL (13.0-17.5) Hematocrit 32.7 % (39.0-53.0) Mean Corpuscular Volume 88 fL (79-100) Mean Corpuscular Hemoglobin 29 pg (25-35) Mean Corpuscular Hemoglobin Concent 33 g/dL (31-37) Red Cell Distribution Width 15.6 % (11.5-14.5) Platelet Count 212 x10^3/uL (140-400) Neutrophils (%) (Auto) 87 % (31-73) Lymphocytes (%) (Auto) 7 % (24-48) Monocytes (%) (Auto) 6 % (0-9) Eosinophils (%) (Auto) 0 % (0-3) Basophils (%) (Auto) 0 % (0-3) Neutrophils # (Auto) 6.5 x10^3/uL (1.8-7.7) Lymphocytes # (Auto) 0.6 x10^3/uL (1.0-4.8) Monocytes # (Auto) 0.4 x10^3/uL (0.0-1.1) Eosinophils # (Auto) 0.0 x10^3/uL (0.0-0.7) Basophils # (Auto) 0.0 x10^3/uL (0.0-0.2) Sodium Level 148 mmol/L (136-145) Potassium Level 3.9 mmol/L (3.5-5.1) Chloride Level 113 mmol/L (98-107) Carbon Dioxide Level 28 mmol/L (21-32) Anion Gap 7 (6-14) Blood Urea Nitrogen 40 mg/dL (8-26) Creatinine 1.5 mg/dL (0.7-1.3) Estimated GFR (Cockcroft-Gault) 54.9 Glucose Level 348 mg/dL (70-99) Calcium Level 7.5 mg/dL (8.5-10.1) Ferritin 739 ng/mL (26-388) C-Reactive Protein, Quantitative 22.1 mg/L (0-3.3) Glucose (Fingerstick) 319 mg/dL (70-99) O2 Saturation 91 % (92-99) Arterial Blood pH 7.39 (7.35-7.45) Arterial Blood pCO2 at Patient Temp 41 mmHg (35-46) Arterial Blood pO2 at Patient Temp 61 mmHg (65-108) Arterial Blood HCO3 24 mmol/L (21-28) Arterial Blood Base Excess -1 mmol/L (-3-3) FiO2 55 Review of Systems Constitutional: yes: other (SOB, UNABLE TO OBTAIN) Physical Exam General Appearance: no apparent distress Skin: warm Respiratory: decreased breath sounds Heart: S1S2 Abdomen: soft, bowel sounds present Extremities: pulses present Neurology: other (SEDATED) Assessment Assessment IMP COVID 19 PNEUMONIA ACUTE RESP [id number] 55% PEEP 8 TV 550 UNCOMPENSATED ACUTE RESP ACIDOSIS ANEMIA KENNY WITH CR IMPROVED TO 1.5 HYPERNATREMIA HEMATURIA-LIKELY COVID RELATED ? CKD - UNKNOWN PLAN VENT SUPPORT SUPPORTIVE CARE S/PCONVALESCENT PLASMA EMPIRIC ANTIBIOTICS CHANGED SALINE TO HYPOTONIC SALINE CONT SUPPORTIVE CARE WILL FOLLOW MIRI CADENA MD Mar 05, 2020 11:27
[2020-03-05] MEDS: IV 1/2 NORMAL SALINE 1,000 ML IV SCH ×2 (11:45→21:44)
--- NOTE | 2020-03-05 15:37 | NUR ---
SS following up with discharge planning. SS reviewed pt chart and discussed with pt RN. CASSIAID19 positive. Pt remains on the vent at this time. Pt on IV Zosyn. Pt [facility] and Medicaid. SS will continue to follow for discharge planning.
[2020-03-05] MEDS: MIDAZOLAM 100mg/100ml NS BAG 100 ML IV PRN (16:53)
[2020-03-05] MEDS: ATORVASTATIN CALCIUM 10 MG TABLET. PO SCH (20:31)
[2020-03-06] VITALS (24 sets, daily range): BP systolic 115–177; BP diastolic 60–88
[2020-03-06] MEDS: INSULIN LISPRO 300 UNITS/3 ML VIAL. SQ SCH ×7 (00:18→21:18)
[2020-03-06] MEDS: PIPERACILLIN/TAZOBACTAM 3.375 GM in IV NORMAL SALINE 50ML 50 ML IV SCH ×4 (05:37→23:50)
[2020-03-06] MEDS: methylPREDNISolone SOD SUCC PF 40 MG/ML VIAL. IV SCH ×3 (05:37→20:30)
[2020-03-06 06:29] LABS: BASO % 0 % (0-3); EOS % 0 % (0-3); HEMATOCRIT 31.8 % (39.0-53.0); HEMOGLOBIN 10.5 g/dL (13.0-17.5); LYMPH # 0.6 x10^3/uL (1.0-4.8); LYMPH % 8 % (24-48); MEAN CORPUSCULAR HEMOGLOBIN 29 pg (25-35); MEAN CORPUSCULAR HGB CONC 33 g/dL (31-37); MEAN CORPUSCULAR VOLUME 88 fL (79-100); MONO # 0.4 x10^3/uL (0.0-1.1); MONO % 6 % (0-9); NEUT # 7.1 x10^3/uL (1.8-7.7); NEUT % 87 % (31-73); PLATELET COUNT 210 x10^3/uL (140-400); RED CELL DISTRIBUTION WIDTH 15.7 % (11.5-14.5); WHITE BLOOD COUNT 8.2 x10^3/uL (4.0-11.0)
--- NOTE | 2020-03-06 06:54 | PDOC ---
Infectious Disease Note Subjective Subjective pt is intubated, on vent ROS ROS No nausea vomiting diarrhea or fever Vital Sign Vital Signs Vital Signs Date Time Temp Pulse Resp B/P (MAP) Pulse Ox O2 Delivery O2 Flow Rate FiO2 03/06/20 06:00 58 24 129/64 (85) 100 Ventilator 03/06/20 04:00 97.8 97.8 Physical Exam PHYSICAL EXAM CONSTITUTIONAL: sedated on vent HEENT: Pupils have some cataracts in place. Oral cavity, pharynx is very dry. NECK: Supple, no JVD. LUNGS: Had some mild crackles. HEART: S1, S2. ABDOMEN: Soft, nontender, no guarding, no rebound. EXTREMITIES: Without clubbing, cyanosis. No gross edema. SKIN: Warm to touch without signs of rash. NEUROLOGIC: sedated on vent Labs Lab Laboratory Tests Test 03/05/20 08:15 03/05/20 11:27 03/05/20 14:06 03/05/20 18:27 O2 Saturation 91 % (92-99) Arterial Blood pH 7.39 (7.35-7.45) Arterial Blood pCO2 at Patient Temp 41 mmHg (35-46) Arterial Blood pO2 at Patient Temp 61 mmHg (65-108) Arterial Blood HCO3 24 mmol/L (21-28) Arterial Blood Base Excess -1 mmol/L (-3-3) FiO2 55 Glucose (Fingerstick) 331 mg/dL (70-99) 272 mg/dL (70-99) 280 mg/dL (70-99) Test 03/05/20 21:00 03/06/20 00:07 Glucose (Fingerstick) 258 mg/dL (70-99) 235 mg/dL (70-99) Objective Assessment 1. Fever. 2. Acute hypoxic respiratory failure. 3. COVID positive. 4. Acute kidney injury. 5. Leukocytosis. 6. Rhabdomyolysis with history as well, previous rhabdomyolysis. Plan Plan of Care Plasma given Cont Steroids cont zosyn, F/u labs and cults Dw nursing CONCEPCION SMITH MD Mar 06, 2020 06:54
[2020-03-06 07:09] LABS: C-REACTIVE PROTEIN 11.4 mg/L (0-3.3); CALCIUM 7.1 mg/dL (8.5-10.1); CREATININE 1.4 mg/dL (0.7-1.3); GFR 59.5; POTASSIUM 4.3 mmol/L (3.5-5.1)
[2020-03-06] MEDS: PANTOPRAZOLE IV PUSH 40 MG VIAL. IVP SCH (08:28)
[2020-03-06] MEDS: amLODIPine BESYLATE 10 MG TABLET PO SCH (08:28)
[2020-03-06] MEDS: LACTOBACILLUS RHAMNOSUS GG 1 CAPSULE. PO SCH ×2 (08:28→20:30)
[2020-03-06] MEDS: ASPIRIN CHEWABLE 81 MG TABLET. PO SCH (08:28)
[2020-03-06] MEDS: ENOXAPARIN 40 MG/0.4 ML SYRINGE. SQ SCH ×2 (08:29→20:31)
[2020-03-06] MEDS: IV 1/2 NORMAL SALINE 1,000 ML IV SCH ×3 (08:30→20:31)
[2020-03-06 08:34] LABS: BASE EXCESS ABG 1 mmol/L (-3-3); HCO3 ABG 25 mmol/L (21-28); PCO2 ABG 41 mmHg (35-46); PO2 ABG 60 mmHg (65-108); SAT O2 ABG 91 % (92-99)
[2020-03-06 08:40] LABS: FIO2 ABG 55
[2020-03-06] MEDS: ZINC SULFATE 220 MG CAPSULE. PO SCH (09:00)
[2020-03-06] MEDS: INSULIN GLARGINE SYRINGE. SQ SCH ×2 (09:00→21:18)
--- NOTE | 2020-03-06 09:14 | PDOC ---
PROGRESS NOTES Date of Service: DATE: 03/06/20 TIME: 09:13 Chief Complaint Chief Complaint impression Respiratory failure with hypoxia - likely 2/2 COVID 19. WORSENING. Steroids, Lovenox twice daily, consult pulmonology. Maintain O2 saturations 92% or greater. SARS-CoV-2 (COVID-19) - As above. ID consulted, agree to consent for convalescent [facility]FP if this is line with family goals of care. KENNY - likely vasomotor nephropathy from COVID 19 infection, will monitor renal fx and hydrate. 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 year, now in SNF snf Diabetes-Type II - sliding scale insulin, will hold oral hypoglycemics for now GERD - cont antacids High Cholesterol - cont statin Hypertension - cont meds, hold clonidine patch given his BP is on the low side POLYNEUROPATHY - CK elevated, will monitor FEN - Pureed nectar thick diet PPX - lovenox FULL CODE Dispo - inpatient, transferred to ICU for increase O2 requirements 35 min cc time History of Present Illness History of Present Illness Mr Rivera is a 79-year-old male with PMHx Anemia, Dementia, Diabetes-Type II, Diverticulosis, GERD, High Cholesterol, Hypertension, POLYNEUROPATHY resident of [facility] in [place] comes to ED with known SARS-CoV-2 (COVID 19) who presents to the emergency room with respiratory distress. Patient is unable to provide any history. Is unclear at this time how long he has been ill. Is unclear whether or not he is on oxygen at baseline. Upon arrival to the emergency room he is on a nonrebreather. He reportedly had a pulse ox of 72 upon EMS arrival. Patient was able to be weaned down from a nonrebreather to 6 L nasal cannula. ABG was done 7.35/48/107 on 6 L nasal cannula. WBC 9.3, Hb 13.3, platelets 212, d-dimer 3.92, troponin 0 0.22, AST 57, CRP 163.7, CK 1865, albumin 2.7 EKG sinus rhythm, leftward axis QRS transition zone, nonspecific T abnormalities high lateral leads, new prolonged QT. CXR with bilateral patchy infiltrate consistent with COVID-19 pneumonia. Admitted for further care. 02/27: Cr up to 2.4 today. Febrile to 100.7 F overnight. Slight cough. On 6 L nasal cannula oxygen. Afebrile past 24 hours, now on 10 L facemask O2, WBC 11.4, hemoglobin 12.8, CR stable at 2.4 albumin 2.5 CK 2060, glucose 302. He has been incontinent of urine over the past 24 hours and has some redness on the scrotum and buttocks, I advised him Smith catheter may be indicated he does not seem to be understanding much of what is going on. I have discussed with ID that type and screen and convalescent plasma may be indicated, will try to get a hold of family to di scuss goals of care. Nephrology consulted, will check UA and renal US. 03/01/2020 No acute events overnight. Patient this morning required increased oxygen requirements needing an nonrebreather mask. Patient was obtunded at this time and not following commands. Patient's chart, labs, images were reviewed and discussed with RN. 03/03/20 No acute events overnight. O2 requirement decreasing. Patient's chart and labs reviewed. Discussed with RN. 03/04/20 Patient remains intubated and sedated. Hyperglycemia still an issue. Discussed increasing insulin with RN. 03/05/20 Patient remains intubated. Continue broad-spectrum antibiotics and steroids. Blood sugar is elevated secondary to steroids, will adjust insulin appropriately. No acute events overnight. Vitals Vitals Vital Signs Date Time Temp Pulse Resp B/P (MAP) Pulse Ox O2 Delivery O2 Flow Rate FiO2 03/06/20 08:28 67 150/88 03/06/20 07:00 24 100 Ventilator 03/06/20 04:00 97.8 97.8 Physical Exam Physical Exam CONSTITUTIONAL: sedated on vent HEENT: Pupils have some cataracts in place. Oral cavity, pharynx is very dry. NECK: Supple, no JVD. LUNGS: Had some mild crackles. HEART: S1, S2. ABDOMEN: Soft, nontender, no guarding, no rebound. EXTREMITIES: Without clubbing, cyanosis. No gross edema. SKIN: Warm to touch without signs of rash. NEUROLOGIC: sedated on vent General: Cooperative, mild distress Heart: Regular rate Lungs: Other (Intubated) Abdomen: No masses, Other (Nondistended) Extremities: No clubbing, No cyanosis, No edema Skin: No rashes, No breakdown, No significant lesion Labs LABS Laboratory Tests Test 03/05/20 11:27 03/05/20 14:06 03/05/20 18:27 03/05/20 21:00 Glucose (Fingerstick) 331 mg/dL (70-99) 272 mg/dL (70-99) 280 mg/dL (70-99) 258 mg/dL (70-99) Test 03/06/20 00:07 03/06/20 05:50 03/06/20 08:25 Glucose (Fingerstick) 235 mg/dL (70-99) White Blood Count 8.2 x10^3/uL (4.0-11.0) Red Blood Count 3.60 x10^6/uL (4.30-5.70) Hemoglobin 10.5 g/dL (13.0-17.5) Hematocrit 31.8 % (39.0-53.0) Mean Corpuscular Volume 88 fL (79-100) Mean Corpuscular Hemoglobin 29 pg (25-35) Mean Corpuscular Hemoglobin Concent 33 g/dL (31-37) Red Cell Distribution Width 15.7 % (11.5-14.5) Platelet Count 210 x10^3/uL (140-400) Neutrophils (%) (Auto) 87 % (31-73) Lymphocytes (%) (Auto) 8 % (24-48) Monocytes (%) (Auto) 6 % (0-9) Eosinophils (%) (Auto) 0 % (0-3) Basophils (%) (Auto) 0 % (0-3) Neutrophils # (Auto) 7.1 x10^3/uL (1.8-7.7) Lymphocytes # (Auto) 0.6 x10^3/uL (1.0-4.8) Monocytes # (Auto) 0.4 x10^3/uL (0.0-1.1) Eosinophils # (Auto) 0.0 x10^3/uL (0.0-0.7) Basophils # (Auto) 0.0 x10^3/uL (0.0-0.2) Sodium Level 147 mmol/L (136-145) Potassium Level 4.3 mmol/L (3.5-5.1) Chloride Level 112 mmol/L (98-107) Carbon Dioxide Level 28 mmol/L (21-32) Anion Gap 7 (6-14) Blood Urea Nitrogen 41 mg/dL (8-26) Creatinine 1.4 mg/dL (0.7-1.3) Estimated GFR (Cockcroft-Gault) 59.5 Glucose Level 294 mg/dL (70-99) Calcium Level 7.1 mg/dL (8.5-10.1) Ferritin 614 ng/mL (26-388) C-Reactive Protein, Quantitative 11.4 mg/L (0-3.3) O2 Saturation 91 % (92-99) Arterial Blood pH 7.41 (7.35-7.45) Arterial Blood pCO2 at Patient Temp 41 mmHg (35-46) Arterial Blood pO2 at Patient Temp 60 mmHg (65-108) Arterial Blood HCO3 25 mmol/L (21-28) Arterial Blood Base Excess 1 mmol/L (-3-3) FiO2 55 Assessment and Plan Assessmemt and Plan Problems Medical Problems: (1) 2019 novel coronavirus disease (COVID-19) Status: Acute (2) Respiratory failure with hypoxia Status: Acute Comment Review of Relevant I have reviewed the following items latonia (where applicable) has been applied. Labs Laboratory Tests Test 03/04/20 11:32 03/04/20 17:28 03/04/20 21:50 03/04/20 23:58 Glucose (Fingerstick) 355 mg/dL (70-99) 324 mg/dL (70-99) 295 mg/dL (70-99) 322 mg/dL (70-99) Test 03/05/20 05:00 03/05/20 05:11 03/05/20 08:15 03/05/20 11:27 White Blood Count 7.5 x10^3/uL (4.0-11.0) Red Blood Count 3.72 x10^6/uL (4.30-5.70) Hemoglobin 10.9 g/dL (13.0-17.5) Hematocrit 32.7 % (39.0-53.0) Mean Corpuscular Volume 88 fL (79-100) Mean Corpuscular Hemoglobin 29 pg (25-35) Mean Corpuscular Hemoglobin Concent 33 g/dL (31-37) Red Cell Distribution Width 15.6 % (11.5-14.5) Platelet Count 212 x10^3/uL (140-400) Neutrophils (%) (Auto) 87 % (31-73) Lymphocytes (%) (Auto) 7 % (24-48) Monocytes (%) (Auto) 6 % (0-9) Eosinophils (%) (Auto) 0 % (0-3) Basophils (%) (Auto) 0 % (0-3) Neutrophils # (Auto) 6.5 x10^3/uL (1.8-7.7) Lymphocytes # (Auto) 0.6 x10^3/uL (1.0-4.8) Monocytes # (Auto) 0.4 x10^3/uL (0.0-1.1) Eosinophils # (Auto) 0.0 x10^3/uL (0.0-0.7) Basophils # (Auto) 0.0 x10^3/uL (0.0-0.2) Sodium Level 148 mmol/L (136-145) Potassium Level 3.9 mmol/L (3.5-5.1) Chloride Level 113 mmol/L (98-107) Carbon Dioxide Level 28 mmol/L (21-32) Anion Gap 7 (6-14) Blood Urea Nitrogen 40 mg/dL (8-26) Creatinine 1.5 mg/dL (0.7-1.3) Estimated GFR (Cockcroft-Gault) 54.9 Glucose Level 348 mg/dL (70-99) Calcium Level 7.5 mg/dL (8.5-10.1) Ferritin 739 ng/mL (26-388) C-Reactive Protein, Quantitative 22.1 mg/L (0-3.3) Glucose (Fingerstick) 319 mg/dL (70-99) 331 mg/dL (70-99) O2 Saturation 91 % (92-99) Arterial Blood pH 7.39 (7.35-7.45) Arterial Blood pCO2 at Patient Temp 41 mmHg (35-46) Arterial Blood pO2 at Patient Temp 61 mmHg (65-108) Arterial Blood HCO3 24 mmol/L (21-28) Arterial Blood Base Excess -1 mmol/L (-3-3) FiO2 55 Test 03/05/20 14:06 03/05/20 18:27 03/05/20 21:00 03/06/20 00:07 Glucose (Fingerstick) 272 mg/dL (70-99) 280 mg/dL (70-99) 258 mg/dL (70-99) 235 mg/dL (70-99) Test 03/06/20 05:50 03/06/20 08:25 White Blood Count 8.2 x10^3/uL (4.0-11.0) Red Blood Count 3.60 x10^6/uL (4.30-5.70) Hemoglobin 10.5 g/dL (13.0-17.5) Hematocrit 31.8 % (39.0-53.0) Mean Corpuscular Volume 88 fL (79-100) Mean Corpuscular Hemoglobin 29 pg (25-35) Mean Corpuscular Hemoglobin Concent 33 g/dL (31-37) Red Cell Distribution Width 15.7 % (11.5-14.5) Platelet Count 210 x10^3/uL (140-400) Neutrophils (%) (Auto) 87 % (31-73) Lymphocytes (%) (Auto) 8 % (24-48) Monocytes (%) (Auto) 6 % (0-9) Eosinophils (%) (Auto) 0 % (0-3) Basophils (%) (Auto) 0 % (0-3) Neutrophils # (Auto) 7.1 x10^3/uL (1.8-7.7) Lymphocytes # (Auto) 0.6 x10^3/uL (1.0-4.8) Monocytes # (Auto) 0.4 x10^3/uL (0.0-1.1) Eosinophils # (Auto) 0.0 x10^3/uL (0.0-0.7) Basophils # (Auto) 0.0 x10^3/uL (0.0-0.2) Sodium Level 147 mmol/L (136-145) Potassium Level 4.3 mmol/L (3.5-5.1) Chloride Level 112 mmol/L (98-107) Carbon Dioxide Level 28 mmol/L (21-32) Anion Gap 7 (6-14) Blood Urea Nitrogen 41 mg/dL (8-26) Creatinine 1.4 mg/dL (0.7-1.3) Estimated GFR (Cockcroft-Gault) 59.5 Glucose Level 294 mg/dL (70-99) Calcium Level 7.1 mg/dL (8.5-10.1) Ferritin 614 ng/mL (26-388) C-Reactive Protein, Quantitative 11.4 mg/L (0-3.3) O2 Saturation 91 % (92-99) Arterial Blood pH 7.41 (7.35-7.45) Arterial Blood pCO2 at Patient Temp 41 mmHg (35-46) Arterial Blood pO2 at Patient Temp 60 mmHg (65-108) Arterial Blood HCO3 25 mmol/L (21-28) Arterial Blood Base Excess 1 mmol/L (-3-3) FiO2 55 Laboratory Tests Test 03/05/20 11:27 03/05/20 14:06 03/05/20 18:27 03/05/20 21:00 Glucose (Fingerstick) 331 mg/dL (70-99) 272 mg/dL (70-99) 280 mg/dL (70-99) 258 mg/dL (70-99) Test 03/06/20 00:07 03/06/20 05:50 03/06/20 08:25 Glucose (Fingerstick) 235 mg/dL (70-99) White Blood Count 8.2 x10^3/uL (4.0-11.0) Red Blood Count 3.60 x10^6/uL (4.30-5.70) Hemoglobin 10.5 g/dL (13.0-17.5) Hematocrit 31.8 % (39.0-53.0) Mean Corpuscular Volume 88 fL (79-100) Mean Corpuscular Hemoglobin 29 pg (25-35) Mean Corpuscular Hemoglobin Concent 33 g/dL (31-37) Red Cell Distribution Width 15.7 % (11.5-14.5) Platelet Count 210 x10^3/uL (140-400) Neutrophils (%) (Auto) 87 % (31-73) Lymphocytes (%) (Auto) 8 % (24-48) Monocytes (%) (Auto) 6 % (0-9) Eosinophils (%) (Auto) 0 % (0-3) Basophils (%) (Auto) 0 % (0-3) Neutrophils # (Auto) 7.1 x10^3/uL (1.8-7.7) Lymphocytes # (Auto) 0.6 x10^3/uL (1.0-4.8) Monocytes # (Auto) 0.4 x10^3/uL (0.0-1.1) Eosinophils # (Auto) 0.0 x10^3/uL (0.0-0.7) Basophils # (Auto) 0.0 x10^3/uL (0.0-0.2) Sodium Level 147 mmol/L (136-145) Potassium Level 4.3 mmol/L (3.5-5.1) Chloride Level 112 mmol/L (98-107) Carbon Dioxide Level 28 mmol/L (21-32) Anion Gap 7 (6-14) Blood Urea Nitrogen 41 mg/dL (8-26) Creatinine 1.4 mg/dL (0.7-1.3) Estimated GFR (Cockcroft-Gault) 59.5 Glucose Level 294 mg/dL (70-99) Calcium Level 7.1 mg/dL (8.5-10.1) Ferritin 614 ng/mL (26-388) C-Reactive Protein, Quantitative 11.4 mg/L (0-3.3) O2 Saturation 91 % (92-99) Arterial Blood pH 7.41 (7.35-7.45) Arterial Blood pCO2 at Patient Temp 41 mmHg (35-46) Arterial Blood pO2 at Patient Temp 60 mmHg (65-108) Arterial Blood HCO3 25 mmol/L (21-28) Arterial Blood Base Excess 1 mmol/L (-3-3) FiO2 55 Medications Current Medications Acetaminophen (Tylenol Supp) 650 mg 1X ONCE UT Last administered on 02/27/20at 01:06; Start 02/27/20 at 01:00; Stop 02/27/20 at 01:01; Status DC Ondansetron HCl (Zofran) 4 mg PRN Q4HRS PRN IV NAUSEA/VOMITING; Start 02/27/20 at 07:15 Acetaminophen (Tylenol) 650 mg PRN Q4HRS PRN PO TEMP OVER 100.4F OR MILD PAIN; Start 02/27/20 at 07:15 Acetaminophen (Tylenol Supp) 650 mg PRN Q4HRS PRN UT TEMP OVER 100.4F OR MILD PAIN Last administered on 02/27/20at 21:50; Start 02/27/20 at 07:15 Al Hydroxide/Mg Hydroxide (Mylanta Plus Xs) 30 ml PRN DAILY PRN PO HEARTBURN / GAS; Start 02/27/20 at 07:15 Docusate Sodium (Colace) 100 mg PRN BID PRN PO HARD STOOLS Last administered on 03/03/20at 08:43; Start 02/27/20 at 07:15 Enoxaparin Sodium (Lovenox 30mg Syringe) 30 mg Q12H SQ Last administered on 02/27/20at 11:45; Start 02/27/20 at 09:00; Stop 02/27/20 at 14:35; Status DC Methylprednisolone Sodium Succinate (SOLU-Medrol 40MG VIAL) 40 mg Q8HRS IV Last administered on 03/06/20at 05:37; Start 02/27/20 at 08:00 Insulin Human Lispro (HumaLOG) 0-7 UNITS TIDACHC SQ Last administered on 03/02/20at 12:03; Start 02/27/20 at 07:30; Stop 03/02/20 at 15:08; Status DC Dextrose (Dextrose 50%-Water Syringe) 12.5 gm PRN Q15MIN PRN IV SEE COMMENTS; Start 02/27/20 at 07:15 Amlodipine Besylate (Norvasc) 10 mg DAILY PO Last administered on 03/06/20at 08:28; Start 02/27/20 at 09:00 Aspirin (Ecotrin) 81 mg DAILY PO Last administered on 03/03/20at 08:43; Start 02/27/20 at 09:00; Stop 03/04/20 at 07:05; Status DC Atorvastatin Calcium (Lipitor) 10 mg HS PO Last administered on 03/05/20at 20:31; Start 02/27/20 at 21:00 Clonidine HCl (Catapres Tts-3) 1 patch WEEKLY TD ; Start 02/27/20 at 09:00; Stop 02/27/20 at 16:00; Status DC Guaifenesin (Robitussin Dm) 10 ml PRN Q6HRS PRN PO COUGH; Start 02/27/20 at 07:15 Lactobacillus Rhamnosus (Culturelle) 1 cap BID PO Last administered on 03/06/20at 08:28; Start 02/27/20 at 09:00 Enoxaparin Sodium (Lovenox 40mg Syringe) 40 mg Q24H SQ Last administered on 02/27/20 21:50; Start 02/27/20 at 21:00; Stop 02/28/20 at 10:36; Status DC Zinc Sulfate (Orazinc) 220 mg DAILY PO Last administered on 03/05/20at 08:11; Start 02/27/20 at 16:00 Piperacillin Sod/ Tazobactam Sod 3.375 gm/Sodium Chloride 50 ml @ 100 mls/hr Q6HRS IV Last administered on 03/06/20 05:37; Start 02/28/20 at 11:00 Enoxaparin Sodium (Lovenox 40mg Syringe) 40 mg Q12HR SQ Last administered on 03/06/20 08:29; Start 02/28/20 at 11:00 Sodium Chloride 1,000 ml @ 100 mls/hr Q10H IV Last administered on 03/02/20 02:53; Start 02/28/20 at 11:00; Stop 03/02/20 at 12:34; Status DC Linezolid/Dextrose 300 ml @ 300 mls/hr Q12HR IV Last administered on 03/03/20at 20:39; Start 02/29/20 at 09:00; Stop 03/04/20 at 07:45; Status DC Sterile Water (WATER for RESP) 1,000 ml CONT PRN INH VIA VAPOTHERM DEVICE Last administered on 03/01/20 19:29; Start 03/01/20 at 11:00 Hydralazine HCl (Apresoline Inj) 10 mg PRN Q4HRS PRN IVP ELEVATED BP, SEE COMMENTS Last administered on 03/04/20at 14:08; Start 03/01/20 at 18:15 Fentanyl Citrate 30 ml @ 0 mls/hr CONT PRN IV SEE PROTOCOL Last administered on 03/06/20 05:11; Start 03/02/20 at 00:00 Midazolam HCl 100 ml @ 0 mls/hr CONT PRN IV SEE PROTOCOL Last administered on 03/05/20at 16:53; Start 03/02/20 at 00:00 Vecuronium [place] (Norcuron Bolus) 6 mg PRN Q4HRS PRN IV Sedation; Start 03/02/20 at 00:00 Etomidate (Amidate) 20 mg 1X ONCE IV Last administered on 8/25/20at 00:05; Start 03/02/20 at 00:00; Stop 03/02/20 at 00:08; Status DC Succinylcholine Chloride (Anectine) 200 mg 1X ONCE IV Last administered on 03/02/20at 00:05; Start 03/02/20 at 00:00; Stop 03/02/20 at 00:08; Status DC Sodium Bicarbonate (Sodium Bicarb Adult 8.4% Syr) 50 meq STK-MED ONCE .ROUTE ; Start 03/02/20 at 09:43; Stop 03/02/20 at 09:44; Status DC Sodium Bicarbonate (Sodium Bicarb Adult 8.4% Syr) 50 meq 1X ONCE IV Last administered on 03/02/20at 10:15; Start 03/02/20 at 10:15; Stop 03/02/20 at 10:16; Status DC Sodium Chloride 1,000 ml @ 100 mls/hr Q10H IV Last administered on 03/06/20at 08:30; Start 03/02/20 at 12:30 Insulin Human Lispro (HumaLOG) 0-9 UNITS TIDWMEALS SQ Last administered on 03/03/20at 18:16; Start 03/02/20 at 17:00; Stop 03/04/20 at 07:08; Status DC Pantoprazole Sodium (PROTONIX VIAL for IV PUSH) 40 mg DAILYAC IVP Last administered on 03/06/20at 08:28; Start 03/03/20 at 16:00 Insulin Glargine (Lantus Syringe) 8 unit QHS SQ Last administered on 03/03/20at 20:38; Start 03/03/20 at 21:00; Stop 03/04/20 at 11:45; Status DC Aspirin (Aspirin Chewable) 81 mg DAILYWBKFT PO Last administered on 03/06/20at 08:28; Start 03/04/20 at 08:00 Insulin Human Lispro (HumaLOG) 0-9 UNITS Q6HRS SQ Last administered on 03/06/20at 08:28; Start 03/04/20 at 12:00 Insulin Human Lispro (HumaLOG) 9 units 1X ONCE SQ Last administered on 03/04/20at 07:20; Start 03/04/20 at 07:15; Stop 03/04/20 at 07:16; Status DC Insulin Glargine (Lantus Syringe) 20 unit BID SQ Last administered on 03/05/20at 21:18; Start 03/04/20 at 21:00 Insulin Glargine (Lantus Syringe) 20 unit 1X ONCE SQ Last administered on 03/04/20at 11:45; Start 03/04/20 at 11:45; Stop 03/04/20 at 11:47; Status DC Insulin Human Lispro (HumaLOG) 14 units TID SQ Last administered on 03/06/20at 08:29; Start 03/04/20 at 14:00 Active Scripts Active Culturelle (Lactobacillus Rhamnosus Gg) 1 Each Cap.sprink 1 Cap PO BID 30 Days Guaifenesin Dm Syrup (Guaifenesin/Dextromethorphan) 5 Ml Syrup 10 Ml PO PRN Q6HRS PRN 30 Days Albuterol Sulfate Neb Soln (Albuterol Sulfate) 2.5 Mg/3 Ml Vial.neb 2.5 Mg NEB PRN Q4HRS PRN 30 Days Azithromycin Tablet (Azithromycin) 250 Mg Tablet 250 Mg PO DAILY 5 Days Cefpodoxime Proxetil 100 Mg Tablet 200 Mg PO BID 5 Days Reported Senna (Sennosides) 8.8 Mg/5 Ml Syrup 8.8 Mg PO DAILY Tylenol Extra Strength (Acetaminophen) 500 Mg Tablet 1,000 Mg PO PRN PRN Furosemide 20 Mg Tablet 1 Tab PO DAILY Glipizide Xl (Glipizide) 10 Mg Tab.er.24 1 Tab PO DAILY 30 Days Metformin Hcl Er (Metformin Hcl) 500 Mg Tab.er.24h 1,000 Mg PO DAILYWBKFT Glipizide Xl (Glipizide) 10 Mg Tab.er.24 10 Mg PO DAILY Calcium 500 + D Tablet (Calcium Carbonate/Vitamin D3) 1 Each Tablet 1 Each PO DAILY Catapres-Tts 3 (Clonidine) 1 Each Patch.tdwk 1 Each TD WEEKLY Lisinopril 20 Mg Tablet 1 Tab PO DAILY [cyanocobalamin] 100 Mcg PO DAILY Aspir 81 (Aspirin) 81 Mg Tablet.dr 81 Mg PO DAILY Norvasc (Amlodipine Besylate) 10 Mg Tablet 10 Mg PO DAILY Atorvastatin Calcium 10 Mg Tablet 10 Mg PO HS Vitals/I & O Vital Sign - Last 24 Hours 03/05/20 03/05/20 03/05/2020 10:00 11:00 11:48 12:00 Temp 97.4 97.4 Pulse 64 56 61 Resp 24 24 24 B/P (MAP) 107/63 (78) 114/64 (81) 120/68 (85) Pulse Ox 100 100 98 98 O2 Delivery Ventilator Ventilator Ventilator Ventilator 03/05/20 03/05/20 03/05/20 03/05/20 12:00 13:00 14:00 15:00 Pulse 57 57 63 Resp 24 24 24 B/P (MAP) 114/61 (78) 133/67 (89) 143/72 (95) Pulse Ox 100 100 100 O2 Delivery Mechanical Ventilator Ventilator Ventilator Ventilator 03/05/20 03/05/20 03/05/20 03/05/20 16:00 16:00 16:05 17:00 Temp 98.6 98.6 Pulse 56 56 Resp 24 B/P (MAP) 158/83 (108) 111/57 (75) Pulse Ox 99 98 100 O2 Delivery Ventilator Mechanical Ventilator Ventilator Ventilator 03/05/20 03/05/20 03/05/20 03/05/20 17:41 18:00 18:11 19:00 Pulse 54 50 Resp 24 24 B/P (MAP) 117/60 (79) 106/56 (73) Pulse Ox 100 100 100 100 O2 Delivery Ventilator Ventilator Ventilator Ventilator 03/05/20 03/05/20 03/05/20 03/05/20 19:35 20:00 20:00 21:00 Temp 98.5 98.5 Pulse 51 52 Resp 24 B/P (MAP) 114/58 (76) 161/74 (103) Pulse Ox 100 100 100 O2 Delivery Ventilator Ventilator Mechanical Ventilator Ventilator 03/05/20 03/05/20 03/05/20 03/06/20 22:00 23:00 23:45 00:00 Temp 98.5 98.5 Pulse 59 54 52 Resp 24 24 B/P (MAP) 117/63 (81) 144/59 (87) 144/72 (96) Pulse Ox 100 100 100 100 O2 Delivery Ventilator Ventilator Ventilator Ventilator 03/06/20 03/06/20 03/06/20 03/06/20 00:00 01:00 02:00 03:00 Pulse 55 63 66 Resp 24 24 24 B/P (MAP) 149/79 (102) 117/62 (80) 120/67 (84) Pulse Ox 100 100 100 O2 Delivery Mechanical Ventilator Ventilator Ventilator Ventilator 03/06/20 03/06/20 03/06/20 03/06/20 03:58 04:00 04:00 05:00 Temp 97.8 97.8 Pulse 66 60 Resp 24 24 B/P (MAP) 115/60 (78) 138/68 (91) Pulse Ox 100 100 100 O2 Delivery Ventilator Mechanical Ventilator Ventilator Ventilator 03/06/20 03/06/20 03/06/20 06:00 07:00 08:28 Pulse 58 61 67 Resp 24 24 B/P (MAP) 129/64 (85) 173/86 (115) 150/88 Pulse Ox 100 100 O2 Delivery Ventilator Ventilator Intake and Output 03/05/20 03/05/20 03/06/20 15:00 23:00 07:00 Intake Total 300 ml 2648.6 ml 1390.0 ml Output Total 505 ml 310 ml 525 ml Balance -205 ml 2338.6 ml 865.0 ml Justicifation of Admission Dx: Justifications for Admission: Justification of Admission Dx: Yes Respiratory Failure: Severe Resp Distress ALONDRA HARMON MD Mar 06, 2020 09:14
--- NOTE | 2020-03-06 10:43 | PDOC ---
PULMONARY PROGRESS NOTES DATE: 03/06/20 TIME: 10:42 Subjective intubated night of 03/01 due to worsening hypoxia a-febrile AC mode 55%FIO2, 8 PEEP No overnight concerns from nursing Vitals Vital Signs Date Time Temp Pulse Resp B/P (MAP) Pulse Ox O2 Delivery O2 Flow Rate FiO2 03/06/20 10:00 55 24 153/71 (98) 100 Ventilator 03/06/20 08:00 98.2 98.2 Comments PT. seen during COVID-19 pandemic visual exam preformed RRR VENT 60% no distress no rash No edema Lungs: Other (Intubated) Labs Laboratory Tests Test 03/04/20 11:32 03/04/20 17:28 03/04/20 21:50 03/04/20 23:58 Glucose (Fingerstick) 355 mg/dL (70-99) 324 mg/dL (70-99) 295 mg/dL (70-99) 322 mg/dL (70-99) Test 03/05/20 05:00 03/05/20 05:11 03/05/20 08:15 03/05/20 11:27 White Blood Count 7.5 x10^3/uL (4.0-11.0) Red Blood Count 3.72 x10^6/uL (4.30-5.70) Hemoglobin 10.9 g/dL (13.0-17.5) Hematocrit 32.7 % (39.0-53.0) Mean Corpuscular Volume 88 fL (79-100) Mean Corpuscular Hemoglobin 29 pg (25-35) Mean Corpuscular Hemoglobin Concent 33 g/dL (31-37) Red Cell Distribution Width 15.6 % (11.5-14.5) Platelet Count 212 x10^3/uL (140-400) Neutrophils (%) (Auto) 87 % (31-73) Lymphocytes (%) (Auto) 7 % (24-48) Monocytes (%) (Auto) 6 % (0-9) Eosinophils (%) (Auto) 0 % (0-3) Basophils (%) (Auto) 0 % (0-3) Neutrophils # (Auto) 6.5 x10^3/uL (1.8-7.7) Lymphocytes # (Auto) 0.6 x10^3/uL (1.0-4.8) Monocytes # (Auto) 0.4 x10^3/uL (0.0-1.1) Eosinophils # (Auto) 0.0 x10^3/uL (0.0-0.7) Basophils # (Auto) 0.0 x10^3/uL (0.0-0.2) Sodium Level 148 mmol/L (136-145) Potassium Level 3.9 mmol/L (3.5-5.1) Chloride Level 113 mmol/L (98-107) Carbon Dioxide Level 28 mmol/L (21-32) Anion Gap 7 (6-14) Blood Urea Nitrogen 40 mg/dL (8-26) Creatinine 1.5 mg/dL (0.7-1.3) Estimated GFR (Cockcroft-Gault) 54.9 Glucose Level 348 mg/dL (70-99) Calcium Level 7.5 mg/dL (8.5-10.1) Ferritin 739 ng/mL (26-388) C-Reactive Protein, Quantitative 22.1 mg/L (0-3.3) Glucose (Fingerstick) 319 mg/dL (70-99) 331 mg/dL (70-99) O2 Saturation 91 % (92-99) Arterial Blood pH 7.39 (7.35-7.45) Arterial Blood pCO2 at Patient Temp 41 mmHg (35-46) Arterial Blood pO2 at Patient Temp 61 mmHg (65-108) Arterial Blood HCO3 24 mmol/L (21-28) Arterial Blood Base Excess -1 mmol/L (-3-3) FiO2 55 Test 03/05/20 14:06 03/05/20 18:27 03/05/20 21:00 03/06/20 00:07 Glucose (Fingerstick) 272 mg/dL (70-99) 280 mg/dL (70-99) 258 mg/dL (70-99) 235 mg/dL (70-99) Test 03/06/20 05:50 03/06/20 08:25 White Blood Count 8.2 x10^3/uL (4.0-11.0) Red Blood Count 3.60 x10^6/uL (4.30-5.70) Hemoglobin 10.5 g/dL (13.0-17.5) Hematocrit 31.8 % (39.0-53.0) Mean Corpuscular Volume 88 fL (79-100) Mean Corpuscular Hemoglobin 29 pg (25-35) Mean Corpuscular Hemoglobin Concent 33 g/dL (31-37) Red Cell Distribution Width 15.7 % (11.5-14.5) Platelet Count 210 x10^3/uL (140-400) Neutrophils (%) (Auto) 87 % (31-73) Lymphocytes (%) (Auto) 8 % (24-48) Monocytes (%) (Auto) 6 % (0-9) Eosinophils (%) (Auto) 0 % (0-3) Basophils (%) (Auto) 0 % (0-3) Neutrophils # (Auto) 7.1 x10^3/uL (1.8-7.7) Lymphocytes # (Auto) 0.6 x10^3/uL (1.0-4.8) Monocytes # (Auto) 0.4 x10^3/uL (0.0-1.1) Eosinophils # (Auto) 0.0 x10^3/uL (0.0-0.7) Basophils # (Auto) 0.0 x10^3/uL (0.0-0.2) Sodium Level 147 mmol/L (136-145) Potassium Level 4.3 mmol/L (3.5-5.1) Chloride Level 112 mmol/L (98-107) Carbon Dioxide Level 28 mmol/L (21-32) Anion Gap 7 (6-14) Blood Urea Nitrogen 41 mg/dL (8-26) Creatinine 1.4 mg/dL (0.7-1.3) Estimated GFR (Cockcroft-Gault) 59.5 Glucose Level 294 mg/dL (70-99) Glucose (Fingerstick) 279 mg/dL (70-99) Calcium Level 7.1 mg/dL (8.5-10.1) Ferritin 614 ng/mL (26-388) C-Reactive Protein, Quantitative 11.4 mg/L (0-3.3) O2 Saturation 91 % (92-99) Arterial Blood pH 7.41 (7.35-7.45) Arterial Blood pCO2 at Patient Temp 41 mmHg (35-46) Arterial Blood pO2 at Patient Temp 60 mmHg (65-108) Arterial Blood HCO3 25 mmol/L (21-28) Arterial Blood Base Excess 1 mmol/L (-3-3) FiO2 55 Laboratory Tests Test 03/05/20 11:27 03/05/20 14:06 03/05/20 18:27 03/05/20 21:00 Glucose (Fingerstick) 331 mg/dL (70-99) 272 mg/dL (70-99) 280 mg/dL (70-99) 258 mg/dL (70-99) Test 03/06/20 00:07 03/06/20 05:50 03/06/20 08:25 Glucose (Fingerstick) 235 mg/dL (70-99) 279 mg/dL (70-99) White Blood Count 8.2 x10^3/uL (4.0-11.0) Red Blood Count 3.60 x10^6/uL (4.30-5.70) Hemoglobin 10.5 g/dL (13.0-17.5) Hematocrit 31.8 % (39.0-53.0) Mean Corpuscular Volume 88 fL (79-100) Mean Corpuscular Hemoglobin 29 pg (25-35) Mean Corpuscular Hemoglobin Concent 33 g/dL (31-37) Red Cell Distribution Width 15.7 % (11.5-14.5) Platelet Count 210 x10^3/uL (140-400) Neutrophils (%) (Auto) 87 % (31-73) Lymphocytes (%) (Auto) 8 % (24-48) Monocytes (%) (Auto) 6 % (0-9) Eosinophils (%) (Auto) 0 % (0-3) Basophils (%) (Auto) 0 % (0-3) Neutrophils # (Auto) 7.1 x10^3/uL (1.8-7.7) Lymphocytes # (Auto) 0.6 x10^3/uL (1.0-4.8) Monocytes # (Auto) 0.4 x10^3/uL (0.0-1.1) Eosinophils # (Auto) 0.0 x10^3/uL (0.0-0.7) Basophils # (Auto) 0.0 x10^3/uL (0.0-0.2) Sodium Level 147 mmol/L (136-145) Potassium Level 4.3 mmol/L (3.5-5.1) Chloride Level 112 mmol/L (98-107) Carbon Dioxide Level 28 mmol/L (21-32) Anion Gap 7 (6-14) Blood Urea Nitrogen 41 mg/dL (8-26) Creatinine 1.4 mg/dL (0.7-1.3) Estimated GFR (Cockcroft-Gault) 59.5 Glucose Level 294 mg/dL (70-99) Calcium Level 7.1 mg/dL (8.5-10.1) Ferritin 614 ng/mL (26-388) C-Reactive Protein, Quantitative 11.4 mg/L (0-3.3) O2 Saturation 91 % (92-99) Arterial Blood pH 7.41 (7.35-7.45) Arterial Blood pCO2 at Patient Temp 41 mmHg (35-46) Arterial Blood pO2 at Patient Temp 60 mmHg (65-108) Arterial Blood HCO3 25 mmol/L (21-28) Arterial Blood Base Excess 1 mmol/L (-3-3) FiO2 55 Medications Active Scripts Medications Dose Route/Sig Max Daily Dose Days Date Category Senna (Sennosides) 8.8 Mg/5 Ml Syrup 8.8 Mg PO DAILY 02/27/20 Reported Tylenol Extra Strength (Acetaminophen) 500 Mg Tablet 1,000 Mg PO PRN PRN 02/27/20 Reported Furosemide 20 Mg Tablet 1 Tab PO DAILY 02/27/20 Reported Glipizide Xl (Glipizide) 10 Mg Tab.er.24 1 Tab PO DAILY 30 02/27/20 Reported Culturelle (Lactobacillus Rhamnosus Gg) 1 Each Cap.sprink 1 Cap PO BID 05/23/18 Rx Guaifenesin Dm Syrup (Guaifenesin/Dextromethorphan) 5 Ml Syrup 10 Ml PO PRN Q6HRS PRN 30 05/23/18 Rx Albuterol Sulfate Neb Soln (Albuterol Sulfate) 2.5 Mg/3 Ml Vial.neb 2.5 Mg NEB PRN Q4HRS PRN 30 05/23/18 Rx Azithromycin Tablet (Azithromycin) 250 Mg Tablet 250 Mg PO DAILY 05/23/18 Rx Cefpodoxime Proxetil 100 Mg Tablet 200 Mg PO BID 05/23/18 Rx Metformin Hcl Er (Metformin Hcl) 500 Mg Tab.er.24h 1,000 Mg PO DAILYWBKFT 11/13/18 Reported Glipizide Xl (Glipizide) 10 Mg Tab.er.24 10 Mg PO DAILY 05/20/18 Reported Calcium 500 + D Tablet (Calcium Carbonate/Vitamin D3) 1 Each Tablet 1 Each PO DAILY 05/20/18 Reported Catapres-Tts 3 (Clonidine) 1 Each Patch.tdwk 1 Each TD WEEKLY 05/20/18 Reported Lisinopril 20 Mg Tablet 1 Tab PO DAILY 05/20/18 Reported [cyanocobalamin] 100 Mcg PO DAILY 05/20/18 Reported Aspir 81 (Aspirin) 81 Mg Tablet.dr 81 Mg PO DAILY 07/08/13 Reported Norvasc (Amlodipine Besylate) 10 Mg Tablet 10 Mg PO DAILY 07/08/13 Reported Atorvastatin Calcium 10 Mg Tablet 10 Mg PO HS 07/08/13 Reported Comments CXR- 02/27/2020 IMPRESSION: * Patchy opacities in bilateral lungs which could be seen with multifocal infiltrate or edema 03/01 WORSENING INFILTRATES 03/03- IMPRESSION: * Repeat demonstration of multifocal opacities throughout the bilateral lungs with slight decrease in the right upper lung compared to prior and similar to prior within other portions of the bilateral lungs. * Lines and tubes as above. * Enlarged cardiomediastinal silhouette. CXR 03/05 Impression: Slight interval improvement in the bilateral perihilar infiltrates. Impression . Acute hypoxic respiratory Failure--intubated night of 03/01 due to worsening hypoxia, AC mode 55%FIO2, 8 PEEP COVID-19 known positive COVID -19 pneumonia, cannot exclude bacterial pneumonia elevated ddimer 2/2 inflammatory stage of covid19 -- improving Fevers--resolved Anemia of chronic disease Dementia KENNY vs. CKD --stable Plan . AC mode. FI02 55% and PEEP 8 ABG reviewed, follow CXR, No clinical improvement s/p Plasma ABX per ID Cont. steroids,with taper will need 10 day course Follow nephrology recs will follow inflammatory markers including d-dimer, Continue TF for nutritional support DVT/GI PPX -- high dose lovenox D/W RN, and RT cct 30 min ANDRY TREJO MD Mar 06, 2020 10:43
--- NOTE | 2020-03-06 12:20 | PDOC ---
Renal-Progress Notes Vitals Vitals Vital Signs Date Time Temp Pulse Resp B/P (MAP) Pulse Ox O2 Delivery O2 Flow Rate FiO2 03/06/20 12:10 100 Ventilator 03/06/20 11:00 54 24 150/72 (98) 03/06/20 08:00 98.2 98.2 Weight Weight [ ] I.O. Intake and Output Intake and Output 03/06/20 07:00 Intake Total 4338.6 ml Output Total 1340 ml Balance 2998.6 ml IV Total 2363.6 ml Tube Feeding 1524 ml Other 451 ml Output Urine Total 1340 ml Labs Labs Laboratory Tests Test 03/05/20 14:06 03/05/20 18:27 03/05/20 21:00 03/06/20 00:07 Glucose (Fingerstick) 272 mg/dL (70-99) 280 mg/dL (70-99) 258 mg/dL (70-99) 235 mg/dL (70-99) Test 03/06/20 05:50 03/06/20 08:25 03/06/20 10:37 White Blood Count 8.2 x10^3/uL (4.0-11.0) Red Blood Count 3.60 x10^6/uL (4.30-5.70) Hemoglobin 10.5 g/dL (13.0-17.5) Hematocrit 31.8 % (39.0-53.0) Mean Corpuscular Volume 88 fL (79-100) Mean Corpuscular Hemoglobin 29 pg (25-35) Mean Corpuscular Hemoglobin Concent 33 g/dL (31-37) Red Cell Distribution Width 15.7 % (11.5-14.5) Platelet Count 210 x10^3/uL (140-400) Neutrophils (%) (Auto) 87 % (31-73) Lymphocytes (%) (Auto) 8 % (24-48) Monocytes (%) (Auto) 6 % (0-9) Eosinophils (%) (Auto) 0 % (0-3) Basophils (%) (Auto) 0 % (0-3) Neutrophils # (Auto) 7.1 x10^3/uL (1.8-7.7) Lymphocytes # (Auto) 0.6 x10^3/uL (1.0-4.8) Monocytes # (Auto) 0.4 x10^3/uL (0.0-1.1) Eosinophils # (Auto) 0.0 x10^3/uL (0.0-0.7) Basophils # (Auto) 0.0 x10^3/uL (0.0-0.2) Sodium Level 147 mmol/L (136-145) Potassium Level 4.3 mmol/L (3.5-5.1) Chloride Level 112 mmol/L (98-107) Carbon Dioxide Level 28 mmol/L (21-32) Anion Gap 7 (6-14) Blood Urea Nitrogen 41 mg/dL (8-26) Creatinine 1.4 mg/dL (0.7-1.3) Estimated GFR (Cockcroft-Gault) 59.5 Glucose Level 294 mg/dL (70-99) Glucose (Fingerstick) 279 mg/dL (70-99) 269 mg/dL (70-99) Calcium Level 7.1 mg/dL (8.5-10.1) Ferritin 614 ng/mL (26-388) C-Reactive Protein, Quantitative 11.4 mg/L (0-3.3) O2 Saturation 91 % (92-99) Arterial Blood pH 7.41 (7.35-7.45) Arterial Blood pCO2 at Patient Temp 41 mmHg (35-46) Arterial Blood pO2 at Patient Temp 60 mmHg (65-108) Arterial Blood HCO3 25 mmol/L (21-28) Arterial Blood Base Excess 1 mmol/L (-3-3) FiO2 55 Review of Systems Constitutional: yes: other (SOB, UNABLE TO OBTAIN) Physical Exam General Appearance: no apparent distress Skin: warm Respiratory: decreased breath sounds Heart: S1S2 Abdomen: soft, bowel sounds present Extremities: pulses present Neurology: other (SEDATED) Assessment Assessment IMP COVID 19 PNEUMONIA ACUTE RESP [id number] 55% PEEP 8 TV 550 UNCOMPENSATED ACUTE RESP ACIDOSIS ANEMIA KENNY WITH CR IMPROVED TO 1.5 HYPERNATREMIA HEMATURIA-LIKELY COVID RELATED ? CKD - UNKNOWN PLAN VENT SUPPORT SUPPORTIVE CARE S/PCONVALESCENT PLASMA EMPIRIC ANTIBIOTICS HYPOTONIC SALINE CONT SUPPORTIVE CARE WILL FOLLOW MIRI CADENA MD Mar 06, 2020 12:20
[2020-03-06] MEDS: MIDAZOLAM 100mg/100ml NS BAG 100 ML IV PRN (17:21)
[2020-03-06] MEDS: ATORVASTATIN CALCIUM 10 MG TABLET. PO SCH (20:30)
[2020-03-07] VITALS (24 sets, daily range): BP systolic 130–184; BP diastolic 66–94
[2020-03-07] MEDS: INSULIN LISPRO 300 UNITS/3 ML VIAL. SQ SCH ×7 (00:15→21:04)
[2020-03-07 05:49] LABS: BASO % 0 % (0-3); EOS % 0 % (0-3); HEMATOCRIT 31.5 % (39.0-53.0); HEMOGLOBIN 10.3 g/dL (13.0-17.5); LYMPH # 0.8 x10^3/uL (1.0-4.8); LYMPH % 7 % (24-48); MEAN CORPUSCULAR HEMOGLOBIN 29 pg (25-35); MEAN CORPUSCULAR HGB CONC 33 g/dL (31-37); MEAN CORPUSCULAR VOLUME 88 fL (79-100); MONO # 0.6 x10^3/uL (0.0-1.1); MONO % 5 % (0-9); NEUT % 87 % (31-73); PLATELET COUNT 212 x10^3/uL (140-400); RED BLOOD COUNT 3.58 x10^6/uL (4.30-5.70); WHITE BLOOD COUNT 11.5 x10^3/uL (4.0-11.0)
[2020-03-07] MEDS: IV 1/2 NORMAL SALINE 1,000 ML IV SCH ×2 (05:59→19:20)
[2020-03-07] MEDS: PIPERACILLIN/TAZOBACTAM 3.375 GM in IV NORMAL SALINE 50ML 50 ML IV SCH ×4 (05:59→23:49)
--- NOTE | 2020-03-07 06:20 | PDOC ---
Infectious Disease Note Subjective Subjective pt is intubated, on vent Vital Sign Vital Signs Vital Signs Date Time Temp Pulse Resp B/P (MAP) Pulse Ox O2 Delivery O2 Flow Rate FiO2 03/07/20 06:00 54 24 182/84 (116) 100 Ventilator 03/07/20 04:00 98.5 98.5 03/06/20 17:20 40.0 Physical Exam PHYSICAL EXAM CONSTITUTIONAL: sedated on vent HEENT: Pupils have some cataracts in place. Oral cavity, pharynx is very dry. NECK: Supple, no JVD. LUNGS: Had some mild crackles. HEART: S1, S2. ABDOMEN: Soft, nontender, no guarding, no rebound. EXTREMITIES: Without clubbing, cyanosis. No gross edema. SKIN: Warm to touch without signs of rash. NEUROLOGIC: sedated on vent Labs Lab Laboratory Tests Test 03/06/20 08:25 03/06/20 10:37 03/06/20 15:08 03/06/20 17:13 O2 Saturation 91 % (92-99) Arterial Blood pH 7.41 (7.35-7.45) Arterial Blood pCO2 at Patient Temp 41 mmHg (35-46) Arterial Blood pO2 at Patient Temp 60 mmHg (65-108) Arterial Blood HCO3 25 mmol/L (21-28) Arterial Blood Base Excess 1 mmol/L (-3-3) FiO2 55 Glucose (Fingerstick) 269 mg/dL (70-99) 273 mg/dL (70-99) 291 mg/dL (70-99) Test 03/06/20 21:03 03/07/20 00:01 03/07/20 05:45 Glucose (Fingerstick) 262 mg/dL (70-99) 208 mg/dL (70-99) White Blood Count 11.5 x10^3/uL (4.0-11.0) Red Blood Count 3.58 x10^6/uL (4.30-5.70) Hemoglobin 10.3 g/dL (13.0-17.5) Hematocrit 31.5 % (39.0-53.0) Mean Corpuscular Volume 88 fL (79-100) Mean Corpuscular Hemoglobin 29 pg (25-35) Mean Corpuscular Hemoglobin Concent 33 g/dL (31-37) Red Cell Distribution Width 15.0 % (11.5-14.5) Platelet Count 212 x10^3/uL (140-400) Neutrophils (%) (Auto) 87 % (31-73) Lymphocytes (%) (Auto) 7 % (24-48) Monocytes (%) (Auto) 5 % (0-9) Eosinophils (%) (Auto) 0 % (0-3) Basophils (%) (Auto) 0 % (0-3) Neutrophils # (Auto) 10.0 x10^3/uL (1.8-7.7) Lymphocytes # (Auto) 0.8 x10^3/uL (1.0-4.8) Monocytes # (Auto) 0.6 x10^3/uL (0.0-1.1) Eosinophils # (Auto) 0.0 x10^3/uL (0.0-0.7) Basophils # (Auto) 0.0 x10^3/uL (0.0-0.2) Objective Assessment 1. Fever. 2. Acute hypoxic respiratory failure. 3. COVID positive. 4. Acute kidney injury. 5. Leukocytosis. 6. Rhabdomyolysis with history as well, previous rhabdomyolysis. Plan Plan of Care Plasma given Cont Steroids cont zosyn, F/u labs and cults Dw nursing CONCEPCION SMITH MD Mar 07, 2020 06:20
[2020-03-07 06:53] LABS: C-REACTIVE PROTEIN 6.2 mg/L (0-3.3); CALCIUM 7.5 mg/dL (8.5-10.1); CREATININE 1.3 mg/dL (0.7-1.3); GFR 64.8; POTASSIUM 4.3 mmol/L (3.5-5.1)
[2020-03-07 06:55] LABS: % BANDS 3 % (0-9); % LYMPHS 3 % (24-48); % MONOS 2 % (0-10); % SEGS 92 % (35-66); PLT ESTIMATE ADEQUATE (ADEQUATE)
[2020-03-07] MEDS: PANTOPRAZOLE IV PUSH 40 MG VIAL. IVP SCH (07:55)
[2020-03-07] MEDS: ENOXAPARIN 40 MG/0.4 ML SYRINGE. SQ SCH ×2 (07:55→20:46)
[2020-03-07] MEDS: amLODIPine BESYLATE 10 MG TABLET PO SCH (07:56)
[2020-03-07] MEDS: methylPREDNISolone SOD SUCC PF 40 MG/ML VIAL. IV SCH ×2 (07:57→20:46)
[2020-03-07] MEDS: ASPIRIN CHEWABLE 81 MG TABLET. PO SCH (07:57)
[2020-03-07] MEDS: LACTOBACILLUS RHAMNOSUS GG 1 CAPSULE. PO SCH ×2 (07:57→20:46)
[2020-03-07] MEDS: ZINC SULFATE 220 MG CAPSULE. PO SCH (07:57)
[2020-03-07 08:54] LABS: BASE EXCESS ABG -1 mmol/L (-3-3); HCO3 ABG 24 mmol/L (21-28); PCO2 ABG 40 mmHg (35-46); PO2 ABG 56 mmHg (65-108); SAT O2 ABG 88 % (92-99)
[2020-03-07 08:55] LABS: FIO2 ABG 50
--- NOTE | 2020-03-07 09:10 | PDOC ---
Date and Time Called to see "central line hematoma" Right IJ central line placed 03/03, no issues until today. CXR distal tip in SVC Dressing removed, approx 10ml clot removed. Blood aspirated from proximal and middle port. No definite source of bleeding noted. There is no neck hematoma. Sterile dressing and biopatch applied. I suspect there may be a coagulopathy. He is on lovenox. Will ask primary to evaluate dosing. Current Medications Current Medications Acetaminophen (Tylenol Supp) 650 mg 1X ONCE WA Last administered on 02/27/20at 01:06; Start 02/27/20 at 01:00; Stop 02/27/20 at 01:01; Status DC Ondansetron HCl (Zofran) 4 mg PRN Q4HRS PRN IV NAUSEA/VOMITING; Start 02/27/20 at 07:15 Acetaminophen (Tylenol) 650 mg PRN Q4HRS PRN PO TEMP OVER 100.4F OR MILD PAIN; Start 02/27/20 at 07:15 Acetaminophen (Tylenol Supp) 650 mg PRN Q4HRS PRN WA TEMP OVER 100.4F OR MILD PAIN Last administered on 02/27/20at 21:50; Start 02/27/20 at 07:15 Al Hydroxide/Mg Hydroxide (Mylanta Plus Xs) 30 ml PRN DAILY PRN PO HEARTBURN / GAS; Start 02/27/20 at 07:15 Docusate Sodium (Colace) 100 mg PRN BID PRN PO HARD STOOLS Last administered on 03/03/20at 08:43; Start 02/27/20 at 07:15 Enoxaparin Sodium (Lovenox 30mg Syringe) 30 mg Q12H SQ Last administered on 02/27/20at 11:45; Start 02/27/20 at 09:00; Stop 02/27/20 at 14:35; Status DC Methylprednisolone Sodium Succinate (SOLU-Medrol 40MG VIAL) 40 mg Q8HRS IV Last administered on 03/06/20at 05:37; Start 02/27/20 at 08:00; Stop 03/06/20 at 10:35; Status DC Insulin Human Lispro (HumaLOG) 0-7 UNITS TIDACHC SQ Last administered on 03/02/20at 12:03; Start 02/27/20 at 07:30; Stop 8/25/20 at 15:08; Status DC Dextrose (Dextrose 50%-Water Syringe) 12.5 gm PRN Q15MIN PRN IV SEE COMMENTS; Start 02/27/20 at 07:15 Amlodipine Besylate (Norvasc) 10 mg DAILY PO Last administered on 03/07/20at 07:56; Start 02/27/20 at 09:00 Aspirin (Ecotrin) 81 mg DAILY PO Last administered on 03/03/20at 08:43; Start 02/27/20 at 09:00; Stop 03/04/20 at 07:05; Status DC Atorvastatin Calcium (Lipitor) 10 mg HS PO Last administered on 03/06/20at 20:30; Start 02/27/20 at 21:00 Clonidine HCl (Catapres Tts-3) 1 patch WEEKLY TD ; Start 02/27/20 at 09:00; Stop 02/27/20 at 16:00; Status DC Guaifenesin (Robitussin Dm) 10 ml PRN Q6HRS PRN PO COUGH; Start 02/27/20 at 07:15 Lactobacillus Rhamnosus (Culturelle) 1 cap BID PO Last administered on 03/07/20at 07:57; Start 02/27/20 at 09:00 Enoxaparin Sodium (Lovenox 40mg Syringe) 40 mg Q24H SQ Last administered on 02/27/20at 21:50; Start 02/27/20 at 21:00; Stop 02/28/20 at 10:36; Status DC Zinc Sulfate (Orazinc) 220 mg DAILY PO Last administered on 03/07/20at 07:57; Start 02/27/20 at 16:00 Piperacillin Sod/ Tazobactam Sod 3.375 gm/Sodium Chloride 50 ml @ 100 mls/hr Q6HRS IV Last administered on 03/07/20at 05:59; Start 02/28/20 at 11:00 Enoxaparin Sodium (Lovenox 40mg Syringe) 40 mg Q12HR SQ Last administered on 03/07/20at 07:55; Start 02/28/20 at 11:00 Sodium Chloride 1,000 ml @ 100 mls/hr Q10H IV Last administered on 03/02/20at 02:53; Start 02/28/20 at 11:00; Stop 03/02/20 at 12:34; Status DC Linezolid/Dextrose 300 ml @ 300 mls/hr Q12HR IV Last administered on 03/03/20at 20:39; Start 02/29/20 at 09:00; Stop 03/04/20 at 07:45; Status DC Sterile Water (WATER for RESP) 1,000 ml CONT PRN INH VIA VAPOTHERM DEVICE Last administered on 03/01/20at 19:29; Start 03/01/20 at 11:00 Hydralazine HCl (Apresoline Inj) 10 mg PRN Q4HRS PRN IVP ELEVATED BP, SEE COMMENTS Last administered on 03/04/20at 14:08; Start 03/01/20 at 18:15 Fentanyl Citrate 30 ml @ 0 mls/hr CONT PRN IV SEE PROTOCOL Last administered on 03/07/20at 05:13; Start 03/02/20 at 00:00 Midazolam HCl 100 ml @ 0 mls/hr CONT PRN IV SEE PROTOCOL Last administered on 03/06/20at 17:21; Start 03/02/20 at 00:00 Vecuronium [place] (Norcuron Bolus) 6 mg PRN Q4HRS PRN IV Sedation; Start 03/02/20 at 00:00 Etomidate (Amidate) 20 mg 1X ONCE IV Last administered on 03/02/20at 00:05; Start 03/02/20 at 00:00; Stop 03/02/20 at 00:08; Status DC Succinylcholine Chloride (Anectine) 200 mg 1X ONCE IV Last administered on 03/02/20at 00:05; Start 03/02/20 at 00:00; Stop 03/02/20 at 00:08; Status DC Sodium Bicarbonate (Sodium Bicarb Adult 8.4% Syr) 50 meq STK-MED ONCE .ROUTE ; Start 03/02/20 at 09:43; Stop 03/02/20 at 09:44; Status DC Sodium Bicarbonate (Sodium Bicarb Adult 8.4% Syr) 50 meq 1X ONCE IV Last administered on 03/02/20at 10:15; Start 03/02/20 at 10:15; Stop 03/02/20 at 10:16; Status DC Sodium Chloride 1,000 ml @ 100 mls/hr Q10H IV Last administered on 03/07/20at 05:59; Start 03/02/20 at 12:30 Insulin Human Lispro (HumaLOG) 0-9 UNITS TIDWMEALS SQ Last administered on 03/03/20at 18:16; Start 03/02/20 at 17:00; Stop 03/04/20 at 07:08; Status DC Pantoprazole Sodium (PROTONIX VIAL for IV PUSH) 40 mg DAILYAC IVP Last administered on 03/07/20at 07:55; Start 03/03/20 at 16:00 Insulin Glargine (Lantus Syringe) 8 unit QHS SQ Last administered on 03/03/20at 20:38; Start 03/03/20 at 21:00; Stop 03/04/20 at 11:45; Status DC Aspirin (Aspirin Chewable) 81 mg DAILYWBKFT PO Last administered on 03/07/20at 07:57; Start 03/04/20 at 08:00 Insulin Human Lispro (HumaLOG) 0-9 UNITS Q6HRS SQ Last administered on 03/07/20at 06:00; Start 03/04/20 at 12:00 Insulin Human Lispro (HumaLOG) 9 units 1X ONCE SQ Last administered on 03/04/20at 07:20; Start 03/04/20 at 07:15; Stop 03/04/20 at 07:16; Status DC Insulin Glargine (Lantus Syringe) 20 unit BID SQ Last administered on 03/06/20at 21:18; Start 03/04/20 at 21:00 Insulin Glargine (Lantus Syringe) 20 unit 1X ONCE SQ Last administered on 03/04/20at 11:45; Start 03/04/20 at 11:45; Stop 03/04/20 at 11:47; Status DC Insulin Human Lispro (HumaLOG) 14 units TID SQ Last administered on 03/07/20at 08:05; Start 03/04/20 at 14:00 Methylprednisolone Sodium Succinate (SOLU-Medrol 40MG VIAL) 40 mg BID IV Last administered on 03/07/20at 07:57; Start 03/06/20 at 10:45 Active Scripts Active Culturelle (Lactobacillus Rhamnosus Gg) 1 Each Cap.sprink 1 Cap PO BID 30 Days Guaifenesin Dm Syrup (Guaifenesin/Dextromethorphan) 5 Ml Syrup 10 Ml PO PRN Q6HRS PRN 30 Days Albuterol Sulfate Neb Soln (Albuterol Sulfate) 2.5 Mg/3 Ml Vial.neb 2.5 Mg NEB PRN Q4HRS PRN 30 Days Azithromycin Tablet (Azithromycin) 250 Mg Tablet 250 Mg PO DAILY 5 Days Cefpodoxime Proxetil 100 Mg Tablet 200 Mg PO BID 5 Days Reported Senna (Sennosides) 8.8 Mg/5 Ml Syrup 8.8 Mg PO DAILY Tylenol Extra Strength (Acetaminophen) 500 Mg Tablet 1,000 Mg PO PRN PRN Furosemide 20 Mg Tablet 1 Tab PO DAILY Glipizide Xl (Glipizide) 10 Mg Tab.er.24 1 Tab PO DAILY 30 Days Metformin Hcl Er (Metformin Hcl) 500 Mg Tab.er.24h 1,000 Mg PO DAILYWBKFT Glipizide Xl (Glipizide) 10 Mg Tab.er.24 10 Mg PO DAILY Calcium 500 + D Tablet (Calcium Carbonate/Vitamin D3) 1 Each Tablet 1 Each PO DAILY Catapres-Tts 3 (Clonidine) 1 Each Patch.tdwk 1 Each TD WEEKLY Lisinopril 20 Mg Tablet 1 Tab PO DAILY [cyanocobalamin] 100 Mcg PO DAILY Aspir 81 (Aspirin) 81 Mg Tablet.dr 81 Mg PO DAILY Norvasc (Amlodipine Besylate) 10 Mg Tablet 10 Mg PO DAILY Atorvastatin Calcium 10 Mg Tablet 10 Mg PO HS Pertinent Labs/Test Laboratory Tests Test 03/05/20 11:27 03/05/20 14:06 03/05/20 18:27 03/05/20 21:00 Glucose (Fingerstick) 331 mg/dL (70-99) 272 mg/dL (70-99) 280 mg/dL (70-99) 258 mg/dL (70-99) Test 03/06/20 00:07 03/06/20 05:50 03/06/20 08:25 03/06/20 10:37 Glucose (Fingerstick) 235 mg/dL (70-99) 279 mg/dL (70-99) 269 mg/dL (70-99) White Blood Count 8.2 x10^3/uL (4.0-11.0) Red Blood Count 3.60 x10^6/uL (4.30-5.70) Hemoglobin 10.5 g/dL (13.0-17.5) Hematocrit 31.8 % (39.0-53.0) Mean Corpuscular Volume 88 fL (79-100) Mean Corpuscular Hemoglobin 29 pg (25-35) Mean Corpuscular Hemoglobin Concent 33 g/dL (31-37) Red Cell Distribution Width 15.7 % (11.5-14.5) Platelet Count 210 x10^3/uL (140-400) Neutrophils (%) (Auto) 87 % (31-73) Lymphocytes (%) (Auto) 8 % (24-48) Monocytes (%) (Auto) 6 % (0-9) Eosinophils (%) (Auto) 0 % (0-3) Basophils (%) (Auto) 0 % (0-3) Neutrophils # (Auto) 7.1 x10^3/uL (1.8-7.7) Lymphocytes # (Auto) 0.6 x10^3/uL (1.0-4.8) Monocytes # (Auto) 0.4 x10^3/uL (0.0-1.1) Eosinophils # (Auto) 0.0 x10^3/uL (0.0-0.7) Basophils # (Auto) 0.0 x10^3/uL (0.0-0.2) Sodium Level 147 mmol/L (136-145) Potassium Level 4.3 mmol/L (3.5-5.1) Chloride Level 112 mmol/L (98-107) Carbon Dioxide Level 28 mmol/L (21-32) Anion Gap 7 (6-14) Blood Urea Nitrogen 41 mg/dL (8-26) Creatinine 1.4 mg/dL (0.7-1.3) Estimated GFR (Cockcroft-Gault) 59.5 Glucose Level 294 mg/dL (70-99) Calcium Level 7.1 mg/dL (8.5-10.1) Ferritin 614 ng/mL (26-388) C-Reactive Protein, Quantitative 11.4 mg/L (0-3.3) O2 Saturation 91 % (92-99) Arterial Blood pH 7.41 (7.35-7.45) Arterial Blood pCO2 at Patient Temp 41 mmHg (35-46) Arterial Blood pO2 at Patient Temp 60 mmHg (65-108) Arterial Blood HCO3 25 mmol/L (21-28) Arterial Blood Base Excess 1 mmol/L (-3-3) FiO2 55 Test 03/06/20 15:08 03/06/20 17:13 03/06/20 21:03 03/07/20 00:01 Glucose (Fingerstick) 273 mg/dL (70-99) 291 mg/dL (70-99) 262 mg/dL (70-99) 208 mg/dL (70-99) Test 03/07/20 05:45 03/07/20 08:40 White Blood Count 11.5 x10^3/uL (4.0-11.0) Red Blood Count 3.58 x10^6/uL (4.30-5.70) Hemoglobin 10.3 g/dL (13.0-17.5) Hematocrit 31.5 % (39.0-53.0) Mean Corpuscular Volume 88 fL (79-100) Mean Corpuscular Hemoglobin 29 pg (25-35) Mean Corpuscular Hemoglobin Concent 33 g/dL (31-37) Red Cell Distribution Width 15.0 % (11.5-14.5) Platelet Count 212 x10^3/uL (140-400) Neutrophils (%) (Auto) 87 % (31-73) Lymphocytes (%) (Auto) 7 % (24-48) Monocytes (%) (Auto) 5 % (0-9) Eosinophils (%) (Auto) 0 % (0-3) Basophils (%) (Auto) 0 % (0-3) Neutrophils # (Auto) 10.0 x10^3/uL (1.8-7.7) Lymphocytes # (Auto) 0.8 x10^3/uL (1.0-4.8) Monocytes # (Auto) 0.6 x10^3/uL (0.0-1.1) Eosinophils # (Auto) 0.0 x10^3/uL (0.0-0.7) Basophils # (Auto) 0.0 x10^3/uL (0.0-0.2) Segmented Neutrophils % 92 % (35-66) Band Neutrophils % 3 % (0-9) Lymphocytes % 3 % (24-48) Monocytes % 2 % (0-10) Platelet Estimate Adequate (ADEQUATE) Sodium Level 144 mmol/L (136-145) Potassium Level 4.3 mmol/L (3.5-5.1) Chloride Level 111 mmol/L (98-107) Carbon Dioxide Level 29 mmol/L (21-32) Anion Gap 4 (6-14) Blood Urea Nitrogen 37 mg/dL (8-26) Creatinine 1.3 mg/dL (0.7-1.3) Estimated GFR (Cockcroft-Gault) 64.8 Glucose Level 257 mg/dL (70-99) Calcium Level 7.5 mg/dL (8.5-10.1) Ferritin 472 ng/mL (26-388) C-Reactive Protein, Quantitative 6.2 mg/L (0-3.3) O2 Saturation 88 % (92-99) Arterial Blood pH 7.40 (7.35-7.45) Arterial Blood pCO2 at Patient Temp 40 mmHg (35-46) Arterial Blood pO2 at Patient Temp 56 mmHg (65-108) Arterial Blood HCO3 24 mmol/L (21-28) Arterial Blood Base Excess -1 mmol/L (-3-3) FiO2 50 Laboratory Tests Test 03/06/20 10:37 03/06/20 15:08 03/06/20 17:13 03/06/20 21:03 Glucose (Fingerstick) 269 mg/dL (70-99) 273 mg/dL (70-99) 291 mg/dL (70-99) 262 mg/dL (70-99) Test 03/07/20 00:01 03/07/20 05:45 03/07/20 08:40 Glucose (Fingerstick) 208 mg/dL (70-99) White Blood Count 11.5 x10^3/uL (4.0-11.0) Red Blood Count 3.58 x10^6/uL (4.30-5.70) Hemoglobin 10.3 g/dL (13.0-17.5) Hematocrit 31.5 % (39.0-53.0) Mean Corpuscular Volume 88 fL (79-100) Mean Corpuscular Hemoglobin 29 pg (25-35) Mean Corpuscular Hemoglobin Concent 33 g/dL (31-37) Red Cell Distribution Width 15.0 % (11.5-14.5) Platelet Count 212 x10^3/uL (140-400) Neutrophils (%) (Auto) 87 % (31-73) Lymphocytes (%) (Auto) 7 % (24-48) Monocytes (%) (Auto) 5 % (0-9) Eosinophils (%) (Auto) 0 % (0-3) Basophils (%) (Auto) 0 % (0-3) Neutrophils # (Auto) 10.0 x10^3/uL (1.8-7.7) Lymphocytes # (Auto) 0.8 x10^3/uL (1.0-4.8) Monocytes # (Auto) 0.6 x10^3/uL (0.0-1.1) Eosinophils # (Auto) 0.0 x10^3/uL (0.0-0.7) Basophils # (Auto) 0.0 x10^3/uL (0.0-0.2) Segmented Neutrophils % 92 % (35-66) Band Neutrophils % 3 % (0-9) Lymphocytes % 3 % (24-48) Monocytes % 2 % (0-10) Platelet Estimate Adequate (ADEQUATE) Sodium Level 144 mmol/L (136-145) Potassium Level 4.3 mmol/L (3.5-5.1) Chloride Level 111 mmol/L (98-107) Carbon Dioxide Level 29 mmol/L (21-32) Anion Gap 4 (6-14) Blood Urea Nitrogen 37 mg/dL (8-26) Creatinine 1.3 mg/dL (0.7-1.3) Estimated GFR (Cockcroft-Gault) 64.8 Glucose Level 257 mg/dL (70-99) Calcium Level 7.5 mg/dL (8.5-10.1) Ferritin 472 ng/mL (26-388) C-Reactive Protein, Quantitative 6.2 mg/L (0-3.3) O2 Saturation 88 % (92-99) Arterial Blood pH 7.40 (7.35-7.45) Arterial Blood pCO2 at Patient Temp 40 mmHg (35-46) Arterial Blood pO2 at Patient Temp 56 mmHg (65-108) Arterial Blood HCO3 24 mmol/L (21-28) Arterial Blood Base Excess -1 mmol/L (-3-3) FiO2 50 LAST VITALS Vital Signs Date Time Temp Pulse Resp B/P (MAP) Pulse Ox O2 Delivery O2 Flow Rate FiO2 03/07/20 08:39 99 Ventilator 03/07/20 07:56 56 149/80 8/30/20 07:00 25 03/07/20 04:00 98.5 98.5 03/06/20 17:20 40.0 ORALIA NARAYAN MD Mar 07, 2020 09:10
--- NOTE | 2020-03-07 10:02 | PDOC ---
PULMONARY PROGRESS NOTES DATE: 03/07/20 TIME: 09:59 Subjective intubated night of 03/01 due to worsening hypoxia a-febrile AC mode 50%FIO2, 8 PEEP Nursing reports hematoma/bleeding from central line Vitals Vital Signs Date Time Temp Pulse Resp B/P (MAP) Pulse Ox O2 Delivery O2 Flow Rate FiO2 03/07/20 09:00 50 24 163/91 (115) 97 Ventilator 03/07/20 08:00 97.8 97.8 03/06/20 17:20 40.0 Comments PT. seen during COVID- pandemic visual exam preformed RRR VENT 50% no distress no rash No edema Lungs: Other (Intubated) Labs Laboratory Tests Test 03/05/20 11:27 03/05/20 14:06 03/05/20 18:27 03/05/20 21:00 Glucose (Fingerstick) 331 mg/dL (70-99) 272 mg/dL (70-99) 280 mg/dL (70-99) 258 mg/dL (70-99) Test 03/06/20 00:07 03/06/20 05:50 03/06/20 08:25 03/06/20 10:37 Glucose (Fingerstick) 235 mg/dL (70-99) 279 mg/dL (70-99) 269 mg/dL (70-99) White Blood Count 8.2 x10^3/uL (4.0-11.0) Red Blood Count 3.60 x10^6/uL (4.30-5.70) Hemoglobin 10.5 g/dL (13.0-17.5) Hematocrit 31.8 % (39.0-53.0) Mean Corpuscular Volume 88 fL (79-100) Mean Corpuscular Hemoglobin 29 pg (25-35) Mean Corpuscular Hemoglobin Concent 33 g/dL (31-37) Red Cell Distribution Width 15.7 % (11.5-14.5) Platelet Count 210 x10^3/uL (140-400) Neutrophils (%) (Auto) 87 % (31-73) Lymphocytes (%) (Auto) 8 % (24-48) Monocytes (%) (Auto) 6 % (0-9) Eosinophils (%) (Auto) 0 % (0-3) Basophils (%) (Auto) 0 % (0-3) Neutrophils # (Auto) 7.1 x10^3/uL (1.8-7.7) Lymphocytes # (Auto) 0.6 x10^3/uL (1.0-4.8) Monocytes # (Auto) 0.4 x10^3/uL (0.0-1.1) Eosinophils # (Auto) 0.0 x10^3/uL (0.0-0.7) Basophils # (Auto) 0.0 x10^3/uL (0.0-0.2) Sodium Level 147 mmol/L (136-145) Potassium Level 4.3 mmol/L (3.5-5.1) Chloride Level 112 mmol/L (98-107) Carbon Dioxide Level 28 mmol/L (21-32) Anion Gap 7 (6-14) Blood Urea Nitrogen 41 mg/dL (8-26) Creatinine 1.4 mg/dL (0.7-1.3) Estimated GFR (Cockcroft-Gault) 59.5 Glucose Level 294 mg/dL (70-99) Calcium Level 7.1 mg/dL (8.5-10.1) Ferritin 614 ng/mL (26-388) C-Reactive Protein, Quantitative 11.4 mg/L (0-3.3) O2 Saturation 91 % (92-99) Arterial Blood pH 7.41 (7.35-7.45) Arterial Blood pCO2 at Patient Temp 41 mmHg (35-46) Arterial Blood pO2 at Patient Temp 60 mmHg (65-108) Arterial Blood HCO3 25 mmol/L (21-28) Arterial Blood Base Excess 1 mmol/L (-3-3) FiO2 55 Test 03/06/20 15:08 03/06/20 17:13 03/06/20 21:03 03/07/20 00:01 Glucose (Fingerstick) 273 mg/dL (70-99) 291 mg/dL (70-99) 262 mg/dL (70-99) 208 mg/dL (70-99) Test 03/07/20 05:45 03/07/20 08:40 White Blood Count 11.5 x10^3/uL (4.0-11.0) Red Blood Count 3.58 x10^6/uL (4.30-5.70) Hemoglobin 10.3 g/dL (13.0-17.5) Hematocrit 31.5 % (39.0-53.0) Mean Corpuscular Volume 88 fL (79-100) Mean Corpuscular Hemoglobin 29 pg (25-35) Mean Corpuscular Hemoglobin Concent 33 g/dL (31-37) Red Cell Distribution Width 15.0 % (11.5-14.5) Platelet Count 212 x10^3/uL (140-400) Neutrophils (%) (Auto) 87 % (31-73) Lymphocytes (%) (Auto) 7 % (24-48) Monocytes (%) (Auto) 5 % (0-9) Eosinophils (%) (Auto) 0 % (0-3) Basophils (%) (Auto) 0 % (0-3) Neutrophils # (Auto) 10.0 x10^3/uL (1.8-7.7) Lymphocytes # (Auto) 0.8 x10^3/uL (1.0-4.8) Monocytes # (Auto) 0.6 x10^3/uL (0.0-1.1) Eosinophils # (Auto) 0.0 x10^3/uL (0.0-0.7) Basophils # (Auto) 0.0 x10^3/uL (0.0-0.2) Segmented Neutrophils % 92 % (35-66) Band Neutrophils % 3 % (0-9) Lymphocytes % 3 % (24-48) Monocytes % 2 % (0-10) Platelet Estimate Adequate (ADEQUATE) Sodium Level 144 mmol/L (136-145) Potassium Level 4.3 mmol/L (3.5-5.1) Chloride Level 111 mmol/L (98-107) Carbon Dioxide Level 29 mmol/L (21-32) Anion Gap 4 (6-14) Blood Urea Nitrogen 37 mg/dL (8-26) Creatinine 1.3 mg/dL (0.7-1.3) Estimated GFR (Cockcroft-Gault) 64.8 Glucose Level 257 mg/dL (70-99) Calcium Level 7.5 mg/dL (8.5-10.1) Ferritin 472 ng/mL (26-388) C-Reactive Protein, Quantitative 6.2 mg/L (0-3.3) O2 Saturation 88 % (92-99) Arterial Blood pH 7.40 (7.35-7.45) Arterial Blood pCO2 at Patient Temp 40 mmHg (35-46) Arterial Blood pO2 at Patient Temp 56 mmHg (65-108) Arterial Blood HCO3 24 mmol/L (21-28) Arterial Blood Base Excess -1 mmol/L (-3-3) FiO2 50 Laboratory Tests Test 03/06/20 10:37 03/06/20 15:08 03/06/20 17:13 03/06/20 21:03 Glucose (Fingerstick) 269 mg/dL (70-99) 273 mg/dL (70-99) 291 mg/dL (70-99) 262 mg/dL (70-99) Test 03/07/20 00:01 03/07/20 05:45 03/07/20 08:40 Glucose (Fingerstick) 208 mg/dL (70-99) White Blood Count 11.5 x10^3/uL (4.0-11.0) Red Blood Count 3.58 x10^6/uL (4.30-5.70) Hemoglobin 10.3 g/dL (13.0-17.5) Hematocrit 31.5 % (39.0-53.0) Mean Corpuscular Volume 88 fL (79-100) Mean Corpuscular Hemoglobin 29 pg (25-35) Mean Corpuscular Hemoglobin Concent 33 g/dL (31-37) Red Cell Distribution Width 15.0 % (11.5-14.5) Platelet Count 212 x10^3/uL (140-400) Neutrophils (%) (Auto) 87 % (31-73) Lymphocytes (%) (Auto) 7 % (24-48) Monocytes (%) (Auto) 5 % (0-9) Eosinophils (%) (Auto) 0 % (0-3) Basophils (%) (Auto) 0 % (0-3) Neutrophils # (Auto) 10.0 x10^3/uL (1.8-7.7) Lymphocytes # (Auto) 0.8 x10^3/uL (1.0-4.8) Monocytes # (Auto) 0.6 x10^3/uL (0.0-1.1) Eosinophils # (Auto) 0.0 x10^3/uL (0.0-0.7) Basophils # (Auto) 0.0 x10^3/uL (0.0-0.2) Segmented Neutrophils % 92 % (35-66) Band Neutrophils % 3 % (0-9) Lymphocytes % 3 % (24-48) Monocytes % 2 % (0-10) Platelet Estimate Adequate (ADEQUATE) Sodium Level 144 mmol/L (136-145) Potassium Level 4.3 mmol/L (3.5-5.1) Chloride Level 111 mmol/L (98-107) Carbon Dioxide Level 29 mmol/L (21-32) Anion Gap 4 (6-14) Blood Urea Nitrogen 37 mg/dL (8-26) Creatinine 1.3 mg/dL (0.7-1.3) Estimated GFR (Cockcroft-Gault) 64.8 Glucose Level 257 mg/dL (70-99) Calcium Level 7.5 mg/dL (8.5-10.1) Ferritin 472 ng/mL (26-388) C-Reactive Protein, Quantitative 6.2 mg/L (0-3.3) O2 Saturation 88 % (92-99) Arterial Blood pH 7.40 (7.35-7.45) Arterial Blood pCO2 at Patient Temp 40 mmHg (35-46) Arterial Blood pO2 at Patient Temp 56 mmHg (65-108) Arterial Blood HCO3 24 mmol/L (21-28) Arterial Blood Base Excess -1 mmol/L (-3-3) FiO2 50 Medications Active Scripts Medications Dose Route/Sig Max Daily Dose Days Date Category Senna (Sennosides) 8.8 Mg/5 Ml Syrup 8.8 Mg PO DAILY 02/27/20 Reported Tylenol Extra Strength (Acetaminophen) 500 Mg Tablet 1,000 Mg PO PRN PRN 02/27/20 Reported Furosemide 20 Mg Tablet 1 Tab PO DAILY 02/27/20 Reported Glipizide Xl (Glipizide) 10 Mg Tab.er.24 1 Tab PO DAILY 30 02/27/20 Reported Culturelle (Lactobacillus Rhamnosus Gg) 1 Each Cap.sprink 1 Cap PO BID 30 05/23/18 Rx Guaifenesin Dm Syrup (Guaifenesin/Dextromethorphan) 5 Ml Syrup 10 Ml PO PRN Q6HRS PRN 30 05/23/18 Rx Albuterol Sulfate Neb Soln (Albuterol Sulfate) 2.5 Mg/3 Ml Vial.neb 2.5 Mg NEB PRN Q4HRS PRN 30 05/23/18 Rx Azithromycin Tablet (Azithromycin) 250 Mg Tablet 250 Mg PO DAILY 5 05/23/18 Rx Cefpodoxime Proxetil 100 Mg Tablet 200 Mg PO BID 5 05/23/18 Rx Metformin Hcl Er (Metformin Hcl) 500 Mg Tab.er.24h 1,000 Mg PO DAILYWBKFT 05/21/18 Reported Glipizide Xl (Glipizide) 10 Mg Tab.er.24 10 Mg PO DAILY 05/20/18 Reported Calcium 500 + D Tablet (Calcium Carbonate/Vitamin D3) 1 Each Tablet 1 Each PO DAILY 05/20/18 Reported Catapres-Tts 3 (Clonidine) 1 Each Patch.tdwk 1 Each TD WEEKLY 05/20/18 Reported Lisinopril 20 Mg Tablet 1 Tab PO DAILY 05/20/18 Reported [cyanocobalamin] 100 Mcg PO DAILY 05/20/18 Reported Aspir 81 (Aspirin) 81 Mg Tablet.dr 81 Mg PO DAILY 07/08/13 Reported Norvasc (Amlodipine Besylate) 10 Mg Tablet 10 Mg PO DAILY 07/08/13 Reported Atorvastatin Calcium 10 Mg Tablet 10 Mg PO HS 07/08/13 Reported Comments CXR- 02/27/2020 IMPRESSION: * Patchy opacities in bilateral lungs which could be seen with multifocal infiltrate or edema 03/01 WORSENING INFILTRATES 03/03- IMPRESSION: * Repeat demonstration of multifocal opacities throughout the bilateral lungs with slight decrease in the right upper lung compared to prior and similar to prior within other portions of the bilateral lungs. * Lines and tubes as above. * Enlarged cardiomediastinal silhouette. CXR 03/05 Impression: Slight interval improvement in the bilateral perihilar infiltrates. Impression . Acute hypoxic respiratory Failure--intubated night of 03/01 due to worsening hypoxia, AC mode 50%FIO2, 8 PEEP COVID-19 known positive COVID -19 pneumonia, cannot exclude bacterial pneumonia elevated ddimer 2/2 inflammatory stage of covid19 -- improving Fevers--resolved Anemia of chronic disease Dementia KENNY vs. CKD --resolved, ongoing azotemia steroids? Plan . AC mode. FI02 50% and PEEP 8 ABG reviewed, follow CXR, No clinical improvement s/p Plasma ABX per ID Cont. steroids,with taper Follow nephrology recs will follow inflammatory markers Continue TF for nutritional support DVT/GI PPX -- high dose lovenox D/W RN, and RT cct 30 min ANDRY TREJO MD Mar 07, 2020 10:02
[2020-03-07] MEDS: INSULIN GLARGINE SYRINGE. SQ SCH ×2 (10:45→21:04)
--- NOTE | 2020-03-07 11:03 | PDOC ---
PROGRESS NOTES Date of Service: DATE: 03/07/20 TIME: 11:03 Chief Complaint Chief Complaint impression Respiratory failure with hypoxia - likely 2/2 COVID 19. WORSENING. Steroids, Lovenox twice daily, consult pulmonology. Maintain O2 saturations 92% or greater. SARS-CoV-2 (COVID-19) - As above. ID consulted, agree to consent for convalescent [facility]FP if this is line with family goals of care. KENNY - likely vasomotor nephropathy from COVID 19 infection, will monitor renal fx and hydrate. 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 year, now in SNF residential Diabetes-Type II - sliding scale insulin, will hold oral hypoglycemics for now GERD - cont antacids High Cholesterol - cont statin Hypertension - cont meds, hold clonidine patch given his BP is on the low side POLYNEUROPATHY - CK elevated, will monitor FEN - Pureed nectar thick diet PPX - lovenox FULL CODE Dispo - inpatient, transferred to ICU for increase O2 requirements 36 min cc time History of Present Illness History of Present Illness Mr Rivera is a 79-year-old male with PMHx Anemia, Dementia, Diabetes-Type II, Diverticulosis, GERD, High Cholesterol, Hypertension, POLYNEUROPATHY resident of [facility] in [place] comes to ED with known SARS-CoV-2 (COVID 19) who presents to the emergency room with respiratory distress. Patient is unable to provide any history. Is unclear at this time how long he has been ill. Is unclear whether or not he is on oxygen at baseline. Upon arrival to the emergency room he is on a nonrebreather. He reportedly had a pulse ox of 72 upon EMS arrival. Patient was able to be weaned down from a nonrebreather to 6 L nasal cannula. ABG was done 7.35/48/107 on 6 L nasal cannula. WBC 9.3, Hb 13.3, platelets 212, d-dimer 3.92, troponin 0 0.22, AST 57, CRP 163.7, CK 1865, albumin 2.7 EKG sinus rhythm, leftward axis QRS transition zone, nonspecific T abnormalities high lateral leads, new prolonged QT. CXR with bilateral patchy infiltrate consistent with COVID-19 pneumonia. Admitted for further care. 02/27: Cr up to 2.4 today. Febrile to 100.7 F overnight. Slight cough. On 6 L nasal cannula oxygen. Afebrile past 24 hours, now on 10 L facemask O2, WBC 11.4, hemoglobin 12.8, CR stable at 2.4 albumin 2.5 CK 2060, glucose 302. He has been incontinent of urine over the past 24 hours and has some redness on the scrotum and buttocks, I advised him Smith catheter may be indicated he does not seem to be understanding much of what is going on. I have discussed with ID that type and screen and convalescent plasma may be indicated, will try to get a hold of family to d [facility] goals of care. Nephrology consulted, will check UA and renal US. 03/01/2020 No acute events overnight. Patient this morning required increased oxygen requirements needing an nonrebreather mask. Patient was obtunded at this time and not following commands. Patient's chart, labs, images were reviewed and discussed with RN. 03/03/20 No acute events overnight. O2 requirement decreasing. Patient's chart and labs reviewed. Discussed with RN. 03/04/20 Patient remains intubated and sedated. Hyperglycemia still an issue. Discussed increasing insulin with RN. 03/05/20 Patient remains intubated. Continue broad-spectrum antibiotics and steroids. Blood sugar is elevated secondary to steroids, will adjust insulin appropriately. No acute events overnight. Vitals Vitals Vital Signs Date Time Temp Pulse Resp B/P (MAP) Pulse Ox O2 Delivery O2 Flow Rate FiO2 03/07/20 10:00 48 24 133/76 (95) 100 Ventilator 03/07/20 08:00 97.8 97.8 03/06/20 17:20 40.0 Physical Exam Physical Exam CONSTITUTIONAL: sedated on vent HEENT: Pupils have some cataracts in place. Oral cavity, pharynx is very dry. NECK: Supple, no JVD. LUNGS: Had some mild crackles. HEART: S1, S2. ABDOMEN: Soft, nontender, no guarding, no rebound. EXTREMITIES: Without clubbing, cyanosis. No gross edema. SKIN: Warm to touch without signs of rash. NEUROLOGIC: sedated on vent General: Cooperative, mild distress Heart: Regular rate Lungs: Other (Intubated) Abdomen: No masses, Other (Nondistended) Extremities: No clubbing, No cyanosis, No edema Skin: No rashes, No breakdown, No significant lesion Labs LABS Laboratory Tests Test 03/06/20 15:08 03/06/20 17:13 03/06/20 21:03 03/07/20 00:01 Glucose (Fingerstick) 273 mg/dL (70-99) 291 mg/dL (70-99) 262 mg/dL (70-99) 208 mg/dL (70-99) Test 03/07/20 05:45 03/07/20 08:40 White Blood Count 11.5 x10^3/uL (4.0-11.0) Red Blood Count 3.58 x10^6/uL (4.30-5.70) Hemoglobin 10.3 g/dL (13.0-17.5) Hematocrit 31.5 % (39.0-53.0) Mean Corpuscular Volume 88 fL (79-100) Mean Corpuscular Hemoglobin 29 pg (25-35) Mean Corpuscular Hemoglobin Concent 33 g/dL (31-37) Red Cell Distribution Width 15.0 % (11.5-14.5) Platelet Count 212 x10^3/uL (140-400) Neutrophils (%) (Auto) 87 % (31-73) Lymphocytes (%) (Auto) 7 % (24-48) Monocytes (%) (Auto) 5 % (0-9) Eosinophils (%) (Auto) 0 % (0-3) Basophils (%) (Auto) 0 % (0-3) Neutrophils # (Auto) 10.0 x10^3/uL (1.8-7.7) Lymphocytes # (Auto) 0.8 x10^3/uL (1.0-4.8) Monocytes # (Auto) 0.6 x10^3/uL (0.0-1.1) Eosinophils # (Auto) 0.0 x10^3/uL (0.0-0.7) Basophils # (Auto) 0.0 x10^3/uL (0.0-0.2) Segmented Neutrophils % 92 % (35-66) Band Neutrophils % 3 % (0-9) Lymphocytes % 3 % (24-48) Monocytes % 2 % (0-10) Platelet Estimate Adequate (ADEQUATE) Sodium Level 144 mmol/L (136-145) Potassium Level 4.3 mmol/L (3.5-5.1) Chloride Level 111 mmol/L (98-107) Carbon Dioxide Level 29 mmol/L (21-32) Anion Gap 4 (6-14) Blood Urea Nitrogen 37 mg/dL (8-26) Creatinine 1.3 mg/dL (0.7-1.3) Estimated GFR (Cockcroft-Gault) 64.8 Glucose Level 257 mg/dL (70-99) Calcium Level 7.5 mg/dL (8.5-10.1) Ferritin 472 ng/mL (26-388) C-Reactive Protein, Quantitative 6.2 mg/L (0-3.3) O2 Saturation 88 % (92-99) Arterial Blood pH 7.40 (7.35-7.45) Arterial Blood pCO2 at Patient Temp 40 mmHg (35-46) Arterial Blood pO2 at Patient Temp 56 mmHg (65-108) Arterial Blood HCO3 24 mmol/L (21-28) Arterial Blood Base Excess -1 mmol/L (-3-3) FiO2 50 Assessment and Plan Assessmemt and Plan Problems Medical Problems: (1) 2019 novel coronavirus disease (COVID-19) Status: Acute (2) Respiratory failure with hypoxia Status: Acute Comment Review of Relevant I have reviewed the following items latonia (where applicable) has been applied. Labs Laboratory Tests Test 03/05/20 11:27 03/05/20 14:06 03/05/20 18:27 03/05/20 21:00 Glucose (Fingerstick) 331 mg/dL (70-99) 272 mg/dL (70-99) 280 mg/dL (70-99) 258 mg/dL (70-99) Test 03/06/20 00:07 03/06/20 05:50 03/06/20 08:25 03/06/20 10:37 Glucose (Fingerstick) 235 mg/dL (70-99) 279 mg/dL (70-99) 269 mg/dL (70-99) White Blood Count 8.2 x10^3/uL (4.0-11.0) Red Blood Count 3.60 x10^6/uL (4.30-5.70) Hemoglobin 10.5 g/dL (13.0-17.5) Hematocrit 31.8 % (39.0-53.0) Mean Corpuscular Volume 88 fL (79-100) Mean Corpuscular Hemoglobin 29 pg (25-35) Mean Corpuscular Hemoglobin Concent 33 g/dL (31-37) Red Cell Distribution Width 15.7 % (11.5-14.5) Platelet Count 210 x10^3/uL (140-400) Neutrophils (%) (Auto) 87 % (31-73) Lymphocytes (%) (Auto) 8 % (24-48) Monocytes (%) (Auto) 6 % (0-9) Eosinophils (%) (Auto) 0 % (0-3) Basophils (%) (Auto) 0 % (0-3) Neutrophils # (Auto) 7.1 x10^3/uL (1.8-7.7) Lymphocytes # (Auto) 0.6 x10^3/uL (1.0-4.8) Monocytes # (Auto) 0.4 x10^3/uL (0.0-1.1) Eosinophils # (Auto) 0.0 x10^3/uL (0.0-0.7) Basophils # (Auto) 0.0 x10^3/uL (0.0-0.2) Sodium Level 147 mmol/L (136-145) Potassium Level 4.3 mmol/L (3.5-5.1) Chloride Level 112 mmol/L (98-107) Carbon Dioxide Level 28 mmol/L (21-32) Anion Gap 7 (6-14) Blood Urea Nitrogen 41 mg/dL (8-26) Creatinine 1.4 mg/dL (0.7-1.3) Estimated GFR (Cockcroft-Gault) 59.5 Glucose Level 294 mg/dL (70-99) Calcium Level 7.1 mg/dL (8.5-10.1) Ferritin 614 ng/mL (26-388) C-Reactive Protein, Quantitative 11.4 mg/L (0-3.3) O2 Saturation 91 % (92-99) Arterial Blood pH 7.41 (7.35-7.45) Arterial Blood pCO2 at Patient Temp 41 mmHg (35-46) Arterial Blood pO2 at Patient Temp 60 mmHg (65-108) Arterial Blood HCO3 25 mmol/L (21-28) Arterial Blood Base Excess 1 mmol/L (-3-3) FiO2 55 Test 03/06/20 15:08 03/06/20 17:13 03/06/20 21:03 03/07/20 00:01 Glucose (Fingerstick) 273 mg/dL (70-99) 291 mg/dL (70-99) 262 mg/dL (70-99) 208 mg/dL (70-99) Test 03/07/20 05:45 03/07/20 08:40 White Blood Count 11.5 x10^3/uL (4.0-11.0) Red Blood Count 3.58 x10^6/uL (4.30-5.70) Hemoglobin 10.3 g/dL (13.0-17.5) Hematocrit 31.5 % (39.0-53.0) Mean Corpuscular Volume 88 fL (79-100) Mean Corpuscular Hemoglobin 29 pg (25-35) Mean Corpuscular Hemoglobin Concent 33 g/dL (31-37) Red Cell Distribution Width 15.0 % (11.5-14.5) Platelet Count 212 x10^3/uL (140-400) Neutrophils (%) (Auto) 87 % (31-73) Lymphocytes (%) (Auto) 7 % (24-48) Monocytes (%) (Auto) 5 % (0-9) Eosinophils (%) (Auto) 0 % (0-3) Basophils (%) (Auto) 0 % (0-3) Neutrophils # (Auto) 10.0 x10^3/uL (1.8-7.7) Lymphocytes # (Auto) 0.8 x10^3/uL (1.0-4.8) Monocytes # (Auto) 0.6 x10^3/uL (0.0-1.1) Eosinophils # (Auto) 0.0 x10^3/uL (0.0-0.7) Basophils # (Auto) 0.0 x10^3/uL (0.0-0.2) Segmented Neutrophils % 92 % (35-66) Band Neutrophils % 3 % (0-9) Lymphocytes % 3 % (24-48) Monocytes % 2 % (0-10) Platelet Estimate Adequate (ADEQUATE) Sodium Level 144 mmol/L (136-145) Potassium Level 4.3 mmol/L (3.5-5.1) Chloride Level 111 mmol/L (98-107) Carbon Dioxide Level 29 mmol/L (21-32) Anion Gap 4 (6-14) Blood Urea Nitrogen 37 mg/dL (8-26) Creatinine 1.3 mg/dL (0.7-1.3) Estimated GFR (Cockcroft-Gault) 64.8 Glucose Level 257 mg/dL (70-99) Calcium Level 7.5 mg/dL (8.5-10.1) Ferritin 472 ng/mL (26-388) C-Reactive Protein, Quantitative 6.2 mg/L (0-3.3) O2 Saturation 88 % (92-99) Arterial Blood pH 7.40 (7.35-7.45) Arterial Blood pCO2 at Patient Temp 40 mmHg (35-46) Arterial Blood pO2 at Patient Temp 56 mmHg (65-108) Arterial Blood HCO3 24 mmol/L (21-28) Arterial Blood Base Excess -1 mmol/L (-3-3) FiO2 50 Laboratory Tests Test 03/06/20 15:08 03/06/20 17:13 03/06/20 21:03 03/07/20 00:01 Glucose (Fingerstick) 273 mg/dL (70-99) 291 mg/dL (70-99) 262 mg/dL (70-99) 208 mg/dL (70-99) Test 03/07/20 05:45 03/07/20 08:40 White Blood Count 11.5 x10^3/uL (4.0-11.0) Red Blood Count 3.58 x10^6/uL (4.30-5.70) Hemoglobin 10.3 g/dL (13.0-17.5) Hematocrit 31.5 % (39.0-53.0) Mean Corpuscular Volume 88 fL (79-100) Mean Corpuscular Hemoglobin 29 pg (25-35) Mean Corpuscular Hemoglobin Concent 33 g/dL (31-37) Red Cell Distribution Width 15.0 % (11.5-14.5) Platelet Count 212 x10^3/uL (140-400) Neutrophils (%) (Auto) 87 % (31-73) Lymphocytes (%) (Auto) 7 % (24-48) Monocytes (%) (Auto) 5 % (0-9) Eosinophils (%) (Auto) 0 % (0-3) Basophils (%) (Auto) 0 % (0-3) Neutrophils # (Auto) 10.0 x10^3/uL (1.8-7.7) Lymphocytes # (Auto) 0.8 x10^3/uL (1.0-4.8) Monocytes # (Auto) 0.6 x10^3/uL (0.0-1.1) Eosinophils # (Auto) 0.0 x10^3/uL (0.0-0.7) Basophils # (Auto) 0.0 x10^3/uL (0.0-0.2) Segmented Neutrophils % 92 % (35-66) Band Neutrophils % 3 % (0-9) Lymphocytes % 3 % (24-48) Monocytes % 2 % (0-10) Platelet Estimate Adequate (ADEQUATE) Sodium Level 144 mmol/L (136-145) Potassium Level 4.3 mmol/L (3.5-5.1) Chloride Level 111 mmol/L (98-107) Carbon Dioxide Level 29 mmol/L (21-32) Anion Gap 4 (6-14) Blood Urea Nitrogen 37 mg/dL (8-26) Creatinine 1.3 mg/dL (0.7-1.3) Estimated GFR (Cockcroft-Gault) 64.8 Glucose Level 257 mg/dL (70-99) Calcium Level 7.5 mg/dL (8.5-10.1) Ferritin 472 ng/mL (26-388) C-Reactive Protein, Quantitative 6.2 mg/L (0-3.3) O2 Saturation 88 % (92-99) Arterial Blood pH 7.40 (7.35-7.45) Arterial Blood pCO2 at Patient Temp 40 mmHg (35-46) Arterial Blood pO2 at Patient Temp 56 mmHg (65-108) Arterial Blood HCO3 24 mmol/L (21-28) Arterial Blood Base Excess -1 mmol/L (-3-3) FiO2 50 Medications Current Medications Acetaminophen (Tylenol Supp) 650 mg 1X ONCE AL Last administered on 02/27/20at 01:06; Start 02/27/20 at 01:00; Stop 02/27/20 at 01:01; Status DC Ondansetron HCl (Zofran) 4 mg PRN Q4HRS PRN IV NAUSEA/VOMITING; Start 02/27/20 at 07:15 Acetaminophen (Tylenol) 650 mg PRN Q4HRS PRN PO TEMP OVER 100.4F OR MILD PAIN; Start 02/27/20 at 07:15 Acetaminophen (Tylenol Supp) 650 mg PRN Q4HRS PRN AL TEMP OVER 100.4F OR MILD PAIN Last administered on 02/27/20at 21:50; Start 02/27/20 at 07:15 Al Hydroxide/Mg Hydroxide (Mylanta Plus Xs) 30 ml PRN DAILY PRN PO HEARTBURN / GAS; Start 02/27/20 at 07:15 Docusate Sodium (Colace) 100 mg PRN BID PRN PO HARD STOOLS Last administered on 03/03/20at 08:43; Start 02/27/20 at 07:15 Enoxaparin Sodium (Lovenox 30mg Syringe) 30 mg Q12H SQ Last administered on 02/27/20at 11:45; Start 02/27/20 at 09:00; Stop 02/27/20 at 14:35; Status DC Methylprednisolone Sodium Succinate (SOLU-Medrol 40MG VIAL) 40 mg Q8HRS IV Last administered on 03/06/20at 05:37; Start 02/27/20 at 08:00; Stop 03/06/20 at 10:35; Status DC Insulin Human Lispro (HumaLOG) 0-7 UNITS TIDACHC SQ Last administered on 03/02/20at 12:03; Start 02/27/20 at 07:30; Stop 03/02/20 at 15:08; Status DC Dextrose (Dextrose 50%-Water Syringe) 12.5 gm PRN Q15MIN PRN IV SEE COMMENTS; Start 02/27/20 at 07:15 Amlodipine Besylate (Norvasc) 10 mg DAILY PO Last administered on 03/07/20at 07:56; Start 02/27/20 at 09:00 Aspirin (Ecotrin) 81 mg DAILY PO Last administered on 03/03/20at 08:43; Start 02/27/20 at 09:00; Stop 03/04/20 at 07:05; Status DC Atorvastatin Calcium (Lipitor) 10 mg HS PO Last administered on 03/06/20at 20:30; Start 02/27/20 at 21:00 Clonidine HCl (Catapres Tts-3) 1 patch WEEKLY TD ; Start 02/27/20 at 09:00; Stop 02/27/20 at 16:00; Status DC Guaifenesin (Robitussin Dm) 10 ml PRN Q6HRS PRN PO COUGH; Start 02/27/20 at 07:15 Lactobacillus Rhamnosus (Culturelle) 1 cap BID PO Last administered on at 07:57; Start 02/27/20 at 09:00 Enoxaparin Sodium (Lovenox 40mg Syringe) 40 mg Q24H SQ Last administered on 02/27/20at 21:50; Start 02/27/20 at 21:00; Stop 02/28/20 at 10:36; Status DC Zinc Sulfate (Orazinc) 220 mg DAILY PO Last administered on 03/07/20at 07:57; Start 02/27/20 at 16:00 Piperacillin Sod/ Tazobactam Sod 3.375 gm/Sodium Chloride 50 ml @ 100 mls/hr Q6HRS IV Last administered on 03/07/20at 05:59; Start 02/28/20 at 11:00 Enoxaparin Sodium (Lovenox 40mg Syringe) 40 mg Q12HR SQ Last administered on 03/07/20at 07:55; Start 02/28/20 at 11:00 Sodium Chloride 1,000 ml @ 100 mls/hr Q10H IV Last administered on 03/02/20at 02:53; Start 02/28/20 at 11:00; Stop 03/02/20 at 12:34; Status DC Linezolid/Dextrose 300 ml @ 300 mls/hr Q12HR IV Last administered on 03/03/20at 20:39; Start 02/29/20 at 09:00; Stop 03/04/20 at 07:45; Status DC Sterile Water (WATER for RESP) 1,000 ml CONT PRN INH VIA VAPOTHERM DEVICE Last administered on 03/01/20at 19:29; Start 03/01/20 at 11:00 Hydralazine HCl (Apresoline Inj) 10 mg PRN Q4HRS PRN IVP ELEVATED BP, SEE COMMENTS Last administered on 03/04/20at 14:08; Start 03/01/20 at 18:15 Fentanyl Citrate 30 ml @ 0 mls/hr CONT PRN IV SEE PROTOCOL Last administered on 03/07/20 05:13; Start 03/02/20 at 00:00 Midazolam HCl 100 ml @ 0 mls/hr CONT PRN IV SEE PROTOCOL Last administered on 03/06/20at 17:21; Start 03/02/20 at 00:00 Vecuronium [place] (Norcuron Bolus) 6 mg PRN Q4HRS PRN IV Sedation; Start 03/02/20 at 00:00 Etomidate (Amidate) 20 mg 1X ONCE IV Last administered on 03/02/20at 00:05; Start 03/02/20 at 00:00; Stop 03/02/20 at 00:08; Status DC Succinylcholine Chloride (Anectine) 200 mg 1X ONCE IV Last administered on 03/02/20at 00:05; Start 03/02/20 at 00:00; Stop 03/02/20 at 00:08; Status DC Sodium Bicarbonate (Sodium Bicarb Adult 8.4% Syr) 50 meq STK-MED ONCE .ROUTE ; Start 03/02/20 at 09:43; Stop 03/02/20 at 09:44; Status DC Sodium Bicarbonate (Sodium Bicarb Adult 8.4% Syr) 50 meq 1X ONCE IV Last administered on 03/02/20at 10:15; Start 03/02/20 at 10:15; Stop 03/02/20 at 10:16; Status DC Sodium Chloride 1,000 ml @ 100 mls/hr Q10H IV Last administered on 03/07/20at 05:59; Start 03/02/20 at 12:30 Insulin Human Lispro (HumaLOG) 0-9 UNITS TIDWMEALS SQ Last administered on 03/03/20at 18:16; Start 03/02/20 at 17:00; Stop 03/04/20 at 07:08; Status DC Pantoprazole Sodium (PROTONIX VIAL for IV PUSH) 40 mg DAILYAC IVP Last administered on 03/07/20at 07:55; Start 03/03/20 at 16:00 Insulin Glargine (Lantus Syringe) 8 unit QHS SQ Last administered on 03/03/20at 20:38; Start 03/03/20 at 21:00; Stop 03/04/20 at 11:45; Status DC Aspirin (Aspirin Chewable) 81 mg DAILYWBKFT PO Last administered on 03/07/20at 07:57; Start 03/04/20 at 08:00 Insulin Human Lispro (HumaLOG) 0-9 UNITS Q6HRS SQ Last administered on 03/07/20at 06:00; Start 03/04/20 at 12:00 Insulin Human Lispro (HumaLOG) 9 units 1X ONCE SQ Last administered on 03/04/20at 07:20; Start 03/04/20 at 07:15; Stop 03/04/20 at 07:16; Status DC Insulin Glargine (Lantus Syringe) 20 unit BID SQ Last administered on 03/07/20at 10:45; Start 03/04/20 at 21:00 Insulin Glargine (Lantus Syringe) 20 unit 1X ONCE SQ Last administered on 03/04/20at 11:45; Start 03/04/20 at 11:45; Stop 03/04/20 at 11:47; Status DC Insulin Human Lispro (HumaLOG) 14 units TID SQ Last administered on 03/07/20at 0 8:05; Start 03/04/20 at 14:00 Methylprednisolone Sodium Succinate (SOLU-Medrol 40MG VIAL) 40 mg BID IV Last administered on 03/07/20at 07:57; Start 03/06/20 at 10:45 Active Scripts Active Culturelle (Lactobacillus Rhamnosus Gg) 1 Each Cap.sprink 1 Cap PO BID 30 Days Guaifenesin Dm Syrup (Guaifenesin/Dextromethorphan) 5 Ml Syrup 10 Ml PO PRN Q6HRS PRN 30 Days Albuterol Sulfate Neb Soln (Albuterol Sulfate) 2.5 Mg/3 Ml Vial.neb 2.5 Mg NEB PRN Q4HRS PRN 30 Days Azithromycin Tablet (Azithromycin) 250 Mg Tablet 250 Mg PO DAILY 5 Days Cefpodoxime Proxetil 100 Mg Tablet 200 Mg PO BID 5 Days Reported Senna (Sennosides) 8.8 Mg/5 Ml Syrup 8.8 Mg PO DAILY Tylenol Extra Strength (Acetaminophen) 500 Mg Tablet 1,000 Mg PO PRN PRN Furosemide 20 Mg Tablet 1 Tab PO DAILY Glipizide Xl (Glipizide) 10 Mg Tab.er.24 1 Tab PO DAILY 30 Days Metformin Hcl Er (Metformin Hcl) 500 Mg Tab.er.24h 1,000 Mg PO DAILYWBKFT Glipizide Xl (Glipizide) 10 Mg Tab.er.24 10 Mg PO DAILY Calcium 500 + D Tablet (Calcium Carbonate/Vitamin D3) 1 Each Tablet 1 Each PO DAILY Catapres-Tts 3 (Clonidine) 1 Each Patch.tdwk 1 Each TD WEEKLY Lisinopril 20 Mg Tablet 1 Tab PO DAILY [cyanocobalamin] 100 Mcg PO DAILY Aspir 81 (Aspirin) 81 Mg Tablet.dr 81 Mg PO DAILY Norvasc (Amlodipine Besylate) 10 Mg Tablet 10 Mg PO DAILY Atorvastatin Calcium 10 Mg Tablet 10 Mg PO HS Vitals/I & O Vital Sign - Last 24 Hours 03/06/20 03/06/20 03/06/20 03/06/20 12:00 12:00 12:10 13:00 Temp 97.7 97.7 Pulse 54 53 Resp 24 24 B/P (MAP) 163/73 (103) 152/74 (100) Pulse Ox 100 100 100 O2 Delivery Ventilator Mechanical Ventilator Ventilator Ventilator 03/06/20 03/06/20 03/06/20 03/06/20 14:00 15:00 16:00 16:00 Temp 98.0 98.0 Pulse 52 53 55 Resp 24 24 24 B/P (MAP) 154/76 (102) 136/76 (96) 153/76 (101) Pulse Ox 100 100 98 O2 Delivery Ventilator Ventilator Mechanical Ventilator Ventilator 03/06/20 03/06/20 03/06/20 03/06/20 16:06 17:00 17:20 18:00 Pulse 66 60 Resp 24 B/P (MAP) 165/73 (103) 177/81 (113) Pulse Ox 99 100 99 100 O2 Delivery Ventilator Ventilator Ventilator O2 Flow Rate 40.0 03/06/20 03/06/20 03/06/20 03/06/20 19:00 20:00 20:00 20:24 Temp 98.4 98.4 Pulse 62 56 Resp 24 B/P (MAP) 175/79 (111) 167/75 (105) Pulse Ox 100 100 97 O2 Delivery Ventilator Mechanical Ventilator Ventilator Ventilator 03/06/20 03/06/20 03/06/20 03/07/20 21:00 22:00 23:00 00:00 Temp 98.2 98.2 Pulse 54 56 57 53 Resp 24 24 24 24 B/P (MAP) 170/84 (112) 173/73 (106) 176/84 (114) 175/79 (111) Pulse Ox 100 100 100 100 O2 Delivery Ventilator Ventilator Ventilator Ventilator 03/07/20 03/07/20 03/07/20 03/07/20 00:00 00:27 01:00 02:00 Pulse 56 66 Resp 24 24 B/P (MAP) 159/67 (97) 159/67 (97) Pulse Ox 97 100 100 O2 Delivery Mechanical Ventilator Ventilator Ventilator Ventilator 03/07/20 03/07/20 03/07/20 03/07/20 03:00 03:45 04:00 04:00 Temp 98.5 98.5 Pulse 53 53 Resp 24 24 B/P (MAP) 172/90 (117) 135/71 (92) Pulse Ox 100 97 100 O2 Delivery Ventilator Ventilator Ventilator Mechanical Ventilator 03/07/20 03/07/20 03/07/20 03/07/20 05:00 06:00 07:00 07:56 Pulse 48 54 60 56 Resp 24 24 25 B/P (MAP) 133/71 (91) 182/84 (116) 149/83 (105) 149/80 Pulse Ox 100 100 94 O2 Delivery Ventilator Ventilator Ventilator 03/07/20 03/07/20 03/07/20 03/07/20 08:00 08:00 08:39 09:00 Temp 97.8 97.8 Pulse 54 50 Resp 24 24 B/P (MAP) 184/93 (123) 163/91 (115) Pulse Ox 96 99 97 O2 Delivery Mechanical Ventilator Ventilator Ventilator Ventilator 03/07/20 10:00 Pulse 48 Resp 24 B/P (MAP) 133/76 (95) Pulse Ox 100 O2 Delivery Ventilator Intake and Output 03/06/20 03/06/20 03/07/20 15:00 23:00 07:00 Intake Total 350 ml 3556.8 ml 1451.1 ml Output Total 500 ml 625 ml 705 ml Balance -150 ml 2931.8 ml 746.1 ml Justicifation of Admission Dx: Justifications for Admission: Justification of Admission Dx: Yes Respiratory Failure: Severe Resp Distress ALONDRA HARMON MD Mar 07, 2020 11:03
--- NOTE | 2020-03-07 13:39 | PDOC ---
Renal-Progress Notes Subjective Notes Notes NO CHANGES History of Present Illness Hx of present illness STABLE Vitals Vitals Vital Signs Date Time Temp Pulse Resp B/P (MAP) Pulse Ox O2 Delivery O2 Flow Rate FiO2 03/07/20 13:00 51 24 146/75 (98) 97 Ventilator 03/07/20 12:00 97.4 97.4 03/06/20 17:20 40.0 Weight Weight [ ] I.O. Intake and Output Intake and Output 03/07/20 07:00 Intake Total 5357.9 ml Output Total 1830 ml Balance 3527.9 ml IV Total 2446.9 ml Tube Feeding 2011 ml Other 900 ml Output Urine Total 1830 ml # Bowel Movements 1 Labs Labs Laboratory Tests Test 03/06/20 15:08 03/06/20 17:13 03/06/20 21:03 03/07/20 00:01 Glucose (Fingerstick) 273 mg/dL (70-99) 291 mg/dL (70-99) 262 mg/dL (70-99) 208 mg/dL (70-99) Test 03/07/20 05:34 03/07/20 05:45 03/07/20 08:40 03/07/20 12:14 Glucose (Fingerstick) 207 mg/dL (70-99) 228 mg/dL (70-99) White Blood Count 11.5 x10^3/uL (4.0-11.0) Red Blood Count 3.58 x10^6/uL (4.30-5.70) Hemoglobin 10.3 g/dL (13.0-17.5) Hematocrit 31.5 % (39.0-53.0) Mean Corpuscular Volume 88 fL (79-100) Mean Corpuscular Hemoglobin 29 pg (25-35) Mean Corpuscular Hemoglobin Concent 33 g/dL (31-37) Red Cell Distribution Width 15.0 % (11.5-14.5) Platelet Count 212 x10^3/uL (140-400) Neutrophils (%) (Auto) 87 % (31-73) Lymphocytes (%) (Auto) 7 % (24-48) Monocytes (%) (Auto) 5 % (0-9) Eosinophils (%) (Auto) 0 % (0-3) Basophils (%) (Auto) 0 % (0-3) Neutrophils # (Auto) 10.0 x10^3/uL (1.8-7.7) Lymphocytes # (Auto) 0.8 x10^3/uL (1.0-4.8) Monocytes # (Auto) 0.6 x10^3/uL (0.0-1.1) Eosinophils # (Auto) 0.0 x10^3/uL (0.0-0.7) Basophils # (Auto) 0.0 x10^3/uL (0.0-0.2) Segmented Neutrophils % 92 % (35-66) Band Neutrophils % 3 % (0-9) Lymphocytes % 3 % (24-48) Monocytes % 2 % (0-10) Platelet Estimate Adequate (ADEQUATE) Sodium Level 144 mmol/L (136-145) Potassium Level 4.3 mmol/L (3.5-5.1) Chloride Level 111 mmol/L (98-107) Carbon Dioxide Level 29 mmol/L (21-32) Anion Gap 4 (6-14) Blood Urea Nitrogen 37 mg/dL (8-26) Creatinine 1.3 mg/dL (0.7-1.3) Estimated GFR (Cockcroft-Gault) 64.8 Glucose Level 257 mg/dL (70-99) Calcium Level 7.5 mg/dL (8.5-10.1) Ferritin 472 ng/mL (26-388) C-Reactive Protein, Quantitative 6.2 mg/L (0-3.3) O2 Saturation 88 % (92-99) Arterial Blood pH 7.40 (7.35-7.45) Arterial Blood pCO2 at Patient Temp 40 mmHg (35-46) Arterial Blood pO2 at Patient Temp 56 mmHg (65-108) Arterial Blood HCO3 24 mmol/L (21-28) Arterial Blood Base Excess -1 mmol/L (-3-3) FiO2 50 Review of Systems Constitutional: yes: other (SOB, UNABLE TO OBTAIN) Physical Exam General Appearance: no apparent distress Skin: warm Respiratory: decreased breath sounds Heart: S1S2 Abdomen: soft, bowel sounds present Extremities: pulses present Neurology: other (SEDATED) Assessment Assessment IMP COVID 19 PNEUMONIA ACUTE RESP [id number] 55% PEEP 8 TV 550 UNCOMPENSATED ACUTE RESP ACIDOSIS ANEMIA KENNY RESOLVED HYPERNATREMIA-RESOLVED PLAN VENT SUPPORT SUPPORTIVE CARE S/PCONVALESCENT PLASMA EMPIRIC ANTIBIOTICS CONT SUPPORTIVE CARE WILL SIGN OFF MIRI CADENA MD Mar 07, 2020 13:39
[2020-03-07] MEDS: ATORVASTATIN CALCIUM 10 MG TABLET. PO SCH (20:46)
[2020-03-08] VITALS (24 sets, daily range): BP systolic 117–188; BP diastolic 62–94
[2020-03-08] MEDS: MIDAZOLAM 100mg/100ml NS BAG 100 ML IV PRN ×2 (06:02→21:13)
[2020-03-08] MEDS: PIPERACILLIN/TAZOBACTAM 3.375 GM in IV NORMAL SALINE 50ML 50 ML IV SCH ×3 (06:02→17:56)
[2020-03-08] MEDS: INSULIN LISPRO 300 UNITS/3 ML VIAL. SQ SCH ×7 (06:03→21:12)
[2020-03-08 06:30] LABS: ALBUMIN 1.6 g/dL (3.4-5.0); ALBUMIN/GLOBULIN RATIO 0.5 (1.0-1.7); CALCIUM 7.3 mg/dL (8.5-10.1); CREATININE 1.2 mg/dL (0.7-1.3); POTASSIUM 4.3 mmol/L (3.5-5.1); TOTAL BILIRUBIN 0.3 mg/dL (0.2-1.0); TOTAL PROTEIN 4.8 g/dL (6.4-8.2)
[2020-03-08 06:39] LABS: BASO % 0 % (0-3); EOS % 0 % (0-3); HEMATOCRIT 29.1 % (39.0-53.0); HEMOGLOBIN 9.7 g/dL (13.0-17.5); LYMPH % 9 % (24-48); MEAN CORPUSCULAR HEMOGLOBIN 29 pg (25-35); MEAN CORPUSCULAR HGB CONC 33 g/dL (31-37); MEAN CORPUSCULAR VOLUME 87 fL (79-100); MONO # 0.6 x10^3/uL (0.0-1.1); MONO % 5 % (0-9); NEUT # 9.6 x10^3/uL (1.8-7.7); NEUT % 86 % (31-73); PLATELET COUNT 201 x10^3/uL (140-400); RED BLOOD COUNT 3.33 x10^6/uL (4.30-5.70); RED CELL DISTRIBUTION WIDTH 14.9 % (11.5-14.5); WHITE BLOOD COUNT 11.2 x10^3/uL (4.0-11.0)
[2020-03-08 06:41] LABS: C-REACTIVE PROTEIN 4.6 mg/L (0-3.3)
[2020-03-08] MEDS: IV 1/2 NORMAL SALINE 1,000 ML IV SCH (06:57)
[2020-03-08] MEDS: methylPREDNISolone SOD SUCC PF 40 MG/ML VIAL. IV SCH ×2 (08:14→21:14)
[2020-03-08] MEDS: ASPIRIN CHEWABLE 81 MG TABLET. PO SCH (08:15)
[2020-03-08] MEDS: LACTOBACILLUS RHAMNOSUS GG 1 CAPSULE. PO SCH ×2 (08:15→21:12)
[2020-03-08] MEDS: amLODIPine BESYLATE 10 MG TABLET PO SCH (08:15)
[2020-03-08] MEDS: ZINC SULFATE 220 MG CAPSULE. PO SCH (08:16)
[2020-03-08] MEDS: ENOXAPARIN 40 MG/0.4 ML SYRINGE. SQ SCH ×2 (08:16→21:11)
[2020-03-08] MEDS: PANTOPRAZOLE IV PUSH 40 MG VIAL. IVP SCH (08:16)
[2020-03-08 08:22] LABS: BASE EXCESS ABG 0 mmol/L (-3-3); HCO3 ABG 24 mmol/L (21-28); PCO2 ABG 39 mmHg (35-46); PO2 ABG 59 mmHg (65-108); SAT O2 ABG 89 % (92-99)
[2020-03-08 08:40] LABS: FIO2 ABG 50
--- NOTE | 2020-03-08 08:43 | PDOC ---
Infectious Disease Note Subjective: Subjective Pt remains Intubated,sedated no acute issues per discussion with RN Vital Signs: Vital Signs Vital Signs Date Time Temp Pulse Resp B/P (MAP) Pulse Ox O2 Delivery O2 Flow Rate FiO2 03/08/20 08:15 50 162/76 03/08/20 06:00 24 100 Ventilator 03/08/20 04:00 97.7 97.7 Physical Exam: PHYSICAL EXAM CONSTITUTIONAL: sedated on vent HEENT: Pupils have some cataracts in place. Oral cavity, pharynx is very dry. NECK: Supple, no JVD. LUNGS: Had some mild crackles. HEART: S1, S2. ABDOMEN: Soft, nontender, no guarding, no rebound. EXTREMITIES: Without clubbing, cyanosis. No gross edema. SKIN: Warm to touch without signs of rash. NEUROLOGIC: sedated on vent Medications: Inpatient Meds: Current Medications Medications (Trade) Dose Ordered Sig/Nick Start Time Stop Time Status Last Admin Dose Admin Acetaminophen (Tylenol Supp) 650 mg PRN Q4HRS PRN 02/27/20 07:15 02/27/20 21:50 650 MG Acetaminophen (Tylenol) 650 mg PRN Q4HRS PRN 02/27/20 07:15 Al Hydroxide/Mg Hydroxide (Mylanta Plus Xs) 30 ml PRN DAILY PRN 02/27/20 07:15 Amlodipine Besylate (Norvasc) 10 mg DAILY 02/27/20 09:00 03/08/20 08:15 10 MG Aspirin (Aspirin Chewable) 81 mg DAILYWBKFT 03/04/20 08:00 03/08/20 08:15 81 MG Aspirin (Ecotrin) 81 mg DAILY 02/27/20 09:00 03/04/20 07:05 DC 03/03/20 08:43 81 MG Atorvastatin Calcium (Lipitor) 10 mg HS 02/27/20 21:00 03/07/20 20:46 10 MG Clonidine HCl (Catapres Tts-3) 1 patch WEEKLY 02/27/20 09:00 02/27/20 16:00 DC Dextrose (Dextrose 50%-Water Syringe) 12.5 gm PRN Q15MIN PRN 02/27/20 07:15 Docusate Sodium (Colace) 100 mg PRN BID PRN 02/27/20 07:15 03/03/20 08:43 100 MG Enoxaparin Sodium (Lovenox 30mg Syringe) 30 mg Q12H 02/27/20 09:00 02/27/20 14:35 DC 02/27/20 11:45 30 MG Enoxaparin Sodium (Lovenox 40mg Syringe) 40 mg Q12HR 02/28/20 11:00 03/08/20 08:16 40 MG Etomidate (Amidate) 20 mg 1X ONCE 03/02/20 00:00 03/02/20 00:08 DC 03/02/20 00:05 20 MG Fentanyl Citrate 30 ml @ 0 mls/hr CONT PRN 03/02/20 00:00 03/08/20 03:01 2.5 MLS/HR Guaifenesin (Robitussin Dm) 10 ml PRN Q6HRS PRN 02/27/20 07:15 Hydralazine HCl (Apresoline Inj) 10 mg PRN Q4HRS PRN 03/01/20 18:15 03/04/20 14:08 10 MG Insulin Glargine (Lantus Syringe) 20 unit 1X ONCE 03/04/20 11:45 03/04/20 11:47 DC 03/04/20 11:45 20 UNIT Insulin Human Lispro (HumaLOG) 14 units TID 03/04/20 14:00 03/08/20 08:25 14 UNITS Lactobacillus Rhamnosus (Culturelle) 1 cap BID 02/27/20 09:00 03/08/20 08:15 1 CAP Linezolid/Dextrose 300 ml @ 300 mls/hr Q12HR 02/29/20 09:00 03/04/20 07:45 DC 03/03/20 20:39 300 MLS/HR Methylprednisolone Sodium Succinate (SOLU-Medrol 40MG VIAL) 40 mg BID 03/06/20 10:45 03/08/20 08:14 40 MG Midazolam HCl 100 ml @ 0 mls/hr CONT PRN 03/02/20 00:00 03/08/20 06:02 6 MLS/HR Ondansetron HCl (Zofran) 4 mg PRN Q4HRS PRN 02/27/20 07:15 Pantoprazole Sodium (PROTONIX VIAL for IV PUSH) 40 mg DAILYAC 03/03/20 16:00 03/08/20 08:16 40 MG Piperacillin Sod/ Tazobactam Sod 3.375 gm/Sodium Chloride 50 ml @ 100 mls/hr Q6HRS 02/28/20 11:00 03/08/20 06:02 100 MLS/HR Sodium Bicarbonate (Sodium Bicarb Adult 8.4% Syr) 50 meq 1X ONCE 03/02/20 10:15 03/02/20 10:16 DC 03/02/20 10:15 50 MEQ Sodium Chloride 1,000 ml @ 100 mls/hr Q10H 03/02/20 12:30 03/08/20 06:57 100 MLS/HR Sterile Water (WATER for RESP) 1,000 ml CONT PRN 03/01/20 11:00 03/01/20 19:29 1,000 ML Succinylcholine Chloride (Anectine) 200 mg 1X ONCE 03/02/20 00:00 03/02/20 00:08 DC 03/02/20 00:05 200 MG Vecuronium [place] (Norcuron Bolus) 6 mg PRN Q4HRS PRN 03/02/20 00:00 Zinc Sulfate (Orazinc) 220 mg DAILY 02/27/20 16:00 03/08/20 08:16 220 MG Labs: Lab Laboratory Tests Test 03/07/20 12:14 03/07/20 18:33 03/07/20 20:51 03/08/20 00:01 Glucose (Fingerstick) 228 mg/dL (70-99) 174 mg/dL (70-99) 188 mg/dL (70-99) 142 mg/dL (70-99) Test 03/08/20 04:55 03/08/20 07:35 White Blood Count 11.2 x10^3/uL (4.0-11.0) Red Blood Count 3.33 x10^6/uL (4.30-5.70) Hemoglobin 9.7 g/dL (13.0-17.5) Hematocrit 29.1 % (39.0-53.0) Mean Corpuscular Volume 87 fL (79-100) Mean Corpuscular Hemoglobin 29 pg (25-35) Mean Corpuscular Hemoglobin Concent 33 g/dL (31-37) Red Cell Distribution Width 14.9 % (11.5-14.5) Platelet Count 201 x10^3/uL (140-400) Neutrophils (%) (Auto) 86 % (31-73) Lymphocytes (%) (Auto) 9 % (24-48) Monocytes (%) (Auto) 5 % (0-9) Eosinophils (%) (Auto) 0 % (0-3) Basophils (%) (Auto) 0 % (0-3) Neutrophils # (Auto) 9.6 x10^3/uL (1.8-7.7) Lymphocytes # (Auto) 1.0 x10^3/uL (1.0-4.8) Monocytes # (Auto) 0.6 x10^3/uL (0.0-1.1) Eosinophils # (Auto) 0.0 x10^3/uL (0.0-0.7) Basophils # (Auto) 0.0 x10^3/uL (0.0-0.2) Sodium Level 143 mmol/L (136-145) Potassium Level 4.3 mmol/L (3.5-5.1) Chloride Level 110 mmol/L (98-107) Carbon Dioxide Level 30 mmol/L (21-32) Anion Gap 3 (6-14) Blood Urea Nitrogen 34 mg/dL (8-26) Creatinine 1.2 mg/dL (0.7-1.3) Estimated GFR (Cockcroft-Gault) 71.0 BUN/Creatinine Ratio 28 (6-20) Glucose Level 239 mg/dL (70-99) Calcium Level 7.3 mg/dL (8.5-10.1) Ferritin 350 ng/mL (26-388) Total Bilirubin 0.3 mg/dL (0.2-1.0) Aspartate Amino Transf (AST/SGOT) 19 U/L (15-37) Alanine Aminotransferase (ALT/SGPT) 41 U/L (16-63) Alkaline Phosphatase 46 U/L (46-116) C-Reactive Protein, Quantitative 4.6 mg/L (0-3.3) Total Protein 4.8 g/dL (6.4-8.2) Albumin 1.6 g/dL (3.4-5.0) Albumin/Globulin Ratio 0.5 (1.0-1.7) O2 Saturation 89 % (92-99) Arterial Blood pH 7.41 (7.35-7.45) Arterial Blood pCO2 at Patient Temp 39 mmHg (35-46) Arterial Blood pO2 at Patient Temp 59 mmHg (65-108) Arterial Blood HCO3 24 mmol/L (21-28) Arterial Blood Base Excess 0 mmol/L (-3-3) FiO2 50 Objective: Assessment: 1. Fever.pattern improved 2. Acute hypoxic respiratory failure. 3. COVID positive. 4. Acute kidney injury. 5. Leukocytosis. 6. Rhabdomyolysis with history as well, previous rhabdomyolysis. Plan: Plan of Care Plasma given Cont Steroids cont zosyn, F/u labs and cults Condition critical Prognosis poor Dw nursing JÚNIOR SMITH MD Mar 08, 2020 08:43
--- NOTE | 2020-03-08 08:52 | PDOC ---
PULMONARY PROGRESS NOTES DATE: 03/08/20 TIME: 08:52 Subjective intubated night of 03/01 due to worsening hypoxia a-febrile AC mode 50%FIO2, 8 PEEP Nursing reports hematoma/bleeding from central line Vitals Vital Signs Date Time Temp Pulse Resp B/P (MAP) Pulse Ox O2 Delivery O2 Flow Rate FiO2 03/08/20 08:15 50 162/76 03/08/20 06:00 24 100 Ventilator 03/08/20 04:00 97.7 97.7 Comments PT. seen during COVID-19 pandemic visual exam preformed RRR VENT 50% no distress no rash No edema Lungs: Other (Intubated) Labs Laboratory Tests Test 03/06/20 10:37 03/06/20 15:08 03/06/20 17:13 03/06/20 21:03 Glucose (Fingerstick) 269 mg/dL (70-99) 273 mg/dL (70-99) 291 mg/dL (70-99) 262 mg/dL (70-99) Test 03/07/20 00:01 03/07/20 05:34 03/07/20 05:45 03/07/20 08:40 Glucose (Fingerstick) 208 mg/dL (70-99) 207 mg/dL (70-99) White Blood Count 11.5 x10^3/uL (4.0-11.0) Red Blood Count 3.58 x10^6/uL (4.30-5.70) Hemoglobin 10.3 g/dL (13.0-17.5) Hematocrit 31.5 % (39.0-53.0) Mean Corpuscular Volume 88 fL (79-100) Mean Corpuscular Hemoglobin 29 pg (25-35) Mean Corpuscular Hemoglobin Concent 33 g/dL (31-37) Red Cell Distribution Width 15.0 % (11.5-14.5) Platelet Count 212 x10^3/uL (140-400) Neutrophils (%) (Auto) 87 % (31-73) Lymphocytes (%) (Auto) 7 % (24-48) Monocytes (%) (Auto) 5 % (0-9) Eosinophils (%) (Auto) 0 % (0-3) Basophils (%) (Auto) 0 % (0-3) Neutrophils # (Auto) 10.0 x10^3/uL (1.8-7.7) Lymphocytes # (Auto) 0.8 x10^3/uL (1.0-4.8) Monocytes # (Auto) 0.6 x10^3/uL (0.0-1.1) Eosinophils # (Auto) 0.0 x10^3/uL (0.0-0.7) Basophils # (Auto) 0.0 x10^3/uL (0.0-0.2) Segmented Neutrophils % 92 % (35-66) Band Neutrophils % 3 % (0-9) Lymphocytes % 3 % (24-48) Monocytes % 2 % (0-10) Platelet Estimate Adequate (ADEQUATE) Sodium Level 144 mmol/L (136-145) Potassium Level 4.3 mmol/L (3.5-5.1) Chloride Level 111 mmol/L (98-107) Carbon Dioxide Level 29 mmol/L (21-32) Anion Gap 4 (6-14) Blood Urea Nitrogen 37 mg/dL (8-26) Creatinine 1.3 mg/dL (0.7-1.3) Estimated GFR (Cockcroft-Gault) 64.8 Glucose Level 257 mg/dL (70-99) Calcium Level 7.5 mg/dL (8.5-10.1) Ferritin 472 ng/mL (26-388) C-Reactive Protein, Quantitative 6.2 mg/L (0-3.3) O2 Saturation 88 % (92-99) Arterial Blood pH 7.40 (7.35-7.45) Arterial Blood pCO2 at Patient Temp 40 mmHg (35-46) Arterial Blood pO2 at Patient Temp 56 mmHg (65-108) Arterial Blood HCO3 24 mmol/L (21-28) Arterial Blood Base Excess -1 mmol/L (-3-3) FiO2 50 Test 03/07/20 12:14 03/07/20 18:33 03/07/20 20:51 03/08/20 00:01 Glucose (Fingerstick) 228 mg/dL (70-99) 174 mg/dL (70-99) 188 mg/dL (70-99) 142 mg/dL (70-99) Test 03/08/20 04:55 03/08/20 07:35 03/08/20 08:24 White Blood Count 11.2 x10^3/uL (4.0-11.0) Red Blood Count 3.33 x10^6/uL (4.30-5.70) Hemoglobin 9.7 g/dL (13.0-17.5) Hematocrit 29.1 % (39.0-53.0) Mean Corpuscular Volume 87 fL (79-100) Mean Corpuscular Hemoglobin 29 pg (25-35) Mean Corpuscular Hemoglobin Concent 33 g/dL (31-37) Red Cell Distribution Width 14.9 % (11.5-14.5) Platelet Count 201 x10^3/uL (140-400) Neutrophils (%) (Auto) 86 % (31-73) Lymphocytes (%) (Auto) 9 % (24-48) Monocytes (%) (Auto) 5 % (0-9) Eosinophils (%) (Auto) 0 % (0-3) Basophils (%) (Auto) 0 % (0-3) Neutrophils # (Auto) 9.6 x10^3/uL (1.8-7.7) Lymphocytes # (Auto) 1.0 x10^3/uL (1.0-4.8) Monocytes # (Auto) 0.6 x10^3/uL (0.0-1.1) Eosinophils # (Auto) 0.0 x10^3/uL (0.0-0.7) Basophils # (Auto) 0.0 x10^3/uL (0.0-0.2) Sodium Level 143 mmol/L (136-145) Potassium Level 4.3 mmol/L (3.5-5.1) Chloride Level 110 mmol/L (98-107) Carbon Dioxide Level 30 mmol/L (21-32) Anion Gap 3 (6-14) Blood Urea Nitrogen 34 mg/dL (8-26) Creatinine 1.2 mg/dL (0.7-1.3) Estimated GFR (Cockcroft-Gault) 71.0 BUN/Creatinine Ratio 28 (6-20) Glucose Level 239 mg/dL (70-99) Calcium Level 7.3 mg/dL (8.5-10.1) Ferritin 350 ng/mL (26-388) Total Bilirubin 0.3 mg/dL (0.2-1.0) Aspartate Amino Transf (AST/SGOT) 19 U/L (15-37) Alanine Aminotransferase (ALT/SGPT) 41 U/L (16-63) Alkaline Phosphatase 46 U/L (46-116) C-Reactive Protein, Quantitative 4.6 mg/L (0-3.3) Total Protein 4.8 g/dL (6.4-8.2) Albumin 1.6 g/dL (3.4-5.0) Albumin/Globulin Ratio 0.5 (1.0-1.7) O2 Saturation 89 % (92-99) Arterial Blood pH 7.41 (7.35-7.45) Arterial Blood pCO2 at Patient Temp 39 mmHg (35-46) Arterial Blood pO2 at Patient Temp 59 mmHg (65-108) Arterial Blood HCO3 24 mmol/L (21-28) Arterial Blood Base Excess 0 mmol/L (-3-3) FiO2 50 Glucose (Fingerstick) 216 mg/dL (70-99) Laboratory Tests Test 03/07/20 12:14 03/07/20 18:33 03/07/20 20:51 03/08/20 00:01 Glucose (Fingerstick) 228 mg/dL (70-99) 174 mg/dL (70-99) 188 mg/dL (70-99) 142 mg/dL (70-99) Test 03/08/20 04:55 03/08/20 07:35 03/08/20 08:24 White Blood Count 11.2 x10^3/uL (4.0-11.0) Red Blood Count 3.33 x10^6/uL (4.30-5.70) Hemoglobin 9.7 g/dL (13.0-17.5) Hematocrit 29.1 % (39.0-53.0) Mean Corpuscular Volume 87 fL (79-100) Mean Corpuscular Hemoglobin 29 pg (25-35) Mean Corpuscular Hemoglobin Concent 33 g/dL (31-37) Red Cell Distribution Width 14.9 % (11.5-14.5) Platelet Count 201 x10^3/uL (140-400) Neutrophils (%) (Auto) 86 % (31-73) Lymphocytes (%) (Auto) 9 % (24-48) Monocytes (%) (Auto) 5 % (0-9) Eosinophils (%) (Auto) 0 % (0-3) Basophils (%) (Auto) 0 % (0-3) Neutrophils # (Auto) 9.6 x10^3/uL (1.8-7.7) Lymphocytes # (Auto) 1.0 x10^3/uL (1.0-4.8) Monocytes # (Auto) 0.6 x10^3/uL (0.0-1.1) Eosinophils # (Auto) 0.0 x10^3/uL (0.0-0.7) Basophils # (Auto) 0.0 x10^3/uL (0.0-0.2) Sodium Level 143 mmol/L (136-145) Potassium Level 4.3 mmol/L (3.5-5.1) Chloride Level 110 mmol/L (98-107) Carbon Dioxide Level 30 mmol/L (21-32) Anion Gap 3 (6-14) Blood Urea Nitrogen 34 mg/dL (8-26) Creatinine 1.2 mg/dL (0.7-1.3) Estimated GFR (Cockcroft-Gault) 71.0 BUN/Creatinine Ratio 28 (6-20) Glucose Level 239 mg/dL (70-99) Calcium Level 7.3 mg/dL (8.5-10.1) Ferritin 350 ng/mL (26-388) Total Bilirubin 0.3 mg/dL (0.2-1.0) Aspartate Amino Transf (AST/SGOT) 19 U/L (15-37) Alanine Aminotransferase (ALT/SGPT) 41 U/L (16-63) Alkaline Phosphatase 46 U/L (46-116) C-Reactive Protein, Quantitative 4.6 mg/L (0-3.3) Total Protein 4.8 g/dL (6.4-8.2) Albumin 1.6 g/dL (3.4-5.0) Albumin/Globulin Ratio 0.5 (1.0-1.7) O2 Saturation 89 % (92-99) Arterial Blood pH 7.41 (7.35-7.45) Arterial Blood pCO2 at Patient Temp 39 mmHg (35-46) Arterial Blood pO2 at Patient Temp 59 mmHg (65-108) Arterial Blood HCO3 24 mmol/L (21-28) Arterial Blood Base Excess 0 mmol/L (-3-3) FiO2 50 Glucose (Fingerstick) 216 mg/dL (70-99) Medications Active Scripts Medications Dose Route/Sig Max Daily Dose Days Date Category Senna (Sennosides) 8.8 Mg/5 Ml Syrup 8.8 Mg PO DAILY 02/27/20 Reported Tylenol Extra Strength (Acetaminophen) 500 Mg Tablet 1,000 Mg PO PRN PRN 02/27/20 Reported Furosemide 20 Mg Tablet 1 Tab PO DAILY 02/27/20 Reported Glipizide Xl (Glipizide) 10 Mg Tab.er.24 1 Tab PO DAILY 30 02/27/20 Reported Culturelle (Lactobacillus Rhamnosus Gg) 1 Each Cap.sprink 1 Cap PO BID 30 05/23/18 Rx Guaifenesin Dm Syrup (Guaifenesin/Dextromethorphan) 5 Ml Syrup 10 Ml PO PRN Q6HRS PRN 30 05/23/18 Rx Albuterol Sulfate Neb Soln (Albuterol Sulfate) 2.5 Mg/3 Ml Vial.neb 2.5 Mg NEB PRN Q4HRS PRN 30 05/23/18 Rx Azithromycin Tablet (Azithromycin) 250 Mg Tablet 250 Mg PO DAILY 5 05/23/18 Rx Cefpodoxime Proxetil 100 Mg Tablet 200 Mg PO BID 5 05/23/18 Rx Metformin Hcl Er (Metformin Hcl) 500 Mg Tab.er.24h 1,000 Mg PO DAILYWBKFT 05/21/18 Reported Glipizide Xl (Glipizide) 10 Mg Tab.er.24 10 Mg PO DAILY 05/20/18 Reported Calcium 500 + D Tablet (Calcium Carbonate/Vitamin D3) 1 Each Tablet 1 Each PO DAILY 05/20/18 Reported Catapres-Tts 3 (Clonidine) 1 Each Patch.tdwk 1 Each TD WEEKLY 05/20/18 Reported Lisinopril 20 Mg Tablet 1 Tab PO DAILY 05/20/18 Reported [cyanocobalamin] 100 Mcg PO DAILY 05/20/18 Reported Aspir 81 (Aspirin) 81 Mg Tablet.dr 81 Mg PO DAILY 07/08/13 Reported Norvasc (Amlodipine Besylate) 10 Mg Tablet 10 Mg PO DAILY 07/08/13 Reported Atorvastatin Calcium 10 Mg Tablet 10 Mg PO HS 07/08/13 Reported Comments CXR- 02/27/2020 IMPRESSION: * Patchy opacities in bilateral lungs which could be seen with multifocal infiltrate or edema 03/01 WORSENING INFILTRATES 03/03- IMPRESSION: * Repeat demonstration of multifocal opacities throughout the bilateral lungs with slight decrease in the right upper lung compared to prior and similar to prior within other portions of the bilateral lungs. * Lines and tubes as above. * Enlarged cardiomediastinal silhouette. CXR 03/05 Impression: Slight interval improvement in the bilateral perihilar infiltrates. Impression . Acute hypoxic respiratory Failure--intubated night of 03/01 Abnormal chest x-ray COVID-19 known positive COVID -19 pneumonia, cannot exclude bacterial pneumonia elevated ddimer 2/2 inflammatory stage of covid19 -- improving Fevers--resolved Anemia of chronic disease Dementia KENNY vs. CKD --resolved, ongoing azotemia steroids? Plan . Continue assist control mode Lasix s/p Plasma ABX per ID Cont. steroids,with taper Follow nephrology recs will follow inflammatory markers Continue TF for nutritional support DVT/GI PPX -- high dose lovenox Lovenox twice daily D/W RN, and RT cct 30 min ANDRY TREJO MD Mar 08, 2020 08:52
[2020-03-08] MEDS: INSULIN GLARGINE SYRINGE. SQ SCH ×2 (09:30→21:10)
--- NOTE | 2020-03-08 10:26 | PDOC ---
PROGRESS NOTES Date of Service: DATE: 03/08/20 TIME: 10:24 Chief Complaint Chief Complaint impression Respiratory failure with hypoxia - likely 2/2 COVID 19. WORSENING. Steroids, Lovenox twice daily, consult pulmonology. Maintain O2 saturations 92% or greater. SARS-CoV-2 (COVID-19) - As above. ID consulted, agree to consent for convalescent [facility]FP if this is line with family goals of care. KENNY - likely vasomotor nephropathy from COVID 19 infection, will monitor renal fx and hydrate. 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 year, now in [facility] Diabetes-Type II - sliding scale insulin, will hold oral hypoglycemics for now GERD - cont antacids High Cholesterol - cont statin Hypertension - cont meds, hold clonidine patch given his BP is on the low side POLYNEUROPATHY - CK elevated, will monitor intubated night of 03/01 due to worsening hypoxia AC mode 50%FIO2, 8 PEEP 03/08 PPX - lovenox FULL CODE Dispo - inpatient, transferred to ICU for increase O2 requirements vent support 37 min cc time History of Present Illness History of Present Illness Mr Rivera is a 79-year-old male with PMHx Anemia, Dementia, Diabetes-Type II, Diverticulosis, GERD, High Cholesterol, Hypertension, POLYNEUROPATHY resident of [facility] in [place] comes to ED with known SARS-CoV-2 (COVID 19) who presents to the emergency room with respiratory distress. Patient is unable to provide any history. Is unclear at this time how long he has been ill. Is unclear whether or not he is on oxygen at baseline. Upon arrival to the emergency room he is on a nonrebreather. He reportedly had a pulse ox of 72 upon EMS arrival. Patient was able to be weaned down from a nonrebreather to 6 L nasal cannula. ABG was done 7.35/48/107 on 6 L nasal cannula. WBC 9.3, Hb 13.3, platelets 212, d-dimer 3.92, troponin 0 0.22, AST 57, CRP 163.7, CK 1865, albumin 2.7 EKG sinus rhythm, leftward axis QRS transition zone, nonspecific T abnormalities high lateral leads, new prolonged QT. CXR with bilateral patchy infiltrate consistent with COVID-19 pneumonia. Admitted for further care. 02/27: Cr up to 2.4 today. Febrile to 100.7 F overnight. Slight cough. On 6 L nasal cannula oxygen. Afebrile past 24 hours, now on 10 L facemask O2, WBC 11.4, hemoglobin 12.8, CR stable at 2.4 albumin 2.5 CK 2060, glucose 302. He has been incontinent of urine over the past 24 hours and has some redness on the scrotum and buttocks, I advised him Smith catheter may be indicated he does not seem to be understanding much of what is going on. I have discussed with ID that type and screen and convalescent plasma may be indicated, will try to get a hold of family to discuss goals of care. Nephrology consulted, will check UA and renal US. 03/01/2020 No acute events overnight. Patient this morning required increased oxygen requirements needing an nonrebreather mask. Patient was obtunded at this time and not following commands. Patient's chart, labs, images were reviewed and discussed with RN. 03/03/20 No acute events overnight. O2 requirement decreasing. Patient's chart and labs reviewed. Discussed with RN. 03/04/20 Patient remains intubated and sedated. Hyperglycemia still an issue. Discussed increasing insulin with RN. 03/08 Patient remains intubated. Continue broad-spectrum antibiotics and steroids. Blood sugar is elevated secondary to steroids, will adjust insulin No acute events overnight. cr 1.2 Vitals Vitals Vital Signs Date Time Temp Pulse Resp B/P (MAP) Pulse Ox O2 Delivery O2 Flow Rate FiO2 03/08/20 08:15 50 162/76 03/08/20 07:35 96 Ventilator 03/08/20 06:00 24 03/08/20 04:00 97.7 97.7 Physical Exam Physical Exam CONSTITUTIONAL: sedated on vent HEENT: Pupils have some cataracts in place. Oral cavity, pharynx is very dry. NECK: Supple, no JVD. LUNGS: Had some mild crackles. HEART: S1, S2. ABDOMEN: Soft, nontender, no guarding, no rebound. EXTREMITIES: Without clubbing, cyanosis. No gross edema. SKIN: Warm to touch without signs of rash. NEUROLOGIC: sedated on vent General: Cooperative, No acute distress Heart: Regular rate Lungs: Other (Intubated) Abdomen: No masses, Other (Nondistended) Extremities: No clubbing, No cyanosis, No edema Skin: No rashes, No breakdown, No significant lesion Labs LABS CHEST AP ONLY INDICATION: Reason: covid f/u ICU#112 / Spl. Instructions: / History: . COMPARISON STUDY: 03/05/2020. FINDINGS: Life Support Devices: Stable endotracheal tube, enteric tube, right IJ central venous catheter. Lungs: Normal lung volume. Bilateral perihilar and basilar heterogeneous opacities, slightly improved. Indistinct pulmonary vasculature. Pleura: Stable small bilateral pleural effusions. Heart and Mediastinum: Stable cardiomediastinal silhouette and great vessels. Bones and Soft Tissues: Stable regional skeleton and soft tissues. IMPRESSION: 1. Slightly improved bilateral perihilar and basilar regions opacities. 2. Stable small bilateral pleural effusions. 3. Stable life support devices. Electronically signed by: Todd Waggoner MD (03/08/2020 11:20 AM) [id number] DICTATED and SIGNED BY: TODD WAGGONER MD DATE: 03/08/201119 Laboratory Tests Test 03/07/20 12:14 03/07/20 18:33 03/07/20 20:51 03/08/20 00:01 Glucose (Fingerstick) 228 mg/dL (70-99) 174 mg/dL (70-99) 188 mg/dL (70-99) 142 mg/dL (70-99) Test 03/08/20 04:55 03/08/20 07:35 03/08/20 08:24 White Blood Count 11.2 x10^3/uL (4.0-11.0) Red Blood Count 3.33 x10^6/uL (4.30-5.70) Hemoglobin 9.7 g/dL (13.0-17.5) Hematocrit 29.1 % (39.0-53.0) Mean Corpuscular Volume 87 fL (79-100) Mean Corpuscular Hemoglobin 29 pg (25-35) Mean Corpuscular Hemoglobin Concent 33 g/dL (31-37) Red Cell Distribution Width 14.9 % (11.5-14.5) Platelet Count 201 x10^3/uL (140-400) Neutrophils (%) (Auto) 86 % (31-73) Lymphocytes (%) (Auto) 9 % (24-48) Monocytes (%) (Auto) 5 % (0-9) Eosinophils (%) (Auto) 0 % (0-3) Basophils (%) (Auto) 0 % (0-3) Neutrophils # (Auto) 9.6 x10^3/uL (1.8-7.7) Lymphocytes # (Auto) 1.0 x10^3/uL (1.0-4.8) Monocytes # (Auto) 0.6 x10^3/uL (0.0-1.1) Eosinophils # (Auto) 0.0 x10^3/uL (0.0-0.7) Basophils # (Auto) 0.0 x10^3/uL (0.0-0.2) Sodium Level 143 mmol/L (136-145) Potassium Level 4.3 mmol/L (3.5-5.1) Chloride Level 110 mmol/L (98-107) Carbon Dioxide Level 30 mmol/L (21-32) Anion Gap 3 (6-14) Blood Urea Nitrogen 34 mg/dL (8-26) Creatinine 1.2 mg/dL (0.7-1.3) Estimated GFR (Cockcroft-Gault) 71.0 BUN/Creatinine Ratio 28 (6-20) Glucose Level 239 mg/dL (70-99) Calcium Level 7.3 mg/dL (8.5-10.1) Ferritin 350 ng/mL (26-388) Total Bilirubin 0.3 mg/dL (0.2-1.0) Aspartate Amino Transf (AST/SGOT) 19 U/L (15-37) Alanine Aminotransferase (ALT/SGPT) 41 U/L (16-63) Alkaline Phosphatase 46 U/L (46-116) C-Reactive Protein, Quantitative 4.6 mg/L (0-3.3) Total Protein 4.8 g/dL (6.4-8.2) Albumin 1.6 g/dL (3.4-5.0) Albumin/Globulin Ratio 0.5 (1.0-1.7) O2 Saturation 89 % (92-99) Arterial Blood pH 7.41 (7.35-7.45) Arterial Blood pCO2 at Patient Temp 39 mmHg (35-46) Arterial Blood pO2 at Patient Temp 59 mmHg (65-108) Arterial Blood HCO3 24 mmol/L (21-28) Arterial Blood Base Excess 0 mmol/L (-3-3) FiO2 50 Glucose (Fingerstick) 216 mg/dL (70-99) Assessment and Plan Assessmemt and Plan Problems Medical Problems: (1) 2019 novel coronavirus disease (COVID-19) Status: Acute (2) Respiratory failure with hypoxia Status: Acute Comment Review of Relevant I have reviewed the following items latonia (where applicable) has been applied. Labs Laboratory Tests Test 03/06/20 10:37 03/06/20 15:08 03/06/20 17:13 03/06/20 21:03 Glucose (Fingerstick) 269 mg/dL (70-99) 273 mg/dL (70-99) 291 mg/dL (70-99) 262 mg/dL (70-99) Test 03/07/20 00:01 03/07/20 05:34 03/07/20 05:45 03/07/20 08:40 Glucose (Fingerstick) 208 mg/dL (70-99) 207 mg/dL (70-99) White Blood Count 11.5 x10^3/uL (4.0-11.0) Red Blood Count 3.58 x10^6/uL (4.30-5.70) Hemoglobin 10.3 g/dL (13.0-17.5) Hematocrit 31.5 % (39.0-53.0) Mean Corpuscular Volume 88 fL (79-100) Mean Corpuscular Hemoglobin 29 pg (25-35) Mean Corpuscular Hemoglobin Concent 33 g/dL (31-37) Red Cell Distribution Width 15.0 % (11.5-14.5) Platelet Count 212 x10^3/uL (140-400) Neutrophils (%) (Auto) 87 % (31-73) Lymphocytes (%) (Auto) 7 % (24-48) Monocytes (%) (Auto) 5 % (0-9) Eosinophils (%) (Auto) 0 % (0-3) Basophils (%) (Auto) 0 % (0-3) Neutrophils # (Auto) 10.0 x10^3/uL (1.8-7.7) Lymphocytes # (Auto) 0.8 x10^3/uL (1.0-4.8) Monocytes # (Auto) 0.6 x10^3/uL (0.0-1.1) Eosinophils # (Auto) 0.0 x10^3/uL (0.0-0.7) Basophils # (Auto) 0.0 x10^3/uL (0.0-0.2) Segmented Neutrophils % 92 % (35-66) Band Neutrophils % 3 % (0-9) Lymphocytes % 3 % (24-48) Monocytes % 2 % (0-10) Platelet Estimate Adequate (ADEQUATE) Sodium Level 144 mmol/L (136-145) Potassium Level 4.3 mmol/L (3.5-5.1) Chloride Level 111 mmol/L (98-107) Carbon Dioxide Level 29 mmol/L (21-32) Anion Gap 4 (6-14) Blood Urea Nitrogen 37 mg/dL (8-26) Creatinine 1.3 mg/dL (0.7-1.3) Estimated GFR (Cockcroft-Gault) 64.8 Glucose Level 257 mg/dL (70-99) Calcium Level 7.5 mg/dL (8.5-10.1) Ferritin 472 ng/mL (26-388) C-Reactive Protein, Quantitative 6.2 mg/L (0-3.3) O2 Saturation 88 % (92-99) Arterial Blood pH 7.40 (7.35-7.45) Arterial Blood pCO2 at Patient Temp 40 mmHg (35-46) Arterial Blood pO2 at Patient Temp 56 mmHg (65-108) Arterial Blood HCO3 24 mmol/L (21-28) Arterial Blood Base Excess -1 mmol/L (-3-3) FiO2 50 Test 03/07/20 12:14 03/07/20 18:33 03/07/20 20:51 03/08/20 00:01 Glucose (Fingerstick) 228 mg/dL (70-99) 174 mg/dL (70-99) 188 mg/dL (70-99) 142 mg/dL (70-99) Test 03/08/20 04:55 03/08/20 07:35 03/08/20 08:24 White Blood Count 11.2 x10^3/uL (4.0-11.0) Red Blood Count 3.33 x10^6/uL (4.30-5.70) Hemoglobin 9.7 g/dL (13.0-17.5) Hematocrit 29.1 % (39.0-53.0) Mean Corpuscular Volume 87 fL (79-100) Mean Corpuscular Hemoglobin 29 pg (25-35) Mean Corpuscular Hemoglobin Concent 33 g/dL (31-37) Red Cell Distribution Width 14.9 % (11.5-14.5) Platelet Count 201 x10^3/uL (140-400) Neutrophils (%) (Auto) 86 % (31-73) Lymphocytes (%) (Auto) 9 % (24-48) Monocytes (%) (Auto) 5 % (0-9) Eosinophils (%) (Auto) 0 % (0-3) Basophils (%) (Auto) 0 % (0-3) Neutrophils # (Auto) 9.6 x10^3/uL (1.8-7.7) Lymphocytes # (Auto) 1.0 x10^3/uL (1.0-4.8) Monocytes # (Auto) 0.6 x10^3/uL (0.0-1.1) Eosinophils # (Auto) 0.0 x10^3/uL (0.0-0.7) Basophils # (Auto) 0.0 x10^3/uL (0.0-0.2) Sodium Level 143 mmol/L (136-145) Potassium Level 4.3 mmol/L (3.5-5.1) Chloride Level 110 mmol/L (98-107) Carbon Dioxide Level 30 mmol/L (21-32) Anion Gap 3 (6-14) Blood Urea Nitrogen 34 mg/dL (8-26) Creatinine 1.2 mg/dL (0.7-1.3) Estimated GFR (Cockcroft-Gault) 71.0 BUN/Creatinine Ratio 28 (6-20) Glucose Level 239 mg/dL (70-99) Calcium Level 7.3 mg/dL (8.5-10.1) Ferritin 350 ng/mL (26-388) Total Bilirubin 0.3 mg/dL (0.2-1.0) Aspartate Amino Transf (AST/SGOT) 19 U/L (15-37) Alanine Aminotransferase (ALT/SGPT) 41 U/L (16-63) Alkaline Phosphatase 46 U/L (46-116) C-Reactive Protein, Quantitative 4.6 mg/L (0-3.3) Total Protein 4.8 g/dL (6.4-8.2) Albumin 1.6 g/dL (3.4-5.0) Albumin/Globulin Ratio 0.5 (1.0-1.7) O2 Saturation 89 % (92-99) Arterial Blood pH 7.41 (7.35-7.45) Arterial Blood pCO2 at Patient Temp 39 mmHg (35-46) Arterial Blood pO2 at Patient Temp 59 mmHg (65-108) Arterial Blood HCO3 24 mmol/L (21-28) Arterial Blood Base Excess 0 mmol/L (-3-3) FiO2 50 Glucose (Fingerstick) 216 mg/dL (70-99) Laboratory Tests Test 03/07/20 12:14 03/07/20 18:33 03/07/20 20:51 03/08/20 00:01 Glucose (Fingerstick) 228 mg/dL (70-99) 174 mg/dL (70-99) 188 mg/dL (70-99) 142 mg/dL (70-99) Test 03/08/20 04:55 03/08/20 07:35 03/08/20 08:24 White Blood Count 11.2 x10^3/uL (4.0-11.0) Red Blood Count 3.33 x10^6/uL (4.30-5.70) Hemoglobin 9.7 g/dL (13.0-17.5) Hematocrit 29.1 % (39.0-53.0) Mean Corpuscular Volume 87 fL (79-100) Mean Corpuscular Hemoglobin 29 pg (25-35) Mean Corpuscular Hemoglobin Concent 33 g/dL (31-37) Red Cell Distribution Width 14.9 % (11.5-14.5) Platelet Count 201 x10^3/uL (140-400) Neutrophils (%) (Auto) 86 % (31-73) Lymphocytes (%) (Auto) 9 % (24-48) Monocytes (%) (Auto) 5 % (0-9) Eosinophils (%) (Auto) 0 % (0-3) Basophils (%) (Auto) 0 % (0-3) Neutrophils # (Auto) 9.6 x10^3/uL (1.8-7.7) Lymphocytes # (Auto) 1.0 x10^3/uL (1.0-4.8) Monocytes # (Auto) 0.6 x10^3/uL (0.0-1.1) Eosinophils # (Auto) 0.0 x10^3/uL (0.0-0.7) Basophils # (Auto) 0.0 x10^3/uL (0.0-0.2) Sodium Level 143 mmol/L (136-145) Potassium Level 4.3 mmol/L (3.5-5.1) Chloride Level 110 mmol/L (98-107) Carbon Dioxide Level 30 mmol/L (21-32) Anion Gap 3 (6-14) Blood Urea Nitrogen 34 mg/dL (8-26) Creatinine 1.2 mg/dL (0.7-1.3) Estimated GFR (Cockcroft-Gault) 71.0 BUN/Creatinine Ratio 28 (6-20) Glucose Level 239 mg/dL (70-99) Calcium Level 7.3 mg/dL (8.5-10.1) Ferritin 350 ng/mL (26-388) Total Bilirubin 0.3 mg/dL (0.2-1.0) Aspartate Amino Transf (AST/SGOT) 19 U/L (15-37) Alanine Aminotransferase (ALT/SGPT) 41 U/L (16-63) Alkaline Phosphatase 46 U/L (46-116) C-Reactive Protein, Quantitative 4.6 mg/L (0-3.3) Total Protein 4.8 g/dL (6.4-8.2) Albumin 1.6 g/dL (3.4-5.0) Albumin/Globulin Ratio 0.5 (1.0-1.7) O2 Saturation 89 % (92-99) Arterial Blood pH 7.41 (7.35-7.45) Arterial Blood pCO2 at Patient Temp 39 mmHg (35-46) Arterial Blood pO2 at Patient Temp 59 mmHg (65-108) Arterial Blood HCO3 24 mmol/L (21-28) Arterial Blood Base Excess 0 mmol/L (-3-3) FiO2 50 Glucose (Fingerstick) 216 mg/dL (70-99) Medications Current Medications Acetaminophen (Tylenol Supp) 650 mg 1X ONCE WA Last administered on 02/27/20at 01:06; Start 02/27/20 at 01:00; Stop 02/27/20 at 01:01; Status DC Ondansetron HCl (Zofran) 4 mg PRN Q4HRS PRN IV NAUSEA/VOMITING; Start 02/27/20 at 07:15 Acetaminophen (Tylenol) 650 mg PRN Q4HRS PRN PO TEMP OVER 100.4F OR MILD PAIN; Start 02/27/20 at 07:15 Acetaminophen (Tylenol Supp) 650 mg PRN Q4HRS PRN WA TEMP OVER 100.4F OR MILD PAIN Last administered on 02/27/20at 21:50; Start 02/27/20 at 07:15 Al Hydroxide/Mg Hydroxide (Mylanta Plus Xs) 30 ml PRN DAILY PRN PO HEARTBURN / GAS; Start 02/27/20 at 07:15 Docusate Sodium (Colace) 100 mg PRN BID PRN PO HARD STOOLS Last administered on 03/03/20at 08:43; Start 02/27/20 at 07:15 Enoxaparin Sodium (Lovenox 30mg Syringe) 30 mg Q12H SQ Last administered on 02/27/20at 11:45; Start 02/27/20 at 09:00; Stop 02/27/20 at 14:35; Status DC Methylprednisolone Sodium Succinate (SOLU-Medrol 40MG VIAL) 40 mg Q8HRS IV Last administered on 03/06/20at 05:37; Start 02/27/20 at 08:00; Stop 03/06/20 at 10:35; Status DC Insulin Human Lispro (HumaLOG) 0-7 UNITS TIDACHC SQ Last administered on 03/02/20at 12:03; Start 02/27/20 at 07:30; Stop 03/02/20 at 15:08; Status DC Dextrose (Dextrose 50%-Water Syringe) 12.5 gm PRN Q15MIN PRN IV SEE COMMENTS; Start 02/27/20 at 07:15 Amlodipine Besylate (Norvasc) 10 mg DAILY PO Last administered on 03/08/20at 08:15; Start 02/27/20 at 09:00 Aspirin (Ecotrin) 81 mg DAILY PO Last administered on 03/03/20at 08:43; Start 02/27/20 at 09:00; Stop 03/04/20 at 07:05; Status DC Atorvastatin Calcium (Lipitor) 10 mg HS PO Last administered on 03/07/20at 20:46; Start 02/27/20 at 21:00 Clonidine HCl (Catapres Tts-3) 1 patch WEEKLY TD ; Start 02/27/20 at 09:00; Stop 02/27/20 at 16:00; Status DC Guaifenesin (Robitussin Dm) 10 ml PRN Q6HRS PRN PO COUGH; Start 02/27/20 at 07:15 Lactobacillus Rhamnosus (Culturelle) 1 cap BID PO Last administered on 03/08/20at 08:15; Start 02/27/20 at 09:00 Enoxaparin Sodium (Lovenox 40mg Syringe) 40 mg Q24H SQ Last administered on 02/27/20at 21:50; Start 02/27/20 at 21:00; Stop 02/28/20 at 10:36; Status DC Zinc Sulfate (Orazinc) 220 mg DAILY PO Last administered on 03/08/20at 08:16; Start 02/27/20 at 16:00 Piperacillin Sod/ Tazobactam Sod 3.375 gm/Sodium Chloride 50 ml @ 100 mls/hr Q6HRS IV Last administered on 03/08/20at 06:02; Start 02/28/20 at 11:00 Enoxaparin Sodium (Lovenox 40mg Syringe) 40 mg Q12HR SQ Last administered on 03/08/20at 08:16; Start 02/28/20 at 11:00 Sodium Chloride 1,000 ml @ 100 mls/hr Q10H IV Last administered on 03/02/20at 02:53; Start 02/28/20 at 11:00; Stop 03/02/20 at 12:34; Status DC Linezolid/Dextrose 300 ml @ 300 mls/hr Q12HR IV Last administered on 03/03/20at 20:39; Start 02/29/20 at 09:00; Stop 03/04/20 at 07:45; Status DC Sterile Water (WATER for RESP) 1,000 ml CONT PRN INH VIA VAPOTHERM DEVICE Last administered on 03/01/20at 19:29; Start 03/01/20 at 11:00 Hydralazine HCl (Apresoline Inj) 10 mg PRN Q4HRS PRN IVP ELEVATED BP, SEE COMMENTS Last administered on 03/04/20at 14:08; Start 03/01/20 at 18:15 Fentanyl Citrate 30 ml @ 0 mls/hr CONT PRN IV SEE PROTOCOL Last administered on 03/08/20at 03:01; Start 03/02/20 at 00:00 Midazolam HCl 100 ml @ 0 mls/hr CONT PRN IV SEE PROTOCOL Last administered on 03/08/20at 06:02; Start 03/02/20 at 00:00 Vecuronium [place] (Norcuron Bolus) 6 mg PRN Q4HRS PRN IV Sedation; Start 03/02/20 at 00:00 Etomidate (Amidate) 20 mg 1X ONCE IV Last administered on 03/02/20at 00:05; Start 03/02/20 at 00:00; Stop 03/02/20 at 00:08; Status DC Succinylcholine Chloride (Anectine) 200 mg 1X ONCE IV Last administered on 03/02/20at 00:05; Start 03/02/20 at 00:00; Stop 03/02/20 at 00:08; Status DC Sodium Bicarbonate (Sodium Bicarb Adult 8.4% Syr) 50 meq STK-MED ONCE .ROUTE ; Start 03/02/20 at 09:43; Stop 03/02/20 at 09:44; Status DC Sodium Bicarbonate (Sodium Bicarb Adult 8.4% Syr) 50 meq 1X ONCE IV Last administered on 03/02/20at 10:15; Start 03/02/20 at 10:15; Stop 03/02/20 at 1 0:16; Status DC Sodium Chloride 1,000 ml @ 100 mls/hr Q10H IV Last administered on 03/08/20at 06:57; Start 03/02/20 at 12:30 Insulin Human Lispro (HumaLOG) 0-9 UNITS TIDWMEALS SQ Last administered on 03/03/20at 18:16; Start 03/02/20 at 17:00; Stop 03/04/20 at 07:08; Status DC Pantoprazole Sodium (PROTONIX VIAL for IV PUSH) 40 mg DAILYAC IVP Last administered on 03/08/20at 08:16; Start 03/03/20 at 16:00 Insulin Glargine (Lantus Syringe) 8 unit QHS SQ Last administered on 03/03/20at 20:38; Start 03/03/20 at 21:00; Stop 03/04/20 at 11:45; Status DC Aspirin (Aspirin Chewable) 81 mg DAILYWBKFT PO Last administered on 03/08/20at 08:15; Start 03/04/20 at 08:00 Insulin Human Lispro (HumaLOG) 0-9 UNITS Q6HRS SQ Last administered on 03/08/20at 06:03; Start 03/04/20 at 12:00 Insulin Human Lispro (HumaLOG) 9 units 1X ONCE SQ Last administered on 03/04/20at 07:20; Start 03/04/20 at 07:15; Stop 03/04/20 at 07:16; Status DC Insulin Glargine (Lantus Syringe) 20 unit BID SQ Last administered on 03/08/20at 09:30; Start 03/04/20 at 21:00 Insulin Glargine (Lantus Syringe) 20 unit 1X ONCE SQ Last administered on 03/04/20at 11:45; Start 03/04/20 at 11:45; Stop 03/04/20 at 11:47; Status DC Insulin Human Lispro (HumaLOG) 14 units TID SQ Last administered on 03/08/20at 08:25; Start 03/04/20 at 14:00 Methylprednisolone Sodium Succinate (SOLU-Medrol 40MG VIAL) 40 mg BID IV Last administered on 03/08/20at 08:14; Start 03/06/20 at 10:45 Active Scripts Active Culturelle (Lactobacillus Rhamnosus Gg) 1 Each Cap.sprink 1 Cap PO BID 30 Days Guaifenesin Dm Syrup (Guaifenesin/Dextromethorphan) 5 Ml Syrup 10 Ml PO PRN Q6HRS PRN 30 Days Albuterol Sulfate Neb Soln (Albuterol Sulfate) 2.5 Mg/3 Ml Vial.neb 2.5 Mg NEB PRN Q4HRS PRN 30 Days Azithromycin Tablet (Azithromycin) 250 Mg Tablet 250 Mg PO DAILY 5 Days Cefpodoxime Proxetil 100 Mg Tablet 200 Mg PO BID 5 Days Reported Senna (Sennosides) 8.8 Mg/5 Ml Syrup 8.8 Mg PO DAILY Tylenol Extra Strength (Acetaminophen) 500 Mg Tablet 1,000 Mg PO PRN PRN Furosemide 20 Mg Tablet 1 Tab PO DAILY Glipizide Xl (Glipizide) 10 Mg Tab.er.24 1 Tab PO DAILY 30 Days Metformin Hcl Er (Metformin Hcl) 500 Mg Tab.er.24h 1,000 Mg PO DAILYWBKFT Glipizide Xl (Glipizide) 10 Mg Tab.er.24 10 Mg PO DAILY Calcium 500 + D Tablet (Calcium Carbonate/Vitamin D3) 1 Each Tablet 1 Each PO DAILY Catapres-Tts 3 (Clonidine) 1 Each Patch.tdwk 1 Each TD WEEKLY Lisinopril 20 Mg Tablet 1 Tab PO DAILY [cyanocobalamin] 100 Mcg PO DAILY Aspir 81 (Aspirin) 81 Mg Tablet.dr 81 Mg PO DAILY Norvasc (Amlodipine Besylate) 10 Mg Tablet 10 Mg PO DAILY Atorvastatin Calcium 10 Mg Tablet 10 Mg PO HS Vitals/I & O Vital Sign - Last 24 Hours 03/07/20 03/07/20 03/07/20 03/07/20 11:00 12:00 12:00 12:06 Temp 97.4 97.4 Pulse 50 54 Resp 24 24 B/P (MAP) 165/90 (115) 141/71 (94) Pulse Ox 100 98 96 O2 Delivery Ventilator Ventilator Mechanical Ventilator Ventilator 03/07/20 03/07/20 03/07/20 03/07/20 13:00 14:00 15:00 15:01 Pulse 51 50 50 Resp 24 24 24 24 B/P (MAP) 146/75 (98) 133/71 (91) 130/66 (87) Pulse Ox 97 98 98 98 O2 Delivery Ventilator Ventilator Ventilator Ventilator 03/07/20 03/07/20 03/07/20 03/07/20 15:31 15:58 16:00 16:00 Temp 97.7 97.7 Pulse 52 Resp 24 24 B/P (MAP) 149/76 (100) Pulse Ox 96 98 98 O2 Delivery Ventilator Ventilator Ventilator Mechanical Ventilator 03/07/20 03/07/20 03/07/20 03/07/20 16:05 17:00 18:00 19:00 Pulse 56 55 54 Resp 24 24 24 B/P (MAP) 154/73 (100) 171/94 (119) 165/88 (113) Pulse Ox 98 94 99 100 O2 Delivery Ventilator Ventilator Ventilator Ventilator 8/3003/07/20 03/07/20 03/07/20 20:00 20:00 20:32 21:00 Temp 97.8 97.8 Pulse 52 50 Resp 24 24 B/P (MAP) 152/79 (103) 164/86 (112) Pulse Ox 100 100 100 O2 Delivery Ventilator Mechanical Ventilator Ventilator Ventilator 03/07/20 03/07/20 03/08/20 03/08/20 22:00 23:00 00:00 00:00 Temp 97.8 97.8 Pulse 51 49 51 Resp 24 24 24 B/P (MAP) 131/76 (94) 170/88 (115) 154/74 (100) Pulse Ox 100 100 100 O2 Delivery Ventilator Ventilator Ventilator Mechanical Ventilator 03/08/20 03/08/20 03/08/20 03/08/20 00:17 01:00 02:00 03:00 Pulse 60 65 61 Resp 24 24 24 B/P (MAP) 173/86 (115) 163/87 (112) 140/83 (102) Pulse Ox 100 97 97 98 O2 Delivery Ventilator Ventilator Ventilator Ventilator 03/08/20 03/08/20 03/08/20 03/08/20 04:00 04:00 04:52 05:00 Temp 97.7 97.7 Pulse 51 51 Resp 24 24 B/P (MAP) 117/74 (88) 119/73 (88) Pulse Ox 100 100 99 O2 Delivery Mechanical Ventilator Ventilator Ventilator Ventilator 03/08/20 03/08/20 03/08/20 06:00 07:35 08:15 Pulse 50 50 Resp 24 B/P (MAP) 146/82 (103) 162/76 Pulse Ox 100 96 O2 Delivery Ventilator Ventilator Intake and Output 03/07/20 03/07/20 03/08/20 15:00 23:00 07:00 Intake Total 300 ml 2828.27 ml 2538.34 ml Output Total 545 ml 545 ml 675 ml Balance -245 ml 2283.27 ml 1863.34 ml Justicifation of Admission Dx: Justifications for Admission: Justification of Admission Dx: Yes Respiratory Failure: Severe Resp Distress ALONDRA HARMON MD Mar 08, 2020 10:26
--- NOTE | 2020-03-08 11:23 | RAD ---
CHEST AP ONLY INDICATION: Reason: covid f/u ICU#112 / Spl. Instructions: / History: . COMPARISON STUDY: 03/05/2020. FINDINGS: Life Support Devices: Stable endotracheal tube, enteric tube, right IJ central venous catheter. Lungs: Normal lung volume. Bilateral perihilar and basilar heterogeneous opacities, slightly improved. Indistinct pulmonary vasculature. Pleura: Stable small bilateral pleural effusions. Heart and Mediastinum: Stable cardiomediastinal silhouette and great vessels. Bones and Soft Tissues: Stable regional skeleton and soft tissues. IMPRESSION: 1. Slightly improved bilateral perihilar and basilar regions opacities. 2. Stable small bilateral pleural effusions. 3. Stable life support devices. Electronically signed by: Stanley Jacobs MD (03/08/2020 11:20 AM) [id number]
[2020-03-08] MEDS: FUROSEMIDE 40 MG/4 ML VIAL. IVP SCH (12:01)
--- NOTE | 2020-03-08 15:10 | NUR ---
SS following up with discharge planning. SS reviewed pt chart and discussed with pt RN. Pt remains on the vent at this time. Pt full code. COVID19 positive. SS phoned and faxed referral to [facility], ; fax [phone]. SS will continue to follow for discharge planning.
[2020-03-08] MEDS: hydrALAZINE 20 MG/ML VIAL. IVP PRN ×2 (15:31→23:26)
[2020-03-08] MEDS: ATORVASTATIN CALCIUM 10 MG TABLET. PO SCH (21:12)
[2020-03-09] VITALS (24 sets, daily range): BP systolic 107–199; BP diastolic 50–91
[2020-03-09] MEDS: PIPERACILLIN/TAZOBACTAM 3.375 GM in IV NORMAL SALINE 50ML 50 ML IV SCH ×4 (00:15→17:47)
[2020-03-09] MEDS: hydrALAZINE 20 MG/ML VIAL. IVP PRN ×3 (04:36→20:15)
[2020-03-09] MEDS: INSULIN LISPRO 300 UNITS/3 ML VIAL. SQ SCH ×7 (06:29→22:31)
[2020-03-09 06:52] LABS: ALBUMIN 1.9 g/dL (3.4-5.0); ALBUMIN/GLOBULIN RATIO 0.5 (1.0-1.7); CALCIUM 8.3 mg/dL (8.5-10.1); CREATININE 1.1 mg/dL (0.7-1.3); GFR 78.5; POTASSIUM 4.2 mmol/L (3.5-5.1); TOTAL BILIRUBIN 0.4 mg/dL (0.2-1.0); TOTAL PROTEIN 5.6 g/dL (6.4-8.2)
[2020-03-09] MEDS: MIDAZOLAM 100mg/100ml NS BAG 100 ML IV PRN (07:38)
[2020-03-09] MEDS: methylPREDNISolone SOD SUCC PF 40 MG/ML VIAL. IV SCH ×2 (07:41→20:47)
[2020-03-09] MEDS: ASPIRIN CHEWABLE 81 MG TABLET. PO SCH (07:41)
[2020-03-09] MEDS: ZINC SULFATE 220 MG CAPSULE. PO SCH (07:42)
[2020-03-09] MEDS: amLODIPine BESYLATE 10 MG TABLET PO SCH (07:42)
[2020-03-09] MEDS: PANTOPRAZOLE IV PUSH 40 MG VIAL. IVP SCH (07:42)
[2020-03-09] MEDS: LACTOBACILLUS RHAMNOSUS GG 1 CAPSULE. PO SCH ×2 (07:42→20:47)
[2020-03-09] MEDS: FUROSEMIDE 40 MG/4 ML VIAL. IVP SCH (07:43)
[2020-03-09] MEDS: ENOXAPARIN 40 MG/0.4 ML SYRINGE. SQ SCH ×2 (07:43→20:48)
--- NOTE | 2020-03-09 07:55 | PDOC ---
Infectious Disease Note Subjective: Subjective Pt remains Intubated,sedated no acute issues per discussion with RN Vital Signs: Vital Signs Vital Signs Date Time Temp Pulse Resp B/P (MAP) Pulse Ox O2 Delivery O2 Flow Rate FiO2 03/09/20 07:50 97 Ventilator 03/09/20 07:42 85 179/57 03/09/20 06:00 22 03/09/20 04:49 40.0 03/09/20 04:00 98.8 98.8 Physical Exam: PHYSICAL EXAM CONSTITUTIONAL: sedated on vent HEENT: Pupils have some cataracts in place. Oral cavity, pharynx is very dry. NECK: Supple, no JVD. LUNGS: Had some mild crackles. HEART: S1, S2. ABDOMEN: Soft, nontender, no guarding, no rebound. thomas in place Fecal tube + EXTREMITIES: Without clubbing, cyanosis. No gross edema. SKIN: Warm to touch without signs of rash. NEUROLOGIC: sedated on vent Rt IJ line clean Medications: Inpatient Meds: Current Medications Medications (Trade) Dose Ordered Sig/Nick Start Time Stop Time Status Last Admin Dose Admin Acetaminophen (Tylenol Supp) 650 mg PRN Q4HRS PRN 02/27/20 07:15 02/27/20 21:50 650 MG Acetaminophen (Tylenol) 650 mg PRN Q4HRS PRN 02/27/20 07:15 Al Hydroxide/Mg Hydroxide (Mylanta Plus Xs) 30 ml PRN DAILY PRN 02/27/20 07:15 Amlodipine Besylate (Norvasc) 10 mg DAILY 02/27/20 09:00 03/09/20 07:42 10 MG Aspirin (Aspirin Chewable) 81 mg DAILYWBKFT 03/04/20 08:00 03/09/20 07:41 81 MG Aspirin (Ecotrin) 81 mg DAILY 02/27/20 09:00 03/04/20 07:05 DC 03/03/20 08:43 81 MG Atorvastatin Calcium (Lipitor) 10 mg HS 02/27/20 21:00 03/08/20 21:12 10 MG Clonidine HCl (Catapres Tts-3) 1 patch WEEKLY 02/27/20 09:00 02/27/20 16:00 DC Dextrose (Dextrose 50%-Water Syringe) 12.5 gm PRN Q15MIN PRN 02/27/20 07:15 Docusate Sodium (Colace) 100 mg PRN BID PRN 02/27/20 07:15 03/03/20 08:43 100 MG Enoxaparin Sodium (Lovenox 30mg Syringe) 30 mg Q12H 02/27/20 09:00 02/27/20 14:35 DC 02/27/20 11:45 30 MG Enoxaparin Sodium (Lovenox 40mg Syringe) 40 mg BID 03/08/20 21:00 03/09/20 07:43 40 MG Etomidate (Amidate) 20 mg 1X ONCE 03/02/20 00:00 03/02/20 00:08 DC 03/02/20 00:05 20 MG Fentanyl Citrate 30 ml @ 0 mls/hr CONT PRN 03/02/20 00:00 03/09/20 04:19 3.75 MLS/HR Furosemide (Lasix) 40 mg DAILY 03/08/20 11:00 03/12/20 09:00 03/09/20 07:43 40 MG Guaifenesin (Robitussin Dm) 10 ml PRN Q6HRS PRN 02/27/20 07:15 Hydralazine HCl (Apresoline Inj) 10 mg PRN Q4HRS PRN 03/01/20 18:15 03/09/20 07:15 10 MG Insulin Glargine (Lantus Syringe) 20 unit 1X ONCE 03/04/20 11:45 03/04/20 11:47 DC 03/04/20 11:45 20 UNIT Insulin Human Lispro (HumaLOG) 14 units TID 03/04/20 14:00 03/08/20 21:12 14 UNITS Lactobacillus Rhamnosus (Culturelle) 1 cap BID 02/27/20 09:00 03/09/20 07:42 1 CAP Linezolid/Dextrose 300 ml @ 300 mls/hr Q12HR 02/29/20 09:00 03/04/20 07:45 DC 03/03/20 20:39 300 MLS/HR Methylprednisolone Sodium Succinate (SOLU-Medrol 40MG VIAL) 40 mg BID 03/06/20 10:45 03/09/20 07:41 40 MG Midazolam HCl 100 ml @ 0 mls/hr CONT PRN 03/02/20 00:00 03/09/20 07:38 10 MLS/HR Ondansetron HCl (Zofran) 4 mg PRN Q4HRS PRN 02/27/20 07:15 Pantoprazole Sodium (PROTONIX VIAL for IV PUSH) 40 mg DAILYAC 03/03/20 16:00 03/09/20 07:42 40 MG Piperacillin Sod/ Tazobactam Sod 3.375 gm/Sodium Chloride 50 ml @ 100 mls/hr Q6HRS 02/28/20 11:00 03/09/20 05:26 100 MLS/HR Sodium Bicarbonate (Sodium Bicarb Adult 8.4% Syr) 50 meq 1X ONCE 03/02/20 10:15 03/02/20 10:16 DC 03/02/20 10:15 50 MEQ Sodium Chloride 1,000 ml @ 100 mls/hr Q10H 03/02/20 12:30 03/08/20 14:41 DC 03/08/20 06:57 100 MLS/HR Sterile Water (WATER for RESP) 1,000 ml CONT PRN 03/01/20 11:00 03/01/20 19:29 1,000 ML Succinylcholine Chloride (Anectine) 200 mg 1X ONCE 03/02/20 00:00 03/02/20 00:08 DC 03/02/20 00:05 200 MG Vecuronium [place] (Norcuron Bolus) 6 mg PRN Q4HRS PRN 03/02/20 00:00 Zinc Sulfate (Orazinc) 220 mg DAILY 02/27/20 16:00 03/09/20 07:42 220 MG Labs: Lab Laboratory Tests Test 03/08/20 08:24 03/08/20 12:16 03/08/20 18:01 03/08/20 21:51 Glucose (Fingerstick) 216 mg/dL (70-99) 200 mg/dL (70-99) 164 mg/dL (70-99) 181 mg/dL (70-99) Test 03/09/20 01:12 03/09/20 05:45 03/09/20 05:47 Glucose (Fingerstick) 148 mg/dL (70-99) 183 mg/dL (70-99) Sodium Level 142 mmol/L (136-145) Potassium Level 4.2 mmol/L (3.5-5.1) Chloride Level 108 mmol/L (98-107) Carbon Dioxide Level 27 mmol/L (21-32) Anion Gap 7 (6-14) Blood Urea Nitrogen 34 mg/dL (8-26) Creatinine 1.1 mg/dL (0.7-1.3) Estimated GFR (Cockcroft-Gault) 78.5 BUN/Creatinine Ratio 31 (6-20) Glucose Level 191 mg/dL (70-99) Calcium Level 8.3 mg/dL (8.5-10.1) Total Bilirubin 0.4 mg/dL (0.2-1.0) Aspartate Amino Transf (AST/SGOT) 18 U/L (15-37) Alanine Aminotransferase (ALT/SGPT) 38 U/L (16-63) Alkaline Phosphatase 51 U/L (46-116) Total Protein 5.6 g/dL (6.4-8.2) Albumin 1.9 g/dL (3.4-5.0) Albumin/Globulin Ratio 0.5 (1.0-1.7) Objective: Assessment: 1. Fever.pattern improved 2. Acute hypoxic respiratory failure. 3. COVID positive. 4. Acute kidney injury. 5. Leukocytosis. 6. Rhabdomyolysis with history as well, previous rhabdomyolysis. Plan: Plan of Care Plasma given Cont Steroids cont zosyn, F/u labs and cults Condition critical f/u c diff pcr nursing JÚNIOR SMITH MD Mar 09, 2020 07:55
[2020-03-09 09:04] LABS: BASE EXCESS ABG -2 mmol/L (-3-3); HCO3 ABG 22 mmol/L (21-28); PCO2 ABG 34 mmHg (35-46); PO2 ABG 71 mmHg (65-108); SAT O2 ABG 93 % (92-99)
[2020-03-09 09:14] LABS: FIO2 ABG 50/VENT
[2020-03-09] MEDS: INSULIN GLARGINE SYRINGE. SQ SCH ×2 (09:19→20:48)
--- NOTE | 2020-03-09 10:28 | PDOC ---
PULMONARY PROGRESS NOTES DATE: 03/09/20 TIME: 10:26 Subjective intubated night of 03/01 due to worsening hypoxia a-febrile AC mode 50%FIO2, 8 PEEP Nursing reports hematoma/bleeding from central line Vitals Vital Signs Date Time Temp Pulse Resp B/P (MAP) Pulse Ox O2 Delivery O2 Flow Rate FiO2 03/09/20 10:00 66 24 125/59 (81) 100 Ventilator 03/09/20 08:00 98.2 98.2 03/09/20 04:49 40.0 Comments PT. seen during COVID-19 pandemic visual exam preformed RRR VENT 50% no distress no rash No edema Lungs: Other (Intubated) Labs Laboratory Tests Test 03/07/20 12:14 03/07/20 18:33 03/07/20 20:51 03/08/20 00:01 Glucose (Fingerstick) 228 mg/dL (70-99) 174 mg/dL (70-99) 188 mg/dL (70-99) 142 mg/dL (70-99) Test 03/08/20 04:55 03/08/20 07:35 03/08/20 08:24 03/08/20 12:16 White Blood Count 11.2 x10^3/uL (4.0-11.0) Red Blood Count 3.33 x10^6/uL (4.30-5.70) Hemoglobin 9.7 g/dL (13.0-17.5) Hematocrit 29.1 % (39.0-53.0) Mean Corpuscular Volume 87 fL (79-100) Mean Corpuscular Hemoglobin 29 pg (25-35) Mean Corpuscular Hemoglobin Concent 33 g/dL (31-37) Red Cell Distribution Width 14.9 % (11.5-14.5) Platelet Count 201 x10^3/uL (140-400) Neutrophils (%) (Auto) 86 % (31-73) Lymphocytes (%) (Auto) 9 % (24-48) Monocytes (%) (Auto) 5 % (0-9) Eosinophils (%) (Auto) 0 % (0-3) Basophils (%) (Auto) 0 % (0-3) Neutrophils # (Auto) 9.6 x10^3/uL (1.8-7.7) Lymphocytes # (Auto) 1.0 x10^3/uL (1.0-4.8) Monocytes # (Auto) 0.6 x10^3/uL (0.0-1.1) Eosinophils # (Auto) 0.0 x10^3/uL (0.0-0.7) Basophils # (Auto) 0.0 x10^3/uL (0.0-0.2) Sodium Level 143 mmol/L (136-145) Potassium Level 4.3 mmol/L (3.5-5.1) Chloride Level 110 mmol/L (98-107) Carbon Dioxide Level 30 mmol/L (21-32) Anion Gap 3 (6-14) Blood Urea Nitrogen 34 mg/dL (8-26) Creatinine 1.2 mg/dL (0.7-1.3) Estimated GFR (Cockcroft-Gault) 71.0 BUN/Creatinine Ratio 28 (6-20) Glucose Level 239 mg/dL (70-99) Calcium Level 7.3 mg/dL (8.5-10.1) Ferritin 350 ng/mL (26-388) Total Bilirubin 0.3 mg/dL (0.2-1.0) Aspartate Amino Transf (AST/SGOT) 19 U/L (15-37) Alanine Aminotransferase (ALT/SGPT) 41 U/L (16-63) Alkaline Phosphatase 46 U/L (46-116) Creatine Kinase 37 U/L (39-308) C-Reactive Protein, Quantitative 4.6 mg/L (0-3.3) Total Protein 4.8 g/dL (6.4-8.2) Albumin 1.6 g/dL (3.4-5.0) Albumin/Globulin Ratio 0.5 (1.0-1.7) O2 Saturation 89 % (92-99) Arterial Blood pH 7.41 (7.35-7.45) Arterial Blood pCO2 at Patient Temp 39 mmHg (35-46) Arterial Blood pO2 at Patient Temp 59 mmHg (65-108) Arterial Blood HCO3 24 mmol/L (21-28) Arterial Blood Base Excess 0 mmol/L (-3-3) FiO2 50 Glucose (Fingerstick) 216 mg/dL (70-99) 200 mg/dL (70-99) Test 03/08/20 18:01 03/08/20 21:51 03/09/20 01:12 03/09/20 05:45 Glucose (Fingerstick) 164 mg/dL (70-99) 181 mg/dL (70-99) 148 mg/dL (70-99) Sodium Level 142 mmol/L (136-145) Potassium Level 4.2 mmol/L (3.5-5.1) Chloride Level 108 mmol/L (98-107) Carbon Dioxide Level 27 mmol/L (21-32) Anion Gap 7 (6-14) Blood Urea Nitrogen 34 mg/dL (8-26) Creatinine 1.1 mg/dL (0.7-1.3) Estimated GFR (Cockcroft-Gault) 78.5 BUN/Creatinine Ratio 31 (6-20) Glucose Level 191 mg/dL (70-99) Calcium Level 8.3 mg/dL (8.5-10.1) Total Bilirubin 0.4 mg/dL (0.2-1.0) Aspartate Amino Transf (AST/SGOT) 18 U/L (15-37) Alanine Aminotransferase (ALT/SGPT) 38 U/L (16-63) Alkaline Phosphatase 51 U/L (46-116) Total Protein 5.6 g/dL (6.4-8.2) Albumin 1.9 g/dL (3.4-5.0) Albumin/Globulin Ratio 0.5 (1.0-1.7) Test 03/09/20 05:47 03/09/20 08:00 03/09/20 08:19 Glucose (Fingerstick) 183 mg/dL (70-99) 170 mg/dL (70-99) O2 Saturation 93 % (92-99) Arterial Blood pH 7.43 (7.35-7.45) Arterial Blood pCO2 at Patient Temp 34 mmHg (35-46) Arterial Blood pO2 at Patient Temp 71 mmHg (65-108) Arterial Blood HCO3 22 mmol/L (21-28) Arterial Blood Base Excess -2 mmol/L (-3-3) FiO2 50/vent Laboratory Tests Test 03/08/20 12:16 03/08/20 18:01 03/08/20 21:51 03/09/20 01:12 Glucose (Fingerstick) 200 mg/dL (70-99) 164 mg/dL (70-99) 181 mg/dL (70-99) 148 mg/dL (70-99) Test 03/09/20 05:45 03/09/20 05:47 03/09/20 08:00 03/09/20 08:19 Sodium Level 142 mmol/L (136-145) Potassium Level 4.2 mmol/L (3.5-5.1) Chloride Level 108 mmol/L (98-107) Carbon Dioxide Level 27 mmol/L (21-32) Anion Gap 7 (6-14) Blood Urea Nitrogen 34 mg/dL (8-26) Creatinine 1.1 mg/dL (0.7-1.3) Estimated GFR (Cockcroft-Gault) 78.5 BUN/Creatinine Ratio 31 (6-20) Glucose Level 191 mg/dL (70-99) Calcium Level 8.3 mg/dL (8.5-10.1) Total Bilirubin 0.4 mg/dL (0.2-1.0) Aspartate Amino Transf (AST/SGOT) 18 U/L (15-37) Alanine Aminotransferase (ALT/SGPT) 38 U/L (16-63) Alkaline Phosphatase 51 U/L (46-116) Total Protein 5.6 g/dL (6.4-8.2) Albumin 1.9 g/dL (3.4-5.0) Albumin/Globulin Ratio 0.5 (1.0-1.7) Glucose (Fingerstick) 183 mg/dL (70-99) 170 mg/dL (70-99) O2 Saturation 93 % (92-99) Arterial Blood pH 7.43 (7.35-7.45) Arterial Blood pCO2 at Patient Temp 34 mmHg (35-46) Arterial Blood pO2 at Patient Temp 71 mmHg (65-108) Arterial Blood HCO3 22 mmol/L (21-28) Arterial Blood Base Excess -2 mmol/L (-3-3) FiO2 50/vent Medications Active Scripts Medications Dose Route/Sig Max Daily Dose Days Date Category Senna (Sennosides) 8.8 Mg/5 Ml Syrup 8.8 Mg PO DAILY 02/27/20 Reported Tylenol Extra Strength (Acetaminophen) 500 Mg Tablet 1,000 Mg PO PRN PRN 02/27/20 Reported Furosemide 20 Mg Tablet 1 Tab PO DAILY 02/27/20 Reported Glipizide Xl (Glipizide) 10 Mg Tab.er.24 1 Tab PO DAILY 30 02/27/20 Reported Culturelle (Lactobacillus Rhamnosus Gg) 1 Each Cap.sprink 1 Cap PO BID 30 05/23/18 Rx Guaifenesin Dm Syrup (Guaifenesin/Dextromethorphan) 5 Ml Syrup 10 Ml PO PRN Q6HRS PRN 30 05/23/18 Rx Albuterol Sulfate Neb Soln (Albuterol Sulfate) 2.5 Mg/3 Ml Vial.neb 2.5 Mg NEB PRN Q4HRS PRN 30 05/23/18 Rx Azithromycin Tablet (Azithromycin) 250 Mg Tablet 250 Mg PO DAILY 5 05/23/18 Rx Cefpodoxime Proxetil 100 Mg Tablet 200 Mg PO BID 5 05/23/18 Rx Metformin Hcl Er (Metformin Hcl) 500 Mg Tab.er.24h 1,000 Mg PO DAILYWBKFT 05/21/18 Reported Glipizide Xl (Glipizide) 10 Mg Tab.er.24 10 Mg PO DAILY 05/20/18 Reported Calcium 500 + D Tablet (Calcium Carbonate/Vitamin D3) 1 Each Tablet 1 Each PO DAILY 05/20/18 Reported Catapres-Tts 3 (Clonidine) 1 Each Patch.tdwk 1 Each TD WEEKLY 05/20/18 Reported Lisinopril 20 Mg Tablet 1 Tab PO DAILY 05/20/18 Reported [cyanocobalamin] 100 Mcg PO DAILY 05/20/18 Reported Aspir 81 (Aspirin) 81 Mg Tablet.dr 81 Mg PO DAILY 07/08/13 Reported Norvasc (Amlodipine Besylate) 10 Mg Tablet 10 Mg PO DAILY 07/08/13 Reported Atorvastatin Calcium 10 Mg Tablet 10 Mg PO HS 07/08/13 Reported Comments CXR- 02/27/2020 IMPRESSION: * Patchy opacities in bilateral lungs which could be seen with multifocal infiltrate or edema 03/01 WORSENING INFILTRATES 03/03- IMPRESSION: * Repeat demonstration of multifocal opacities throughout the bilateral lungs with slight decrease in the right upper lung compared to prior and similar to prior within other portions of the bilateral lungs. * Lines and tubes as above. * Enlarged cardiomediastinal silhouette. CXR 03/05 Impression: Slight interval improvement in the bilateral perihilar infiltrates. Impression . Acute hypoxic respiratory Failure--intubated night of 03/01 Abnormal chest x-ray COVID-19 known positive COVID -19 pneumonia, cannot exclude bacterial pneumonia elevated ddimer 2/2 inflammatory stage of covid19 -- improving Fevers--resolved Anemia of chronic disease Dementia KENNY vs. CKD --resolved, ongoing azotemia steroids? Plan . Continue assist control mode follow ABG and make changes Lasix s/p Plasma ABX per ID Cont. steroids,with taper Follow nephrology recs will follow inflammatory markers Continue TF for nutritional support DVT/GI PPX -- high dose lovenox Lovenox twice daily D/W RN, and RT cct 30 min JOSY CASTILLO MD Mar 09, 2020 10:28
--- NOTE | 2020-03-09 11:01 | NUR ---
SS following up with discharge planning. SS reviewed pt chart and discussed with pt RN. Pt remains on the vent at this time. COVID19 positive. Pt on IV Zosyn. Pt accepted at [facility], ; fax [phone], pending insurance authorization. SS will continue to follow for discharge planning.
--- NOTE | 2020-03-09 11:08 | PDOC ---
[employer] PROGRESS NOTE Date of Service DOS: DATE: 03/09/20 TIME: 11:06 Chief Complaint Chief Complaint Respiratory failure with hypoxia - likely 2/2 COVID 19. WORSENING. Steroids, Lovenox twice daily, consult pulmonology. Maintain O2 saturations 92% or greater. SARS-CoV-2 (COVID-19) - As above. ID consulted, agree to consent for convalescent [facility] if this is line with family goals of care. KENNY - likely vasomotor nephropathy from COVID 19 infection, will monitor renal fx and hydrate. 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 year, now in SNF [facility] Diabetes-Type II - sliding scale insulin, will hold oral hypoglycemics for now GERD - cont antacids High Cholesterol - cont statin Hypertension - cont meds, hold clonidine patch given his BP is on the low side POLYNEUROPATHY - CK elevated, will monitor intubated night of 03/01 due to worsening hypoxia History of Present Illness History of Present Illness 03-09-2020 Patient seen and examined in the COVID-19 ICU Patient is still intubated Assist-control/29/11 50/50% with 8 of PEEP On IV fentanyl Versed Also has OG feeds running at 50 cc an hour Chart reviewed Discussed with RN Discussed with case management Mr Rivera is a 79-year-old male with PMHx Anemia, Dementia, Diabetes-Type II, Diverticulosis, GERD, High Cholesterol, Hypertension, POLYNEUROPATHY resident of [facility] in [place] comes to ED with known SARS-CoV-2 (COVID 19) who presents to the emergency room with respiratory distress. Patient is unable to provide any history. Is unclear at this time how long he has been ill. Is unclear whether or not he is on oxygen at baseline. Upon arrival to the emergency room he is on a nonrebreather. He reportedly had a pulse ox of 72 upon EMS arrival. Patient was able to be weaned down from a nonrebreather to 6 L nasal cannula. ABG was done 7.35/48/107 on 6 L nasal cannula. WBC 9.3, Hb 13.3, platelets 212, d-dimer 3.92, troponin 0 0.22, AST 57, CRP 163.7, CK 1865, albumin 2.7 EKG sinus rhythm, leftward axis QRS transition zone, nonspecific T abnormalities high lateral leads, new prolonged QT. CXR with bilateral patchy infiltrate consistent with COVID-19 pneumonia. Admitted for further care. 02/27: Cr up to 2.4 today. Febrile to 100.7 F overnight. Slight cough. On 6 L nasal cannula oxygen. Afebrile past 24 hours, now on 10 L facemask O2, WBC 11.4, hemoglobin 12.8, CR stable at 2.4 albumin 2.5 CK 2060, glucose 302. He has been incontinent of urine over the past 24 hours and has some redness on the scrotum and buttocks, I advised him Thomas catheter may be indicated he does not seem to be understanding much of what is going on. I have discussed with ID that type and screen and convalescent plasma may be indicated, will try to get a hold of family to discuss goals of care. Nephrology consulted, will check UA and renal US. 03/01/2020 No acute events overnight. Patient this morning required increased oxygen requirements needing an nonrebreather mask. Patient was obtunded at this time and not following commands. Patient's chart, labs, images were reviewed and discussed with RN. 03/03/20 No acute events overnight. O2 requirement decreasing. Patient's chart and labs reviewed. Discussed with RN. 03/04/20 Patient remains intubated and sedated. Hyperglycemia still an issue. Discussed increasing insulin with RN. 03/08 Patient remains intubated. Continue broad-spectrum antibiotics and steroids. Blood sugar is elevated secondary to steroids, will adjust insulin No acute ev ents overnight. cr 1.2 Vitals/I&O Vitals/I&O: Vital Signs Date Time Temp Pulse Resp B/P (MAP) Pulse Ox O2 Delivery O2 Flow Rate FiO2 03/09/20 11:00 64 24 128/58 (81) 100 Ventilator 03/09/20 08:00 98.2 98.2 03/09/20 04:49 40.0 I & O 03/08/20 03/08/20 03/09/20 15:00 23:00 07:00 Intake Total 300 ml 2090.62 ml 1187.3 ml Output Total 720 ml 1050 ml 975 ml Balance -420 ml 1040.62 ml 212.3 ml Physical Exam Physical Exam: CONSTITUTIONAL: sedated on vent HEENT: Pupils have some cataracts in place. Oral cavity, pharynx is very dry. NECK: Supple, no JVD. LUNGS: Had some mild crackles. HEART: S1, S2. ABDOMEN: Soft, nontender, no guarding, no rebound. thomas in place Fecal tube + EXTREMITIES: Without clubbing, cyanosis. No gross edema. SKIN: Warm to touch without signs of rash. NEUROLOGIC: sedated on vent Rt IJ line clean General: Cooperative, No acute distress Heart: Regular rate Lungs: Other (Intubated) Abdomen: No masses, Other (Nondistended) Extremities: No clubbing, No cyanosis, No edema Skin: No rashes, No breakdown, No significant lesion Labs Labs: Laboratory Tests Test 03/08/20 12:16 03/08/20 18:01 03/08/20 21:51 03/09/20 01:12 Glucose (Fingerstick) 200 mg/dL (70-99) 164 mg/dL (70-99) 181 mg/dL (70-99) 148 mg/dL (70-99) Test 03/09/20 05:45 03/09/20 05:47 03/09/20 08:00 03/09/20 08:19 Sodium Level 142 mmol/L (136-145) Potassium Level 4.2 mmol/L (3.5-5.1) Chloride Level 108 mmol/L (98-107) Carbon Dioxide Level 27 mmol/L (21-32) Anion Gap 7 (6-14) Blood Urea Nitrogen 34 mg/dL (8-26) Creatinine 1.1 mg/dL (0.7-1.3) Estimated GFR (Cockcroft-Gault) 78.5 BUN/Creatinine Ratio 31 (6-20) Glucose Level 191 mg/dL (70-99) Calcium Level 8.3 mg/dL (8.5-10.1) Total Bilirubin 0.4 mg/dL (0.2-1.0) Aspartate Amino Transf (AST/SGOT) 18 U/L (15-37) Alanine Aminotransferase (ALT/SGPT) 38 U/L (16-63) Alkaline Phosphatase 51 U/L (46-116) Total Protein 5.6 g/dL (6.4-8.2) Albumin 1.9 g/dL (3.4-5.0) Albumin/Globulin Ratio 0.5 (1.0-1.7) Glucose (Fingerstick) 183 mg/dL (70-99) 170 mg/dL (70-99) O2 Saturation 93 % (92-99) Arterial Blood pH 7.43 (7.35-7.45) Arterial Blood pCO2 at Patient Temp 34 mmHg (35-46) Arterial Blood pO2 at Patient Temp 71 mmHg (65-108) Arterial Blood HCO3 22 mmol/L (21-28) Arterial Blood Base Excess -2 mmol/L (-3-3) FiO2 50/vent Assessment and Plan Assessmemt and Plan Problems Medical Problems: (1) 2019 novel coronavirus disease (COVID-19) Status: Acute (2) Respiratory failure with hypoxia Status: Acute Respiratory failure with hypoxia - likely 2/2 COVID 19. WORSENING. Steroids, Lovenox twice daily, consult pulmonology. Maintain O2 saturations 92% or greater. SARS-CoV-2 (COVID-19) - As above. ID consulted, agree to consent for convalescent FFP if this is line with family goals of care. KENNY - likely vasomotor nephropathy from COVID 19 infection, will monitor renal fx and hydrate. 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 Medications: Current Medications Medications (Trade) Dose Ordered Sig/Nick Route PRN Reason Start Time Stop Time Status Last Admin Dose Admin Enoxaparin Sodium (Lovenox 40mg Syringe) 40 mg BID SQ 03/08/20 21:00 03/09/20 07:43 Justifications for Admission Other Justification LINDY COKER III DO Mar 09, 2020 11:08
[2020-03-09] MEDS: ATORVASTATIN CALCIUM 10 MG TABLET. PO SCH (20:47)
[2020-03-09] MEDS: PROPOFOL 100 ML IV PRN (22:32)
[2020-03-10] VITALS (24 sets, daily range): BP systolic 97–203; BP diastolic 42–92
[2020-03-10] MEDS: PIPERACILLIN/TAZOBACTAM 3.375 GM in IV NORMAL SALINE 50ML 50 ML IV SCH ×4 (00:11→17:50)
[2020-03-10] MEDS: INSULIN LISPRO 300 UNITS/3 ML VIAL. SQ SCH ×7 (00:27→23:04)
[2020-03-10] MEDS: hydrALAZINE 20 MG/ML VIAL. IVP PRN (02:37)
--- NOTE | 2020-03-10 08:00 | PDOC ---
Infectious Disease Note Subjective: Subjective Pt remains Intubated, Awaiting weaning trial no acute issues per discussion with RN Vital Signs: Vital Signs Vital Signs Date Time Temp Pulse Resp B/P (MAP) Pulse Ox O2 Delivery O2 Flow Rate FiO2 03/10/20 07:00 72 24 199/78 (118) 97 Ventilator 03/10/20 04:14 40.0 03/10/20 04:00 98.7 98.7 Physical Exam: PHYSICAL EXAM CONSTITUTIONAL: sedated on vent HEENT: Pupils have some cataracts in place. Oral cavity, pharynx is very dry. NECK: Supple, no JVD. LUNGS: Had some mild crackles. HEART: S1, S2. ABDOMEN: Soft, nontender, no guarding, no rebound. thomas in place Fecal tube + EXTREMITIES: Without clubbing, cyanosis. No gross edema. SKIN: Warm to touch without signs of rash. NEUROLOGIC: sedated on vent Rt IJ line clean Medications: Inpatient Meds: Current Medications Medications (Trade) Dose Ordered Sig/Nick Start Time Stop Time Status Last Admin Dose Admin Acetaminophen (Tylenol Supp) 650 mg PRN Q4HRS PRN 02/27/20 07:15 02/27/20 21:50 650 MG Acetaminophen (Tylenol) 650 mg PRN Q4HRS PRN 02/27/20 07:15 Al Hydroxide/Mg Hydroxide (Mylanta Plus Xs) 30 ml PRN DAILY PRN 02/27/20 07:15 Amlodipine Besylate (Norvasc) 10 mg DAILY 02/27/20 09:00 03/09/20 07:42 10 MG Aspirin (Aspirin Chewable) 81 mg DAILYWBKFT 03/04/20 08:00 03/09/20 07:41 81 MG Aspirin (Ecotrin) 81 mg DAILY 02/27/20 09:00 03/04/20 07:05 DC 03/03/20 08:43 81 MG Atorvastatin Calcium (Lipitor) 10 mg HS 02/27/20 21:00 03/09/20 20:47 10 MG Clonidine HCl (Catapres Tts-3) 1 patch WEEKLY 02/27/20 09:00 02/27/20 16:00 DC Dextrose (Dextrose 50%-Water Syringe) 12.5 gm PRN Q15MIN PRN 02/27/20 07:15 Docusate Sodium (Colace) 100 mg PRN BID PRN 8/21/20 07:15 03/03/20 08:43 100 MG Enoxaparin Sodium (Lovenox 30mg Syringe) 30 mg Q12H 02/27/20 09:00 02/27/20 14:35 DC 02/27/20 11:45 30 MG Enoxaparin Sodium (Lovenox 40mg Syringe) 40 mg BID 03/08/20 21:00 03/09/20 20:48 40 MG Etomidate (Amidate) 20 mg 1X ONCE 03/02/20 00:00 03/02/20 00:08 DC 03/02/20 00:05 20 MG Fentanyl Citrate 30 ml @ 0 mls/hr CONT PRN 03/02/20 00:00 03/10/20 03:44 2.5 MLS/HR Furosemide (Lasix) 40 mg DAILY 03/08/20 11:00 03/12/20 09:00 03/09/20 07:43 40 MG Guaifenesin (Robitussin Dm) 10 ml PRN Q6HRS PRN 02/27/20 07:15 Hydralazine HCl (Apresoline Inj) 10 mg PRN Q4HRS PRN 03/01/20 18:15 03/10/20 02:37 10 MG Insulin Glargine (Lantus Syringe) 20 unit 1X ONCE 03/04/20 11:45 03/04/20 11:47 DC 03/04/20 11:45 20 UNIT Insulin Human Lispro (HumaLOG) 14 units TID 03/04/20 14:00 03/09/20 22:31 14 UNITS Lactobacillus Rhamnosus (Culturelle) 1 cap BID 02/27/20 09:00 03/09/20 20:47 1 CAP Linezolid/Dextrose 300 ml @ 300 mls/hr Q12HR 02/29/20 09:00 03/04/20 07:45 DC 03/03/20 20:39 300 MLS/HR Methylprednisolone Sodium Succinate (SOLU-Medrol 40MG VIAL) 40 mg BID 03/06/20 10:45 03/09/20 20:47 40 MG Midazolam HCl 100 ml @ 0 mls/hr CONT PRN 03/02/20 00:00 03/09/20 07:38 10 MLS/HR Multivitamins/ Minerals Therapeutic (Centrum Multivit-Mineral Liq) 5 ml DAILY 03/10/20 09:00 Ondansetron HCl (Zofran) 4 mg PRN Q4HRS PRN 02/27/20 07:15 Pantoprazole Sodium (PROTONIX VIAL for IV PUSH) 40 mg DAILYAC 03/03/20 16:00 03/09/20 07:42 40 MG Piperacillin Sod/ Tazobactam Sod 3.375 gm/Sodium Chloride 50 ml @ 100 mls/hr Q6HRS 02/28/20 11:00 03/10/20 05:51 100 MLS/HR Propofol 100 ml @ 1.755 mls/ hr CONT PRN 03/09/20 14:00 03/09/20 22:32 10.53 MLS/HR Sodium Bicarbonate (Sodium Bicarb Adult 8.4% Syr) 50 meq 1X ONCE 03/02/20 10:15 03/02/20 10:16 DC 03/02/20 10:15 50 MEQ Sodium Chloride 1,000 ml @ 100 mls/hr Q10H 03/02/20 12:30 03/08/20 14:41 DC 03/08/20 06:57 100 MLS/HR Sterile Water (WATER for RESP) 1,000 ml CONT PRN 03/01/20 11:00 03/01/20 19:29 1,000 ML Succinylcholine Chloride (Anectine) 200 mg 1X ONCE 03/02/20 00:00 03/02/20 00:08 DC 03/02/20 00:05 200 MG Vecuronium [place] (Norcuron Bolus) 6 mg PRN Q4HRS PRN 03/02/20 00:00 Zinc Sulfate (Orazinc) 220 mg DAILY 02/27/20 16:00 03/09/20 07:42 220 MG Labs: Lab Laboratory Tests Test 03/09/20 08:00 03/09/20 08:19 03/09/20 11:54 03/09/20 17:23 O2 Saturation 93 % (92-99) Arterial Blood pH 7.43 (7.35-7.45) Arterial Blood pCO2 at Patient Temp 34 mmHg (35-46) Arterial Blood pO2 at Patient Temp 71 mmHg (65-108) Arterial Blood HCO3 22 mmol/L (21-28) Arterial Blood Base Excess -2 mmol/L (-3-3) FiO2 50/vent Glucose (Fingerstick) 170 mg/dL (70-99) 182 mg/dL (70-99) 169 mg/dL (70-99) Test 03/09/20 21:41 03/10/20 00:15 03/10/20 03:31 Glucose (Fingerstick) 193 mg/dL (70-99) 170 mg/dL (70-99) 181 mg/dL (70-99) Objective: Assessment: 1. Fever.pattern improved 2. Acute hypoxic respiratory failure. 3. COVID positive. 4. Acute kidney injury. 5. Leukocytosis. 6. Rhabdomyolysis with history as well, previous rhabdomyolysis. Plan: Plan of Care Plasma given Cont Steroids cont zosyn, F/u labs and cults Condition critical c diff neg Dw nursing JÚNIOR SMITH MD Mar 10, 2020 07:59
[2020-03-10] MEDS: PROPOFOL 100 ML IV PRN ×3 (08:56→23:01)
[2020-03-10] MEDS: LACTOBACILLUS RHAMNOSUS GG 1 CAPSULE. PO SCH ×2 (09:49→23:01)
[2020-03-10] MEDS: ASPIRIN CHEWABLE 81 MG TABLET. PO SCH (09:50)
[2020-03-10] MEDS: MULTIVITAMINS,THERAPEUTIC 5 ML ORAL LIQUID. PEG SCH (09:50)
[2020-03-10] MEDS: methylPREDNISolone SOD SUCC PF 40 MG/ML VIAL. IV SCH ×2 (09:50→23:02)
[2020-03-10] MEDS: PANTOPRAZOLE IV PUSH 40 MG VIAL. IVP SCH (09:50)
[2020-03-10] MEDS: ZINC SULFATE 220 MG CAPSULE. PO SCH (09:50)
[2020-03-10] MEDS: FUROSEMIDE 40 MG/4 ML VIAL. IVP SCH (09:51)
[2020-03-10] MEDS: ENOXAPARIN 40 MG/0.4 ML SYRINGE. SQ SCH ×2 (09:51→23:13)
[2020-03-10] MEDS: amLODIPine BESYLATE 10 MG TABLET PO SCH (09:51)
[2020-03-10 10:19] LABS: BASE EXCESS ABG 3 mmol/L (-3-3); HCO3 ABG 26 mmol/L (21-28); PCO2 ABG 38 mmHg (35-46); SAT O2 ABG 85 % (92-99)
[2020-03-10 10:20] LABS: FIO2 ABG 40/+7 PEEP; PO2 ABG 50 mmHg (65-108)
[2020-03-10] MEDS: INSULIN GLARGINE SYRINGE. SQ SCH ×2 (10:34→23:03)
--- NOTE | 2020-03-10 11:09 | PDOC ---
[employer] PROGRESS NOTE Date of Service DOS: DATE: 03/10/20 TIME: 11:06 Chief Complaint Chief Complaint Respiratory failure with hypoxia (Requiring intubation) SARS-CoV-2 (COVID-19) - . KENNY Anemia Dementia Diabetes GERD High Cholesterol Hypertension Polyneuropathy History of Present Illness History of Present Illness 03/10/2022 Patient seen and examined in the [place] [address] ICU He is intubated Assist-control/24/5 50/40% with 7 of PEEP He is sedated with propofol fentanyl He has OG feeds at 50 cc an hour I discussed the case with the block and case maker and RN Chart reviewed He is critically ill 03-09-2020 Patient seen and examined in the [place] [address] ICU Patient is still intubated Assist-control/24/5 50/50% with 8 of PEEP On IV fentanyl Versed Also has OG feeds running at 50 cc an hour Chart reviewed Discussed with RN Discussed with case management Mr Rivera is a 79-year-old male with PMHx Anemia, Dementia, Diabetes-Type II, Diverticulosis, GERD, High Cholesterol, Hypertension, POLYNEUROPATHY resident of [facility] in [place] comes to ED with known SARS-CoV-2 (COVID 19) who presents to the emergency room with respiratory distress. Patient is unable to provide any history. Is unclear at this time how long he has been ill. Is unclear whether or not he is on oxygen at baseline. Upon arrival to the emergency room he is on a nonrebreather. He reportedly had a pulse ox of 72 upon EMS arrival. Patient was able to be weaned down from a nonrebreather to 6 L nasal cannula. ABG was done 7.35/48/107 on 6 L nasal cannula. WBC 9.3, Hb 13.3, platelets 212, d-dimer 3.92, troponin 0 0.22, AST 57, CRP 163.7, CK 1865, albumin 2.7 EKG sinus rhythm, leftward axis QRS transition zone, nonspecific T abnormalities high lateral leads, new prolonged QT. CXR with bilateral patchy infiltrate consistent with COVID-19 pneumonia. Admitted for further care. 02/27: Cr up to 2.4 today. Febrile to 100.7 F overnight. Slight cough. On 6 L nasal cannula oxygen. Afebrile past 24 hours, now on 10 L facemask O2, WBC 11.4, hemoglobin 12.8, CR stable at 2.4 albumin 2.5 CK 2061, glucose 302. He has been incontinent of urine over the past 24 hours and has some redness on the scrotum and buttocks, I advised him Thomas catheter may be indicated he does not seem to be understanding much of what is going on. I have discussed with ID that type and screen and convalescent plasma may be indicated, will try to get a hold of family to discuss goals of care. Nephrology consulted, will check UA and renal US. 03/01/2020 No acute events overnight. Patient this morning required increased oxygen requirements needing an nonrebreather mask. Patient was obtunded at this time and not following commands. Patient's chart, labs, images were reviewed and discussed with RN. 03/03/20 No acute events overnight. O2 requirement decreasing. Patient's chart and labs reviewed. Discussed with RN. 03/04/20 Patient remains intubated and sedated. Hyperglycemia still an issue. Discussed increasing insulin with RN. 03/08 Patient remains intubated. Continue broad-spectrum antibiotics and steroids. Blood sugar is elevated secondary to steroids, will adjust insulin No acute events overnight. cr 1.2 Vitals/I&O Vitals/I&O: Vital Signs Date Time Temp Pulse Resp B/P (MAP) Pulse Ox O2 Delivery O2 Flow Rate FiO2 03/10/20 11:00 81 27 188/79 (115) 97 Ventilator 03/10/20 08:00 97.7 97.7 03/10/20 04:14 40.0 I & O 03/09/20 03/09/20 03/10/20 15:00 23:00 07:00 Intake Total 464.4 ml 1227.19 ml 1281 ml Output Total 775 ml 1320 ml 700 ml Balance -310.6 ml -92.81 ml 581 ml Physical Exam Physical Exam: CONSTITUTIONAL: sedated on vent HEENT: Pupils have some cataracts in place. Oral cavity, pharynx is very dry. NECK: Supple, no JVD. LUNGS: Had some mild crackles. HEART: S1, S2. ABDOMEN: Soft, nontender, no guarding, no rebound. thomas in place Fecal tube + EXTREMITIES: Without clubbing, cyanosis. No gross edema. SKIN: Warm to touch without signs of rash. NEUROLOGIC: sedated on vent Rt IJ line clean General: Cooperative, No acute distress Heart: Regular rate Lungs: Other (Intubated) Abdomen: No masses, Other (Nondistended) Extremities: No clubbing, No cyanosis, No edema Skin: No rashes, No breakdown, No significant lesion Labs Labs: Laboratory Tests Test 03/09/20 11:54 03/09/20 17:23 03/09/20 21:41 03/10/20 00:15 Glucose (Fingerstick) 182 mg/dL (70-99) 169 mg/dL (70-99) 193 mg/dL (70-99) 170 mg/dL (70-99) Test 03/10/20 03:31 03/10/20 08:00 03/10/20 10:28 Glucose (Fingerstick) 181 mg/dL (70-99) 200 mg/dL (70-99) O2 Saturation 85 % (92-99) Arterial Blood pH 7.46 (7.35-7.45) Arterial Blood pCO2 at Patient Temp 38 mmHg (35-46) Arterial Blood pO2 at Patient Temp 50 mmHg (65-108) Arterial Blood HCO3 26 mmol/L (21-28) Arterial Blood Base Excess 3 mmol/L (-3-3) FiO2 40/+7 peep Assessment and Plan Assessmemt and Plan Problems Medical Problems: (1) 2019 novel coronavirus disease (COVID-19) Status: Acute (2) Respiratory failure with hypoxia Status: Acute Respiratory failure with hypoxia (Requiring intubation) SARS-CoV-2 (COVID-19) - . KENNY Anemia Dementia Diabetes GERD High Cholesterol Hypertension Polyneuropathy Plan COVID protocol ICU monitoring Vent weaning OG feeds IV fluids Home meds DVT prophylaxis Ruben Full code He prognosis is guarded at best 32 minutes CCT Comment Review of Relevant I have reviewed the following items lat[place] (where applicable) has been applied. Medications: Current Medications Medications (Trade) Dose Ordered Sig/Nick Route PRN Reason Start Time Stop Time Status Last Admin Dose Admin Multivitamins/ Minerals Therapeutic (Centrum Multivit-Mineral Liq) 5 ml DAILY PEG 03/10/20 09:00 03/10/20 09:50 Propofol 100 ml @ 1.755 mls/ hr CONT PRN IV SEE I/O RECORD 03/09/20 14:00 03/10/20 08:56 Justifications for Admission Other Justification LINDY COKER III DO Mar 10, 2020 11:09
--- NOTE | 2020-03-10 11:22 | PDOC ---
PULMONARY PROGRESS NOTES DATE: 03/10/20 TIME: 11:20 Subjective intubated night of 03/01 due to worsening hypoxia a-febrile AC mode 50%FIO2, 8 PEEP Nursing reports hematoma/bleeding from central line Vitals Vital Signs Date Time Temp Pulse Resp B/P (MAP) Pulse Ox O2 Delivery O2 Flow Rate FiO2 03/10/20 11:00 81 27 188/79 (115) 97 Ventilator 03/10/20 08:00 97.7 97.7 03/10/20 04:14 40.0 Comments PT. seen during pandemic visual exam preformed RRR VENT 50% no distress no rash No edema Lungs: Other (Intubated) Labs Laboratory Tests Test 03/08/20 12:16 03/08/20 13:20 03/08/20 18:01 03/08/20 21:51 Glucose (Fingerstick) 200 mg/dL (70-99) 164 mg/dL (70-99) 181 mg/dL (70-99) Clostridium difficile Toxin (PCR) Negative (NEGATIVE) Test 03/09/20 01:12 03/09/20 05:45 03/09/20 05:47 03/09/20 08:00 Glucose (Fingerstick) 148 mg/dL (70-99) 183 mg/dL (70-99) Sodium Level 142 mmol/L (136-145) Potassium Level 4.2 mmol/L (3.5-5.1) Chloride Level 108 mmol/L (98-107) Carbon Dioxide Level 27 mmol/L (21-32) Anion Gap 7 (6-14) Blood Urea Nitrogen 34 mg/dL (8-26) Creatinine 1.1 mg/dL (0.7-1.3) Estimated GFR (Cockcroft-Gault) 78.5 BUN/Creatinine Ratio 31 (6-20) Glucose Level 191 mg/dL (70-99) Calcium Level 8.3 mg/dL (8.5-10.1) Total Bilirubin 0.4 mg/dL (0.2-1.0) Aspartate Amino Transf (AST/SGOT) 18 U/L (15-37) Alanine Aminotransferase (ALT/SGPT) 38 U/L (16-63) Alkaline Phosphatase 51 U/L (46-116) Total Protein 5.6 g/dL (6.4-8.2) Albumin 1.9 g/dL (3.4-5.0) Albumin/Globulin Ratio 0.5 (1.0-1.7) O2 Saturation 93 % (92-99) Arterial Blood pH 7.43 (7.35-7.45) Arterial Blood pCO2 at Patient Temp 34 mmHg (35-46) Arterial Blood pO2 at Patient Temp 71 mmHg (65-108) Arterial Blood HCO3 22 mmol/L (21-28) Arterial Blood Base Excess -2 mmol/L (-3-3) FiO2 50/vent Test 03/09/20 08:19 03/09/20 11:54 03/09/20 17:23 03/09/20 21:41 Glucose (Fingerstick) 170 mg/dL (70-99) 182 mg/dL (70-99) 169 mg/dL (70-99) 193 mg/dL (70-99) Test 03/10/20 00:15 03/10/20 03:31 03/10/20 08:00 03/10/20 10:28 Glucose (Fingerstick) 170 mg/dL (70-99) 181 mg/dL (70-99) 200 mg/dL (70-99) O2 Saturation 85 % (92-99) Arterial Blood pH 7.46 (7.35-7.45) Arterial Blood pCO2 at Patient Temp 38 mmHg (35-46) Arterial Blood pO2 at Patient Temp 50 mmHg (65-108) Arterial Blood HCO3 26 mmol/L (21-28) Arterial Blood Base Excess 3 mmol/L (-3-3) FiO2 40/+7 peep Laboratory Tests Test 03/09/20 11:54 03/09/20 17:23 03/09/20 21:41 03/10/20 00:15 Glucose (Fingerstick) 182 mg/dL (70-99) 169 mg/dL (70-99) 193 mg/dL (70-99) 170 mg/dL (70-99) Test 03/10/20 03:31 03/10/20 08:00 03/10/20 10:28 Glucose (Fingerstick) 181 mg/dL (70-99) 200 mg/dL (70-99) O2 Saturation 85 % (92-99) Arterial Blood pH 7.46 (7.35-7.45) Arterial Blood pCO2 at Patient Temp 38 mmHg (35-46) Arterial Blood pO2 at Patient Temp 50 mmHg (65-108) Arterial Blood HCO3 26 mmol/L (21-28) Arterial Blood Base Excess 3 mmol/L (-3-3) FiO2 40/+7 peep Medications Active Scripts Medications Dose Route/Sig Max Daily Dose Days Date Category Senna (Sennosides) 8.8 Mg/5 Ml Syrup 8.8 Mg PO DAILY 02/27/20 Reported Tylenol Extra Strength (Acetaminophen) 500 Mg Tablet 1,000 Mg PO PRN PRN 02/27/20 Reported Furosemide 20 Mg Tablet 1 Tab PO DAILY 02/27/20 Reported Glipizide Xl (Glipizide) 10 Mg Tab.er.24 1 Tab PO DAILY 30 02/27/20 Reported Culturelle (Lactobacillus Rhamnosus Gg) 1 Each Cap.sprink 1 Cap PO BID 30 05/23/18 Rx Guaifenesin Dm Syrup (Guaifenesin/Dextromethorphan) 5 Ml Syrup 10 Ml PO PRN Q6HRS PRN 30 05/23/18 Rx Albuterol Sulfate Neb Soln (Albuterol Sulfate) 2.5 Mg/3 Ml Vial.neb 2.5 Mg NEB PRN Q4HRS PRN 30 05/23/18 Rx Azithromycin Tablet (Azithromycin) 250 Mg Tablet 250 Mg PO DAILY 5 05/23/18 Rx Cefpodoxime Proxetil 100 Mg Tablet 200 Mg PO BID 5 05/23/18 Rx Metformin Hcl Er (Metformin Hcl) 500 Mg Tab.er.24h 1,000 Mg PO DAILYWBKFT 05/21/18 Reported Glipizide Xl (Glipizide) 10 Mg Tab.er.24 10 Mg PO DAILY 05/20/18 Reported Calcium 500 + D Tablet (Calcium Carbonate/Vitamin D3) 1 Each Tablet 1 Each PO DAILY 05/20/18 Reported Catapres-Tts 3 (Clonidine) 1 Each Patch.tdwk 1 Each TD WEEKLY 05/20/18 Reported Lisinopril 20 Mg Tablet 1 Tab PO DAILY 05/20/18 Reported [cyanocobalamin] 100 Mcg PO DAILY 05/20/18 Reported Aspir 81 (Aspirin) 81 Mg Tablet.dr 81 Mg PO DAILY 07/08/13 Reported Norvasc (Amlodipine Besylate) 10 Mg Tablet 10 Mg PO DAILY 07/08/13 Reported Atorvastatin Calcium 10 Mg Tablet 10 Mg PO HS 07/08/13 Reported Comments CXR- 02/27/2020 IMPRESSION: * Patchy opacities in bilateral lungs which could be seen with multifocal infiltrate or edema 03/01 WORSENING INFILTRATES 03/03- IMPRESSION: * Repeat demonstration of multifocal opacities throughout the bilateral lungs with slight decrease in the right upper lung compared to prior and similar to prior within other portions of the bilateral lungs. * Lines and tubes as above. * Enlarged cardiomediastinal silhouette. CXR 03/05 Impression: Slight interval improvement in the bilateral perihilar infiltrates. Impression . Acute hypoxic respiratory Failure--intubated night of 03/01 Abnormal chest x-ray COVID-19 known positive COVID -19 pneumonia, cannot exclude bacterial pneumonia elevated ddimer 2/2 inflammatory stage of covid19 -- improving Fevers--resolved Anemia of chronic disease Dementia KENNY vs. CKD --resolved, ongoing azotemia steroids? Plan . Continue assist control mode follow ABG and make changes Lasix s/p Plasma ABX per ID Cont. steroids,with taper Follow nephrology recs will follow inflammatory markers Continue TF for nutritional support DVT/GI PPX -- high dose lovenox Lovenox twice daily D/W RN, and RT cct 30 min JOSY CASTILLO MD Mar 10, 2020 11:22
--- NOTE | 2020-03-10 14:00 | NUR ---
SS following up with discharge planning. SS reviewed pt chart and discussed with pt RN. Pt remains on the vent at this time. COVID19 positive. Pt on IV Zosyn. Pt accepted at [facility], ; fax [phone], pending insurance authorization. SS phoned and faxed clinical updates to [facility]. SS will continue to follow for discharge planning.
[2020-03-10] MEDS: ATORVASTATIN CALCIUM 10 MG TABLET. PO SCH (23:13)
[2020-03-11] VITALS (13 sets, daily range): BP systolic 124–166; BP diastolic 61–83
[2020-03-11] MEDS: PIPERACILLIN/TAZOBACTAM 3.375 GM in IV NORMAL SALINE 50ML 50 ML IV SCH ×3 (01:39→11:31)
[2020-03-11] MEDS: PROPOFOL 100 ML IV PRN ×2 (01:41→09:23)
[2020-03-11] MEDS: INSULIN LISPRO 300 UNITS/3 ML VIAL. SQ SCH ×3 (02:34→11:44)
--- NOTE | 2020-03-11 07:59 | PDOC ---
Infectious Disease Note Subjective: Subjective Pt remains Intubated, no acute issues per discussion with RN Vital Signs: Vital Signs Vital Signs Date Time Temp Pulse Resp B/P (MAP) Pulse Ox O2 Delivery O2 Flow Rate FiO2 03/11/20 06:00 63 24 161/61 (94) 98 Ventilator 03/11/20 05:00 97.9 97.9 03/11/20 03:05 40.0 Physical Exam: PHYSICAL EXAM CONSTITUTIONAL: sedated on vent HEENT: Pupils have some cataracts in place. Oral cavity, pharynx is very dry. NECK: Supple, no JVD. LUNGS: Had some mild crackles. HEART: S1, S2. ABDOMEN: Soft, nontender, no guarding, no rebound. thomas in place Fecal tube + EXTREMITIES: Without clubbing, cyanosis. No gross edema. SKIN: Warm to touch without signs of rash. NEUROLOGIC: sedated on vent Rt IJ line clean Medications: Inpatient Meds: Current Medications Medications (Trade) Dose Ordered Sig/Nick Start Time Stop Time Status Last Admin Dose Admin Acetaminophen (Tylenol Supp) 650 mg PRN Q4HRS PRN 02/27/20 07:15 02/27/20 21:50 650 MG Acetaminophen (Tylenol) 650 mg PRN Q4HRS PRN 02/27/20 07:15 Al Hydroxide/Mg Hydroxide (Mylanta Plus Xs) 30 ml PRN DAILY PRN 02/27/20 07:15 Amlodipine Besylate (Norvasc) 10 mg DAILY 02/27/20 09:00 03/10/20 09:51 10 MG Aspirin (Aspirin Chewable) 81 mg DAILYWBKFT 03/04/20 08:00 03/10/20 09:50 81 MG Aspirin (Ecotrin) 81 mg DAILY 02/27/20 09:00 03/04/20 07:05 DC 03/03/20 08:43 81 MG Atorvastatin Calcium (Lipitor) 10 mg HS 02/27/20 21:00 03/10/20 23:13 10 MG Clonidine HCl (Catapres Tts-3) 1 patch WEEKLY 02/27/20 09:00 02/27/20 16:00 DC Dextrose (Dextrose 50%-Water Syringe) 12.5 gm PRN Q15MIN PRN 02/27/20 07:15 Docusate Sodium (Colace) 100 mg PRN BID PRN 02/27/20 07:15 03/03/20 08:43 100 MG Enoxaparin Sodium (Lovenox 30mg Syringe) 30 mg Q12H 02/27/20 09:00 02/27/20 14:35 DC 02/27/20 11:45 30 MG Enoxaparin Sodium (Lovenox 40mg Syringe) 40 mg BID 03/08/20 21:00 03/10/20 23:13 40 MG Etomidate (Amidate) 20 mg 1X ONCE 03/02/20 00:00 03/02/20 00:08 DC 03/02/20 00:05 20 MG Fentanyl Citrate 30 ml @ 0 mls/hr CONT PRN 03/02/20 00:00 03/11/20 02:35 2.5 MLS/HR Furosemide (Lasix) 40 mg DAILY 03/08/20 11:00 03/12/20 09:00 03/10/20 09:51 40 MG Guaifenesin (Robitussin Dm) 10 ml PRN Q6HRS PRN 02/27/20 07:15 Hydralazine HCl (Apresoline Inj) 10 mg PRN Q4HRS PRN 03/01/20 18:15 03/10/20 02:37 10 MG Insulin Glargine (Lantus Syringe) 20 unit 1X ONCE 03/04/20 11:45 03/04/20 11:47 DC 03/04/20 11:45 20 UNIT Insulin Human Lispro (HumaLOG) 14 units TID 03/04/20 14:00 03/10/20 23:04 14 UNITS Lactobacillus Rhamnosus (Culturelle) 1 cap BID 02/27/20 09:00 03/10/20 23:01 1 CAP Linezolid/Dextrose 300 ml @ 300 mls/hr Q12HR 02/29/20 09:00 03/04/20 07:45 DC 03/03/20 20:39 300 MLS/HR Methylprednisolone Sodium Succinate (SOLU-Medrol 40MG VIAL) 40 mg BID 03/06/20 10:45 03/10/20 23:02 40 MG Midazolam HCl 100 ml @ 0 mls/hr CONT PRN 03/02/20 00:00 03/09/20 07:38 10 MLS/HR Multivitamins/ Minerals Therapeutic (Centrum Multivit-Mineral Liq) 5 ml DAILY 03/10/20 09:00 03/10/20 09:50 5 ML Ondansetron HCl (Zofran) 4 mg PRN Q4HRS PRN 02/27/20 07:15 Pantoprazole Sodium (PROTONIX VIAL for IV PUSH) 40 mg DAILYAC 03/03/20 16:00 03/10/20 09:50 40 MG Piperacillin Sod/ Tazobactam Sod 3.375 gm/Sodium Chloride 50 ml @ 100 mls/hr Q6HRS 02/28/20 11:00 03/11/20 05:45 100 MLS/HR Propofol 100 ml @ 1.755 mls/ hr CONT PRN 03/09/20 14:00 03/11/20 01:41 17.55 MLS/HR Sodium Bicarbonate (Sodium Bicarb Adult 8.4% Syr) 50 meq 1X ONCE 03/02/20 10:15 03/02/20 10:16 DC 03/02/20 10:15 50 MEQ Sodium Chloride 1,000 ml @ 100 mls/hr Q10H 03/02/20 12:30 03/08/20 14:41 DC 03/08/20 06:57 100 MLS/HR Sterile Water (WATER for RESP) 1,000 ml CONT PRN 03/01/20 11:00 03/01/20 19:29 1,000 ML Succinylcholine Chloride (Anectine) 200 mg 1X ONCE 03/02/20 00:00 03/02/20 00:08 DC 03/02/20 00:05 200 MG Vecuronium [place] (Norcuron Bolus) 6 mg PRN Q4HRS PRN 03/02/20 00:00 Zinc Sulfate (Orazinc) 220 mg DAILY 02/27/20 16:00 03/10/20 09:50 220 MG Labs: Lab Laboratory Tests Test 03/10/20 08:00 03/10/20 10:28 03/10/20 14:19 03/10/20 18:28 O2 Saturation 85 % (92-99) Arterial Blood pH 7.46 (7.35-7.45) Arterial Blood pCO2 at Patient Temp 38 mmHg (35-46) Arterial Blood pO2 at Patient Temp 50 mmHg (65-108) Arterial Blood HCO3 26 mmol/L (21-28) Arterial Blood Base Excess 3 mmol/L (-3-3) FiO2 40/+7 peep Glucose (Fingerstick) 200 mg/dL (70-99) 252 mg/dL (70-99) 249 mg/dL (70-99) Test 03/11/20 01:48 03/11/20 04:50 Glucose (Fingerstick) 168 mg/dL (70-99) 155 mg/dL (70-99) Objective: Assessment: 1. Fever.pattern improved 2. Acute hypoxic respiratory failure. 3. COVID positive. 4. Acute kidney injury. 5. Leukocytosis. 6. Rhabdomyolysis with history as well, previous rhabdomyolysis. Plan: Plan of Care Plasma given Cont Steroids cont zosyn, F/u labs and cults Condition critical c diff neg Dw nursing JÚNIOR SMITH MD Mar 11, 2020 07:59
[2020-03-11 08:26] LABS: BASE EXCESS ABG 3 mmol/L (-3-3); HCO3 ABG 27 mmol/L (21-28); PCO2 ABG 43 mmHg (35-46); PO2 ABG 63 mmHg (65-108); SAT O2 ABG 91 % (92-99)
[2020-03-11 08:38] LABS: FIO2 ABG 50%+7
[2020-03-11] MEDS: ZINC SULFATE 220 MG CAPSULE. PO SCH (09:21)
[2020-03-11] MEDS: LACTOBACILLUS RHAMNOSUS GG 1 CAPSULE. PO SCH (09:21)
[2020-03-11] MEDS: FUROSEMIDE 40 MG/4 ML VIAL. IVP SCH (09:21)
[2020-03-11] MEDS: amLODIPine BESYLATE 10 MG TABLET PO SCH (09:21)
[2020-03-11] MEDS: PANTOPRAZOLE IV PUSH 40 MG VIAL. IVP SCH (09:21)
[2020-03-11] MEDS: MULTIVITAMINS,THERAPEUTIC 5 ML ORAL LIQUID. PEG SCH (09:22)
[2020-03-11] MEDS: ENOXAPARIN 40 MG/0.4 ML SYRINGE. SQ SCH (09:22)
[2020-03-11] MEDS: methylPREDNISolone SOD SUCC PF 40 MG/ML VIAL. IV SCH (09:22)
[2020-03-11] MEDS: ASPIRIN CHEWABLE 81 MG TABLET. PO SCH (09:23)
[2020-03-11] MEDS: INSULIN GLARGINE SYRINGE. SQ SCH (09:25)
[2020-03-11 10:25] LABS: CALCIUM 8.2 mg/dL (8.5-10.1); CREATININE 1.1 mg/dL (0.7-1.3); GFR 78.5
--- NOTE | 2020-03-11 10:28 | NUR ---
SS following up with discharge planning. SS reviewed pt chart and discussed with pt RN. Pt remains on the vent at this time. COVID19 positive. Pt accepted at [facility], ; fax [phone]. Insurance authorization received. Discharge orders received. SS phoned and faxed discharge orders to [facility]. Packet and [facility] form on the chart. Pt's sister notified. SS currently awaiting on bed availability and will proceed accordingly. Pt's RN notified.
--- NOTE | 2020-03-11 10:57 | PDOC ---
[employer] PROGRESS NOTE Date of Service DOS: DATE: 03/11/20 TIME: 10:56 Chief Complaint Chief Complaint Respiratory failure with hypoxia (Requiring intubation) SARS-CoV-2 (COVID-19) - . KENNY Anemia Dementia Diabetes GERD High Cholesterol Hypertension Polyneuropathy History of Present Illness History of Present Illness 03/11/2020 Patient seen and examined in the [facility] [facility] [address] ICU Still intubated AC/24/5 50/50% with 7 of PEEP Discussed with caser shoe parts [facility] 03/10/2022 Patient seen and examined in the [facility] [address] ICU He is intubated Assist-control/24/5 50/40% with 7 of PEEP He is sedated with propofol fentanyl He has OG feeds at 50 cc an hour I discussed the case with the caser shoe parts and RN Chart reviewed He is critically ill 03-09-2020 Patient seen and examined in the [facility] [facility] [address] ICU Patient is still intubated Assist-control/24/5 50/50% with 8 of PEEP On IV fentanyl Versed Also has OG feeds running at 50 cc an hour Chart reviewed Discussed with RN Discussed with case management Mr Rivera is a 79-year-old male with PMHx Anemia, Dementia, Diabetes-Type II, Diverticulosis, GERD, High Cholesterol, Hypertension, POLYNEUROPATHY resident of [facility] in [place] comes to ED with known SARS-CoV-2 (COVID 19) who presents to the emergency room with respiratory distress. Patient is unable to provide any history. Is unclear at this time how long he has been ill. Is unclear whether or not he is on oxygen at baseline. Upon arrival to the emergency room he is on a nonrebreather. He reportedly had a pulse ox of 72 upon EMS arrival. Patient was able to be weaned down from a nonrebreather to 6 L nasal cannula. ABG was done 7.35/48/107 on 6 L nasal cannula. WBC 9.3, Hb 13.3, platelets 212, d-dimer 3.92, troponin 0 0.22, AST 57, CRP 163.7, CK 1865, albumin 2.7 EKG sinus rhythm, leftward axis QRS transition zone, nonspecific T abnormalities high lateral leads, new prolonged QT. CXR with bilateral patchy infiltrate consistent with COVID-19 pneumonia. Admitted for further care. 02/27: Cr up to 2.4 today. Febrile to 100.7 F overnight. Slight cough. On 6 L nasal cannula oxygen. Afebrile past 24 hours, now on 10 L facemask O2, WBC 11.4, hemoglobin 12.8, CR stable at 2.4 albumin 2.5 CK 2060, glucose 302. He has been incontinent of urine over the past 24 hours and has some redness on the scrotum and buttocks, I advised him Thomas catheter may be indicated he does not seem to be understanding much of what is going on. I have discussed with ID that type and screen and convalescent plasma may be indicated, will try to get a hold of family to discuss goals of care. Nephrology consulted, will check UA and renal US. 03/01/2020 No acute events overnight. Patient this morning required increased oxygen requirements needing an nonrebreather mask. Patient was obtunded at this time and not following commands. Patient's chart, labs, images were reviewed and discussed with RN. 03/03/20 No acute events overnight. O2 requirement decreasing. Patient's chart and labs reviewed. Discussed with RN. 03/04/20 Patient remains intubated and sedated. Hyperglycemia still an issue. Discussed increasing insulin with RN. 03/08 Patient remains intubated. Continue broad-spectrum antibiotics and steroids. Blood sugar is elevated secondary to steroids, will adjust insulin No acute events overnight. cr 1.2 Vitals/I&O Vitals/I&O: Vital Signs Date Time Temp Pulse Resp B/P (MAP) Pulse Ox O2 Delivery O2 Flow Rate FiO2 03/11/20 10:00 56 24 154/74 (100) 94 Ventilator 03/11/20 08:00 97.6 97.6 03/11/20 03:05 40.0 I & O 03/10/20 03/10/20 03/11/20 15:00 23:00 07:00 Intake Total 1460 ml 1385.7 ml 300 ml Output Total 1720 ml 875 ml 550 ml Balance -260 ml 510.7 ml -250 ml Physical Exam Physical Exam: CONSTITUTIONAL: sedated on vent HEENT: Pupils have some cataracts in place. Oral cavity, pharynx is very dry. NECK: Supple, no JVD. LUNGS: Had some mild crackles. HEART: S1, S2. ABDOMEN: Soft, nontender, no guarding, no rebound. thomas in place Fecal tube + EXTREMITIES: Without clubbing, cyanosis. No gross edema. SKIN: Warm to touch without signs of rash. NEUROLOGIC: sedated on vent Rt IJ line clean General: Cooperative, No acute distress Heart: Regular rate Lungs: Other (Intubated) Abdomen: No masses, Other (Nondistended) Extremities: No clubbing, No cyanosis, No edema Skin: No rashes, No breakdown, No significant lesion Labs Labs: Laboratory Tests Test 03/10/20 14:19 03/10/20 18:28 03/11/20 01:48 03/11/20 04:50 Glucose (Fingerstick) 252 mg/dL (70-99) 249 mg/dL (70-99) 168 mg/dL (70-99) 155 mg/dL (70-99) Test 03/11/20 08:00 03/11/20 09:55 O2 Saturation 91 % (92-99) Arterial Blood pH 7.43 (7.35-7.45) Arterial Blood pCO2 at Patient Temp 43 mmHg (35-46) Arterial Blood pO2 at Patient Temp 63 mmHg (65-108) Arterial Blood HCO3 27 mmol/L (21-28) Arterial Blood Base Excess 3 mmol/L (-3-3) FiO2 50%+7 Sodium Level 140 mmol/L (136-145) Potassium Level 4.0 mmol/L (3.5-5.1) Chloride Level 105 mmol/L (98-107) Carbon Dioxide Level 32 mmol/L (21-32) Anion Gap 3 (6-14) Blood Urea Nitrogen 47 mg/dL (8-26) Creatinine 1.1 mg/dL (0.7-1.3) Estimated GFR (Cockcroft-Gault) 78.5 Glucose Level 140 mg/dL (70-99) Calcium Level 8.2 mg/dL (8.5-10.1) Assessment and Plan Assessmemt and Plan Problems Medical Problems: (1) 2019 novel coronavirus disease (COVID-19) Status: Acute (2) Respiratory failure with hypoxia Status: Acut Discharge to long-term acute care for vent weaning Comment Review of Relevant I have reviewed the following items latonia (where applicable) has been applied. Justifications for Admission Other Justification LINDY COKER III DO Mar 11, 2020 10:57
--- NOTE | 2020-03-11 11:07 | NUR ---
SS following up with discharge planning. Bed available at [facility]. Pt will discharge and go to [facility] today at 1230 via [facility] transport. Pt's RN and pt's sister notified.
--- NOTE | 2020-03-11 11:15 | PDOC ---
PULMONARY PROGRESS NOTES DATE: 03/11/20 TIME: 11:13 Subjective intubated night of 03/01 due to worsening hypoxia a-febrile AC mode 50%FIO2, 8 PEEP Vitals Vital Signs Date Time Temp Pulse Resp B/P (MAP) Pulse Ox O2 Delivery O2 Flow Rate FiO2 03/11/20 11:00 54 24 162/72 (102) 92 Ventilator 03/11/20 08:00 97.6 97.6 03/11/20 03:05 40.0 Comments PT. seen during pandemic visual exam preformed RRR VENT 50% no distress no rash No edema Lungs: Other (Intubated) Labs Laboratory Tests Test 03/09/20 11:54 03/09/20 17:23 03/09/20 21:41 03/10/20 00:15 Glucose (Fingerstick) 182 mg/dL (70-99) 169 mg/dL (70-99) 193 mg/dL (70-99) 170 mg/dL (70-99) Test 03/10/20 03:31 03/10/20 08:00 03/10/20 10:28 03/10/20 14:19 Glucose (Fingerstick) 181 mg/dL (70-99) 200 mg/dL (70-99) 252 mg/dL (70-99) O2 Saturation 85 % (92-99) Arterial Blood pH 7.46 (7.35-7.45) Arterial Blood pCO2 at Patient Temp 38 mmHg (35-46) Arterial Blood pO2 at Patient Temp 50 mmHg (65-108) Arterial Blood HCO3 26 mmol/L (21-28) Arterial Blood Base Excess 3 mmol/L (-3-3) FiO2 40/+7 peep Test 03/10/20 18:28 03/11/20 01:48 03/11/20 04:50 03/11/20 08:00 Glucose (Fingerstick) 249 mg/dL (70-99) 168 mg/dL (70-99) 155 mg/dL (70-99) O2 Saturation 91 % (92-99) Arterial Blood pH 7.43 (7.35-7.45) Arterial Blood pCO2 at Patient Temp 43 mmHg (35-46) Arterial Blood pO2 at Patient Temp 63 mmHg (65-108) Arterial Blood HCO3 27 mmol/L (21-28) Arterial Blood Base Excess 3 mmol/L (-3-3) FiO2 50%+7 Test 03/11/20 09:55 Sodium Level 140 mmol/L (136-145) Potassium Level 4.0 mmol/L (3.5-5.1) Chloride Level 105 mmol/L (98-107) Carbon Dioxide Level 32 mmol/L (21-32) Anion Gap 3 (6-14) Blood Urea Nitrogen 47 mg/dL (8-26) Creatinine 1.1 mg/dL (0.7-1.3) Estimated GFR (Cockcroft-Gault) 78.5 Glucose Level 140 mg/dL (70-99) Calcium Level 8.2 mg/dL (8.5-10.1) Laboratory Tests Test 03/10/20 14:19 03/10/20 18:28 03/11/20 01:48 03/11/20 04:50 Glucose (Fingerstick) 252 mg/dL (70-99) 249 mg/dL (70-99) 168 mg/dL (70-99) 155 mg/dL (70-99) Test 03/11/20 08:00 03/11/20 09:55 O2 Saturation 91 % (92-99) Arterial Blood pH 7.43 (7.35-7.45) Arterial Blood pCO2 at Patient Temp 43 mmHg (35-46) Arterial Blood pO2 at Patient Temp 63 mmHg (65-108) Arterial Blood HCO3 27 mmol/L (21-28) Arterial Blood Base Excess 3 mmol/L (-3-3) FiO2 50%+7 Sodium Level 140 mmol/L (136-145) Potassium Level 4.0 mmol/L (3.5-5.1) Chloride Level 105 mmol/L (98-107) Carbon Dioxide Level 32 mmol/L (21-32) Anion Gap 3 (6-14) Blood Urea Nitrogen 47 mg/dL (8-26) Creatinine 1.1 mg/dL (0.7-1.3) Estimated GFR (Cockcroft-Gault) 78.5 Glucose Level 140 mg/dL (70-99) Calcium Level 8.2 mg/dL (8.5-10.1) Medications Active Scripts Medications Dose Route/Sig Max Daily Dose Days Date Category Senna (Sennosides) 8.8 Mg/5 Ml Syrup 8.8 Mg PO DAILY 8/21/20 Reported Tylenol Extra Strength (Acetaminophen) 500 Mg Tablet 1,000 Mg PO PRN PRN 02/27/20 Reported Furosemide 20 Mg Tablet 1 Tab PO DAILY 02/27/20 Reported Glipizide Xl (Glipizide) 10 Mg Tab.er.24 1 Tab PO DAILY 30 02/27/20 Reported Culturelle (Lactobacillus Rhamnosus Gg) 1 Each Cap.sprink 1 Cap PO BID 30 05/23/18 Rx Guaifenesin Dm Syrup (Guaifenesin/Dextromethorphan) 5 Ml Syrup 10 Ml PO PRN Q6HRS PRN 30 05/23/18 Rx Albuterol Sulfate Neb Soln (Albuterol Sulfate) 2.5 Mg/3 Ml Vial.neb 2.5 Mg NEB PRN Q4HRS PRN 30 05/23/18 Rx Azithromycin Tablet (Azithromycin) 250 Mg Tablet 250 Mg PO DAILY 5 05/23/18 Rx Cefpodoxime Proxetil 100 Mg Tablet 200 Mg PO BID 5 05/23/18 Rx Metformin Hcl Er (Metformin Hcl) 500 Mg Tab.er.24h 1,000 Mg PO DAILYWBKFT 05/21/18 Reported Glipizide Xl (Glipizide) 10 Mg Tab.er.24 10 Mg PO DAILY 05/20/18 Reported Calcium 500 + D Tablet (Calcium Carbonate/Vitamin D3) 1 Each Tablet 1 Each PO DAILY 05/20/18 Reported Catapres-Tts 3 (Clonidine) 1 Each Patch.tdwk 1 Each TD WEEKLY 05/20/18 Reported Lisinopril 20 Mg Tablet 1 Tab PO DAILY 05/20/18 Reported [cyanocobalamin] 100 Mcg PO DAILY 05/20/18 Reported Aspir 81 (Aspirin) 81 Mg Tablet.dr 81 Mg PO DAILY 07/08/13 Reported Norvasc (Amlodipine Besylate) 10 Mg Tablet 10 Mg PO DAILY 07/08/13 Reported Atorvastatin Calcium 10 Mg Tablet 10 Mg PO HS 07/08/13 Reported Comments CXR- 02/27/2020 IMPRESSION: * Patchy opacities in bilateral lungs which could be seen with multifocal infiltrate or edema 03/01 WORSENING INFILTRATES 03/03- IMPRESSION: * Repeat demonstration of multifocal opacities throughout the bilateral lungs with slight decrease in the right upper lung compared to prior and similar to prior within other portions of the bilateral lungs. * Lines and tubes as above. * Enlarged cardiomediastinal silhouette. CXR 03/05 Impression: Slight interval improvement in the bilateral perihilar infiltrates. Impression . Acute hypoxic respiratory Failure--intubated night of 03/01 Abnormal chest x-ray COVID-19 known positive COVID -19 pneumonia, cannot exclude bacterial pneumonia elevated ddimer 2/2 inflammatory stage of covid19 -- improving Fevers--resolved Anemia of chronic disease Dementia KENNY vs. CKD --resolved, ongoing azotemia steroids? Plan . Continue assist control mode not much room to wean FIO2/PEEP Lasix s/p Plasma ABX per ID Cont. steroids,with taper Follow nephrology recs will follow inflammatory markers Continue TF for nutritional support DVT/GI PPX -- high dose lovenox Lovenox twice daily D/W RN, and RT cct 30 min JOSY CASTILLO MD Mar 11, 2020 11:15
[2020-03-11] MEDS ORDERED: INSULIN LISPRO 300 UNITS/3 ML VIAL. SQ SCH (12:00)
--- NOTE | 2020-03-11 12:05 | NUR ---
Report given to SLAVA So at [facility]
--- NOTE | 2020-03-11 12:56 | NUR ---
Patient left with [facility]. Ventilator applied and patient tolerated appropriately. All vital signs are within normal limits. Patient is tolerating the move.
--- NOTE | 2020-03-14 10:49 | DS ---
DATE OF DISCHARGE: 03/11/2020 ADMISSION DIAGNOSES: Respiratory failure, likely COVID-19, anemia, dementia, diabetes, GERD, hyperlipidemia, hypertension, neuropathy. DISCHARGE DIAGNOSIS: Chronic respiratory failure (he went to the LTAC and is still on the ventilator). CONSULTS: Infectious Disease, Nephrology, and Pulmonary Medicine. PROCEDURES: None. HOSPITAL COURSE: The patient is a pleasant middle-aged male, who presented with respiratory failure and he did end up testing positive for COVID-19. He was intubated. He was on the vent in the ICU for quite some time. He was on high levels of oxygen, but eventually we were able to get him down to 50% FiO2. We discharged to the LTAC for continue vent weaning. DIS[facility]: [facility] ACTIVITY: Bed rest. DIET: Cardiac. MEDICATIONS: Please see the MRAD. TOTAL TIME: 32 minutes. LINDY COKER DO DR: ROBERT/deysi JOB#: [id number] / [id number]
== END 2020-03-11 13:00 | DRG 870 ==
LOC: ER 00:16 → 1 WEST ICU 02:32 → 6 SOUTH 03:30 → 1 WEST ICU 03-01 11:14
PROVIDERS: ADMIT Internal Medicine; ATTEND Internal Medicine
PROC: 02HV33Z Insertion of Infusion Device into Superior Vena Cava, Percutaneous Approach (ICD-10-PCS; 2020-02-27)
PROC: XW13325 Transfusion of Convalescent Plasma (Nonautologous) into Peripheral Vein, Percutaneous Approach, New Technology Group 5 (ICD-10-PCS; 2020-03-01)
PROC: 5A1955Z Respiratory Ventilation, Greater than 96 Consecutive Hours (ICD-10-PCS; principal; 2020-03-02)
PROC: 0BH17EZ Insertion of Endotracheal Airway into Trachea, Via Natural or Artificial Opening (ICD-10-PCS; 2020-03-02)
PROC: B548ZZA Ultrasonography of Superior Vena Cava, Guidance (ICD-10-PCS; 2020-03-02)
DX: A41.9 Sepsis, unspecified organism (principal); U07.1 COVID-19; J96.01 Acute respiratory failure with hypoxia; J12.89 Other viral pneumonia; E87.0 Hyperosmolality and hypernatremia; E87.2 Acidosis; G93.40 Encephalopathy, unspecified; M62.82 Rhabdomyolysis; T82.838A Hemorrhage due to vascular prosthetic devices, implants and grafts, initial encounter; N17.9 Acute kidney failure, unspecified; D63.8 Anemia in other chronic diseases classified elsewhere; E11.40 Type 2 diabetes mellitus with diabetic neuropathy, unspecified; E11.42 Type 2 diabetes mellitus with diabetic polyneuropathy; E11.65 Type 2 diabetes mellitus with hyperglycemia; E78.00 Pure hypercholesterolemia, unspecified; E78.5 Hyperlipidemia, unspecified; F03.90 Unspecified dementia, unspecified severity, without behavioral disturbance, psychotic disturbance, mood disturbance, and anxiety; I10 Essential (primary) hypertension; K21.9 Gastro-esophageal reflux disease without esophagitis; R32 Unspecified urinary incontinence; T38.0X5A Adverse effect of glucocorticoids and synthetic analogues, initial encounter; Y83.8 Other surgical procedures as the cause of abnormal reaction of the patient, or of later complication, without mention of misadventure at the time of the procedure; K57.90 Diverticulosis of intestine, part unspecified, without perforation or abscess without bleeding
CPT/HCPCS: 36415; 36600; 71045; 80048; 80053; 81001; 82550; 82728; 82805; 82962; 83615; 83735; 83880; 84145; 84484; 85007; 85025; 85027; 85379; 86140; 86850; 86900; 86901; 86927; 87493; 93005; 94002; 94003; 99291; C9113; J0330; J0360; J1650; J1815; J1940; J2020; J2250; J2543; J2704; J2920; J3010; J3490; J7030; 92610-GN; G0378; P9017